=== PATIENT | male | born 1975 ===

== ENCOUNTER 2020-01-31 14:47 | Emergency (ER) | payer MEDICAID, SELFPAY ==
--- NOTE | 2020-01-31 | XR_ITS ---
EXAMINATION: XR CHEST CLINICAL INFORMATION: Asthma and cough. COMPARISON: Chest 09/28/2019 TECHNIQUE: 2 views of the chest were obtained. FINDINGS: The lungs are well-expanded with slight increase interstitial markings but no consolidation or mass seen. Heart size and vascularity is normal. No gross bony abnormality seen. XR/XR chest 2V IMPRESSION: No acute cardiopulmonary process seen.
[2020-01-31 15:12] VITALS: BP 151/97; PULSE 75; RESP 16; TEMP 36.6; O2SAT 98; BMI 25.7
--- NOTE | 2020-01-31 15:27 | ECG_ITS ---
Test Reason : FATIQUE Blood Pressure : / mmHG Vent. Rate : 069 BPM Atrial Rate : 069 BPM P-R Int : 156 ms QRS Dur : 090 ms QT Int : 376 ms P-R-T Axes : 029 014 020 degrees QTc Int : 402 ms Normal sinus rhythm Inferior infarct (cited on or before 28-SEP-2019) Abnormal ECG When compared with ECG of 28-SEP-2019 10:25, ST no longer elevated in Inferior leads ST no longer elevated in Lateral leads Inverted T waves have replaced nonspecific T wave abnormality in Inferior leads Nonspecific T wave abnormality now evident in Anterior leads Referred By: Generic ED Physician Electronically Signed By:KENDRA JACOBS MD
--- NOTE | 2020-01-31 16:10 | ED_ITS ---
HPI - Asthma General Chief Complaint: Asthma Stated Complaint: asthma Time Seen by Provider: 01/31/20 16:10 Source: patient Mode of arrival: ambulatory Limitations: language barrier (Assistant Inventory Manager present) History of Present Illness HPI Narrative: Patient is a 44-year-old male with a past medical history of an [place] approximately 4 months ago and asthma, he is complaining of 1 week of shortness of breath, thinks it is related to his asthma. He does use Advair daily and albuterol as needed, states he used albuterol today with no relief. He denies any COVID contacts or any other sick contacts. 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 Denies fever chills nausea vomiting or any travel. Related Data Previous Rx's Medication Instructions Recorded azithromycin See Rx Instructions .ROUTE 01/31/20 .COMPLEX #6 tab prednisone 50 mg PO DAILY #5 tab 01/31/20 Allergies Allergy/AdvReac Type Severity Reaction Status Date / Time No Known Allergies Allergy Verified 01/31/20 16:07 [No Known Allergies*] Review of Systems Review of Systems: see HPI PMFSH Past Medical History Medical History Asthma GERD (gastroesophageal reflux disease) Myocardial infarct Surgical History History of cardiac cath Social History Social History Advance Directives: No Advance Directives Information Provided: Yes Physical Exam Vital Signs: Vital Signs: Last Vital Signs Temp 98 F 01/31/20 15:12 Pulse 75 01/31/20 15:12 Resp 16 01/31/20 15:12 BP 151/97 H 01/31/20 15:12 Pulse Ox 98 01/31/20 15:12 Body Mass Index 25.7 Const: General: cooperative, healthy appearing, comfortable, no acute distress and well developed Nutritional Appearance: well nourished Orientation/consciousness: patient oriented x3 Limitations: language barrier (interpretor used as Setswana speaking only) HENMT: Head: Yes normal to inspection Eyes: General: appearance normal, both eyes and all related structures Neck: Neck: Yes normal visual inspection, Yes full ROM and Yes supple Resp: Effort & Inspection: normal respiratory effort and able to speak in complete sentences Auscultation: not clear to auscultation bilaterally, crackles, no rales, rhonchi and wheezes Cardio: Rate: regular rate Rhythm: regular rhythm Heart sounds: normal S1 and S2 Skin: General skin exam: no rashes or lesions noted Neuro: General: patient oriented x3 MDM - Asthma MDM Narrative Medical decision making narrative: ? pulmonary edema, asthma exacerbation, PNA, viral illness, pneumothorax. Will do CXR, labs and reassess. Lab Data Result diagrams: 01/31/20 17:13 01/31/20 17:13 Labs: Lab Results 01/31/20 01/31/20 01/31/20 Range/Units 16:22 17:13 17:13 WBC 6.1 (4.8-10.8) X10*3/uL RBC 4.57 L (4.60-5.80) X10*6/uL Hgb 14.2 (14.0-18.0) g/dl Hct 39.9 L (42-52) % MCV 87.3 (80-98) fL MCH 31.1 (27.0-33.0) pg MCHC 35.6 (31.0-36.0) g/dl RDW 11.0 (11.0-16.0) % Plt Count 346 (160-400) X10*3/uL MPV 9.1 L (9.4-12.4) fL Immature Gran % (Auto) 0.2 (0.0-0.4) % Neut % (Auto) 65.1 (45-73) % Lymph % (Auto) 19.0 L (20-40) % [place] % (Auto) 7.2 (2-11) % Eos % (Auto) 8.2 H (0-4) % Baso % (Auto) 0.3 (0-2) % Lymph # (Auto) 1.2 (1.2-4.9) X10*3/uL [place] # (Auto) 0.4 (0.1-1.2) X10*3/uL Eos # (Auto) 0.5 H (0.0-0.4) X10*3/uL Baso # (Auto) 0.0 (0.0-0.2) X10*3/uL Abs Immat Gran (auto) 0.01 (0.00-0.03) X10*3/uL Absolute Neuts (auto) 4.0 (2.0-8.3) X10*3/uL Absolute Nucleated RBC 0.000 (0.0-0.012) X10*3/uL Nucleated RBC % (auto) 0.0 (0.0-0.2) /100WBC Sodium 136 (135-145) mmol/L Potassium 3.8 (3.3-5.1) mmol/l Chloride 102 (96-108) mmol/L Carbon Dioxide 26 (22-29) mmol/L Anion Gap 12 (12-20) BUN 9 (9-16) mg/dL Creatinine 1.04 (0.5-1.4) mg/dL Estim Creat Clear Calc 74.3 Estimated GFR > 60 Random Glucose 97 (60-115) mg/dL Calcium 9.6 (8.4-10.2) mg/dL Magnesium 2.0 (1.6-2.6) mg/dL Troponin I High Sens < 3.5 (<3.5-35.0) ng/L B-Natriuretic Peptide (<100) pg/mL 01/31/20 Range/Units 17:13 WBC (4.8-10.8) X10*3/uL RBC (4.60-5.80) X10*6/uL Hgb (14.0-18.0) g/dl Hct (42-52) % MCV (80-98) fL MCH (27.0-33.0) pg MCHC (31.0-36.0) g/dl RDW (11.0-16.0) % Plt Count (160-400) X10*3/uL MPV (9.4-12.4) fL Immature Gran % (Auto) (0.0-0.4) % Neut % (Auto) (45-73) % Lymph % (Auto) (20-40) % [place] % (Auto) (2-11) % Eos % (Auto) (0-4) % Baso % (Auto) (0-2) % Lymph # (Auto) (1.2-4.9) X10*3/uL [place] # (Auto) (0.1-1.2) X10*3/uL Eos # (Auto) (0.0-0.4) X10*3/uL Baso # (Auto) (0.0-0.2) X10*3/uL Abs Immat Gran (auto) (0.00-0.03) X10*3/uL Absolute Neuts (auto) (2.0-8.3) X10*3/uL Absolute Nucleated RBC (0.0-0.012) X10*3/uL Nucleated RBC % (auto) (0.0-0.2) /100WBC Sodium (135-145) mmol/L Potassium (3.3-5.1) mmol/l Chloride (96-108) mmol/L Carbon Dioxide (22-29) mmol/L Anion Gap (12-20) BUN (9-16) mg/dL Creatinine (0.5-1.4) mg/dL Estim Creat Clear Calc Estimated GFR Random Glucose (60-115) mg/dL Calcium (8.4-10.2) mg/dL Magnesium (1.6-2.6) mg/dL Troponin I High Sens (<3.5-35.0) ng/L B-Natriuretic Peptide < 10 (<100) pg/mL Imaging Data Chest x-ray: Radiologist's impression: FINDINGS: The lungs are well-expanded with slight increase interstitial markings but no consolidation or mass seen. Heart size and vascularity is normal. No gross bony abnormality seen. XR/XR chest 2V IMPRESSION: No acute cardiopulmonary process seen. ECG Data Attestation: I personally reviewed and interpreted this ECG as follows: ECG interpretation date: 01/31/20 ECG interpretation time: 16:35 Prior ECG tracings: available for review Interpretation: NSR 66BPM no st changes Discharge Plan Discharge Clinical Impression: Chronic obstructive asthma with exacerbation Patient Disposition: Home, Self-Care Instructions: Asthma (ED) Prescriptions: New azithromycin 250 mg tablet See Rx Instructions .ROUTE .COMPLEX Qty: 6 RF: 0 prednisone 50 mg tablet 50 mg PO DAILY Qty: 5 RF: 0 Stand Alone Forms: Work/School Release Print Language: Setswana
[2020-01-31 17:00] LABS: Troponin-I High Sensitivity < 3.5 ng/L (<3.5-35.0)
[2020-01-31 17:17] LABS: MANUAL DIFF FLAG NO
[2020-01-31 17:18] LABS: Basophils Percent Auto 0.3 % (0-2); Eosinophils Absolute Auto 0.5 X10*3/uL (0.0-0.4); Eosinophils Percent Auto 8.2 % (0-4); Hematocrit 39.9 % (42-52); Hemoglobin 14.2 g/dl (14.0-18.0); Imm Gran Abs Auto 0.01 X10*3/uL (0.00-0.03); Imm Gran Pct Auto 0.2 % (0.0-0.4); Lymphocytes Absolute Auto 1.2 X10*3/uL (1.2-4.9); Mean Corpuscular HGB Conc 35.6 g/dl (31.0-36.0); Mean Corpuscular Hemoglobin 31.1 pg (27.0-33.0); Mean Corpuscular Volume 87.3 fL (80-98); Mean Platelet Volume 9.1 fL (9.4-12.4); Monocytes Absolute Auto 0.4 X10*3/uL (0.1-1.2); Monocytes Percent Auto 7.2 % (2-11); Neutrophils Percent Auto 65.1 % (45-73); Platelet Count 346 X10*3/uL (160-400); Red Blood Count 4.57 X10*6/uL (4.60-5.80); White Blood Count 6.1 X10*3/uL (4.8-10.8)
[2020-01-31 17:54] LABS: Anion Gap 12 (12-20); Blood Urea Nitrogen 9 mg/dL (9-16); Calcium 9.6 mg/dL (8.4-10.2); Carbon Dioxide 26 mmol/L (22-29); Chloride 102 mmol/L (96-108); Creatinine Clr Calc Pharmacy 74.3; Estimated Glomerular Filt Rate > 60; Glucose Random 97 mg/dL (60-115); Potassium 3.8 mmol/l (3.3-5.1); Sodium 136 mmol/L (135-145)
[2020-01-31 18:00] LABS: B Type Natriuretic Peptide < 10 pg/mL (<100)
[2020-01-31 18:13] VITALS: BP 126/78; PULSE 77; RESP 17; TEMP 36.9; O2SAT 99
--- NOTE | 2020-02-01 07:35 | ECG_ITS ---
Test Reason : ASTHMA, FATIGUE Blood Pressure : / mmHG Vent. Rate : 066 BPM Atrial Rate : 066 BPM P-R Int : 160 ms QRS Dur : 088 ms QT Int : 388 ms P-R-T Axes : 049 038 033 degrees QTc Int : 406 ms Normal sinus rhythm Normal ECG When compared with ECG of 31-JAN-2020 16:12, No significant change was found Referred By: Luis Espinoza Electronically Signed By:KENDRA JACOBS MD
== END 2020-01-31 18:25 | disposition home or self-care (01) ==
PROVIDERS: Physician Assistant; Emergency Provider Emergency Medicine Emergency Medical Services
DX: J44.1 Chronic obstructive pulmonary disease with (acute) exacerbation (principal); Z20.828 Contact with and (suspected) exposure to other viral communicable diseases; J45.909 Unspecified asthma, uncomplicated; Z79.899 Other long term (current) drug therapy
CPT/HCPCS: 36415; 71046; 80048; 83735; 83880; 84484; 85025; 93005; 99283

== ENCOUNTER → 2020-02-13 09:54 | Outpatient (BNVA) | payer MEDICAID, SELFPAY | PROVIDERS: Visit Provider Internal Medicine Cardiovascular Disease | DX: I21.3 ST elevation (STEMI) myocardial infarction of unspecified site (principal); I48.0 Paroxysmal atrial fibrillation | CPT/HCPCS: 99212 ==

== ENCOUNTER 2020-02-24 12:56 | Outpatient (REF) | payer MEDICAID, SELFPAY | END 2020-02-24 12:57 | disposition home or self-care (01) | LOC: HO.LAB 12:56 | PROVIDERS: PCP Nurse Practitioner Family; Visit Provider Internal Medicine | DX: Z20.828 Contact with and (suspected) exposure to other viral communicable diseases (principal) | CPT/HCPCS: C9803; U0003 ==

== ENCOUNTER 2020-04-02 15:28 | Emergency (ER) | payer MEDICAID, SELFPAY ==
[2020-04-02 15:55] VITALS: BP 163/107; PULSE 95; RESP 18; TEMP 36.8; O2SAT 98; BMI 28.0
== END 2020-04-02 17:14 | disposition left against medical advice (07) ==
PROVIDERS: Emergency Provider Emergency Medicine
DX: M25.512 Pain in left shoulder (principal); M54.2 Cervicalgia
CPT/HCPCS: 99281; 99282

== ENCOUNTER 2020-04-15 11:18 | Emergency (ER) | payer MEDICAID, SELFPAY ==
--- NOTE | ~2020-04-15 | CT_ITS ---
EXAMINATION: CT CERVICAL SPINE WITHOUT CONTRAST CLINICAL INFORMATION: Left-sided pain COMPARISON: None TECHNIQUE: Helical imaging of the cervical spine was performed without administration of IV contrast. Coronal and sagittal reformatted images were generated. This CT examination was performed using dose optimization techniques as appropriate, variously including the following: *Automated exposure control *Adjustment of mA and/or kV according to patient size (this includes techniques or standardized protocols for targeted exams where dose is matched to indication/reason for exam; i.e. extremities or head) *Use of iterative reconstruction technique DLP: 600 mGy-cm FINDINGS: There is mild reversal of the normal lordosis of the cervical spine. No acute fracture or dislocation. Vertebral body heights are maintained. Posterior elements are intact. The paravertebral soft tissues are normal. Normal C1-C2 articulation. Spinal levels: C2-C3: Normal. C3-C4: Moderate to severe intervertebral disc space narrowing with anterior and uncovertebral osteophyte formation. There is moderate bilateral neural foraminal narrowing. C4-C5: Moderate intervertebral disc space narrowing with anterior and uncovertebral osteophyte formation. Mild bilateral neural foraminal narrowing. C5-C6: Mild intervertebral disc space narrowing with uncovertebral osteophyte formation. Mild right neural foraminal narrowing.. C6-C7: Mild intervertebral disc space narrowing with endplate sclerosis. Anterior and uncovertebral osteophyte formation. Moderate left foraminal stenosis. C7-T1: Mild intervertebral disc space narrowing. Mild left neuroforaminal narrowing. CT/CT cervical spine wo con IMPRESSION: No acute fracture or dislocation. Multilevel degenerative changes as detailed above, most prominent at C3-C4 with moderate bilateral neuroforaminal narrowing.
[2020-04-15 11:20] VITALS: BP 133/72; PULSE 80; RESP 16; TEMP 36.8; O2SAT 100; BMI 56.7
--- NOTE | 2020-04-15 11:51 | ED_ITS ---
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 patient is on xarelto at this time - he c/o L neck pain x 3.5 weeks that radiates up and down to shoulder exacerbated by movements and work - has not been able to see a provider for this complaint MD Complaint: other (neck and shoulder pain) Onset (ago): week(s) (3) Pain Consistency: constant Location: left Quality: stabbing Radiation: distal Relieving factors: nothing Exacerbating factors: range of motion Associated symptoms: denies other symptoms Related Data Home Medications Medication Instructions Recorded Confirmed atorvastatin 40 mg tablet 40 mg PO DAILY 02/13/20 02/13/20 loratadine 10 mg tablet 10 mg PO DAILY 02/13/20 02/13/20 rivaroxaban 20 mg tablet 20 mg PO DAILY 02/13/20 02/13/20 Previous Rx's Medication Instructions Recorded azithromycin See Rx Instructions .ROUTE 01/31/20 .COMPLEX #6 tab prednisone 50 mg PO DAILY #5 tab 01/31/20 carvedilol 3.125 mg tablet 3.125 mg PO BID 90 Days #180 tab 04/03/20 diazepam [Valium] 5 mg PO TID PRN #10 tab 04/15/20 hydrocodone-acetaminophen 1 tab PO Q6H PRN #12 tab 04/15/20 lidocaine 1 patch TOPICAL DAILY PRN #10 ea 04/15/20 prednisone 40 mg PO DAILY 4 Days #8 tab 04/15/20 Allergies Allergy/AdvReac Type Severity Reaction Status Date / Time No Known Allergies Allergy Verified 01/31/20 16:07 [No Known Allergies*] Review of Systems Review of Systems: Constitutional : No Fever, No Chills ENT/Mouth : No Ear Pain, No Hoarseness, No sore throat, L neck pain Eyes: No Eye Pain, No Swelling, No Redness, No Foreign Body Cardiovascular : No Chest Pain, No SOB Respiratory : No Cough, No Dyspnea Gastrointestinal : No Nausea, No Vomiting, No Diarrhea, No abdominal Pain Genitourinary : No Dysuria, No Hematuria Musculoskeletal : positive joint pain (pain moves from his neck), No Myalgias, No Joint Swelling Skin : No Skin lacerations, No rash Neuro : No Weakness, No Numbness, No Loss of Consciousness, No Dizziness, No Headache Psych : No Anxiety/Panic, No Depression [facility] Past Medical History Medical History Asthma GERD (gastroesophageal reflux disease) Myocardial infarct Surgical History History of cardiac cath Family History Family History (Updated 02/08/20 @ 09:55 by Patricia Vasquez) Father Alzheimers disease Mother Asthma Diabetes Social History Social History Smoking Status: Former smoker Advance Directives: No Advance Directives Information Provided: No Physical Exam Vital Signs: Vital Signs: Last Vital Signs Temp 98.2 F 04/15/20 11:20 Pulse 80 04/15/20 11:20 Resp 16 04/15/20 11:20 BP 133/72 04/15/20 11:20 Pulse Ox 100 04/15/20 11:20 Body Mass Index 56.7 Appearance: Alert. Oriented X3. No acute distress. Eyes: Pupils equal, round and reactive to light. ENT: Pharynx normal. Neck: Spasm L trapezius, L arm NV intact, ttp along L cervical lateral spine no swelling, + Spurlings sign which reproduces pain CVS: Normal heart rate and rhythm. Pulses normal. Respiratory: No respiratory distress. Breath sounds normal. Abdomen: Soft and nontender. Skin: Skin warm and dry. Normal skin color. Normal skin turgor. Extremities: No lower extremity edema. No calf ttp Neuro: Oriented X 3. No motor deficit. No sensory deficit. Course Course Course Narrative: stable for DC at this time MDM - Extremity (Nontraumatic) MDM Narrative Medical decision making narrative: L sided neck pain x 3 weeks seems MSK in nature given symptoms suspect cervical radiculopathy he is NV intact will obtain CT cspine to evaluate for significant DD - PO medications, steroids, pain patch, muscle relaxers, anticipate DC home with PCP follow up Discharge Plan Discharge Clinical Impression: Cervical disc disease, Cervical radiculopathy Patient Disposition: Home, Self-Care Instructions: Cervical Radiculopathy (ED) Additional Instructions: return to ED for any worsening symptoms or concerns CT scan shows disc disease C2-C3: Normal. C3-C4: Moderate to severe intervertebral disc space narrowing with anterior and uncovertebral osteophyte formation. There is moderate bilateral neural foraminal narrowing. C4-C5: Moderate intervertebral disc space narrowing with anterior and uncovertebral osteophyte formation. Mild bilateral neural foraminal narrowing. C5-C6: Mild intervertebral disc space narrowing with uncovertebral osteophyte formation. Mild right neural foraminal narrowing.. C6-C7: Mild intervertebral disc space narrowing with endplate sclerosis. Anterior and uncovertebral osteophyte formation. Moderate left foraminal stenosis. C7-T1: Mild intervertebral disc space narrowing. Mild left neuroforaminal narrowing. Prescriptions: New lidocaine 4 % adhesive patch,medicated 1 patch topical DAILY PRN (Reason: pain) Qty: 10 RF: 0 hydrocodone-acetaminophen 5-325 mg tablet 1 tab PO Q6H PRN (Reason: pain) Qty: 12 RF: 0 prednisone 20 mg tablet 40 mg PO DAILY 4 Days Qty: 8 RF: 0 diazepam [Valium] 5 mg tablet 5 mg PO TID PRN (Reason: muscle spasm) Qty: 10 RF: 0 No Action carvedilol 3.125 mg tablet 3.125 mg PO BID 90 Days Qty: 180 RF: 1 azithromycin 250 mg tablet See Rx Instructions .ROUTE .COMPLEX Qty: 6 RF: 0 prednisone 50 mg tablet 50 mg PO DAILY Qty: 5 RF: 0 atorvastatin 40 mg tablet 40 mg PO DAILY RF: 0 loratadine [Allergy Relief (loratadine)] 10 mg tablet 10 mg PO DAILY RF: 0 Xarelto 20 mg tablet 20 mg PO DAILY RF: 0 Referrals: Physician,Unknown [Primary Care Provider] - 2 days (if not better, may need MRI or PT) Stand Alone Forms: Work/School Release
[2020-04-15] MEDS: Lidocaine 4 % Patch ADH..PATCH 1 PATCH TRANSDERMA (12:59)
[2020-04-15] MEDS: diazePAM 5 MG TABLET PO (13:00)
[2020-04-15] MEDS: predniSONE 20 MG TABLET 60 MG PO (13:00)
== END 2020-04-15 13:13 | disposition home or self-care (01) ==
PROVIDERS: Emergency Provider Emergency Medicine
DX: M50.11 Cervical disc disorder with radiculopathy, high cervical region (principal)
CPT/HCPCS: 72125; 99283; 99284

== ENCOUNTER 2020-04-24 15:19 | Emergency (ER) | payer MEDICAID, SELFPAY ==
[2020-04-24 16:07] VITALS: BP 137/90; PULSE 86; RESP 18; TEMP 36; O2SAT 98; BMI 56.7
== END 2020-04-24 18:03 | disposition left against medical advice (07) ==
PROVIDERS: Emergency Provider Emergency Medicine
DX: R42 Dizziness and giddiness (principal); S09.90XA Unspecified injury of head, initial encounter; X58.XXXA Exposure to other specified factors, initial encounter; I48.91 Unspecified atrial fibrillation; I25.2 Old myocardial infarction; Y93.9 Activity, unspecified; Y92.9 Unspecified place or not applicable; Y99.9 Unspecified external cause status; Z79.01 Long term (current) use of anticoagulants
CPT/HCPCS: 99281; 99282

== ENCOUNTER 2020-05-29 15:19 | Outpatient (REF) | payer MEDICAID, SELFPAY | END 2020-05-29 15:20 | disposition home or self-care (01) | LOC: HO.LAB 15:19 | PROVIDERS: Visit Provider Internal Medicine | DX: Z20.822 Contact with and (suspected) exposure to COVID-19 (principal) | CPT/HCPCS: 36415; C9803; U0003; U0005 ==

== ENCOUNTER → 2020-08-20 13:26 | Outpatient (BNVA) | payer MEDICAID, SELFPAY | PROVIDERS: PCP Nurse Practitioner Family; Referring Provider Nurse Practitioner Family; Visit Provider Internal Medicine Cardiovascular Disease | DX: I21.3 ST elevation (STEMI) myocardial infarction of unspecified site (principal); I48.0 Paroxysmal atrial fibrillation; Z79.899 Other long term (current) drug therapy | CPT/HCPCS: 99212 ==

== ENCOUNTER 2020-09-19 11:13 | Emergency (ER) | payer MEDICAID, SELFPAY ==
--- NOTE | ~2020-09-19 | XR_ITS ---
EXAMINATION: XR CHEST CLINICAL INFORMATION: SOB. COMPARISON: Chest x-ray 01/31/2020 TECHNIQUE: Frontal view of the chest was obtained. FINDINGS: The lungs are well-expanded and clear. There is a 7 mm nodule right middle lobe. The heart size and pulmonary vascularity is normal. No gross bony abnormality seen. XR/XR chest 1V IMPRESSION: 7 mm nodule right middle lobe. Otherwise the lungs are well-expanded and clear.
[2020-09-19 11:29] VITALS: BP 118/80; PULSE 78; RESP 18; TEMP 36.6; O2SAT 97; BMI 25.7
[2020-09-19 13:08] VITALS: BP 132/99; PULSE 75; RESP 16; O2SAT 99
--- NOTE | 2020-09-19 13:14 | ED_ITS ---
HPI - Asthma General Chief Complaint: Asthma Stated Complaint: difficulty breathing, cough Time Seen by Provider: 09/19/20 13:12 Source: patient Mode of arrival: ambulatory Limitations: no limitations History of Present Illness HPI Narrative: 45-year-old male with history of asthma came in from work for evaluation of 3 days of cough, describes the cough as mostly nonproductive cough with scant of white sputum sometimes, no fever, no chills. 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 Related Data Home Medications Medication Instructions Recorded Confirmed loratadine 10 mg tablet 10 mg PO DAILY 02/13/20 02/13/20 Previous Rx's Medication Instructions Recorded azithromycin See Rx Instructions .ROUTE 01/31/20 .COMPLEX #6 tab prednisone 50 mg PO DAILY #5 tab 01/31/20 diazepam [Valium] 5 mg PO TID PRN #10 tab 04/15/20 hydrocodone-acetaminophen 1 tab PO Q6H PRN #12 tab 04/15/20 lidocaine 1 patch TOPICAL DAILY PRN #10 ea 04/15/20 prednisone 40 mg PO DAILY 4 Days #8 tab 04/15/20 carvedilol 3.125 mg tablet 3.125 mg PO BID 90 Days #180 tab 04/16/20 rivaroxaban 20 mg tablet 20 mg PO DAILY 90 Days #90 tab 04/16/20 atorvastatin 40 mg tablet 40 mg PO DAILY 90 Days #90 tab 05/03/20 albuterol sulfate 1 inh INHALATION QID PRN #8.5 g 09/19/20 prednisone 20 mg PO BID #10 tab 09/19/20 Allergies Allergy/AdvReac Type Severity Reaction Status Date / Time No Known Allergies Allergy Verified 04/24/20 16:06 [No Known Allergies*] Review of Systems Review of Systems: All other systems are reviewed and are negative Constitutional: Reports as per HPI and Reports no additional constitutional complaints Eyes: Reports as per HPI and Reports no additional eye complaints Reports system reviewed and no additional complaints, except as documented Cardiovascular: Reports as per HPI and Reports no additional cardiovascular complaints Respiratory: Reports as per HPI and Reports no additional respiratory complaints Gastrointestinal: Reports as per HPI and Reports no additional gastrointestinal complaints Genitourinary: Reports no additional female genitourinary complaints Musculoskeletal: Reports no additional musculoskeletal complaints Skin/Breast: Reports system reviewed and no additional complaints, except as docu Psychiatric: Reports no additional psychiatric complaints Endocrine: Reports no additional endocrine complaints Hematologic/Lymphatic: Reports no additional hematologic/lymphatic complaints Allergic/Immunologic: Reports no additional allergic/immunologic complaints Reports system reviewed and no additional complaints, except as documented and Reports Abnormal speech present [facility] Past Medical History Medical History Asthma GERD (gastroesophageal reflux disease) Myocardial infarct Surgical History History of cardiac cath Family History Family History Father Alzheimers disease Mother Asthma Diabetes Social History Social History Advance Directives: Yes Advance Directives Information Provided: Yes Advance Directives on File: No Physical Exam Vital Signs: Vital Signs: Last Vital Signs Temp 97.9 F 09/19/20 11:29 Pulse 67 09/19/20 13:32 Resp 16 09/19/20 13:08 BP 132/99 H 09/19/20 13:08 Pulse Ox 99 09/19/20 13:08 Body Mass Index 25.7 Vital signs have been reviewed as appeared to be correct. Blood pressure normal. Heart rate normal. Respiration rate normal. Temperature normal. Oxygen saturation normal. Appearance: Alert. Oriented X3. No acute distress. Head: Normal external exam. Normocephalic. Atraumatic. No Swanson signs noted. No raccoon eyes noted Eyes: PERRLA. EOMI. Conjunctiva and sclera normal. Eyelids normal. ENT: TM's Normal. Pharynx normal. Uvula midline. Moist mucous membranes. No trismus noted. No drooling noted. No muffled voice noted. Neck: Normal inspection. Neck supple. FROM. No adenopathy. Thyroid Normal. No meningeal signs. No neck mass noted. CVS: Normal heart rate and rhythm. Heart sound normal. No murmurs noted. Pulses normal throughout. Respiratory: No respiratory distress. Painless inspiration. Breath sounds normal. Diffuse mild expiratory wheezing, no rales, or rhonchi noted. Chest nontender. No accessory muscle usage noted or decreased air movement noted. Abdomen: Soft and nontender. Bowel sounds normal in all 4 quadrants. No distention noted. No organomegaly noted. No visible injury noted. Back: No CVA tenderness. Full range of motion noted. Skin: Skin warm and dry. Normal skin color. Normal skin turgor. No rashes/lesions/lacerations noted. Extremities: No lower extremity edema. Extremities exhibit normal range of motion. Extremities nontender. Neuro: Oriented X 3. No motor deficit. No sensory deficit. Reflexes normal. Course Course Course Narrative: Assessment and plan. Acute asthma exacerbation start the patient on albuterol/prednisone. Low back pain with left-sided sciatica. As discussed with the patient need bedrest for couple days. MDM - Asthma Lab Data Labs: Lab Results 09/19/20 Range/Units 13:15 COVID-19 ([facility]) Negative (Negative) COVID-19 Clin Com See Note Imaging Data Chest x-ray: Radiologist's impression: 7 mm nodule right middle lobe. Otherwise the lungs are well-expanded and clear. Discharge Plan Discharge Clinical Impression: Acute left lumbar radiculopathy Asthma with acute exacerbation Qualifiers: Asthma severity: mild Asthma persistence: unspecified Qualified Code(s): J45.901 - Unspecified asthma with (acute) exacerbation Patient Disposition: Home, Self-Care Instructions: Bronchospasm (ED) Prescriptions: New albuterol sulfate 90 mcg/actuation HFA aerosol inhaler 1 inh inhalation QID PRN (Reason: shortness of breath or wheezing) Qty: 8.5 RF: 0 prednisone 20 mg tablet 20 mg PO BID Qty: 10 RF: 0 No Action Xarelto 20 mg tablet 20 mg PO DAILY 90 Days Qty: 90 RF: 1 carvedilol 3.125 mg tablet 3.125 mg PO BID 90 Days Qty: 180 RF: 1 atorvastatin 40 mg tablet 40 mg PO DAILY 90 Days Qty: 90 RF: 1 lidocaine 4 % adhesive patch,medicated 1 patch topical DAILY PRN (Reason: pain) Qty: 10 RF: 0 hydrocodone-acetaminophen 5-325 mg tablet 1 tab PO Q6H PRN (Reason: pain) Qty: 12 RF: 0 prednisone 20 mg tablet 40 mg PO DAILY 4 Days Qty: 8 RF: 0 diazepam [Valium] 5 mg tablet 5 mg PO TID PRN (Reason: muscle spasm) Qty: 10 RF: 0 azithromycin 250 mg tablet See Rx Instructions .ROUTE .COMPLEX Qty: 6 RF: 0 prednisone 50 mg tablet 50 mg PO DAILY Qty: 5 RF: 0 loratadine [Allergy Relief (loratadine)] 10 mg tablet 10 mg PO DAILY RF: 0 Referrals: Christina Nunn NP [Primary Care Provider] - 2 days Stand Alone Forms: Work/School Release
[2020-09-19] MEDS: Albuterol Sulfate (0.083%) 2.5 MG/3 ML VIAL.NEB INHALE (13:31)
[2020-09-19] MEDS: Albuterol/Iprat 2.5/0.5MG 3 ML AMPUL.NEB INHALE (13:31)
[2020-09-19 13:32] VITALS: PULSE 67; O2SAT 98
[2020-09-19 13:38] LABS: COVID-19 Test Negative (Negative)
== END 2020-09-19 15:01 | disposition home or self-care (01) ==
PROVIDERS: Emergency Provider Emergency Medicine; PCP Nurse Practitioner Family
DX: M54.16 Radiculopathy, lumbar region (principal); J45.901 Unspecified asthma with (acute) exacerbation; R06.02 Shortness of breath; R05 Cough; Z20.822 Contact with and (suspected) exposure to COVID-19; Z79.899 Other long term (current) drug therapy
CPT/HCPCS: 36415; 71045; 87635; 94640; 99284

== ENCOUNTER 2020-11-04 22:55 | Emergency (ER) | payer MEDICAID, SELFPAY ==
--- NOTE | ~2020-11-04 | XR_ITS ---
EXAMINATION: XR CHEST CLINICAL INFORMATION: Dyspnea, asthma COMPARISON: 09/19/2020 TECHNIQUE: 2 views of the chest were obtained. FINDINGS: There is central perihilar bronchial wall thickening consistent with history of asthma. No focal consolidation to suggest pneumonia. No pleural effusion or pneumothorax. Normal pulmonary vascularity. Regional skeleton intact. Normal heart size. XR/XR chest 2V IMPRESSION: Central perihilar bronchial wall thickening consistent with history of asthma. No focal consolidation to suggest pneumonia.
[2020-11-04 23:14] VITALS: BP 124/84; PULSE 73; RESP 20; TEMP 37; O2SAT 97; BMI 25.7
[2020-11-04 23:41] VITALS: BP 117/90; PULSE 67; RESP 15; O2SAT 97
[2020-11-04 23:41] LABS: COVID-19 Test Negative (Negative); IDNOW Serial# 9DD0AD1C
--- NOTE | 2020-11-04 23:50 | ED.ASTHMA ---
HPI - Asthma General Chief Complaint: Asthma Stated Complaint: asthma Time Seen by Provider: 11/04/20 23:50 Source: patient Mode of arrival: ambulatory Limitations: no limitations History of Present Illness HPI Narrative: History of asthma been feeling more short of breath for last 2 days using inhaler without much relief no fever no chills no contact with anyone with COVID patient already been vaccinated Related Data Home Medications Medication Instructions Recorded Confirmed loratadine 10 mg tablet (Allergy 10 mg PO DAILY 02/13/20 02/13/20 Relief (loratadine)) Previous Rx's Medication Instructions Recorded azithromycin 250 mg tablet See Rx Instructions .ROUTE 01/31/20 .COMPLEX #6 tab prednisone 50 mg tablet 50 mg PO DAILY #5 tab 01/31/20 diazepam 5 mg tablet (Valium) 5 mg PO TID PRN #10 tab 04/15/20 hydrocodone 5 mg-acetaminophen 325 1 tab PO Q6H PRN #12 tab 04/15/20 mg tablet lidocaine 4 % topical patch 1 patch TOPICAL DAILY PRN #10 ea 04/15/20 prednisone 20 mg tablet 40 mg PO DAILY 4 Days #8 tab 04/15/20 carvedilol 3.125 mg tablet 3.125 mg PO BID 90 Days #180 tab 04/16/20 atorvastatin 40 mg tablet 40 mg PO DAILY 90 Days #90 tab 05/03/20 albuterol sulfate 90 mcg/actuation 1 inh INHALATION QID PRN #8.5 g 09/19/20 aerosol inhaler prednisone 20 mg tablet 20 mg PO BID #10 tab 09/19/20 rivaroxaban 20 mg tablet (Xarelto) 20 mg PO DAILY 90 Days #90 tab 11/02/20 albuterol sulfate 90 mcg/actuation 2 puff INHALATION Q4-6H PRN #8.5 g 11/05/20 aerosol inhaler (ProAir HFA) benzonatate 100 mg capsule 100 mg PO TID PRN #30 cap 11/05/20 (Tessalon Perles) prednisone 20 mg tablet 40 mg PO DAILY #10 tab 11/05/20 Allergies Allergy/AdvReac Type Severity Reaction Status Date / Time No Known Allergies Allergy Verified 11/04/20 23:13 [No Known Allergies*] Review of Systems Review of Systems: Yes all other systems are reviewed and are negative PMFSH Past Medical History Medical History Asthma GERD (gastroesophageal reflux disease) Myocardial infarct Surgical History History of cardiac cath Family History Family History Father Alzheimers disease Mother Asthma Diabetes Social History Social History Patient Tobacco Use Status: Former Tobacco user Use of substances other than those prescribed or required for medical reasons: No Advance Directives: No Advance Directives Information Provided: Yes Physical Exam Vital Signs: Vital Signs: Last Vital Signs Temp 98.6 F 11/04/20 23:14 Pulse 73 11/05/20 00:29 Resp 15 11/04/20 23:41 BP 117/90 H 11/04/20 23:41 Pulse Ox 97 11/04/20 23:41 Body Mass Index 25.7 Appearance: Alert. Oriented X3. No acute distress. ENT: Pharynx normal. Oral Mucosa moist Neck: Normal inspection. Neck supple. CVS: Normal heart rate and rhythm. Pulses normal. Respiratory: mild respiratory distress. Equal air entry bilateral, bilateral wheezing and rhonchi no rales Abdomen: Soft and nontender. Bowel sounds are present, no mass palpable, no CVA tenderness Skin: Skin warm and dry. Normal skin color. Normal skin turgor. Extremities: No lower extremity edema. No calf tenderness Neuro: Oriented X 3. MDM - Asthma MDM Narrative Medical decision making narrative: Patient feeling better after nebulizing treatment saturating 97% on room air will discharge patient home Lab Data Attestation: I reviewed the patient's lab results. Labs: Lab Results 11/04/20 Range/Units 23:20 COVID-19 ([facility]) Negative (Negative) COVID-19 Clin Com See Note Discharge Plan Discharge Clinical Impression: Asthma with acute exacerbation Qualifiers: Asthma severity: moderate Asthma persistence: persistent Qualified Code(s): J45.41 - Moderate persistent asthma with (acute) exacerbation Patient Disposition: Home, Self-Care Instructions: Asthma (ED) Additional Instructions: Continue to use albuterolinhaler every 4-6 hours as needed Prednisone as advised Follow with PCP if not better Prescriptions: New prednisone 20 mg tablet 40 mg PO DAILY Qty: 10 RF: 0 albuterol sulfate [ProAir HFA] 90 mcg/actuation HFA aerosol inhaler 2 puff inhalation Q4-6H PRN (Reason: shortness of breath or wheezing) Qty: 8.5 RF: 0 benzonatate [Tessalon Perles] 100 mg capsule 100 mg PO TID PRN (Reason: cough) Qty: 30 RF: 0 No Action carvedilol 3.125 mg tablet 3.125 mg PO BID 90 Days Qty: 180 RF: 1 atorvastatin 40 mg tablet 40 mg PO DAILY 90 Days Qty: 90 RF: 1 Xarelto 20 mg tablet 20 mg PO DAILY 90 Days Qty: 90 RF: 1 lidocaine 4 % adhesive patch,medicated 1 patch topical DAILY PRN (Reason: pain) Qty: 10 RF: 0 hydrocodone-acetaminophen 5-325 mg tablet 1 tab PO Q6H PRN (Reason: pain) Qty: 12 RF: 0 prednisone 20 mg tablet 40 mg PO DAILY 4 Days Qty: 8 RF: 0 diazepam [Valium] 5 mg tablet 5 mg PO TID PRN (Reason: muscle spasm) Qty: 10 RF: 0 azithromycin 250 mg tablet See Rx Instructions .ROUTE .COMPLEX Qty: 6 RF: 0 prednisone 50 mg tablet 50 mg PO DAILY Qty: 5 RF: 0 albuterol sulfate 90 mcg/actuation HFA aerosol inhaler 1 inh inhalation QID PRN (Reason: shortness of breath or wheezing) Qty: 8.5 RF: 0 prednisone 20 mg tablet 20 mg PO BID Qty: 10 RF: 0 loratadine [Allergy Relief (loratadine)] 10 mg tablet 10 mg PO DAILY RF: 0
[2020-11-05] MEDS: Albuterol Sulfate (0.083%) 2.5 MG/3 ML VIAL.NEB 5 MG INHALE (00:26)
[2020-11-05] MEDS: Albuterol/Iprat 2.5/0.5MG 3 ML AMPUL.NEB INHALE (00:28)
[2020-11-05 00:29] VITALS: PULSE 73; O2SAT 99
[2020-11-05] MEDS: predniSONE 20 MG TABLET 60 MG PO (00:42)
[2020-11-05] MEDS: guaiFEN/Codeine SF 200/20/10ML 10 ML LIQUID PO (00:42)
== END 2020-11-05 01:15 | disposition home or self-care (01) ==
PROVIDERS: Emergency Provider Internal Medicine
DX: J45.41 Moderate persistent asthma with (acute) exacerbation (principal); Z20.822 Contact with and (suspected) exposure to COVID-19; Z79.899 Other long term (current) drug therapy; Z87.891 Personal history of nicotine dependence
CPT/HCPCS: 36415; 71046; 87635; 94640; 94644; 99284

== ENCOUNTER 2021-01-14 08:04 | Emergency (ER) | payer MEDICAID, SELFPAY ==
[2021-01-14 08:23] VITALS: BP 119/80; PULSE 70; RESP 17; TEMP 36.1; O2SAT 98; BMI 25.7
--- NOTE | 2021-01-14 08:53 | ED.EXTPRO ---
HPI - Extremity Problem General Chief complaint: Extremity Problem Stated complaint: fungus on feet Time Seen by Provider: 01/14/21 08:52 Source: patient Mode of arrival: ambulatory History of Present Illness HPI Narrative: 45-year-old male presenting to the ED complaining bilateral foot pruritus and pain x1 month. Has been using topical antifungal x1 week without relief. Denies fever, chills Complaint: extremity pain Onset (ago): month(s) Related Data Home Medications Medication Instructions Recorded Confirmed loratadine 10 mg tablet (Allergy 10 mg PO DAILY 02/13/20 02/13/20 Relief (loratadine)) Previous Rx's Medication Instructions Recorded azithromycin 250 mg tablet See Rx Instructions .ROUTE 01/31/20 .COMPLEX #6 tab prednisone 50 mg tablet 50 mg PO DAILY #5 tab 01/31/20 diazepam 5 mg tablet (Valium) 5 mg PO TID PRN #10 tab 04/15/20 hydrocodone 5 mg-acetaminophen 325 1 tab PO Q6H PRN #12 tab 04/15/20 mg tablet lidocaine 4 % topical patch 1 patch TOPICAL DAILY PRN #10 ea 04/15/20 prednisone 20 mg tablet 40 mg PO DAILY 4 Days #8 tab 04/15/20 atorvastatin 40 mg tablet 40 mg PO DAILY 90 Days #90 tab 05/03/20 albuterol sulfate 90 mcg/actuation 1 inh INHALATION QID PRN #8.5 g 09/19/20 aerosol inhaler prednisone 20 mg tablet 20 mg PO BID #10 tab 09/19/20 rivaroxaban 20 mg tablet (Xarelto) 20 mg PO DAILY 90 Days #90 tab 11/02/20 albuterol sulfate 90 mcg/actuation 2 puff INHALATION Q4-6H PRN #8.5 g 11/05/20 aerosol inhaler (ProAir HFA) benzonatate 100 mg capsule 100 mg PO TID PRN #30 cap 11/05/20 (Tessalon Perles) prednisone 20 mg tablet 40 mg PO DAILY #10 tab 11/05/20 carvedilol 3.125 mg tablet 3.125 mg PO BID 90 Days #180 tab 11/19/20 clotrimazole 1 % topical cream 1 appl TOPICAL BID 28 Days g 01/14/21 Allergies Allergy/AdvReac Type Severity Reaction Status Date / Time No Known Allergies Allergy Verified 11/04/20 23:13 [No Known Allergies*] Review of Systems Review of Systems: Constitutional: No Fever, No Chills ENT/Mouth: No Ear Pain, No sore throat, No Swallowing Difficulty Cardiovascular: No Chest Pain, No SOB Respiratory: No Cough Gastrointestinal: No Nausea, No Vomiting, No Constipation, No Abdominal pain Musculoskeletal: No joint pain, No Myalgias, No Joint Swelling Skin: + Skin Lesions, No rash Neuro: No Weakness, No Numbness, No Paresthesias Yes all other systems are reviewed and are negative [facility], [facility] Past Medical History Attestation statement: The following information was validated with the patient. Medical History Asthma GERD (gastroesophageal reflux disease) Myocardial infarct Surgical History History of cardiac cath Family History Family History Father Alzheimers disease Mother Asthma Diabetes Social History Social History Patient Tobacco Use Status: Former Tobacco user Advance Directives: No Advance Directives Information Provided: No Physical Exam Vital Signs: Vital Signs: Last Vital Signs Temp 96.9 F 01/14/21 08:23 Pulse 70 01/14/21 08:23 Resp 17 01/14/21 08:23 BP 119/80 01/14/21 08:23 Pulse Ox 98 01/14/21 08:23 Body Mass Index 25.7 Const: General: cooperative and healthy appearing Orientation/consciousness: patient oriented x3 Limitations: no limitations HENMT: Head: Yes normal to inspection Ears: hearing grossly normal bilaterally General nose exam: Normal external nose present Face and sinus: Yes normal facial exam Eyes: General: appearance normal, both eyes and all related structures EOM: EOMs intact bilaterally Neck: Neck: Yes normal visual inspection Resp: Effort & Inspection: normal respiratory effort, no respiratory distress and no stridor Cardio: Rate: regular rate Heart sounds: S1 normal heart sound present and S2 normal heart sound present Peripheral pulses: dorsalis pedis present Skin: Other: Plaque-like/cracked tinea noted to bilateral feet, between toes & to lateral aspect 5th metatarsal. No erythema/function/induration or drainage. Wounds: no wounds Neuro: General: patient oriented x3 Gait exam (Neuro): Normal gait present Extrem: General: Yes normal to inspection MDM - Extremity (Nontraumatic) MDM Narrative Medical decision making narrative: 45-year-old male presenting to the ED complaining bilateral foot pruritus and pain x1 month. On exam vital signs stable, NAD, physical exam consistent with tinea pedis. 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 Prescriptions: New clotrimazole 1 % cream 1 appl topical BID 28 Days RF: 0 No Action atorvastatin 40 mg tablet 40 mg PO DAILY 90 Days Qty: 90 RF: 1 Xarelto 20 mg tablet 20 mg PO DAILY 90 Days Qty: 90 RF: 1 carvedilol 3.125 mg tablet 3.125 mg PO BID 90 Days Qty: 180 RF: 1 lidocaine 4 % adhesive patch,medicated 1 patch topical DAILY PRN (Reason: pain) Qty: 10 RF: 0 hydrocodone-acetaminophen 5-325 mg tablet 1 tab PO Q6H PRN (Reason: pain) Qty: 12 RF: 0 prednisone 20 mg tablet 40 mg PO DAILY 4 Days Qty: 8 RF: 0 diazepam [Valium] 5 mg tablet 5 mg PO TID PRN (Reason: muscle spasm) Qty: 10 RF: 0 prednisone 20 mg tablet 40 mg PO DAILY Qty: 10 RF: 0 albuterol sulfate [ProAir HFA] 90 mcg/actuation HFA aerosol inhaler 2 puff inhalation Q4-6H PRN (Reason: shortness of breath or wheezing) Qty: 8.5 RF: 0 benzonatate [Tessalon Perles] 100 mg capsule 100 mg PO TID PRN (Reason: cough) Qty: 30 RF: 0 azithromycin 250 mg tablet See Rx Instructions .ROUTE .COMPLEX Qty: 6 RF: 0 prednisone 50 mg tablet 50 mg PO DAILY Qty: 5 RF: 0 albuterol sulfate 90 mcg/actuation HFA aerosol inhaler 1 inh inhalation QID PRN (Reason: shortness of breath or wheezing) Qty: 8.5 RF: 0 prednisone 20 mg tablet 20 mg PO BID Qty: 10 RF: 0 loratadine [Allergy Relief (loratadine)] 10 mg tablet 10 mg PO DAILY RF: 0 Referrals: Sukhdeep Jang MD [Physician] - 2 days Gorge Jang DPM [Physician] - 2 days Stand Alone Forms: Work/School Release Interventions: ED Discharge Assessment Last Done: 01/14/21 09:07
== END 2021-01-14 09:07 | disposition home or self-care (01) ==
PROVIDERS: Emergency Provider Emergency Medicine Emergency Medical Services; PCP Nurse Practitioner Family
DX: B35.3 Tinea pedis (principal); M79.672 Pain in left foot; M79.671 Pain in right foot; Z79.899 Other long term (current) drug therapy; Z87.891 Personal history of nicotine dependence
CPT/HCPCS: 99283

== ENCOUNTER 2021-01-22 19:32 | Emergency (ER) | payer MEDICAID, SELFPAY ==
[2021-01-22 19:39] VITALS: BP 146/91; PULSE 102; RESP 16; TEMP 36.7; O2SAT 98; BMI 25.7
--- NOTE | 2021-01-22 21:19 | ED.NECK ---
HPI - Neck Pain/Injury General Chief Complaint: Neck Pain/Injury Stated Complaint: shoulder pain Time Seen by Provider: 01/22/21 21:13 History of Present Illness HPI Narrative: Patient complains of right-sided neck pain shooting into his right shoulder and upper arm after a lifting injury at work 3 days ago Related Data Home Medications Medication Instructions Recorded Confirmed loratadine 10 mg tablet (Allergy 10 mg PO DAILY 02/13/20 02/13/20 Relief (loratadine)) Previous Rx's Medication Instructions Recorded azithromycin 250 mg tablet See Rx Instructions .ROUTE 01/31/20 .COMPLEX #6 tab prednisone 50 mg tablet 50 mg PO DAILY #5 tab 01/31/20 diazepam 5 mg tablet (Valium) 5 mg PO TID PRN #10 tab 04/15/20 hydrocodone 5 mg-acetaminophen 325 1 tab PO Q6H PRN #12 tab 04/15/20 mg tablet lidocaine 4 % topical patch 1 patch TOPICAL DAILY PRN #10 ea 04/15/20 prednisone 20 mg tablet 40 mg PO DAILY 4 Days #8 tab 04/15/20 atorvastatin 40 mg tablet 40 mg PO DAILY 90 Days #90 tab 05/03/20 albuterol sulfate 90 mcg/actuation 1 inh INHALATION QID PRN #8.5 g 09/19/20 aerosol inhaler prednisone 20 mg tablet 20 mg PO BID #10 tab 09/19/20 rivaroxaban 20 mg tablet (Xarelto) 20 mg PO DAILY 90 Days #90 tab 11/02/20 albuterol sulfate 90 mcg/actuation 2 puff INHALATION Q4-6H PRN #8.5 g 11/05/20 aerosol inhaler (ProAir HFA) benzonatate 100 mg capsule 100 mg PO TID PRN #30 cap 11/05/20 (Tessalon Vipin) prednisone 20 mg tablet 40 mg PO DAILY #10 tab 11/05/20 carvedilol 3.125 mg tablet 3.125 mg PO BID 90 Days #180 tab 11/19/20 clotrimazole 1 % topical cream 1 appl TOPICAL BID 28 Days g 01/14/21 acetaminophen 500 mg tablet 1,000 mg PO QID PRN #20 tab 01/22/21 cyclobenzaprine 5 mg tablet 5 mg PO TID PRN #10 tab 01/22/21 oxycodone 5 mg tablet 5 mg PO Q6H PRN #10 tab 01/22/21 prednisone 20 mg tablet 60 mg PO DAILY 4 Days #12 tab 01/22/21 oxycodone 5 mg tablet 5 mg PO Q6H PRN 3 Days #9 tab 01/23/21 Allergies Allergy/AdvReac Type Severity Reaction Status Date / Time No Known Allergies Allergy Verified 11/04/20 23:13 [No Known Allergies*] Review of Systems Review of Systems: Positive for right-sided neck pain Negatives are no fever no chills no dizziness no weakness no headache no numbness weakness or tingling no back pain Yes all other systems are reviewed and are negative [facility] Past Medical History Source: nursing notes reviewed Medical History Asthma GERD (gastroesophageal reflux disease) Myocardial infarct Surgical History History of cardiac cath Family History Family History Father Alzheimers disease Mother Asthma Diabetes Social History Social History Patient Tobacco Use Status: Former Tobacco user Advance Directives: No Advance Directives Information Provided: No Physical Exam Vital Signs: Vital Signs: Last Vital Signs Temp 98.1 F 01/22/21 19:39 Pulse 102 H 01/22/21 19:39 Resp 16 01/22/21 19:39 BP 146/91 H 01/22/21 19:39 Pulse Ox 98 01/22/21 19:39 Body Mass Index 25.7 General appearance no acute distress Head is normocephalic atraumatic The neck is supple but there is tenderness to right side of neck and right trapezius there is no midline neck tenderness The chest is clear to auscultation bilateral Respiratory no distress there is no chest wall tenderness Extremities full range of motion x4 including right shoulder The right arm is neurovascular intact with normal symmetric sensation and 5/5 dynamometer 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 engine strength which is symmetrical with the left Skin no rashes Neuro no focal deficits of motor or sensation Course Course Course Narrative: Patient with muscle strain in the right side of the neck with no neurologic deficits is discharged to follow with work connection Discharge Plan Discharge Clinical Impression: Neck pain, Neck strain Patient Disposition: Home, Self-Care Additional Instructions: Follow with work connection for work related injury from lifting Return any concerns Prescriptions: New oxycodone 5 mg tablet 5 mg PO Q6H PRN (Reason: pain) Qty: 10 RF: 0 acetaminophen 500 mg tablet 1,000 mg PO QID PRN (Reason: pain) Qty: 20 RF: 0 cyclobenzaprine 5 mg tablet 5 mg PO TID PRN (Reason: muscle spasm) Qty: 10 RF: 0 prednisone 20 mg tablet 60 mg PO DAILY 4 Days Qty: 12 RF: 0 oxycodone 5 mg tablet 5 mg PO Q6H PRN (Reason: pain, severe) 3 Days Qty: 9 RF: 0 No Action atorvastatin 40 mg tablet 40 mg PO DAILY 90 Days Qty: 90 RF: 1 Xarelto 20 mg tablet 20 mg PO DAILY 90 Days Qty: 90 RF: 1 carvedilol 3.125 mg tablet 3.125 mg PO BID 90 Days Qty: 180 RF: 1 lidocaine 4 % adhesive patch,medicated 1 patch topical DAILY PRN (Reason: pain) Qty: 10 RF: 0 hydrocodone-acetaminophen 5-325 mg tablet 1 tab PO Q6H PRN (Reason: pain) Qty: 12 RF: 0 prednisone 20 mg tablet 40 mg PO DAILY 4 Days Qty: 8 RF: 0 diazepam [Valium] 5 mg tablet 5 mg PO TID PRN (Reason: muscle spasm) Qty: 10 RF: 0 prednisone 20 mg tablet 40 mg PO DAILY Qty: 10 RF: 0 albuterol sulfate [ProAir HFA] 90 mcg/actuation HFA aerosol inhaler 2 puff inhalation Q4-6H PRN (Reason: shortness of breath or wheezing) Qty: 8.5 RF: 0 benzonatate [Tessalon Perles] 100 mg capsule 100 mg PO TID PRN (Reason: cough) Qty: 30 RF: 0 azithromycin 250 mg tablet See Rx Instructions .ROUTE .COMPLEX Qty: 6 RF: 0 prednisone 50 mg tablet 50 mg PO DAILY Qty: 5 RF: 0 albuterol sulfate 90 mcg/actuation HFA aerosol inhaler 1 inh inhalation QID PRN (Reason: shortness of breath or wheezing) Qty: 8.5 RF: 0 prednisone 20 mg tablet 20 mg PO BID Qty: 10 RF: 0 clotrimazole 1 % cream 1 appl topical BID 28 Days RF: 0 loratadine [Allergy Relief (loratadine)] 10 mg tablet 10 mg PO DAILY RF: 0 Referrals: [facility] [Provider Group] - 2 days (Patient with neck and shoulder pain after lifting injury at work) Stand Alone Forms: Work/School Release Interventions: ED Discharge Assessment Last Done: 01/22/21 21:45 Discharge Date/Time: 01/22/21 21:48
== END 2021-01-22 21:48 | disposition home or self-care (01) ==
PROVIDERS: Emergency Provider Emergency Medicine; PCP Nurse Practitioner Family
DX: M54.2 Cervicalgia (principal); Z79.899 Other long term (current) drug therapy
CPT/HCPCS: 99283

== ENCOUNTER 2021-02-28 09:29 | Emergency (ER) | payer MEDICAID, SELFPAY ==
[2021-02-28 09:35] VITALS: BP 146/92; PULSE 76; RESP 18; TEMP 36.6; O2SAT 98; BMI 25.7
--- NOTE | 2021-02-28 10:06 | ED_ITS ---
HPI - Extremity Problem General Chief complaint: Extremity Injury, Upper Stated complaint: shoulder pain Time Seen by Provider: 02/28/21 10:06 Source: patient Limitations: no limitations and language barrier History of Present Illness HPI Narrative: Patient returns with right-sided neck pain extending to the right shoulder. Patient was evaluated in early January for similar symptoms at that time. Will page the outreach consultant at this time to get a more detailed history. Patient has a known history of cervical disc disease. Patient has a planned follow-up with specialist in March. Patient states pain increases at nighttime. Patient denies any new or recent trauma to the neck. Pain is 6/10 increases with range of motion. No other complaints at this time. Related Data Home Medications Medication Instructions Recorded Confirmed loratadine 10 mg tablet (Allergy 10 mg PO DAILY 02/13/20 02/13/20 Relief (loratadine)) Previous Rx's Medication Instructions Recorded azithromycin 250 mg tablet See Rx Instructions .ROUTE 01/31/20 .COMPLEX #6 tab prednisone 50 mg tablet 50 mg PO DAILY #5 tab 01/31/20 diazepam 5 mg tablet (Valium) 5 mg PO TID PRN #10 tab 04/15/20 hydrocodone 5 mg-acetaminophen 325 1 tab PO Q6H PRN #12 tab 04/15/20 mg tablet lidocaine 4 % topical patch 1 patch TOPICAL DAILY PRN #10 ea 04/15/20 prednisone 20 mg tablet 40 mg PO DAILY 4 Days #8 tab 04/15/20 atorvastatin 40 mg tablet 40 mg PO DAILY 90 Days #90 tab 05/03/20 albuterol sulfate 90 mcg/actuation 1 inh INHALATION QID PRN #8.5 g 09/19/20 aerosol inhaler prednisone 20 mg tablet 20 mg PO BID #10 tab 09/19/20 rivaroxaban 20 mg tablet (Xarelto) 20 mg PO DAILY 90 Days #90 tab 11/02/20 albuterol sulfate 90 mcg/actuation 2 puff INHALATION Q4-6H PRN #8.5 g 11/05/20 aerosol inhaler (ProAir HFA) benzonatate 100 mg capsule 100 mg PO TID PRN #30 cap 11/05/20 (Tessalon Perles) prednisone 20 mg tablet 40 mg PO DAILY #10 tab 11/05/20 carvedilol 3.125 mg tablet 3.125 mg PO BID 90 Days #180 tab 11/19/20 clotrimazole 1 % topical cream 1 appl TOPICAL BID 28 Days g 01/14/21 acetaminophen 500 mg tablet 1,000 mg PO QID PRN #20 tab 01/22/21 cyclobenzaprine 5 mg tablet 5 mg PO TID PRN #10 tab 01/22/21 oxycodone 5 mg tablet 5 mg PO Q6H PRN #10 tab 01/22/21 prednisone 20 mg tablet 60 mg PO DAILY 4 Days #12 tab 01/22/21 oxycodone 5 mg tablet 5 mg PO Q6H PRN 3 Days #9 tab 01/23/21 methocarbamol 750 mg tablet 750 mg PO TID PRN #30 tab 02/28/21 prednisone 20 mg tablet 40 mg PO DAILY 5 Days #10 tab 02/28/21 Allergies Allergy/AdvReac Type Severity Reaction Status Date / Time No Known Allergies Allergy Verified 11/04/20 23:13 [No Known Allergies*] Review of Systems Constitutional: Constitutional: Denies chills and Denies fever(s) Cardiovascular: Cardiovascular: Denies chest pain and Denies dyspnea Respiratory: Respiratory: Denies cough and Denies dyspnea Musculoskeletal: Musculoskeletal: Denies back pain and Denies numbness Comments: Neck pain Neurologic: Denies numbness PMFSH Past Medical History Medical History Asthma GERD (gastroesophageal reflux disease) Myocardial infarct Surgical History History of cardiac cath Family History Family History Father Alzheimers disease Mother Asthma Diabetes Social History Social History Patient Tobacco Use Status: Former Tobacco user Advance Directives: No Advance Directives Information Provided: No Physical Exam Vital Signs: Vital Signs: Last Vital Signs Temp 98 F 02/28/21 09:35 Pulse 76 02/28/21 09:35 Resp 18 02/28/21 09:35 BP 146/92 H 02/28/21 09:35 Pulse Ox 98 02/28/21 09:35 BMI result Body Mass Index 25.7 vital signs have been reviewed as normal and appeared to be correct. Blood pressure normal. Heart rate normal. Respiration rate normal. Temperature normal. Oxygen saturation normal. Appearance: Alert. Oriented X3. No acute distress. Head: Normal external exam. Normocephalic. Atraumatic. Eyes: PERRLA. EOMI. Conjunctiva and sclera normal. Eyelids normal. ENT: Pharynx normal. Uvula midline. Moist mucous membranes. No trismus noted. No drooling noted. No muffled voice noted. Neck: Positive right-sided paraspinal muscle tenderness of the cervical spine minimal to no midline tenderness. CVS: Heart regular rate and rhythm no murmurs and rubs Respiratory: Breath sounds are clear to auscultation bilaterally. No accessory muscle use noted. Back:Full range of motion noted. Skin: Skin warm and dry. Normal skin color. Normal skin turgor. No rashes/lesions/lacerations noted. Extremities: Combat Control Manager is equal bilaterally of both upper extremities. Positive pulses positive station right upper extremity. Full range of motion for right shoulder. No crepitus. Neuro: Oriented X 3. No motor deficit. No sensory deficit. Reflexes normal. No focal deficit. Course Course Course Narrative: Right sided spasmodic torticollis Cervical radiculopathy Right shoulder strain Muscle spasm Symptoms seem consistent with muscle skeletal strain or spasmodic torticollis Cervical CT from April IMPRESSION: No acute fracture or dislocation. ? Multilevel degenerative changes as detailed above, most prominent at C3-C4 with moderate bilateral neuroforaminal narrowing. [facility] benzod[facility]ine since April Planned place patient on nonsteroidals and Robaxin at this time follow-up is pending Discharge Plan Discharge Clinical Impression: Cervical strain, Cervical disc disorder with radiculopathy Patient Disposition: Home, Self-Care Instructions: Cervical Strain (ED) Additional Instructions: Keep your appointment with the specialist Medication as directed Prescriptions: New prednisone 20 mg tablet 40 mg PO DAILY 5 Days Qty: 10 RF: 0 methocarbamol 750 mg tablet 750 mg PO TID PRN (Reason: muscle pain) Qty: 30 RF: 0 No Action atorvastatin 40 mg tablet 40 mg PO DAILY 90 Days Qty: 90 RF: 1 Xarelto 20 mg tablet 20 mg PO DAILY 90 Days Qty: 90 RF: 1 carvedilol 3.125 mg tablet 3.125 mg PO BID 90 Days Qty: 180 RF: 1 lidocaine 4 % adhesive patch,medicated 1 patch topical DAILY PRN (Reason: pain) Qty: 10 RF: 0 hydrocodone-acetaminophen 5-325 mg tablet 1 tab PO Q6H PRN (Reason: pain) Qty: 12 RF: 0 prednisone 20 mg tablet 40 mg PO DAILY 4 Days Qty: 8 RF: 0 diazepam [Valium] 5 mg tablet 5 mg PO TID PRN (Reason: muscle spasm) Qty: 10 RF: 0 prednisone 20 mg tablet 40 mg PO DAILY Qty: 10 RF: 0 albuterol sulfate [ProAir HFA] 90 mcg/actuation HFA aerosol inhaler 2 puff inhalation Q4-6H PRN (Reason: shortness of breath or wheezing) Qty: 8.5 RF: 0 benzonatate [Tessalon Perles] 100 mg capsule 100 mg PO TID PRN (Reason: cough) Qty: 30 RF: 0 azithromycin 250 mg tablet See Rx Instructions .ROUTE .COMPLEX Qty: 6 RF: 0 prednisone 50 mg tablet 50 mg PO DAILY Qty: 5 RF: 0 albuterol sulfate 90 mcg/actuation HFA aerosol inhaler 1 inh inhalation QID PRN (Reason: shortness of breath or wheezing) Qty: 8.5 RF: 0 prednisone 20 mg tablet 20 mg PO BID Qty: 10 RF: 0 clotrimazole 1 % cream 1 appl topical BID 28 Days RF: 0 oxycodone 5 mg tablet 5 mg PO Q6H PRN (Reason: pain) Qty: 10 RF: 0 acetaminophen 500 mg tablet 1,000 mg PO QID PRN (Reason: pain) Qty: 20 RF: 0 cyclobenzaprine 5 mg tablet 5 mg PO TID PRN (Reason: muscle spasm) Qty: 10 RF: 0 prednisone 20 mg tablet 60 mg PO DAILY 4 Days Qty: 12 RF: 0 oxycodone 5 mg tablet 5 mg PO Q6H PRN (Reason: pain, severe) 3 Days Qty: 9 RF: 0 loratadine [Allergy Relief (loratadine)] 10 mg tablet 10 mg PO DAILY RF: 0 Stand Alone Forms: Work/School Release Print Language: Ugandan
== END 2021-02-28 10:47 | disposition home or self-care (01) ==
LOC: HO.ED 10:36
PROVIDERS: Emergency Provider Emergency Medicine; PCP Nurse Practitioner Family
DX: S16.1XXA Strain of muscle, fascia and tendon at neck level, initial encounter (principal); M50.10 Cervical disc disorder with radiculopathy, unspecified cervical region; J45.909 Unspecified asthma, uncomplicated; X58.XXXA Exposure to other specified factors, initial encounter; Y93.9 Activity, unspecified; Y92.9 Unspecified place or not applicable; Y99.9 Unspecified external cause status
CPT/HCPCS: 99283

== ENCOUNTER 2021-04-03 14:12 | Outpatient (REF) | payer MEDICAID, SELFPAY ==
--- NOTE | ~2021-04-03 | XR_ITS ---
EXAMINATION: XR CERVICAL SPINE CLINICAL INFORMATION: Radiculopathy. Cervical region. COMPARISON: April 15, 2020 TECHNIQUE: 3 views of the cervical spine were obtained. FINDINGS: There is loss of the normal cervical spine lordosis. No abnormal prevertebral soft tissue swelling is seen. No acute cervical spine fracture is evident. There is disc space narrowing seen with some marginal spurring at the C3-C4 and C4-C5 levels. XR/XR cervical spine 3V IMPRESSION: Cervical spondylosis predominantly at C3-C5. No acute fracture.
== END 2021-04-03 14:13 | disposition home or self-care (01) ==
LOC: HO.XRAY 14:12
DX: M54.12 Radiculopathy, cervical region (principal)
CPT/HCPCS: 72040

== ENCOUNTER 2021-04-07 19:03 | Emergency (ER) | payer MEDICAID, SELFPAY ==
[2021-04-07 19:05] VITALS: BP 144/88; PULSE 101; RESP 18; TEMP 36.6; O2SAT 99; BMI 25.7
--- NOTE | 2021-04-07 20:13 | ED_ITS ---
HPI - Neck Pain/Injury General Chief Complaint: Extremity Injury, Upper Stated Complaint: right shoulder pain Time Seen by Provider: 04/07/21 20:05 Source: patient Mode of arrival: ambulatory Limitations: no limitations History of Present Illness HPI Narrative: Patient with chronic cervical arthritis C3-C4 S been here before had CT scan done on 04/15/2020 which showed same plan to see spine specially but has not seen yet complaining of pain in the same area was given prednisone and Flexeril is not working patient been here multiple times for same and has not seen any specialist yet no weakness of the hand Related Data Home Medications Medication Instructions Recorded Confirmed loratadine 10 mg tablet (Allergy 10 mg PO DAILY 02/13/20 02/13/20 Relief (loratadine)) Previous Rx's Medication Instructions Recorded azithromycin 250 mg tablet See Rx Instructions .ROUTE 01/31/20 .COMPLEX #6 tab prednisone 50 mg tablet 50 mg PO DAILY #5 tab 01/31/20 diazepam 5 mg tablet (Valium) 5 mg PO TID PRN #10 tab 04/15/20 hydrocodone 5 mg-acetaminophen 325 1 tab PO Q6H PRN #12 tab 04/15/20 mg tablet lidocaine 4 % topical patch 1 patch TOPICAL DAILY PRN #10 ea 04/15/20 prednisone 20 mg tablet 40 mg PO DAILY 4 Days #8 tab 04/15/20 atorvastatin 40 mg tablet 40 mg PO DAILY 90 Days #90 tab 05/03/20 albuterol sulfate 90 mcg/actuation 1 inh INHALATION QID PRN #8.5 g 09/19/20 aerosol inhaler prednisone 20 mg tablet 20 mg PO BID #10 tab 09/19/20 rivaroxaban 20 mg tablet (Xarelto) 20 mg PO DAILY 90 Days #90 tab 11/02/20 albuterol sulfate 90 mcg/actuation 2 puff INHALATION Q4-6H PRN #8.5 11/05/20 g aerosol inhaler (ProAir HFA) benzonatate 100 mg capsule 100 mg PO TID PRN #30 cap 11/05/20 (Tessalon Perles) prednisone 20 mg tablet 40 mg PO DAILY #10 tab 11/05/20 carvedilol 3.125 mg tablet 3.125 mg PO BID 90 Days #180 tab 11/19/20 clotrimazole 1 % topical cream 1 appl TOPICAL BID 28 Days g 01/14/21 acetaminophen 500 mg tablet 1,000 mg PO QID PRN #20 tab 01/22/21 cyclobenzaprine 5 mg tablet 5 mg PO TID PRN #10 tab 01/22/21 oxycodone 5 mg tablet 5 mg PO Q6H PRN #10 tab 01/22/21 prednisone 20 mg tablet 60 mg PO DAILY 4 Days #12 tab 01/22/21 oxycodone 5 mg tablet 5 mg PO Q6H PRN 3 Days #9 tab 01/23/21 methocarbamol 750 mg tablet 750 mg PO TID PRN #30 tab 02/28/21 prednisone 20 mg tablet 40 mg PO DAILY 5 Days #10 tab 02/28/21 tramadol 50 mg tablet 50 mg PO Q6H PRN #20 tab 04/07/21 Allergies Allergy/AdvReac Type Severity Reaction Status Date / Time No Known Allergies Allergy Verified 04/07/21 19:05 [No Known Allergies*] Review of Systems Verdana 4l Review of Systems: Yes all other systems are reviewed and Verdana 4d are negative [facility] Past Medical History Medical History Asthma GERD (gastroesophageal reflux disease) Myocardial infarct Surgical History History of cardiac cath Family History Family History Father Alzheimers disease Mother Asthma Diabetes Social History Social History Patient Tobacco Use Status: Former Tobacco user Advance Directives: No Advance Directives Information Provided: No Physical Exam Verdana 4l Vital Signs: Verdana 4d Verdana 4d Vital Signs: Verdana 4d Verdana 4Bd Last Vital Signs Verdana 4d Reimbursement Director New 4d Reimbursement Director New 4d Temp 97.9 F 04/07/21 19:05 Reimbursement Director New 4d Pulse 101 H 04/07/21 19:05 Reimbursement Director New 4d Resp 18 04/07/21 19:05 BP 144/88 H 04/07/21 19:05 Pulse Ox 99 04/07/21 19:05 BMI result Body Mass Index 25.7 Appearance: Alert. Oriented X3. Anxious HEENT: Pharynx normal. Oral Mucosa moist Neck: Normal inspection. Neck supple. Diffuse mid spinal tenderness no step sign the hand with normal strength CVS: Normal heart rate and rhythm. Pulses normal. Respiratory: No respiratory distress. Equal air entry bilateral, Abdomen: Soft and nontender. Bowel sounds are present, no mass palpable, no CVA tenderness Skin: Skin warm and dry. Normal skin color. Normal skin turgor. Extremities: No lower extremity edema. No calf tenderness, sensation intact in right upper extremity deltoid sensation is normal strength of small muscles of hand Neuro: Oriented X 3. No motor deficit. No sensory deficit.No cerebellar signs , cranial nerves II-XII intact Discharge Plan Discharge Clinical Impression: Chronic radicular cervical pain Patient Disposition: Home, Self-Care Instructions: Cervical Radiculopathy (ED) Additional Instructions: Take pain medication as prescribed Follow-up with automotive brake specialist Report to the ER if any weakness of the hands Prescriptions: New tramadol 50 mg tablet 50 mg PO Q6H PRN (Reason: pain) Qty: 20 0RF No Action atorvastatin 40 mg tablet 40 mg PO DAILY 90 Days Qty: 90 1RF Xarelto 20 mg tablet 20 mg PO DAILY 90 Days Qty: 90 1RF Rx Instructions: must administer with evening meal carvedilol 3.125 mg tablet 3.125 mg PO BID 90 Days Qty: 180 1RF lidocaine 4 % adhesive patch,medicated 1 patch topical DAILY PRN (Reason: pain) Qty: 10 0RF Rx Instructions: may leave on for up to 12 hrs hydrocodone-acetaminophen 5-325 mg tablet 1 tab PO Q6H PRN (Reason: pain) Qty: 12 0RF prednisone 20 mg tablet 40 mg PO DAILY 4 Days Qty: 8 0RF diazepam [Valium] 5 mg tablet 5 mg PO TID PRN (Reason: muscle spasm) Qty: 10 0RF prednisone 20 mg tablet 40 mg PO DAILY Qty: 10 0RF albuterol sulfate [ProAir HFA] 90 mcg/actuation HFA aerosol inhaler 2 puff inhalation Q4-6H PRN (Reason: shortness of breath or wheezing) Qty: 8.5 0RF benzonatate [Tessalon Perles] 100 mg capsule 100 mg PO TID PRN (Reason: cough) Qty: 30 0RF azithromycin 250 mg tablet See Rx Instructions .ROUTE .COMPLEX Qty: 6 0RF Rx Instructions: take 500 mg today (day 1), then 250 mg for 4 days (days 2-5) prednisone 50 mg tablet 50 mg PO DAILY Qty: 5 0RF albuterol sulfate 90 mcg/actuation HFA aerosol inhaler 1 inh inhalation QID PRN (Reason: shortness of breath or wheezing) Qty: 8.5 0RF prednisone 20 mg tablet 20 mg PO BID Qty: 10 0RF clotrimazole 1 % cream 1 appl topical BID 28 Days 0RF prednisone 20 mg tablet 40 mg PO DAILY 5 Days Qty: 10 0RF methocarbamol 750 mg tablet 750 mg PO TID PRN (Reason: muscle pain) Qty: 30 0RF oxycodone 5 mg tablet 5 mg PO Q6H PRN (Reason: pain) Qty: 10 0RF Rx Instructions: Narcotic, no driving for 6 hours after taking acetaminophen 500 mg tablet 1,000 mg PO QID PRN (Reason: pain) Qty: 20 0RF cyclobenzaprine 5 mg tablet 5 mg PO TID PRN (Reason: muscle spasm) Qty: 10 0RF Rx Instructions: This medication may cause drowsiness, home use only, no driving for 6 hours after taking prednisone 20 mg tablet 60 mg PO DAILY 4 Days Qty: 12 0RF oxycodone 5 mg tablet 5 mg PO Q6H PRN (Reason: pain, severe) 3 Days Qty: 9 0RF loratadine [Allergy Relief (loratadine)] 10 mg tablet 10 mg PO DAILY 0RF Referrals: [facility] [Provider Group] - 1 week Stand Alone Forms: Work/School Release Interventions: ED Discharge Assessment Last Done: 04/07/21 20:50 Discharge Date/Time: 04/07/21 20:52
[2021-04-07] MEDS: traMADoL HCL 50 MG TABLET PO (20:48)
== END 2021-04-07 20:52 | disposition home or self-care (01) ==
LOC: HO.ED 20:22
PROVIDERS: Emergency Provider Internal Medicine
DX: M54.12 Radiculopathy, cervical region (principal); Z87.891 Personal history of nicotine dependence; Z79.899 Other long term (current) drug therapy
CPT/HCPCS: 99284

== ENCOUNTER 2021-08-10 14:25 | Emergency (ER) | payer MEDICAID, SELFPAY ==
[2021-08-10 14:29] VITALS: BP 139/101; PULSE 80; RESP 19; TEMP 36.6; O2SAT 98; BMI 25.7
--- NOTE | 2021-08-10 14:41 | ED.GENADULT ---
HPI - General Adult General Chief complaint: General Medical Stated complaint: marian back/body pain Time Seen by Provider: 08/10/21 14:40 Source: patient and family Mode of arrival: ambulatory Limitations: no limitations History of Present Illness HPI narrative: 46 y/o male with history of CAD s/p CO, afib on Xarelto Who presents to the ER with a painful rash that started yesterday on his back and extended under his left under arm into his left chest today. His reports that she called 911 yesterday because he was reporting chest pain and he had a rash on his back. EMS told him it was an allergic reaction and to take Benadryl. She has been giving him 50 mg of Benadryl every 6 hours with no improvement. This morning when he woke up he had developed fluid-filled vesicles and worsening pain on the ration is under arm and chest. He denies any fevers. He denies a history of shingles. MD complaint: Painful rash Onset (ago): day(s) (1) Location: chest and back Radiation: flank Severity: severe Severity scale (1-10): 8 Quality: burning Pain Consistency: constant Relieving factors: none Exacerbating factors: movement Associated symptoms: malaise Treatments prior to arrival: other (benadryl) Related Data Home Medications Medication Instructions Recorded Confirmed loratadine 10 mg tablet (Allergy 10 mg PO DAILY 02/13/20 02/13/20 Relief (loratadine)) Previous Rx's Medication Instructions Recorded azithromycin 250 mg tablet See Rx Instructions .ROUTE 01/31/20 .COMPLEX #6 tab prednisone 50 mg tablet 50 mg PO DAILY #5 tab 01/31/20 diazepam 5 mg tablet (Valium) 5 mg PO TID PRN #10 tab 04/15/20 hydrocodone 5 mg-acetaminophen 325 1 tab PO Q6H PRN #12 tab 04/15/20 mg tablet lidocaine 4 % topical patch 1 patch TOPICAL DAILY PRN #10 ea 04/15/20 prednisone 20 mg tablet 40 mg PO DAILY 4 Days #8 tab 04/15/20 atorvastatin 40 mg tablet 40 mg PO DAILY 90 Days #90 tab 05/03/20 albuterol sulfate 90 mcg/actuation 1 inh INHALATION QID PRN #8.5 g 09/19/20 aerosol inhaler prednisone 20 mg tablet 20 mg PO BID #10 tab 09/19/20 albuterol sulfate 90 mcg/actuation 2 puff INHALATION Q4-6H PRN #8.5 g 11/05/20 aerosol inhaler (ProAir HFA) benzonatate 100 mg capsule 100 mg PO TID PRN #30 cap 11/05/20 (Felipe Lew) prednisone 20 mg tablet 40 mg PO DAILY #10 tab 11/05/20 carvedilol 3.125 mg tablet 3.125 mg PO BID 90 Days #180 tab 11/19/20 clotrimazole 1 % topical cream 1 appl TOPICAL BID 28 Days g 01/14/21 acetaminophen 500 mg tablet 1,000 mg PO QID PRN #20 tab 01/22/21 cyclobenzaprine 5 mg tablet 5 mg PO TID PRN #10 tab 01/22/21 oxycodone 5 mg tablet 5 mg PO Q6H PRN #10 tab 01/22/21 prednisone 20 mg tablet 60 mg PO DAILY 4 Days #12 tab 01/22/21 oxycodone 5 mg tablet 5 mg PO Q6H PRN 3 Days #9 tab 01/23/21 methocarbamol 750 mg tablet 750 mg PO TID PRN #30 tab 02/28/21 prednisone 20 mg tablet 40 mg PO DAILY 5 Days #10 tab 02/28/21 tramadol 50 mg tablet 50 mg PO Q6H PRN #20 tab 04/07/21 rivaroxaban 20 mg tablet (Xarelto) 20 mg PO DAILY 90 Days #90 tab 05/06/21 valacyclovir 1 gram tablet 1,000 mg PO Q8H 7 Days #21 tab 08/10/21 (Valtrex) Allergies Allergy/AdvReac Type Severity Reaction Status Date / Time No Known Allergies Allergy Verified 04/07/21 19:05 [No Known Allergies*] Review of Systems Review of Systems: Constitutional: No Fever, No Chills Eyes: No Eye Pain, No Swelling, No Redness Cardiovascular: No Chest Pain, No SOB Respiratory: No Cough, No Sputum Gastrointestinal: No Nausea, No Vomiting, No abdominal Pain Musculoskeletal: No joint pain, No Myalgias Skin: No Skin Lesions, + rash Neuro: No Weakness, No Numbness, No Dizziness, No Headache Heme/Lymph: No Bruising, No Lymphadenopathy PMFSH Past Medical History Medical History Asthma GERD (gastroesophageal reflux disease) Myocardial infarct Surgical History History of cardiac cath Family History Family History Father Alzheimers disease Mother Asthma Diabetes Social History Social History Patient Tobacco Use Status: Former Tobacco user Advance Directives: No Advance Directives Information Provided: No Physical Exam ED Vital Signs: Vital Signs - 24 hr 08/10/21 14:29 Temperature 98 F Pulse Rate 80 Respiratory Rate 19 Blood Pressure 139/101 H Pulse Oximetry 98 BMI result Body Mass Index 25.7 Appearance: Alert. Oriented X3. No acute distress. HEENT: normal inspection CVS: Normal heart rate and rhythm. Pulses normal. Respiratory: No respiratory distress. Lungs clear Skin: Skin warm and dry. Normal skin color. Normal skin turgor. there is a vesicular rash on the upper left back extending to left axillary area and left chest in a dermatomal distribution. Extremities: normal inspection. normal ROM x4. Neuro: Oriented X 3. No motor deficit. No sensory deficit. Course Course Course Narrative: 46-year-old male presenting to the ER with a painful rash that started on his back and extended on to his left under arm and left chest in the last 24 hours. Examination is consistent with herpes zoster. It is in a dermatomal distribution with vesicles, burning & painful. will start him on valacyclovir 1000 mg q8h x7 days, given 1st dose now. Encouraged follow-up with his primary care doctor. Stable for discharge home. Discharge Plan Discharge Clinical Impression: Shingles Patient Disposition: Home, Self-Care Additional Instructions: take the prescribed antiviral medication as directed, complete the entire course follow up with your doctor Prescriptions: New valacyclovir [Valtrex] 1 gram tablet 1,000 mg PO Q8H 7 Days Qty: 21 0RF No Action atorvastatin 40 mg tablet 40 mg PO DAILY 90 Days Qty: 90 1RF carvedilol 3.125 mg tablet 3.125 mg PO BID 90 Days Qty: 180 1RF Xarelto 20 mg tablet 20 mg PO DAILY 90 Days Qty: 90 0RF Rx Instructions: must administer with evening meal Please call and schedule cardiology appt lidocaine 4 % adhesive patch,medicated 1 patch topical DAILY PRN (Reason: pain) Qty: 10 0RF Rx Instructions: may leave on for up to 12 hrs hydrocodone-acetaminophen 5-325 mg tablet 1 tab PO Q6H PRN (Reason: pain) Qty: 12 0RF prednisone 20 mg tablet 40 mg PO DAILY 4 Days Qty: 8 0RF diazepam [Valium] 5 mg tablet 5 mg PO TID PRN (Reason: muscle spasm) Qty: 10 0RF prednisone 20 mg tablet 40 mg PO DAILY Qty: 10 0RF albuterol sulfate [ProAir HFA] 90 mcg/actuation HFA aerosol inhaler 2 puff inhalation Q4-6H PRN (Reason: shortness of breath or wheezing) Qty: 8.5 0RF benzonatate [Tessalon Perles] 100 mg capsule 100 mg PO TID PRN (Reason: cough) Qty: 30 0RF azithromycin 250 mg tablet See Rx Instructions .ROUTE .COMPLEX Qty: 6 0RF Rx Instructions: take 500 mg today (day 1), then 250 mg for 4 days (days 2-5) prednisone 50 mg tablet 50 mg PO DAILY Qty: 5 0RF albuterol sulfate 90 mcg/actuation HFA aerosol inhaler 1 inh inhalation QID PRN (Reason: shortness of breath or wheezing) Qty: 8.5 0RF prednisone 20 mg tablet 20 mg PO BID Qty: 10 0RF clotrimazole 1 % cream 1 appl topical BID 28 Days 0RF prednisone 20 mg tablet 40 mg PO DAILY 5 Days Qty: 10 0RF methocarbamol 750 mg tablet 750 mg PO TID PRN (Reason: muscle pain) Qty: 30 0RF oxycodone 5 mg tablet 5 mg PO Q6H PRN (Reason: pain) Qty: 10 0RF Rx Instructions: Narcotic, no driving for 6 hours after taking acetaminophen 500 mg tablet 1,000 mg PO QID PRN (Reason: pain) Qty: 20 0RF cyclobenzaprine 5 mg tablet 5 mg PO TID PRN (Reason: muscle spasm) Qty: 10 0RF Rx Instructions: This medication may cause drowsiness, home use only, no driving for 6 hours after taking prednisone 20 mg tablet 60 mg PO DAILY 4 Days Qty: 12 0RF oxycodone 5 mg tablet 5 mg PO Q6H PRN (Reason: pain, severe) 3 Days Qty: 9 0RF tramadol 50 mg tablet 50 mg PO Q6H PRN (Reason: pain) Qty: 20 0RF loratadine [Allergy Relief (loratadine)] 10 mg tablet 10 mg PO DAILY 0RF
[2021-08-10] MEDS: oxyCODONE HCl Immed Release 5 MG TABLET PO (14:49)
[2021-08-10] MEDS: valACYclovir HCL 1,000 MG TABLET 1000 MG PO (14:49)
== END 2021-08-10 15:26 | disposition home or self-care (01) ==
LOC: HO.ED 15:04
PROVIDERS: Emergency Provider Student in an Organized Health Care Education/Training Program
DX: B02.9 Zoster without complications (principal); R21 Rash and other nonspecific skin eruption; M54.50 Low back pain, unspecified; Z79.899 Other long term (current) drug therapy; Z87.891 Personal history of nicotine dependence
CPT/HCPCS: 99282; 99283

== ENCOUNTER 2022-06-29 17:39 | Emergency (ER) | payer OTHER, SELFPAY ==
[2022-06-29 17:58] VITALS: BP 136/86; PULSE 74; RESP 18; TEMP 36.6; O2SAT 98; BMI 27.4
--- NOTE | 2022-06-29 18:03 | ED.GENADULT ---
HPI - General Adult General Chief complaint: Extremity Injury, Upper Stated complaint: left hand injury Time Seen by Provider: 06/29/22 18:01 Source: patient, RN notes reviewed, old records reviewed and retirement manager Limitations: language barrier History of Present Illness HPI narrative: 47-year-old male presents for evaluation of left wrist and hand pain He reports that he woke up with the pain this morning. He reports that he works at a [employer] company is frequently using his hands. He also reports that his left 3rd finger gets stuck The patient is right-hand dominant Reports a similar episode in the past and ?they gave me a special glove to treat it. ? The patient reports that he recently moved here from [place] He denies any trauma to the hand or wrist Related Data Home Medications Medication Instructions Recorded Confirmed loratadine 10 mg tablet (Allergy 10 mg PO DAILY 02/13/20 02/13/20 Relief (loratadine)) Previous Rx's Medication Instructions Recorded azithromycin 250 mg tablet See Rx Instructions PO .COMPLEX #6 01/31/20 tabs prednisone 50 mg tablet 50 mg PO DAILY #5 tabs 01/31/20 diazepam 5 mg tablet (Valium) 5 mg PO TID PRN muscle spasm #10 04/15/20 tabs hydrocodone 5 mg-acetaminophen 325 1 tab PO Q6H PRN pain #12 tabs 04/15/20 mg tablet lidocaine 4 % topical patch 1 patch topical DAILY PRN pain #10 04/15/20 ea prednisone 20 mg tablet 40 mg PO DAILY 4 days #8 tabs 04/15/20 atorvastatin 40 mg tablet 40 mg PO DAILY 90 days #90 tabs 05/03/20 albuterol sulfate 90 mcg/actuation 1 inh inhalation QID PRN shortness 09/19/20 aerosol inhaler of breath or wheezing #8.5 grams prednisone 20 mg tablet 20 mg PO BID #10 tabs 09/19/20 albuterol sulfate 90 mcg/actuation 2 puff inhalation Q4-6H PRN 11/05/20 aerosol inhaler (ProAir HFA) shortness of breath or wheezing #8.5 grams benzonatate 100 mg capsule 100 mg PO TID PRN cough #30 caps 11/05/20 (Felipe Lew) prednisone 20 mg tablet 40 mg PO DAILY #10 tabs 11/05/20 carvedilol 3.125 mg tablet 3.125 mg PO BID 90 days #180 tabs 11/19/20 clotrimazole 1 % topical cream 1 appl topical BID 4 weeks 01/14/21 acetaminophen 500 mg tablet 1,000 mg PO QID PRN pain #20 tabs 01/22/21 cyclobenzaprine 5 mg tablet 5 mg PO TID PRN muscle spasm #10 01/22/21 tabs oxycodone 5 mg tablet 5 mg PO Q6H PRN pain #10 tabs 01/22/21 prednisone 20 mg tablet 60 mg PO DAILY 4 days #12 tabs 01/22/21 oxycodone 5 mg tablet 5 mg PO Q6H PRN pain, severe 3 01/23/21 days #9 tabs methocarbamol 750 mg tablet 750 mg PO TID PRN muscle pain #30 02/28/21 tabs prednisone 20 mg tablet 40 mg PO DAILY 5 days #10 tabs 02/28/21 tramadol 50 mg tablet 50 mg PO Q6H PRN pain #20 tabs 04/07/21 rivaroxaban 20 mg tablet (Xarelto) 20 mg PO DAILY 90 days #90 tabs 05/06/21 valacyclovir 1 gram tablet 1,000 mg PO Q8H 7 days #21 tabs 08/10/21 (Valtrex) Allergies Allergy/AdvReac Type Severity Reaction Status Date / Time No Known Allergies Allergy Verified 06/29/22 17:58 [No Known Allergies*] Review of Systems Cardiovascular: Cardiovascular: Denies chest pain Respiratory: Respiratory: Denies cough Gastrointestinal: Gastrointestinal: Denies abdominal pain Musculoskeletal: Musculoskeletal: Reports arthralgias, Reports joint swelling, Reports numbness and Reports tingling Neurologic: Reports numbness and Reports tingling PMFSH Past Medical History Medical History Asthma GERD (gastroesophageal reflux disease) Myocardial infarct Surgical History History of cardiac cath Family History Family History Father Alzheimers disease Mother Asthma Diabetes Social History Social History Patient Tobacco Use Status: Former Tobacco user Physical Exam ED Vital Signs: Vital Signs - 24 hr 06/29/22 17:58 Temperature 97.8 F Pulse Rate 74 Respiratory Rate 18 Blood Pressure 136/86 Pulse Oximetry 98 Oxygen Delivery Method Room Air BMI result Body Mass Index 27.4 Const General: healthy appearing, comfortable, no acute distress, alert and awake Nutritional Appearance: well nourished Orientation/consciousness: patient oriented x3 HENMT Head: Yes normocephalic and Yes atraumatic Throat: Yes posterior oropharynx normal Eyes Eyelids: Yes eyelids normal Conjunctivae: conjunctivae normal Sclerae: sclerae normal Corneas: corneas normal Pupils: Equal, round and reactive pupils present EOM: EOMs intact bilaterally Neck Neck: Yes full ROM Resp Effort & Inspection: normal respiratory effort, able to speak in complete sentences, no audible wheezes and not labored Skin Other: No overlying skin changes to the left arm, wrist, hand Neuro General: patient oriented x3 Cranial nerves: Yes Equal, round and reactive pupils present and Yes Bilaterally intact EOM present Cognition (Neuro): normal cognition Extrem Other: No obvious visual deformity left upper extremity. Patient's left 3rd finger does get stuck for a brief moment but he is able to extend completely and flexes completely. Positive Tinel sign. Full range of motion to the left wrist Medical Decision Making Medical Decision Making MDM Narrative: 47-year-old male presents for atraumatic left wrist and hand pain. He is frequently using his hands while working at a [employer] company. Most likely overuse injury such as carpal tunnel. He also his trigger finger of the left 3rd hand. No traumatic injuries to warrant emergent imaging. Patient will be given a wrist splint and discharged with orthopedic follow-up Differential Diagnosis Carpal tunnel syndrome Trigger finger Wrist pain Tenosynovitis Arthritis Discharge Plan Discharge Clinical Impression: Acute carpal tunnel syndrome of left wrist, Trigger finger, left middle finger Patient Disposition: Home, Self-Care Instructions: Trigger Finger (ED) Additional Instructions: The pain in your wrist and hand is likely from carpal tunnel syndrome. The best treatment for this is rest and Tylenol and you cannot take ibuprofen Wear the splint for comfort Your finger is likely related to trigger finger You need to see a hand specialist about this and may require surgery Prescriptions: No Action atorvastatin 40 mg tablet 40 mg PO DAILY 90 Days Qty: 90 1RF carvedilol 3.125 mg tablet 3.125 mg PO BID 90 Days Qty: 180 1RF Xarelto 20 mg tablet 20 mg PO DAILY 90 Days Qty: 90 0RF Rx Instructions: must administer with evening meal Please call and schedule cardiology appt lidocaine 4 % adhesive patch,medicated 1 patch topical DAILY PRN (Reason: pain) Qty: 10 0RF Rx Instructions: may leave on for up to 12 hrs hydrocodone-acetaminophen 5-325 mg tablet 1 tab PO Q6H PRN (Reason: pain) Qty: 12 0RF prednisone 20 mg tablet 40 mg PO DAILY 4 Days Qty: 8 0RF diazepam [Valium] 5 mg tablet 5 mg PO TID PRN (Reason: muscle spasm) Qty: 10 0RF prednisone 20 mg tablet 40 mg PO DAILY Qty: 10 0RF albuterol sulfate [ProAir HFA] 90 mcg/actuation HFA aerosol inhaler 2 puff inhalation Q4-6H PRN (Reason: shortness of breath or wheezing) Qty: 8.5 0RF benzonatate [Tessalon Perles] 100 mg capsule 100 mg PO TID PRN (Reason: cough) Qty: 30 0RF azithromycin 250 mg tablet See Rx Instructions .ROUTE .COMPLEX Qty: 6 0RF Rx Instructions: take 500 mg today (day 1), then 250 mg for 4 days (days 2-5) prednisone 50 mg tablet 50 mg PO DAILY Qty: 5 0RF albuterol sulfate 90 mcg/actuation HFA aerosol inhaler 1 inh inhalation QID PRN (Reason: shortness of breath or wheezing) Qty: 8.5 0RF prednisone 20 mg tablet 20 mg PO BID Qty: 10 0RF clotrimazole 1 % cream 1 appl topical BID 28 Days 0RF prednisone 20 mg tablet 40 mg PO DAILY 5 Days Qty: 10 0RF methocarbamol 750 mg tablet 750 mg PO TID PRN (Reason: muscle pain) Qty: 30 0RF oxycodone 5 mg tablet 5 mg PO Q6H PRN (Reason: pain) Qty: 10 0RF Rx Instructions: Narcotic, no driving for 6 hours after taking acetaminophen 500 mg tablet 1,000 mg PO QID PRN (Reason: pain) Qty: 20 0RF cyclobenzaprine 5 mg tablet 5 mg PO TID PRN (Reason: muscle spasm) Qty: 10 0RF Rx Instructions: This medication may cause drowsiness, home use only, no driving for 6 hours after taking prednisone 20 mg tablet 60 mg PO DAILY 4 Days Qty: 12 0RF oxycodone 5 mg tablet 5 mg PO Q6H PRN (Reason: pain, severe) 3 Days Qty: 9 0RF tramadol 50 mg tablet 50 mg PO Q6H PRN (Reason: pain) Qty: 20 0RF valacyclovir [Valtrex] 1 gram tablet 1,000 mg PO Q8H 7 Days Qty: 21 0RF loratadine [Allergy Relief (loratadine)] 10 mg tablet 10 mg PO DAILY Referrals: Bessy Solis MD [Physician] -
--- OUTSIDE RECORDS SUMMARY | 2022-06-29 18:13 | XMS_ITS | Continuity of Care Document ---
Author Name Unknown Organization [facility] [address] Address [address] [place] [address]- Care Team Providers Care Binder Cutter Name Role Phone Edouard CALLOWAY, Christina Primary Care Physician [place] [facility] [place](s): 04/25/20 - 05/25/20 [facility] Adult [address] [place] [address]- Allergies, Adverse Reactions, Alerts Substance Reaction Severity Status NKA Active Medications atorvastatin 40 mg oral tablet 1 tablet = 40 mg, By Mouth, Daily, # 30 tablet, 0 Refills, Maintenance, 09/30/19 14:51:00 EDT, Tablet, [facility], 165, cm, 09/30/19 8:21:00 EDT, Height, 67, kg, 09/28/19 15:00:00EDT, Dry Weight Start Date: 09/30/19 Status: Ordered Bactrim 400 mg-80 mg oral tablet 1 tablet, By Mouth, Daily, for 30 days, drink plenty of fluids Please label in Italian, # 30 tablet, 3 Refills, Acute 08/31/20 13:59:00 EDT, 05/03/20 13:59:00 EST, [facility], Partial fill upon patient request if the prescription... Start Date: 05/03/20 Stop Date: 08/31/20 Status: Ordered Claritin 10 mg oral tablet 10 mg, 1, tablet, By Mouth, Daily at bedtime, PRN, # 30 tablet, Refills 0, Tot. Refills 0, Maintenance, Rash, 09/30/19 14:50:00 EDT, Route to Pharmacy Electronically, [facility], 165, cm, 09/30/19 8:21:00 EDT, Height, 67, kg, 09/27... Start Date: 09/30/19 Status: Ordered Coreg 3.125 mg oral tablet 3.125 mg, 1, tablet, By Mouth, 2 times a day, # 60 tablet, Refills 0, Tot. Refills 0, Maintenance, 09/30/19 14:50:00 EDT, Route to Pharmacy Electronically, [facility], 165, cm, 09/30/19 8:21:00 EDT, Height, 67, kg, 09/28/19 15:00:0... Start Date: 09/30/19 Status: Ordered Flovent Diskus 100 mcg/inh inhalation powder 1 puffs, Inhalation, 2 times a day, # 120 each, 0 Refills, Maintenance, 10/18/19 12:21:00 EDT, Powder, [facility], 1 puffs Inhalation 2 times a day, 165, cm, 10/18/19 10:27:00 EDT, Height, 67, kg, 09/28/19 15:00:00 EDT, Dry Weight Start Date: 10/18/19 Status: Ordered ibuprofen 600 mg oral tablet See Instructions, 1 tablet By Mouth every 8 hours as needed for aches and pain, # 20 tablet, Refills 0, Tot. Refills 0, Maintenance, 04/27/20 17:04:00 EST, Instructions Replace Required Details, Route to Pharmacy Electronically, [facility]... Start Date: 04/27/20 Status: Ordered PriLOSEC OTC 20 mg oral delayed release tablet 1 tablet = 20 mg, By Mouth, Daily, # 30 tablet, 3 Refills, Maintenance, 02/15/20 7:52:00 EST, EC Tablet, [facility], Partial fill upon patient request if the prescription is for aschedule II opioid drug., 165, cm, 01/23/20 8:28:00... Start Date: 02/15/20 Status: Ordered Xarelto 20 mg oral tablet 0 Refills, Maintenance, 01/27/20 16:58:00 EST, Partial fill upon patient request Start Date: 01/27/20 Status: Ordered Problem List Condition Effective Dates Status Health Status Inform ant Asthma(Confirmed) Active Cocaine abuse(Confirmed) Active CAP (community acquired pneumonia)(Confirmed) Active Depression(Confirmed) Active Embolic infarction(Confirmed) Active Headache(Confirmed) Active Heartburn(Confirmed) Active HIV positive(Confirmed) Active STEMI (ST elevation myocardi al infarction)(Confirmed) Active Encounter to establish care(Confirmed) Active Seasonal allergies(Confirmed) Active Sepsis(Confirmed) Active Shoulder pain, left(Confirmed) Active Smoker(Confirmed) Active Social History Social History Type Response Smoking Status Never (less than 100 in lifetime); Type: Cigarettes; Other: A pack of day; entered on: 10/04/19 Sex
--- OUTSIDE RECORDS SUMMARY | 2022-06-29 18:13 | XMS_ITS | Continuity of Care Document ---
Author Name Unknown Organization [facility] Address [address] [address]- Care Team Providers Care Nail Cutter Name Role Phone Edouard CALLOWAY, Christina Primary Care Physician Encounter [facility] [place] Date(s): 11/30/20 - 02/02/21 [facility] [address] [place] [id number] Attending Physician: Chasity Larson MD Admitting Physician: Chasity Larson MD Referring Physician: Christina Nunn NP Allergies, Adverse Reactions, Alerts Substance Reaction Severity Status NKA Active Immunizations Given and Recorded Vaccine Date Status Refusal Reason SARS-CoV-2 (COVID-19) mRNA-1273 vaccine 08/08/20 R ecorded SARS-CoV-2 (COVID-19) mRNA-1273 vaccine 07/11/20 R ecorded SARS-CoV-2 (COVID-19) mRNA-1273 vaccine 07/04/20 R ecorded Influenza Virus Vaccine (oldterm) 02/26/16 Recorde d Influenza Virus Vaccine (oldterm) 01/23/15 Recorde d Hepatitis B Vaccine (old term) 02/26/16 Recorded Hepatitis B Vaccine (old term) 1 06/14/15 Recorded Hepatitis B Vaccine (old term) 06/14/15 Recorded pneumococcal 23-valent vaccine 01/23/15 Recorded pneumococcal 13-valent vaccine 11/07/14 Recorded 1Result Comment: Per previous Medical record 2 doses given in one day Medications atorvastatin 40 mg oral tablet 1 tablet = 40 mg, By Mouth, Daily, # 90 tablet, 0 Refills, Maintenance, 10/03/20 16:17:00 EDT, Tablet, [facility], 165, cm, 10/03/20 16:02:00 EDT, Height, 67, kg, 09/28/19 15:00:00 EDT, Dry Weight Start Date: 10/03/20 Status: Ordered Bactrim 400 mg-80 mg oral tablet 1 tablet, By Mouth, Daily, for 30 days, drink plenty of fluids Please label in Niuean, # 30 tablet, 2 Refills, Acute 04/14/21 14:28:00 EST, 01/14/21 14:28:00 EST, [facility], Partial fill upon patient request if the prescription... Start Date: 01/14/21 Stop Date: 04/14/21 Status: Ordered Biktarvy oral tablet 1 tablet, By Mouth, Daily, # 30 tablet, 2 Refills, Maintenance, 01/14/21 14:28:00 EST, Tablet, [facility], Partial fill upon patient request if the prescription is for a schedule II opioid drug., 1 tablet By Mouth Daily,x30 days, 1... Start Date: 01/14/21 Stop Date: 04/14/21 Status: Ordered Claritin 10 mg oral tablet 10 mg, 1, tablet, By Mouth, Daily at bedtime, PRN, # 30 tablet, Refills 0, Tot. Refills 0, Maintenance, Rash, 09/30/19 14:50:00 EDT, Route to Pharmacy Electronically, [facility], 165, cm, 09/30/19 8:21:00 EDT, Height, 67, kg, 09/27... Start Date: 09/30/19 Status: Ordered Coreg 3.125 mg oral tablet 3.125 mg, 1, tablet, By Mouth, 2 times a day, # 60 tablet, Refills 0, Tot. Refills 0, Maintenance, 09/30/19 14:50:00 EDT, Route to Pharmacy Electronically, [facility], 165, cm, 09/30/19 8:21:00 EDT, Height, 67, kg, 09/28/19 15:00:0... Start Date: 09/30/19 Status: Ordered Flovent Diskus 100 mcg/inh inhalation powder 1 puffs, Inhalation, 2 times a day, # 120 each, 0 Refills, Maintenance, 10/18/19 12:21:00 EDT, Powder, [facility], 1 puffs Inhalation 2 times a day, 165, cm, 10/18/19 10:27:00 EDT, Height, 67, kg, 09/28/19 15:00:00 EDT, Dry Weight Start Date: 10/18/19 Status: Ordered hydrocortisone 2.5% topical cream 1 application, Topically, 3 times a day, # 30 Gm, 0 Refills, Maintenance, 10/03/20 16:22:00 EDT, Cream, [facility], Partial fill upon patient request if the prescription is for a schedule II opioid drug., 1 application Topically 3... Start Date: 10/03/20 Status: Ordered ibuprofen 600 mg oral tablet See Instructions, 1 tablet By Mouth every 8 hours as needed for aches and pain, # 20 tablet, Refills 0, Tot. Refills 0, Maintenance, 04/27/20 17:04:00 EST, Instructions Replace Required Details, [facility] Pharm[facility], [facility]... Start Date: 04/27/20 Status: Ordered PriLOSEC OTC 20 mg oral delayed release tablet 1 tablet = 20 mg, By Mouth, Daily, # 30 tablet, 3 Refills, Maintenance, 02/15/20 7:52:00 EST, EC Tablet, [facility], Partial fill upon patient request if the prescription is for aschedule II opioid drug., 165, cm, 01/23/20 8:28:00... Start Date: 02/15/20 Status: Ordered Xarelto 20 mg oral tablet 0 Refills, Maintenance, 01/27/20 16:58:00 EST, Partial fill upon patient request Start Date: 01/27/20 Status: Ordered Problem List Condition Effective Dates Status Health Status Inform ant Asthma(Confirmed) Active Cocaine abuse(Confirmed) Active Depression(Confirmed) Active Embolic infarction(Confirmed) Active Headache(Confirmed) Active Heartburn(Confirmed) Active HIV positive(Confirmed) Active STEMI (ST elevation myocardi al infarction)(Confirmed) Active Nodule of right lung(Confirmed) 1, 2 Active Seasonal allergies(Confirmed) Active Sepsis(Confirmed) Active Shoulder pain, left(Confirmed) Active Smoker(Confirmed) Active 1right middle 27 mm Social History Social History Type Response Smoking Status Never (less than 100 in lifetime); Type: Cigarettes; Other: A pack of day; entered on: 10/04/19 Sex
--- OUTSIDE RECORDS SUMMARY | 2022-06-29 18:13 | XMS_ITS | Continuity of Care Document ---
Author Name Unknown Organization [facility] [address] Address [address] [place] [address]- Care Team Providers Care Bark Peeler Name Role Phone Christina Nunn NP Primary Care Physician [place] [facility] [place](s): 09/05/21 - 10/06/21 [facility] Adult [address] [place] [address]- Attending Physician: Sharmin Steele Allergies, Adverse Reactions, Alerts No Known Allergies Immunizations Given and Recorded Vaccine Date Status Refusal Reason SARS-CoV-2 (COVID-19) mRNA-1273 vaccine 03/22/21 R ecorded SARS-CoV-2 (COVID-19) mRNA-1273 vaccine 08/08/20 R ecorded SARS-CoV-2 (COVID-19) mRNA-1273 vaccine 07/11/20 R ecorded SARS-CoV-2 (COVID-19) mRNA-1273 vaccine 07/04/20 R ecorded pneumococcal 23-valent vaccine 12/04/17 Recorded pneumococcal 23-valent vaccine 01/23/15 Recorded influenza virus vaccine, inactivated 12/04/17 Kody rded Influenza Virus Vaccine (oldterm) 02/26/16 Recorde d Influenza Virus Vaccine (oldterm) 01/23/15 Recorde d Hepatitis B Vaccine (old term) 02/26/16 Recorded Hepatitis B Vaccine (old term) 1 06/14/15 Recorded Hepatitis B Vaccine (old term) 06/14/15 Recorded pneumococcal 13-valent vaccine 11/07/14 Recorded 1Result Comment: Per previous Medical record 2 doses given in one day Medications Albuterol (Eqv-ProAir HFA) 90 mcg/inh inhalation aerosol 2 puffs, Inhalation, Every 6 hours, # 6.7 Gm, 11 Refills, Maintenance, 08/15/21 9:16:00 EDT, [facility], Partial fill upon patient request if the prescription is for a schedule IIopioid drug., 2 puffs Inhalation Every 6 hours, 162... Start Date: 08/15/21 Status: Ordered atorvastatin 40 mg oral tablet 1 tablet = 40 mg, By Mouth, Daily, # 90 tablet, 0 Refills, Maintenance, 02/19/21 12:59:00 EST, Tablet, [facility], 162, cm, 02/14/21 15:04:00 EST, Height, 67, kg, 09/28/19 15:00:00 EDT, Dry Weight Start Date: 02/19/21 Status: Ordered Biktarvy oral tablet 1 tablet, By Mouth, Daily, # 30 tablet, 2 Refills, Maintenance, 05/02/21 8:57:00 EST, Tablet, [facility], Partial fill upon patient request if the prescription is for a schedule II opioid drug., 1 tablet By Mouth Daily,x30 days, 16... Start Date: 05/02/21 Stop Date: 07/31/21 Status: Ordered Claritin 10 mg oral tablet 10 mg, 1, tablet, By Mouth, Daily at bedtime, PRN, # 30 tablet, Refills 11, Tot. Refills 11, Maintenance, Rash, 08/15/21 9:16:00 EDT, Route to Pharmacy Electronically, [facility],162, cm, 08/15/21 8:44:00 EDT, Height, 67, kg, 2... Start Date: 08/15/21 Status: Ordered Coreg 3.125 mg oral tablet 3.125 mg, 1, tablet, By Mouth, 2 times a day, # 60 tablet, Refills 0, Tot. Refills 0, Maintenance, 09/30/19 14:50:00 EDT, Route to Pharmacy Electronically, [facility], 165, cm, 09/30/19 8:21:00 EDT, Height, 67, kg, 09/28/19 15:00:0... Start Date: 09/30/19 Status: Ordered cyclobenzaprine 10 mg oral tablet 10 mg, By Mouth, Every 8 hours, PRN, Muscle Spasms, # 30 tablet, Refills 0, Tot. Refills 0, Maintenance, Pain , Moderate, 03/20/21 7:55:00 EST, [facility], Partial fill upon patient request if the... Start Date: 03/20/21 Status: Ordered gabapentin 600 mg oral tablet 1 tablet = 600 mg, By Mouth, 3 times a day, # 90 tablet, 0 Refills, Maintenance, 10/04/21 16:52:00 EDT, Tablet, [facility], Partial fill upon patient request if the prescription is for a schedule II opioid drug., 162, cm, 10/04/21... Start Date: 10/04/21 Status: Ordered hydrocortisone 2.5% topical cream 1 application, Topically, 3 times a day, # 30 Gm, 0 Refills, Maintenance, 10/03/20 16:22:00 EDT, Cream, [facility], Partial fill upon patient request [...] Replace Required Details, [facility] to Pharm[facility] Electronically, [facility]... Start Date: 04/27/20 Status: Ordered Lidoderm 5% film See Instructions, apply 1 patch Topically as needed for pain daily, # 30 patch, 0 Refills, Maintenance, 02/08/21 15:08:00 EST, [facility], Partial fill upon patient request if theprescription is for a schedule II opioid drug., liz... Start Date: 02/08/21 Status: Ordered Percocet By Mouth, Every 6 hours, 0 Refills, Maintenance, 02/08/21 14:31:00 EST, Partial fill upon patient request if the prescription is for a schedule II opioid drug. Start Date: 02/08/21 Status: Ordered PriLOSEC OTC 20 mg oral delayed release tablet 1 tablet = 20 mg, By Mouth, Daily, # 30 tablet, 3 Refills, Maintenance, 02/15/20 7:52:00 EST, EC Tablet, [facility], Partial fill upon patient request if the prescription is for aschedule II opioid drug., 165, cm, 01/23/20 8:28:00... Start Date: 02/15/20 Status: Ordered Singulair 10 mg oral tablet 10 mg, 1, tablet, By Mouth, Daily, # 30 tablet, Refills 11, Tot. Refills 11, Maintenance, 08/15/21 9:16:00 EDT, Route to Pharmacy Electronically, [facility], Partial fill upon patient request if the prescription is for a schedule I... Start Date: 08/15/21 Status: Ordered Symbicort 160mcg/4.5mcg Inhaler 2, puffs, Inhalation, 2 times a day, in the morning and the evening use with spacer chamber rinse mouth and throat after use, # 1 each, Refills 11, Tot. Refills 11, Maintenance, 08/15/21 9:16:00 EDT,Aerosol, Route to Pharmacy Electronically, [id number]... Start Date: 08/15/21 Status: Ordered Tylenol 8 Hour Caplet = 1,300 mg, By Mouth, Every 8 hours, 0 Refills, Maintenance, 02/08/21 14:30:00 EST, Partial fill upon patient request if the prescription is for a schedule II opioid drug. Start Date: 02/08/21 Status: Ordered Xarelto 20 mg oral tablet 0 Refills, Maintenance, 01/27/20 16:58:00 EST, Partial fill upon patient request Start Date: 01/27/20 Status: Ordered Problem List Condition Effective Dates Status Health Status Inform ant Asthma(Confirmed) Active Cervical spine arthritis(Confirmed) Active Cocaine abuse(Confirmed) Active Depression(Confirmed) Active Embolic infarction(Confirmed) Active Headache(Confirmed) Active Heartburn(Confirmed) Active H/O herpes zoster left upper chest back(Confirmed) 08/10/21 Active HIV positive(Confirmed) Active STEMI (ST elevation [...]
--- OUTSIDE RECORDS SUMMARY | 2022-06-29 18:13 | XMS_ITS | Continuity of Care Document ---
Author Name Unknown Organization [facility] Address [address] [address]- Care Team Providers Care Furnace Helper Name Role Phone Edouard CALLOWAY, Christina Primary Care Physician Encounter [facility] [place] Date(s): 10/22/20 - 01/20/21 [facility] [address] [facility] [address] [place] [id number] Attending Physician: Prema Herr MD Admitting Physician: Prema Herr MD Referring Physician: Christina Nunn NP Allergies, [...] drink plenty of fluids Please label in Burmese, # 30 tablet, 2 Refills, Acute 04/14/21 [...]
--- OUTSIDE RECORDS SUMMARY | 2022-06-29 18:13 | XMS_ITS | Continuity of Care Document ---
Author Name Unknown Organization [facility] Address [address] [place] [id number]- Care Team Providers Care Qc Tech Name Role Phone Edouard CALLOWAY, Christina Primary Care Physician Encounter [facility] [place] Date(s): 05/01/20 - 06/23/20 [facility] [address] [place] [id number] Attending Physician: Kendell Galaviz MD Admitting Physician: Kendell Galaviz MD Referring Physician: Christina Nunn NP Allergies, Adverse Reactions, Alerts Substance Reaction Severity Status NKA Active Medications atorvastatin 40 mg oral tablet 1 tablet = 40 mg, By Mouth, Daily, # 30 tablet, 0 Refills, Maintenance, 09/30/19 14:51:00 EDT, Tablet, [facility], 165, cm, 09/30/19 8:21:00 EDT, Height, 67, kg, 09/28/19 15:00:00EDT, Dry Weight Start Date: 09/30/19 Status: Ordered Bactrim 400 mg-80 mg oral tablet 1 tablet, By Mouth, Daily, for 30 days, drink plenty of fluids Please label in Bulgarian, # 30 tablet, 3 Refills, Acute 08/31/20 13:59:00 EDT, 05/03/20 13:59:00 EST, [facility], Partial fill upon patient request if the prescription... Start Date: 05/03/20 Stop Date: 08/31/20 Status: Ordered Biktarvy oral tablet 1 tablet, By Mouth, Daily, # 30 tablet, 5 Refills, Maintenance, 06/13/20 10:05:00 EDT, Tablet, [facility], Partial fill upon patient request if the prescription is for a schedule II opioid drug., 1 tablet By Mouth Daily,x30 days, 1... Start Date: 06/13/20 Stop Date: 12/10/20 Status: Ordered Claritin 10 mg oral tablet 10 mg, 1, tablet, By Mouth, Daily at bedtime, PRN, # 30 tablet, Refills 0, Tot. Refills 0, Maintenance, Rash, 09/30/19 14:50:00 EDT, Route to Pharmacy Electronically, [facility], 165, cm, 09/30/19 8:21:00 EDT, Height, 67, kg, 09/27... Start Date: 09/30/19 Status: Ordered Coreg 3.125 mg oral tablet 3.125 mg, 1, tablet, By Mouth, 2 times a day, # 60 tablet, Refills 0, Tot. Refills 0, Maintenance, 09/30/19 14:50:00 EDT, Route to Pharmacy Electronically, [facility], 165, cm, 09/30/19 8:21:00 EDT, Height, 67, kg, 09/28/19 15:00:0... Start Date: 09/30/19 Status: Ordered Flovent Diskus 100 mcg/inh inhalation powder 1 puffs, Inhalation, 2 times a day, # 120 each, 0 Refills, Maintenance, 10/18/19 12:21:00 EDT, Powder, [facility], 1 puffs Inhalation 2 times [...] Replace Required Details, Route to Pharmacy Electronically, [facility]... Start Date: 04/27/20 Status: Ordered PriLOSEC OTC 20 mg oral delayed release tablet 1 tablet = 20 mg, By Mouth, Daily, # 30 tablet, 3 Refills, Maintenance, 02/15/20 7:52:00 EST, EC Tablet, [facility], Partial fill upon patient request [...]
--- OUTSIDE RECORDS SUMMARY | 2022-06-29 18:13 | XMS_ITS | Continuity of Care Document ---
Author Name Unknown Organization [facility] Address [address] [place] [address]- Care Team Providers Care Drapery Hanger Name Role Phone Christina Nunn NP Primary Care Physician [phone] Encounter [facility] [place] Date(s): 02/18/21 - 03/20/21 [facility] Adult [address] [place] [address]- Allergies, Adverse Reactions, Alerts Substance Reaction Severity [...] 2 puffs, Inhalation, Every 6 hours, # 1 each, 11 Refills, Maintenance, 02/14/21 15:26:00 [facility], [facility], Partial fill upon patient request if the prescription is for a schedule II opioid drug., 2 puffs Inhalation Every 6 hours, 17... Start Date: 02/14/21 Status: Ordered atorvastatin 40 mg oral tablet 1 tablet = 40 mg, By Mouth, Daily, # 90 tablet, 0 Refills, Maintenance, 02/19/21 12:59:00 EST, Tablet, [facility], 162, cm, 02/14/21 15:04:00 EST, Height, 67, kg, 09/28/19 15:00:00 EDT, Dry Weight Start Date: 02/19/21 Status: Ordered Bactrim 400 mg-80 mg oral tablet 1 tablet, By Mouth, Daily, for 30 days, drink plenty of fluids Please label in Welsh, # 30 tablet, 2 Refills, Acute 04/14/21 14:28:00 EST, 01/14/21 14:28:00 EST, [facility], Partial fill upon patient request if the prescription... Start Date: 01/14/21 Stop Date: 04/14/21 Status: Ordered Biktarvy oral tablet 1 tablet, By Mouth, Daily, # 30 tablet, 2 Refills, Maintenance, 01/14/21 14:28:00 EST, Tablet, [facility], Partial fill upon patient request if the prescription is for a schedule II opioid drug., 1 tablet By Mouth Daily,x30 days, 1... Start Date: 01/14/21 Stop Date: 04/14/21 Status: Ordered Claritin 10 mg oral tablet 10 mg, 1, tablet, By Mouth, Daily at bedtime, PRN, # 30 tablet, Refills 0, Tot. Refills 0, Maintenance, Rash, 09/30/19 14:50:00 EDT, Route to Pharmacy Electronically, [facility], 165, cm, 09/30/19 8:21:00 EDT, Height, 67, kg, 09/27... Start Date: 09/30/19 Status: Ordered Coreg 3.125 mg oral tablet 3.125 mg, 1, tablet, By Mouth, 2 times a day, # 60 tablet, Refills 0, Tot. Refills 0, Maintenance, 09/30/19 14:50:00 EDT, Route to Pharmacy Electronically, [facility], 165, cm, 09/30/19 8:21:00 EDT, Height, 67, kg, 09/28/19 15:00:0... Start Date: 09/30/19 Status: Ordered cyclobenzaprine 10 mg oral tablet 10 mg, By Mouth, Every 8 hours, PRN, Muscle Spasms, # 30 tablet, Refills 0, Tot. Refills 0, Maintenance, Pain , Moderate, 03/20/21 7:55:00 EST, [facility], Partial fill upon patient request if the... Start Date: 03/20/21 Status: Ordered hydrocortisone 2.5% topical cream 1 application, Topically, 3 times a day, # 30 Gm, 0 Refills, Maintenance, 10/03/20 16:22:00 EDT, Cream, [facility], Partial fill upon patient request if [...] Replace Required Details, Route to Pharmacy Electronically, [facility]... Start Date: 04/27/20 Status: Ordered Lidoderm 5% film See Instructions, apply 1 patch Topically as needed for pain daily, # 30 patch, 0 Refills, Maintenance, 02/08/21 15:08:00 EST, [facility], Partial fill upon patient request if [...] Refills, Maintenance, 02/15/20 7:52:00 EST, EC Tablet, [facility], Partial fill upon patient request if the prescription is for aschedule II opioid drug., 165, cm, 11/16/20 8:28:00... Start Date: 02/15/20 Status: Ordered Singulair 10 mg oral tablet 10 mg, 1, tablet, By Mouth, Daily, # 30 tablet, Refills 12, Tot. Refills 12, Maintenance, 02/14/21 15:26:00 EST, Route to Pharmacy Electronically, [facility], Partial fill upon patient request if the prescription is for a schedule... Start Date: 02/14/21 Status: Ordered Symbicort 160mcg/4.5mcg Inhaler 2, puffs, Inhalation, 2 times a day, in the morning and the evening use with spacer chamber rinse mouth and throat after use, # 54 Gm, Refills 12, Tot. Refills 12, Maintenance, 02/14/21 15:26:00 EST,Aerosol, Route to Pharmacy Electronically, [id number]... Start Date: 02/14/21 Status: Ordered Tylenol 8 Hour Caplet = [...]
--- OUTSIDE RECORDS SUMMARY | 2022-06-29 18:13 | XMS_ITS | Continuity of Care Document ---
Author Name Unknown Organization [facility] Address [address] [place] [address]- Care Team Providers Care Frontload Driver Name Role Phone Christina Nunn NP Primary Care Physician [place] [facility] [place] - 08[place]/21 [facility] [address] [place] [address]- Encounter Diagnosis H/O herpes zoster left upper chest back(Discharge Diagnosis) - 08/22/21 Attending Physician: Christina Nunn NP Allergies, Adverse Reactions, Alerts No Known Allergies [...] Gm, 11 Refills, Maintenance, 08/15/21 9:16:00 EDT, [facility], Partial fill upon patient request if the prescription is for a schedule IIopioid drug., 2 puffs Inhalation Every 6 hours, 162... Start Date: 08/15/21 Status: Ordered atorvastatin 40 mg oral tablet 1 tablet = 40 mg, By Mouth, Daily, # 90 tablet, 0 Refills, Maintenance, 02/19/21 12:59:00 EST, Tablet, [facility], 162, cm, 02/14/21 15:04:00 EST, Height, 67, kg, 09/28/19 15:00:00 EDT, Dry Weight Start Date: 02/19/21 Status: Ordered Biktarvy oral tablet 1 tablet, By Mouth, Daily, # 30 tablet, 2 Refills, Maintenance, 05/02/21 8:57:00 EST, Tablet, [facility], Partial fill upon patient [...] 08/15/21 9:16:00 EDT, Route to Pharmacy Electronically, [facility],162, cm, 08/15/21 8:44:00 EDT, Height, 67, kg, 2... Start Date: 08/15/21 Status: Ordered Coreg 3.125 mg oral tablet 3.125 mg, 1, tablet, By Mouth, 2 times a day, # 60 tablet, Refills 0, Tot. Refills 0, Maintenance, 09/30/19 14:50:00 EDT, Route to Pharmacy Electronically, [facility], 165, cm, 09/30/19 8:21:00 EDT, Height, 67, kg, 09/28/19 15:00:0... Start Date: 09/30/19 Status: Ordered cyclobenzaprine 10 mg oral tablet 10 mg, By Mouth, Every 8 hours, PRN, Muscle Spasms, # 30 tablet, Refills 0, Tot. Refills 0, Maintenance, Pain , Moderate, 03/20/21 7:55:00 EST, [facility] fill upon patient request if the... Start Date: 03/20/21 Status: Ordered gabapentin 300 mg oral capsule See Instructions, Take 1 capsule by mouth for one day, then 1 capsule twice daily for 1 day, then continue 1 capsule three times daily., # 42 capsule, Refills 0, Tot. Refills 0, Maintenance, 08/12/2212:17:00 EDT, Instructions Replace Required Details... Start Date: 08/12/21 Status: Ordered hydrocortisone 2.5% topical cream 1 application, Topically, 3 times a day, # 30 Gm, 0 Refills, Maintenance, 10/03/20 16:22:00 EDT, Cream, [facility], Partial fill upon patient [...] Replace Required Details, Route to Pharmacy Electronically, [facility]... Start Date: 04/27/20 Status: Ordered Lidoderm 5% film See Instructions, apply 1 patch Topically as needed for pain daily, # 30 patch, 0 Refills, Maintenance, 02/08/21 15:08:00 EST, [facility], Partial fill upon patient [...] Refills, Maintenance, 02/15/20 7:52:00 EST, EC Tablet, [facility], Partial fill upon patient request if the prescription is for aschedule II opioid drug., 165, cm, 01/23/20 8:28:00... Start Date: 02/15/20 Status: Ordered Singulair 10 mg oral tablet 10 mg, 1, tablet, By Mouth, Daily, # 30 tablet, Refills 11, Tot. Refills 11, Maintenance, 08/15/21 9:16:00 EDT, Route to Pharmacy Electronically, [facility], Partial fill upon patient [...] Active Smoker(Confirmed) Active 1right middle 27 mm Diagnosis Diagnosis Type Effective Dates Health Status Cl inical Service Informant H/O herpes zoster left upper chest back Discharge Diagnosis 08/22/21 Vital Signs Most recent to oldest [Reference Range]: 1 Height 162 cm (08/22/21 2:52 PM) Social History Social History Type Response Smoking Status Never (less than 100 in lifetime); Type: Cigarettes; Other: A pack of day; entered on: 10/04/19 Sex
--- OUTSIDE RECORDS SUMMARY | 2022-06-29 18:13 | XMS_ITS | Continuity of Care Document ---
Author Name Unknown Organization [facility] Address [address] [place] [address]- Care Team Providers Care Director Of Global Sales Name Role Phone Christina Nunn NP Primary Care Physician [place] [facility] [place](s): 08/12/21 - 09/11/21 [facility] Adult [address] [place] [address]- Allergies, Adverse Reactions, Alerts No Known Allergies [...] Gm, 11 Refills, Maintenance, 08/15/21 9:16:00 EDT, [facility], Partial fill upon patient request if the prescription is for a schedule IIopioid drug., 2 puffs Inhalation Every 6 hours, 162... Start Date: 08/15/21 Status: Ordered atorvastatin 40 mg oral tablet 1 tablet = 40 mg, By Mouth, Daily, # 90 tablet, 0 Refills, Maintenance, 02/19/21 12:59:00 EST, Tablet, [facility], 162, cm, 02/14/21 15:04:00 EST, Height, 67, kg, 09/28/19 15:00:00 EDT, Dry Weight Start Date: 02/19/21 Status: Ordered Biktarvy oral tablet 1 tablet, By Mouth, Daily, # 30 tablet, 2 Refills, Maintenance, 05/02/21 8:57:00 EST, Tablet, [facility], Partial fill upon patient request [...] 08/15/21 9:16:00 EDT, Route to Pharmacy Electronically, [facility],162, cm, 08/15/21 8:44:00 EDT, Height, 67, kg, 2... Start Date: 08/15/21 Status: Ordered Coreg 3.125 mg oral tablet 3.125 mg, 1, tablet, By Mouth, 2 times a day, # 60 tablet, Refills 0, Tot. Refills 0, Maintenance, 09/30/19 14:50:00 EDT, Route to Pharmacy Electronically, [facility], 165, cm, 09/30/19 8:21:00 EDT, Height, 67, kg, 09/28/19 15:00:0... Start Date: 09/30/19 Status: Ordered cyclobenzaprine 10 mg oral tablet 10 mg, By Mouth, Every 8 hours, PRN, Muscle Spasms, # 30 tablet, Refills 0, Tot. Refills 0, Maintenance, Pain , Moderate, 03/20/21 7:55:00 EST, [facility] fill upon patient request if the... Start Date: 03/20/21 Status: Ordered gabapentin 600 mg oral tablet 1 tablet = 600 mg, By Mouth, 3 times a day, # 90 tablet, 0 Refills, Maintenance, 09/05/21 9:59:00 EDT, Tablet, [facility], Partial fill upon patient request if the prescription isfor a schedule II opioid drug., 162, cm, 08/22/21 1... Start Date: 09/05/21 Status: Ordered hydrocortisone 2.5% topical cream 1 application, Topically, 3 times a day, # 30 Gm, 0 Refills, Maintenance, 10/03/20 16:22:00 EDT, Cream, [facility], Partial fill upon patient request [...] Replace Required Details, [facility] to Pharm[facility] Electronically, [facility]... Start Date: 04/27/20 Status: Ordered Lidoderm 5% film See Instructions, apply 1 patch Topically as needed for pain daily, # 30 patch, 0 Refills, Maintenance, 02/08/21 15:08:00 EST, [facility], Partial fill upon patient request [...] Refills, Maintenance, 02/15/20 7:52:00 EST, EC Tablet, [facility], Partial fill upon patient request if the prescription is for aschedule II opioid drug., 165, cm, 01/23/20 8:28:00... Start Date: 02/15/20 Status: Ordered Singulair 10 mg oral tablet 10 mg, 1, tablet, By Mouth, Daily, # 30 tablet, Refills 11, Tot. Refills 11, Maintenance, 08/15/21 9:16:00 EDT, Route to Pharmacy Electronically, [facility], Partial fill upon patient request [...]
--- OUTSIDE RECORDS SUMMARY | 2022-06-29 18:13 | XMS_ITS | Continuity of Care Document ---
Author Name Unknown Organization [facility] Address [address] [place] [address]- Care Team Providers Care Manager Of Loss Prevention Operations Name Role Phone Christina Nunn NP Primary Care Physician [phone] [place] [facility] [place] 09[place]/21 [facility] [address] [place] [address]- Allergies, Adverse Reactions, Alerts No Known Allergies [...] Gm, 11 Refills, Maintenance, 08/15/21 9:16:00 EDT, [facility], Partial fill upon patient request if the prescription is for a schedule IIopioid drug., 2 puffs Inhalation Every 6 hours, 162... Start Date: 08/15/21 Status: Ordered atorvastatin 40 mg oral tablet 1 tablet = 40 mg, By Mouth, Daily, # 90 tablet, 0 Refills, Maintenance, 02/19/21 12:59:00 EST, Tablet, [facility], 162, cm, 02/14/21 15:04:00 EST, Height, 67, kg, 09/28/19 15:00:00 EDT, Dry Weight Start Date: 02/19/21 Status: Ordered Biktarvy oral tablet 1 tablet, By Mouth, Daily, # 30 tablet, 2 Refills, Maintenance, 05/02/21 8:57:00 EST, Tablet, [facility], Partial fill upon patient request if the prescription is for a schedule II opioid drug., 1 tablet By Mouth Daily,x30 days, 16... Start Date: 05/02/21 Stop Date: 07/31/21 Status: Ordered Claritin 10 mg oral tablet 10 mg, 1, tablet, By Mouth, Daily at bedtime, PRN, # 30 tablet, Refills 11, Tot. Refills 11, Maintenance, Rash, 08/15/21 9:16:00 EDT, Route to Pharmacy Electronically, [facility],162, cm, 08/15/21 8:44:00 EDT, Height, 67, kg, 2... Start Date: 08/15/21 Status: Ordered Coreg 3.125 mg oral tablet 3.125 mg, 1, tablet, By Mouth, 2 times a day, # 60 tablet, Refills 0, Tot. Refills 0, Maintenance, 09/30/19 14:50:00 EDT, Route to Pharmacy Electronically, [facility], 165, cm, 09/30/19 8:21:00 EDT, Height, 67, kg, 09/28/19 15:00:0... Start Date: 09/30/19 Status: Ordered cyclobenzaprine 10 mg oral tablet 10 mg, By Mouth, Every 8 hours, PRN, Muscle Spasms, # 30 tablet, Refills 0, Tot. Refills 0, Maintenance, Pain , Moderate, 03/20/21 7:55:00 EST, [facility] upon patient request if the... Start Date: 03/20/21 Status: Ordered gabapentin 600 mg oral tablet 1 tablet = 600 mg, By Mouth, 3 times a day, # 90 tablet, 0 Refills, Maintenance, 09/05/21 9:59:00 EDT, Tablet, [facility], Partial fill upon patient request if the prescription isfor a schedule II opioid drug., 162, cm, 08/22/21 1... Start Date: 09/05/21 Status: Ordered hydrocortisone 2.5% topical cream 1 application, Topically, 3 times a day, # 30 Gm, 0 Refills, Maintenance, 10/03/20 16:22:00 EDT, Cream, [facility], Partial fill upon patient request if [...] Replace Required Details, [facility], [facility] Start Date: 04/27/20 Status: Ordered Lidoderm 5% film See Instructions, apply 1 patch Topically as needed for pain daily, # 30 patch, 0 Refills, Maintenance, 02/08/21 15:08:00 EST, [facility], Partial fill upon patient request if [...] Refills, Maintenance, 02/15/20 7:52:00 EST, EC Tablet, [facility], Partial fill upon patient request if the prescription is for aschedule II opioid drug., 165, cm, 01/23/20 8:28:00... Start Date: 02/15/20 Status: Ordered Singulair 10 mg oral tablet 10 mg, 1, tablet, By Mouth, Daily, # 30 tablet, Refills 11, Tot. Refills 11, Maintenance, 08/15/21 9:16:00 EDT, Route to Pharmacy Electronically, [facility], Partial fill upon patient request if [...]
--- OUTSIDE RECORDS SUMMARY | 2022-06-29 18:13 | XMS_ITS | Continuity of Care Document ---
Author Name Unknown Organization [facility] Address [address] [place] [id number]- Care Team Providers Care Lead Caster Name Role Phone Christina Nunn NP Primary Care Physician [place] [facility] [place] 03[place]10/21 [facility] Adult [address] [place] [address]- Encounter Diagnosis Nodule of right lung(Discharge Diagnosis) - 09/23/20 Attending Physician: Huang Ordaz Admitting Physician: AdmtrHuang Referring Physician: Admtr, Ar8 Allergies, Adverse Reactions, Alerts Substance Reaction Severity [...] 1 each, 11 Refills, Maintenance, 02/14/21 15:26:00 [facility], Partial fill upon patient request if the prescription is for a schedule II opioid drug., 2 puffs Inhalation Every 6 hours, 17... Start Date: 02/14/21 Status: Ordered atorvastatin 40 mg oral tablet 1 tablet = 40 mg, By Mouth, Daily, # 90 tablet, 0 Refills, Maintenance, 02/19/21 12:59:00 EST, Tablet, [facility], 162, cm, 02/14/21 15:04:00 EST, Height, 67, kg, 09/28/19 15:00:00 EDT, Dry Weight Start Date: 02/19/21 Status: Ordered Bactrim 400 mg-80 mg oral tablet 1 tablet, By Mouth, Daily, for 30 days, drink plenty of fluids Please label in Yemeni, # 30 tablet, 2 Refills, Acute 04/14/21 14:28:00 EST, 01/14/21 14:28:00 EST, [facility], Partial fill upon patient request if the prescription... Start Date: 01/14/21 Stop Date: 04/14/21 Status: Ordered Biktarvy oral tablet 1 tablet, By Mouth, Daily, # 30 tablet, 2 Refills, Maintenance, 01/14/21 14:28:00 EST, Tablet, [facility], Partial fill upon patient request [...] 09/30/19 14:50:00 EDT, Route to Pharmacy Electronically, [facility], 165, cm, 09/30/19 8:21:00 EDT, Height, 67, kg, 09/27... Start Date: 09/30/19 Status: Ordered Coreg 3.125 mg oral tablet 3.125 mg, 1, tablet, By Mouth, 2 times a day, # 60 tablet, Refills 0, Tot. Refills 0, Maintenance, 09/30/19 14:50:00 EDT, Route to Pharmacy Electronically, [facility], 165, cm, 09/30/19 8:21:00 EDT, Height, 67, kg, 09/28/19 15:00:0... Start Date: 09/30/19 Status: Ordered cyclobenzaprine 10 mg oral tablet 10 mg, By Mouth, Every 8 hours, PRN, Muscle Spasms, # 30 tablet, Refills 0, Tot. Refills 0, Maintenance, Pain , Moderate, 02/08/21 15:10:00 EST, Route to Pharmacy Electronically, [facility], Partial fill upon patient request if the... Start Date: 02/08/21 Status: Ordered hydrocortisone 2.5% topical cream 1 application, Topically, 3 times a day, # 30 Gm, 0 Refills, Maintenance, 10/03/20 16:22:00 EDT, Cream, [facility], Partial fill upon patient request [...] Replace Required Details, Route to Pharmacy Electronically, [facility] Start Date: 04/27/20 Status: Ordered Lidoderm 5% film See Instructions, apply 1 patch Topically as needed for pain daily, # 30 patch, 0 Refills, Maintenance, 02/08/21 15:08:00 EST, [facility], Partial fill upon patient request [...] Refills, Maintenance, 02/15/20 7:52:00 EST, EC Tablet, [facility], Partial fill upon patient request if the prescription is for aschedule II opioid drug., 165, cm, 01/23/20 8:28:00... Start Date: 02/15/20 Status: Ordered Singulair 10 mg oral tablet 10 mg, 1, tablet, By Mouth, Daily, # 30 tablet, Refills 12, Tot. Refills 12, Maintenance, 02/14/21 15:26:00 EST, Route to Pharmacy Electronically, [facility], Partial fill upon patient request [...] Dates Health Status Cl inical Service Informant Nodule of right lung Discharge Diagnosis 09/23/20 Social History Social History Type Response Smoking Status Never (less than 100 in lifetime); Type: Cigarettes; Other: A pack of day; entered on: 10/04/19 Sex
--- OUTSIDE RECORDS SUMMARY | 2022-06-29 18:13 | XMS_ITS | Continuity of Care Document ---
Author Name Unknown Organization [facility] Address [address] [place] [address]- Care Team Providers Care Franchise Broker Name Role Phone Christina Nunn NP Primary Care Physician [place] [facility] [place]/20 [facility] [address] [place] [id number] Attending Physician: AdmAndrei [id number] Admitting Physician: Admtr, Huang Referring Physician: Admtr, Ar8 Allergies, Adverse Reactions, [...] 0 Refills, Maintenance, 10/03/20 16:17:00 EDT, Tablet, [facility], 165, cm, 10/03/20 16:02:00 EDT, Height, 67, kg, 09/28/19 15:00:00 EDT, Dry Weight Start Date: 10/03/20 Status: Ordered Bactrim 400 mg-80 mg oral tablet 1 tablet, By Mouth, Daily, for 30 days, drink plenty of fluids Please label in Burmese, # 30 tablet, 2 Refills, Acute 12/17/20 10:12:00 EDT, 09/18/20 10:12:00 EDT, [facility], Partial fill upon patient request if the prescription... Start Date: 09/18/20 Stop Date: 12/17/20 Status: Ordered Biktarvy oral tablet 1 tablet, By Mouth, Daily, # 30 tablet, 5 Refills, Maintenance, 06/13/20 10:05:00 EDT, Tablet, [facility], Partial fill upon patient request [...] 09/30/19 14:50:00 EDT, Route to Pharmacy Electronically, [facility], 165, cm, 09/30/19 8:21:00 EDT, Height, 67, kg, 09/27... Start Date: 09/30/19 Status: Ordered Coreg 3.125 mg oral tablet 3.125 mg, 1, tablet, By Mouth, 2 times a day, # 60 tablet, Refills 0, Tot. Refills 0, Maintenance, 09/30/19 14:50:00 EDT, Route to Pharmacy Electronically, [facility], 165, cm, 09/30/19 8:21:00 EDT, Height, 67, kg, 09/28/19 15:00:0... Start Date: 09/30/19 Status: Ordered Flovent Diskus 100 mcg/inh inhalation powder 1 puffs, Inhalation, 2 times a day, # 120 each, 0 Refills, Maintenance, 10/18/19 12:21:00 EDT, Powder, [facility], 1 puffs Inhalation 2 times a day, 165, cm, 10/18/19 10:27:00 EDT, Height, 67, kg, 09/28/19 15:00:00 EDT, Dry Weight Start Date: 10/18/19 Status: Ordered hydrocortisone 2.5% topical cream 1 application, Topically, 3 times a day, # 30 Gm, 0 Refills, Maintenance, 10/03/20 16:22:00 EDT, Cream, [facility], Partial fill upon patient request [...] Replace Required Details, [facility], [facility] Start Date: 04/27/20 Status: Ordered PriLOSEC OTC 20 mg oral delayed release tablet 1 tablet = 20 mg, By Mouth, Daily, # 30 tablet, 3 Refills, Maintenance, 02/15/20 7:52:00 EST, EC Tablet, [facility], Partial fill upon patient request [...]
--- OUTSIDE RECORDS SUMMARY | 2022-06-29 18:13 | XMS_ITS | Continuity of Care Document ---
Author Name Unknown Organization [facility] Address [address] [place] [address]- Care Team Providers Care Childrens Club Attendant Name Role Phone Christina Nunn NP Primary Care Physician [place] [facility] [place] 11/17/19 [facility] [address] [place] [address]- [facility] Attending Physician: Admtr, Ar8 Admitting Physician: Admtr, Ar8 Referring Physician: Admtr, Ar8 Allergies, Adverse Reactions, Alerts Substance Reaction Severity Status NKA Active Medications aspirin 81 mg oral tablet = 81 mg, By Mouth, Daily, # 30 tablet, 0 Refills, Maintenance, 09/30/19 14:50:00 EDT, Tablet, [facility], 165, cm, 09/30/19 8:21:00 EDT, Height, 67, kg, 09/28/19 15:00:00 EDT, DryWeight Start Date: 09/30/19 Status: Ordered atorvastatin 40 mg oral tablet 1 tablet = 40 mg, By Mouth, Daily, # 30 tablet, 0 Refills, Maintenance, 09/30/19 14:51:00 EDT, Tablet, [facility], 165, cm, 09/30/19 8:21:00 EDT, Height, 67, kg, 09/28/19 15:00:00EDT, Dry Weight Start Date: 09/30/19 Status: Ordered Claritin 10 mg oral tablet 10 mg, 1, tablet, By Mouth, Daily at bedtime, PRN, # 30 tablet, Refills 0, Tot. Refills 0, Maintenance, Rash, 09/30/19 14:50:00 EDT, Route to Pharmacy Electronically, [facility], 165, cm, 09/30/19 8:21:00 EDT, Height, 67, kg, 09/27... Start Date: 09/30/19 Status: Ordered Coreg 3.125 mg oral tablet 3.125 mg, 1, tablet, By Mouth, 2 times a day, # 60 tablet, Refills 0, Tot. Refills 0, Maintenance, 09/30/19 14:50:00 EDT, Route to Pharmacy Electronically, [facility], 165, cm, 09/30/19 8:21:00 EDT, Height, 67, kg, 09/28/19 15:00:0... Start Date: 09/30/19 Status: Ordered Flovent Diskus 100 mcg/inh inhalation powder 1 puffs, Inhalation, 2 times a day, # 120 each, 0 Refills, Maintenance, 10/18/19 12:21:00 EDT, Powder, [facility], 1 puffs Inhalation 2 times a day, 165, cm, 10/18/19 10:27:00 EDT, Height, 67, kg, 09/28/19 15:00:00 EDT, Dry Weight Start Date: 10/18/19 Status: Ordered Plavix 75 mg oral tablet 75 mg, 1, tablet, By Mouth, Daily, # 30 tablet, Refills 0, Tot. Refills 0, Maintenance, 09/30/19 14:50:00 EDT, Route to Pharmacy Electronically, [facility], 165, cm, 09/30/19 8:21:00 EDT, Height, 67, kg, 09/28/19 15:00:00 EDT, Dry... Start Date: 09/30/19 Status: Ordered PriLOSEC OTC 20 mg oral delayed release tablet 1 tablet = 20 mg, By Mouth, Daily, 0 Refills, Maintenance, 10/18/19 10:31:00 EDT Start Date: 10/18/19 Status: Ordered Problem List Condition Effective Dates Status Health Status Inform ant Asthma(Confirmed) Active Cocaine abuse(Confirmed) Active CAP (community acquired pneumonia)(Confirmed) Active Embolic infarction(Confirmed) Active Headache(Confirmed) Active Heartburn(Confirmed) Active STEMI (ST elevation myocardi al infarction)(Confirmed) Active Encounter to establish care(Confirmed) Active Seasonal allergies(Confirmed) Active Sepsis(Confirmed) Active Smoker(Confirmed) Active Social History Social History Type Response Smoking Status Never (less than 100 in lifetime); Type: Cigarettes; Other: A pack of day; entered on: 10/04/19 Sex
--- OUTSIDE RECORDS SUMMARY | 2022-06-29 18:13 | XMS_ITS | Continuity of Care Document ---
Author Name Unknown Organization [facility] Address [address] [place] [address]- Care Team Providers Care Boring Inspector Name Role Phone Christina Nunn NP Primary Care Physician [place] [facility] [place] 10[place]03/20 - 10/10/20 [facility] Adult [address] [place] [address]- Encounter Diagnosis Nodule of right lung(Discharge Diagnosis) - 10/03/20 Attending Physician: Christina Nunn NP Allergies, Adverse [...] 0 Refills, Maintenance, 10/03/20 16:17:00 EDT, Tablet, [facility], 165, cm, 10/03/20 16:02:00 EDT, Height, 67, kg, 09/28/19 15:00:00 EDT, Dry Weight Start Date: 10/03/20 Status: Ordered Bactrim 400 mg-80 mg oral tablet 1 tablet, By Mouth, Daily, for 30 days, drink plenty of fluids Please label in Maori, # 30 tablet, 2 Refills, Acute 12/17/20 10:12:00 EDT, 09/18/20 10:12:00 EDT, [facility], Partial fill upon patient request if the prescription... Start Date: 09/18/20 Stop Date: 12/17/20 Status: Ordered Biktarvy oral tablet 1 tablet, By Mouth, Daily, # 30 tablet, 5 Refills, Maintenance, 06/13/20 10:05:00 EDT, Tablet, [facility], Partial fill upon patient [...] 09/30/19 14:50:00 EDT, Route to Pharmacy Electronically, [facility], 165, cm, 09/30/19 8:21:00 EDT, Height, 67, kg, 09/27... Start Date: 09/30/19 Status: Ordered Coreg 3.125 mg oral tablet 3.125 mg, 1, tablet, By Mouth, 2 times a day, # 60 tablet, Refills 0, Tot. Refills 0, Maintenance, 09/30/19 14:50:00 EDT, Route to Pharmacy Electronically, [facility], 165, cm, 09/30/19 8:21:00 EDT, Height, 67, kg, 09/28/19 15:00:0... Start Date: 09/30/19 Status: Ordered Flovent Diskus 100 mcg/inh inhalation powder 1 puffs, Inhalation, 2 times a day, # 120 each, 0 Refills, Maintenance, 10/18/19 12:21:00 EDT, Powder, [facility], 1 puffs Inhalation 2 times a day, 165, cm, 10/18/19 10:27:00 EDT, Height, 67, kg, 09/28/19 15:00:00 EDT, Dry Weight Start Date: 10/18/19 Status: Ordered hydrocortisone 2.5% topical cream 1 application, Topically, 3 times a day, # 30 Gm, 0 Refills, Maintenance, 10/03/20 16:22:00 EDT, Cream, [facility], Partial fill upon patient [...] Replace Required Details, Route to Pharmacy Electronically, [facility]... Start Date: 04/27/20 Status: Ordered PriLOSEC OTC 20 mg oral delayed release tablet 1 tablet = 20 mg, By Mouth, Daily, # 30 tablet, 3 Refills, Maintenance, 02/15/20 7:52:00 EST, EC Tablet, [facility], Partial fill upon patient [...] Nodule of right lung(Confirmed) 1, 2 Active Encounter to establish care(Confirmed) Active Seasonal allergies(Confirmed) Active Sepsis(Confirmed) Active Shoulder pain, left(Confirmed) Active Smoker(Confirmed) Active 1right middle 27 mm Diagnosis Diagnosis Type Effective Dates Health Status Cl inical Service Informant Nodule of right lung Discharge Diagnosis 10/03/20 Vital Signs Most recent to oldest [Reference Range]: 1 Height 165 cm (10/03/20 4:02 PM) Weight 68.9 kg (10/03/20 4:02 PM) Oxygen Saturation [94-100 %] 98 % (10/03/20 4:02 PM) Pulse Rate [55-90 bpm] 103 bpm *H* (10/03/20 4:02 PM) Body Mass Index [18.5-24.99] 25.31 *H* (10/03/20 4:02 PM) Blood Pressure [90-138/55-84 mm Hg] 108/ 80mm Hg (10/03/20 4:02 PM) Temperature [96.8-100.4 DegF] 98.6 DegF (10/03/20 4:02 PM) Blood pressure sites Arm, left (10/03/20 4:02 PM) Temperature Route Oral (10/03/20 4:02 PM) Weight Obtained Via Standing scale (10/03/20 4:02 PM) Social History Social History Type Response Smoking Status Never (less than 100 in lifetime); Type: Cigarettes; Other: A pack of day; entered on: 10/04/19 Sex
--- OUTSIDE RECORDS SUMMARY | 2022-06-29 18:13 | XMS_ITS | Continuity of Care Document ---
Author Name Unknown Organization [facility] Address [address] [place] [address]- Care Team Providers Care Computer Help Desk Representative Name Role Phone Edouard CALLOWAY, Christina Primary Care Physician [phone] [place] [facility] [place]23/20 - 02/22/20 [facility] Adult [address] [place] [address]- Attending Physician: Admtr, Ar8 Admitting Physician: Admtr, Ar8 Referring Physician: Admtr, Ar8 Allergies, Adverse Reactions, Alerts Substance Reaction Severity Status NKA Active Medications atorvastatin 40 mg oral tablet 1 tablet = 40 mg, By Mouth, Daily, # 30 tablet, 0 Refills, Maintenance, 09/30/19 14:51:00 EDT, Tablet, [facility], 165, cm, 09/30/19 8:21:00 EDT, Height, 67, kg, 09/28/19 15:00:00EDT, Dry Weight Start Date: 09/30/19 Status: Ordered Claritin 10 mg oral tablet 10 mg, 1, tablet, By Mouth, Daily at bedtime, PRN, # 30 tablet, Refills 0, Tot. Refills 0, Maintenance, Rash, 09/30/19 14:50:00 EDT, Route to Pharmacy Electronically, [facility], 165, cm, 09/30/19 8:21:00 EDT, Height, 67, kg, 09/27... Start Date: 09/30/19 Status: Ordered Coreg 3.125 mg oral tablet 3.125 mg, 1, tablet, By Mouth, 2 times a day, # 60 tablet, Refills 0, Tot. Refills 0, Maintenance, 09/30/19 14:50:00 EDT, Route to Pharmacy Electronically, [facility], 165, cm, 09/30/19 8:21:00 EDT, Height, 67, kg, 09/28/19 15:00:0... Start Date: 09/30/19 Status: Ordered Flovent Diskus 100 mcg/inh inhalation powder 1 puffs, Inhalation, 2 times a day, # 120 each, 0 Refills, Maintenance, 10/18/19 12:21:00 EDT, Powder, [facility], 1 puffs Inhalation 2 times a day, 165, cm, 10/18/19 10:27:00 EDT, Height, 67, kg, 09/28/19 15:00:00 EDT, Dry Weight Start Date: 10/18/19 Status: Ordered PriLOSEC OTC 20 mg oral delayed release tablet 1 tablet = 20 mg, By Mouth, Daily, # 30 tablet, 3 Refills, Maintenance, 02/15/20 7:52:00 EST, EC Tablet, [facility], Partial fill upon patient request if [...]
--- OUTSIDE RECORDS SUMMARY | 2022-06-29 18:13 | XMS_ITS | Continuity of Care Document ---
Author Name Unknown Organization [facility] Address [address] [place] [address]- Care Team Providers Care Doors Prefitter Name Role Phone Christina Nunn NP Primary Care Physician [place] [facility] [place] 11[place]/20 [facility] [address] [place] [id number] Attending Physician: Serge Black MD Admitting Physician: Serge Black MD Referring Physician: Christina Nunn NP Allergies, [...] 0 Refills, Maintenance, 10/03/20 16:17:00 EDT, Tablet, [facility], 165, cm, 10/03/20 16:02:00 EDT, Height, 67, kg, 09/28/19 15:00:00 EDT, Dry Weight Start Date: 10/03/20 Status: Ordered Bactrim 400 mg-80 mg oral tablet 1 tablet, By Mouth, Daily, for 30 days, drink plenty of fluids Please label in Bruneian, # 30 tablet, 2 Refills, Acute 12/17/20 10:12:00 EDT, 09/18/20 10:12:00 EDT, [facility], Partial fill upon patient request if the prescription... Start Date: 09/18/20 Stop Date: 12/17/20 Status: Ordered Biktarvy oral tablet 1 tablet, By Mouth, Daily, # 30 tablet, 5 Refills, Maintenance, 06/13/20 10:05:00 EDT, Tablet, [facility], Partial fill upon patient request [...] 09/30/19 14:50:00 EDT, Route to Pharmacy Electronically, [facility], 165, cm, 09/30/19 8:21:00 EDT, Height, 67, kg, 09/27... Start Date: 09/30/19 Status: Ordered Coreg 3.125 mg oral tablet 3.125 mg, 1, tablet, By Mouth, 2 times a day, # 60 tablet, Refills 0, Tot. Refills 0, Maintenance, 09/30/19 14:50:00 EDT, Route to Pharmacy Electronically, [facility], 165, cm, 09/30/19 8:21:00 EDT, Height, 67, kg, 09/28/19 15:00:0... Start Date: 09/30/19 Status: Ordered Flovent Diskus 100 mcg/inh inhalation powder 1 puffs, Inhalation, 2 times a day, # 120 each, 0 Refills, Maintenance, 10/18/19 12:21:00 EDT, Powder, [facility], 1 puffs Inhalation 2 times a day, 165, cm, 10/18/19 10:27:00 EDT, Height, 67, kg, 09/28/19 15:00:00 EDT, Dry Weight Start Date: 10/18/19 Status: Ordered hydrocortisone 2.5% topical cream 1 application, Topically, 3 times a day, # 30 Gm, 0 Refills, Maintenance, 10/03/20 16:22:00 EDT, Cream, [facility], Partial fill upon patient request [...] Replace Required Details, [facility] Start Date: 04/27/20 Status: Ordered PriLOSEC OTC 20 mg oral delayed release tablet 1 tablet = 20 mg, By Mouth, Daily, # 30 tablet, 3 Refills, Maintenance, 02/15/20 7:52:00 EST, EC Tablet, [facility], Partial fill upon patient request [...]
--- OUTSIDE RECORDS SUMMARY | 2022-06-29 18:13 | XMS_ITS | Continuity of Care Document ---
Author Name Unknown Organization [facility] Address [address] [place] [id number]- Care Team Providers Care Manager Clinical Applications Name Role Phone Christina Nunn NP Primary Care Physician [phone] Encounter [facility] Date(s): 08/15/21 - 09/14/21 [facility] [address] [place] [address] [place] [id number] Attending Physician: Huang Ordaz Admitting Physician: Huang Ordaz Referring Physician: AdmtrHuang Allergies, Adverse Reactions, Alerts No Known Allergies [...] Gm, 11 Refills, Maintenance, 08/15/21 9:16:00 EDT, [facility], Partial fill upon patient request if the prescription is for a schedule IIopioid drug., 2 puffs Inhalation Every 6 hours, 162... Start Date: 08/15/21 Status: Ordered atorvastatin 40 mg oral tablet 1 tablet = 40 mg, By Mouth, Daily, # 90 tablet, 0 Refills, Maintenance, 02/19/21 12:59:00 EST, Tablet, [facility], 162, cm, 02/14/21 15:04:00 EST, Height, 67, kg, 09/28/19 15:00:00 EDT, Dry Weight Start Date: 02/19/21 Status: Ordered Biktarvy oral tablet 1 tablet, By Mouth, Daily, # 30 tablet, 2 Refills, Maintenance, 05/02/21 8:57:00 EST, Tablet, [facility], Partial fill upon patient [...] 08/15/21 9:16:00 EDT, Route to Pharmacy Electronically, [facility],162, cm, 08/15/21 8:44:00 EDT, Height, 67, kg, 2... Start Date: 08/15/21 Status: Ordered Coreg 3.125 mg oral tablet 3.125 mg, 1, tablet, By Mouth, 2 times a day, # 60 tablet, Refills 0, Tot. Refills 0, Maintenance, 09/30/19 14:50:00 EDT, Route to Pharmacy Electronically, [facility], 165, cm, 09/30/19 8:21:00 EDT, Height, 67, kg, 09/28/19 15:00:0... Start Date: 09/30/19 Status: Ordered cyclobenzaprine 10 mg oral tablet 10 mg, By Mouth, Every 8 hours, PRN, Muscle Spasms, # 30 tablet, Refills 0, Tot. Refills 0, Maintenance, Pain , Moderate, 03/20/21 7:55:00 EST, [facility], Partial fill upon patient request if the... Start Date: 03/20/21 Status: Ordered gabapentin 600 mg oral tablet 1 tablet = 600 mg, By Mouth, 3 times a day, # 90 tablet, 0 Refills, Maintenance, 09/05/21 9:59:00 EDT, Tablet, [facility], Partial fill upon patient request if the prescription isfor a schedule II opioid drug., 162, cm, 08/22/21 1... Start Date: 09/05/21 Status: Ordered hydrocortisone 2.5% topical cream 1 application, Topically, 3 times a day, # 30 Gm, 0 Refills, Maintenance, 10/03/20 16:22:00 EDT, Cream, [facility], Partial fill upon patient [...] Replace Required Details, [facility] to Pharm[facility] Electronically, [facility]... Start Date: 04/27/20 Status: Ordered Lidoderm 5% film See Instructions, apply 1 patch Topically as needed for pain daily, # 30 patch, 0 Refills, Maintenance, 02/08/21 15:08:00 EST, [facility], Partial fill upon patient [...] Refills, Maintenance, 02/15/20 7:52:00 EST, EC Tablet, [facility], Partial fill upon patient request if the prescription is for aschedule II opioid drug., 165, cm, 01/23/20 8:28:00... Start Date: 02/15/20 Status: Ordered Singulair 10 mg oral tablet 10 mg, 1, tablet, By Mouth, Daily, # 30 tablet, Refills 11, Tot. Refills 11, Maintenance, 08/15/21 9:16:00 EDT, Route to Pharmacy Electronically, [facility], Partial fill upon patient [...]
--- OUTSIDE RECORDS SUMMARY | 2022-06-29 18:13 | XMS_ITS | Continuity of Care Document ---
Author Name Unknown Organization [facility] Address [address] [place] [address]- Care Team Providers Care Program Manager Environmental Planning Name Role Phone Christina Nunn NP Primary Care Physician [place] [facility] [place]20 [facility] Adult [address] [place] [address]- Encounter Diagnosis Head trauma(Discharge Diagnosis) - 04/26/20 STEMI (ST elevation myocardial infarction)(Discharge Diagnosis) - 04/26/20 Depression(Discharge Diagnosis) - 04/26/20 Asthma(Discharge Diagnosis) - 04/26/20 Shoulder pain, left(Discharge Diagnosis) - 04/25/20 HIV positive(Discharge Diagnosis) - 04/25/20 Attending Physician: Christina Nunn NP Allergies, Adverse Reactions, Alerts Substance Reaction Severity Status NKA Active Medications atorvastatin 40 mg oral tablet 1 tablet = 40 mg, By Mouth, Daily, # 30 tablet, 0 Refills, Maintenance, 09/30/19 14:51:00 EDT, Tablet, [facility], 165, cm, 09/30/19 8:21:00 EDT, Height, 67, kg, 09/28/19 15:00:00EDT, Dry Weight Start Date: 09/30/19 Status: Ordered Claritin 10 mg oral tablet 10 mg, 1, tablet, By Mouth, Daily at bedtime, PRN, # 30 tablet, Refills 0, Tot. Refills 0, Maintenance, Rash, 09/30/19 14:50:00 EDT, Route to Pharmacy Electronically, [facility], 165, cm, 09/30/19 8:21:00 EDT, Height, 67, kg, 09/27... Start Date: 09/30/19 Status: Ordered Coreg 3.125 mg oral tablet 3.125 mg, 1, tablet, By Mouth, 2 times a day, # 60 tablet, Refills 0, Tot. Refills 0, Maintenance, 09/30/19 14:50:00 EDT, Route to Pharmacy Electronically, [facility], 165, cm, 09/30/19 8:21:00 EDT, Height, 67, kg, 09/28/19 15:00:0... Start Date: 09/30/19 Status: Ordered Flovent Diskus 100 mcg/inh inhalation powder 1 puffs, Inhalation, 2 times a day, # 120 each, 0 Refills, Maintenance, 10/18/19 12:21:00 EDT, Powder, [facility], 1 puffs Inhalation 2 [...] Replace Required Details, Route to Pharmacy Electronically, [facility]... Start Date: 04/27/20 Status: Ordered PriLOSEC OTC 20 mg oral delayed release tablet 1 tablet = 20 mg, By Mouth, Daily, # 30 tablet, 3 Refills, Maintenance, 02/15/20 7:52:00 EST, EC Tablet, [facility], Partial fill upon patient [...] Active Shoulder pain, left(Confirmed) Active Smoker(Confirmed) Active Diagnosis Diagnosis Type Effective Dates Health Status Clinical Service Informant HIV positive Discharge Diagnosis 04/25/20 Shoulder pain, left Discharge Diagnosis 04/25/20 Asthma Discharge Diagnosis 04/26/20 STEMI (ST elevation myocardial infarction) Discharge Diagnosis 04/26/20 Depression Discharge Diagnosis 04/26/20 Head trauma Discharge Diagnosis 04/26/20 Vital Signs Most recent to oldest [Reference Range]: 1 Height 165 cm (04/25/20 9:15 AM) Weight 73.4 kg (04/25/20 9:15 AM) Oxygen Saturation [94-100 %] 98 % (04/25/20 9:15 AM) Pulse Rate [55-90 bpm] 95 bpm *H* (04/25/20 9:15 AM) Body Mass Index [18.5-24.99] 26.96 *H* (04/25/20 9:15 AM) Blood Pressure [90-138/55-84 mm Hg] 132/ 76mm Hg (04/25/20 9:15 AM) Respiratory Rate [16-30 br/min] 16 br/mi n (04/25/20 9:15 AM) Temperature [96.8-100.4 DegF] 97.8 DegF (04/25/20 9:15 AM) Mode of Delivery (Oxygen) Room air (04/25/20 9:15 AM) Blood pressure sites Arm, left (04/25/20 9:15 AM) Temperature Route Oral (04/25/20 9:15 AM) Weight Obtained Via Standing scale (04/25/20 9:15 AM) Social History Social History Type Response Smoking Status Never (less than 100 in lifetime); Type: Cigarettes; Other: A pack of day; entered on: 10/04/19 Sex
--- OUTSIDE RECORDS SUMMARY | 2022-06-29 18:13 | XMS_ITS | Continuity of Care Document ---
Author Name Unknown Organization [facility] N[facility] [address] Address [address] [place] [address]- Care Team Providers Care Maintenance Custodian Name Role Phone Christina Nunn NP Primary Care Physician Encounter [facility] [place] Date(s): 05/23/20 - 06/22/20 [facility] Adult [address] [place] [address]- Attending Physician: Admtr, [id number] Admitting Physician: Admtr, [id number] Referring Physician: Admtr, [id number] Allergies, Adverse Reactions, Alerts Substance Reaction Severity Status NKA Active Medications atorvastatin 40 mg oral tablet 1 tablet = 40 mg, By Mouth, Daily, # 30 tablet, 0 Refills, Maintenance, 09/30/19 14:51:00 EDT, Tablet, [facility], 165, cm, 09/30/19 8:21:00 EDT, Height, 67, kg, 09/28/19 15:00:00EDT, Dry Weight Start Date: 09/30/19 Status: Ordered Bactrim 400 mg-80 mg oral tablet 1 tablet, By Mouth, Daily, for 30 days, drink plenty of fluids Please label in Syriac, # 30 tablet, 3 Refills, Acute 08/31/20 13:59:00 EDT, 05/03/20 13:59:00 EST, [facility], Partial fill upon patient request if the prescription... Start Date: 05/03/20 Stop Date: 08/31/20 Status: Ordered Biktarvy oral tablet 1 tablet, By Mouth, Daily, # 30 tablet, 5 Refills, Maintenance, 06/13/20 10:05:00 EDT, Tablet, [facility], Partial fill upon patient request [...] 09/30/19 14:50:00 EDT, Route to Pharmacy Electronically, [facility], 165, cm, 09/30/19 8:21:00 EDT, Height, 67, kg, 09/27... Start Date: 09/30/19 Status: Ordered Coreg 3.125 mg oral tablet 3.125 mg, 1, tablet, By Mouth, 2 times a day, # 60 tablet, Refills 0, Tot. Refills 0, Maintenance, 09/30/19 14:50:00 EDT, Route to Pharmacy Electronically, [facility], 165, cm, 09/30/19 8:21:00 EDT, Height, 67, kg, 09/28/19 15:00:0... Start Date: 09/30/19 Status: Ordered Flovent Diskus 100 mcg/inh inhalation powder 1 puffs, Inhalation, 2 times a day, # 120 each, 0 Refills, Maintenance, 10/18/19 12:21:00 EDT, Powder, [facility], 1 puffs Inhalation 2 times [...] Replace Required Details, [facility], [facility] Start Date: 04/27/20 Status: Ordered PriLOSEC OTC 20 mg oral delayed release tablet 1 tablet = 20 mg, By Mouth, Daily, # 30 tablet, 3 Refills, Maintenance, 02/15/20 7:52:00 EST, EC Tablet, [facility], Partial fill upon patient request [...]
--- OUTSIDE RECORDS SUMMARY | 2022-06-29 18:13 | XMS_ITS | Continuity of Care Document ---
Author Name Unknown Organization [facility] Address [address] [place] [address]- Care Team Providers Care Change Management Consultant Name Role Phone Christina Nunn NP Primary Care Physician [phone] Encounter [facility] [place] Date(s): 04/25/20 - 05/25/20 [facility] [address] [place] [id number] Allergies, Adverse Reactions, Alerts Substance Reaction Severity Status NKA Active Medications atorvastatin 40 mg oral tablet 1 tablet = 40 mg, By Mouth, Daily, # 30 tablet, 0 Refills, Maintenance, 09/30/19 14:51:00 EDT, Tablet, [facility], 165, cm, 09/30/19 8:21:00 EDT, Height, 67, kg, 09/28/19 15:00:00EDT, Dry Weight Start Date: 09/30/19 Status: Ordered Bactrim 400 mg-80 mg oral tablet 1 tablet, By Mouth, Daily, for 30 days, drink plenty of fluids Please label in Tristanian, # 30 tablet, 3 Refills, Acute 08/31/20 13:59:00 EDT, 05/03/20 13:59:00 EST, [facility], Partial fill upon patient request if the prescription... Start Date: 05/03/20 Stop Date: 08/31/20 Status: Ordered Claritin 10 mg oral tablet 10 mg, 1, tablet, By Mouth, Daily at bedtime, PRN, # 30 tablet, Refills 0, Tot. Refills 0, Maintenance, Rash, 09/30/19 14:50:00 EDT, Route to Pharmacy Electronically, [facility], 165, cm, 09/30/19 8:21:00 EDT, Height, 67, kg, 09/27... Start Date: 09/30/19 Status: Ordered Coreg 3.125 mg oral tablet 3.125 mg, 1, tablet, By Mouth, 2 times a day, # 60 tablet, Refills 0, Tot. Refills 0, Maintenance, 09/30/19 14:50:00 EDT, Route to Pharmacy Electronically, [facility], 165, cm, 09/30/19 8:21:00 EDT, Height, 67, kg, 09/28/19 15:00:0... Start Date: 09/30/19 Status: Ordered Flovent Diskus 100 mcg/inh inhalation powder 1 puffs, Inhalation, 2 times a day, # 120 each, 0 Refills, Maintenance, 10/18/19 12:21:00 EDT, Powder, [facility], 1 puffs Inhalation 2 times a [...] Replace Required Details, Route to Pharmacy Electronically, [facility] Start Date: 04/27/20 Status: Ordered PriLOSEC OTC 20 mg oral delayed release tablet 1 tablet = 20 mg, By Mouth, Daily, # 30 tablet, 3 Refills, Maintenance, 02/15/20 7:52:00 EST, EC Tablet, [facility], Partial fill upon patient request if [...]
--- OUTSIDE RECORDS SUMMARY | 2022-06-29 18:14 | XMS_ITS | Continuity of Care Document ---
Author Name Unknown Organization [facility] N[facility]stor lt Address [address] [place] [address]- Care Team Providers Care Production Grader Name Role Phone Christina Nunn NP Primary Care Physician [place] [facility] [place] 10/11/19 [facility] Adult [address] [place] [address]- [facility] Encounter Diagnosis Smoker(Discharge Diagnosis) - 10/04/19 STEMI (ST elevation myocardial infarction)(Discharge Diagnosis) - 10/04/19 Cocaine abuse(Discharge Diagnosis) - 10/04/19 Encounter to establish care(Discharge Diagnosis) - 10/04/19 Seasonal allergies(Discharge Diagnosis) - 10/04/19 Headache(Discharge Diagnosis) - 10/04/19 Asthma(Discharge Diagnosis) - 10/04/19 Attending Physician: Christina Nunn NP Allergies, Adverse Reactions, Alerts Substance Reaction Severity Status NKA Active Medications aspirin 81 mg oral tablet = 81 mg, By Mouth, Daily, # 30 tablet, 0 Refills, Maintenance, 09/30/19 14:50:00 EDT, Tablet, [facility], 165, cm, 09/30/19 8:21:00 EDT, Height, 67, kg, 09/28/19 15:00:00 EDT, DryWeight Start Date: 09/30/19 Status: Ordered atorvastatin 40 mg oral tablet 1 tablet = 40 mg, By Mouth, Daily, # 30 tablet, 0 Refills, Maintenance, 09/30/19 14:51:00 EDT, Tablet, [facility], 165, cm, 09/30/19 8:21:00 EDT, Height, 67, kg, 09/28/19 15:00:00EDT, Dry Weight Start Date: 09/30/19 Status: Ordered Claritin 10 mg oral tablet 10 mg, 1, tablet, By Mouth, Daily at bedtime, PRN, # 30 tablet, Refills 0, Tot. Refills 0, Maintenance, Rash, 09/30/19 14:50:00 EDT, Route to Pharmacy Electronically, [facility], 165, cm, 09/30/19 8:21:00 EDT, Height, 67, kg, 09/27... Start Date: 09/30/19 Status: Ordered Coreg 3.125 mg oral tablet 3.125 mg, 1, tablet, By Mouth, 2 times a day, # 60 tablet, Refills 0, Tot. Refills 0, Maintenance, 09/30/19 14:50:00 EDT, Route to Pharmacy Electronically, [facility], 165, cm, 09/30/19 8:21:00 EDT, Height, 67, kg, 09/28/19 15:00:0... Start Date: 09/30/19 Status: Ordered Plavix 75 mg oral tablet 75 mg, 1, tablet, By Mouth, Daily, # 30 tablet, Refills 0, Tot. Refills 0, Maintenance, 09/30/19 14:50:00 EDT, Route to Pharmacy Electronically, [facility], 165, cm, 09/30/19 8:21:00 EDT, Height, 67, kg, 09/28/19 15:00:00 EDT, Dry... Start Date: 09/30/19 Status: Ordered Problem List Condition Effective Dates Status Health Status Inform ant Asthma(Confirmed) Active Cocaine abuse(Confirmed) Active CAP (community acquired pneumonia)(Confirmed) Active Headache(Confirmed) Active Hyponatremia(Confirmed) Active STEMI (ST elevation myocardi al infarction)(Confirmed) Active Encounter to establish care(Confirmed) Active Seasonal allergies(Confirmed) Active Sepsis(Confirmed) Active Smoker(Confirmed) Active Diagnosis Diagnosis Type Effective Dates Health Status Clinical Service Informant Smoker Discharge Diagnosis 10/04/19 STEMI (ST elevation myocardial infarction) Discharge Diagnosis 10/04/19 Cocaine abuse Discharge Diagnosis 10/04/19 Encounter to establish care Discharge Diagnosis 10/04/19 Seasonal allergies Discharge Diagnosis 10/04/19 Headache Discharge Diagnosis 10/04/19 Asthma Discharge Diagnosis 10/04/19 Vital Signs Most recent to oldest [Reference Range]: 1 Height 165 cm (10/04/19 10:03 AM) Weight 65.8 kg (10/04/19 10:03 AM) Oxygen Saturation [94-100 %] 98 % (10/04/19 10:03 AM) Pulse Rate [55-90 bpm] 80 bpm (10/04/19 10:03 AM) Body Mass Index [18.5-24.99] 24.17 (10/04/19 10:03 AM) Blood Pressure [90-138/55-84 mm Hg] 110/ 70mm Hg (10/04/19 10:03 AM) Respiratory Rate [16-30 br/min] 16 br/mi n (10/04/19 10:03 AM) Temperature [96.8-100.4 DegF] 98.1 DegF (10/04/19 10:03 AM) Mode of Delivery (Oxygen) Room air (10/04/19 10:03 AM) Blood pressure sites Arm, left (10/04/19 10:03 AM) Temperature Route Oral (10/04/19 10:03 AM) Social History Social History Type Response Smoking Status Never (less than 100 in lifetime); Type: Cigarettes; Other: A pack of day; entered on: 10/04/19 Sex
--- OUTSIDE RECORDS SUMMARY | 2022-06-29 18:14 | XMS_ITS | Continuity of Care Document ---
Author Name Unknown Organization [facility] N[facility]stor lt Address [address] [place] [address]- Care Team Providers Care Aeronautical Engineering Technologist Name Role Phone Edouard CALLOWAY, Christina Primary Care Physician Encounter [facility] [place] Date(s): 04/24/20 - 05/24/20 [facility] Adult [address] [place] [address]- Allergies, Adverse Reactions, Alerts Substance Reaction Severity Status NKA Active Medications atorvastatin 40 mg oral tablet 1 tablet = 40 mg, By Mouth, Daily, # 30 tablet, 0 Refills, Maintenance, 09/30/19 14:51:00 EDT, Tablet, [facility], 165, cm, 09/30/19 8:21:00 EDT, Height, 67, kg, 09/28/19 15:00:00EDT, Dry Weight Start Date: 09/30/19 Status: Ordered Bactrim 400 mg-80 mg oral tablet 1 tablet, By Mouth, Daily, for 30 days, drink plenty of fluids Please label in Lithuanian, # 30 tablet, 3 Refills, Acute 08/31/20 13:59:00 EDT, 05/03/20 13:59:00 EST, [facility], Partial fill upon patient request if the prescription... Start Date: 05/03/20 Stop Date: 08/31/20 Status: Ordered Claritin 10 mg oral tablet 10 mg, 1, tablet, By Mouth, Daily at bedtime, PRN, # 30 tablet, Refills 0, Tot. Refills 0, Maintenance, Rash, 09/30/19 14:50:00 EDT, Route to Pharmacy Electronically, [facility], 165, cm, 09/30/19 8:21:00 EDT, Height, 67, kg, 09/27... Start Date: 09/30/19 Status: Ordered Coreg 3.125 mg oral tablet 3.125 mg, 1, tablet, By Mouth, 2 times a day, # 60 tablet, Refills 0, Tot. Refills 0, Maintenance, 09/30/19 14:50:00 EDT, Route to Pharmacy Electronically, [facility], 165, cm, 09/30/19 8:21:00 EDT, Height, 67, kg, 09/28/19 15:00:0... Start Date: 09/30/19 Status: Ordered Flovent Diskus 100 mcg/inh inhalation powder 1 puffs, Inhalation, 2 times a day, # 120 each, 0 Refills, Maintenance, 10/18/19 12:21:00 EDT, Powder, [facility], 1 puffs Inhalation 2 times a [...] Replace Required Details, Route to Pharmacy Electronically, [facility] Start Date: 04/27/20 Status: Ordered PriLOSEC OTC 20 mg oral delayed release tablet 1 tablet = 20 mg, By Mouth, Daily, # 30 tablet, 3 Refills, Maintenance, 02/15/20 7:52:00 EST, EC Tablet, [facility], Partial fill upon patient request if [...]
--- OUTSIDE RECORDS SUMMARY | 2022-06-29 18:14 | XMS_ITS | Continuity of Care Document ---
Author Name Unknown Organization [facility] N[facility]stor lt Address [address] [place] [address]- Care Team Providers Care Spark Tester Name Role Phone Edouard CALLOWAY, Christina Primary Care Physician [place] [facility] [place] 05/31/20 [facility] Adult [address] [place] [address]- Allergies, Adverse Reactions, Alerts Substance Reaction Severity Status NKA Active Medications atorvastatin 40 mg oral tablet 1 tablet = 40 mg, By Mouth, Daily, # 30 tablet, 0 Refills, Maintenance, 09/30/19 14:51:00 EDT, Tablet, [facility], 165, cm, 09/30/19 8:21:00 EDT, Height, 67, kg, 09/28/19 15:00:00EDT, Dry Weight Start Date: 09/30/19 Status: Ordered Bactrim 400 mg-80 mg oral tablet 1 tablet, By Mouth, Daily, for 30 days, drink plenty of fluids Please label in Swedish, # 30 tablet, 3 Refills, Acute 08/31/20 13:59:00 EDT, 05/03/20 13:59:00 EST, [facility], Partial fill [...] 0 Refills, Maintenance, 10/18/19 12:21:00 EDT, Powder, [facility], 1 puffs Inhalation 2 times [...] [facility]... Start Date: 04/27/20 Status: Ordered PriLOSEC [...]
--- OUTSIDE RECORDS SUMMARY | 2022-06-29 18:14 | XMS_ITS | Continuity of Care Document ---
Author Name Unknown Organization [facility] N[facility] lt Address [address] [place] [address]- Care Team Providers Care Redeye Gunner Name Role Phone Edouard CALLOWAY, Christina Primary Care Physician Encounter [facility] [place] Date(s): 09/30/19 - 10/30/19 [facility] Adult [address] [place] [address]- [facility] Allergies, Adverse Reactions, Alerts Substance Reaction Severity Status NKA Active Medications aspirin 81 mg oral tablet = 81 mg, By Mouth, Daily, # 30 tablet, 0 Refills, Maintenance, 09/30/19 14:50:00 EDT, Tablet, [facility], 165, cm, 09/30/19 8:21:00 EDT, Height, 67, kg, 09/28/19 15:00:00 EDT, DryWeight Start Date: 09/30/19 Status: Ordered atorvastatin 40 mg oral tablet 1 tablet = 40 mg, By Mouth, Daily, # 30 tablet, 0 Refills, Maintenance, 09/30/19 14:51:00 EDT, Tablet, [facility], 165, cm, 09/30/19 8:21:00 EDT, Height, 67, kg, 09/28/19 15:00:00EDT, Dry Weight Start Date: 09/30/19 Status: Ordered Claritin 10 mg oral tablet 10 mg, 1, tablet, By Mouth, Daily at bedtime, PRN, # 30 tablet, Refills 0, Tot. Refills 0, Maintenance, Rash, 09/30/19 14:50:00 EDT, Route to Pharmacy Electronically, [facility], 165, cm, 09/30/19 8:21:00 EDT, Height, 67, kg, 09/27... Start Date: 09/30/19 Status: Ordered Coreg 3.125 mg oral tablet 3.125 mg, 1, tablet, By Mouth, 2 times a day, # 60 tablet, Refills 0, Tot. Refills 0, Maintenance, 09/30/19 14:50:00 EDT, Route to Pharmacy Electronically, [facility], 165, cm, 09/30/19 8:21:00 EDT, Height, 67, kg, 09/28/19 15:00:0... Start Date: 09/30/19 Status: Ordered Flovent Diskus 100 mcg/inh inhalation powder 1 puffs, Inhalation, 2 times a day, # 120 each, 0 Refills, Maintenance, 10/18/19 12:21:00 EDT, Powder, [facility], 1 puffs Inhalation 2 times a day, 165, cm, 10/18/19 10:27:00 EDT, Height, 67, kg, 09/28/19 15:00:00 EDT, Dry Weight Start Date: 10/18/19 Status: Ordered Plavix 75 mg oral tablet 75 mg, 1, tablet, By Mouth, Daily, # 30 tablet, Refills 0, Tot. Refills 0, Maintenance, 09/30/19 14:50:00 EDT, Route to Pharmacy Electronically, [facility], 165, cm, 09/30/19 8:21:00 EDT, [...]
--- OUTSIDE RECORDS SUMMARY | 2022-06-29 18:14 | XMS_ITS | Continuity of Care Document ---
Author Name Unknown Organization [facility] Address [address] [place] [address]- Care Team Providers Care Electrical Linesworker Name Role Phone Sharmin Steele Primary Care Physician En[place] [facility] [place]s): 11/25/21 - 02/01/22 [facility] [address] [place] [id number]- Attending Physician: Serge Black MD Admitting Physician: Serge Black MD Referring Physician: Sharmin Steele Allergies, Adverse Reactions, Alerts [...] Gm, 11 Refills, Maintenance, 08/15/21 9:16:00 EDT, [facility], Partial fill upon patient request if the prescription is for a schedule IIopioid drug., 2 puffs Inhalation Every 6 hours, 162... Start Date: 08/15/21 Status: Ordered atorvastatin 40 mg oral tablet 1 tablet = 40 mg, By Mouth, Daily, # 90 tablet, 0 Refills, Maintenance, 02/19/21 12:59:00 EST, Tablet, [facility], 162, cm, 02/14/21 15:04:00 EST, Height, 67, kg, 09/28/19 15:00:00 EDT, Dry Weight Start Date: 02/19/21 Status: Ordered Biktarvy oral tablet 1 tablet, By Mouth, Daily, # 30 tablet, 0 Refills, Maintenance, 11/26/21 8:55:00 EDT, Tablet, [id number], Partial fill upon patient request if the prescription is for a schedule II opioid drug., 1 tablet By Mouth Daily,x30 days, 162,... Start Date: 11/26/21 Stop Date: 12/26/21 Status: Ordered Biktarvy oral tablet 1 tablet, By Mouth, Daily, # 30 tablet, 2 Refills, Maintenance, 10/29/21 12:37:00 EDT, Tablet, [facility], Partial fill upon patient request if the prescription is for a schedule II opioid drug., 1 tablet By Mouth Daily,x30 days, 1... Start Date: 10/29/21 Stop Date: 01/27/22 Status: Ordered Claritin 10 mg oral tablet 10 mg, 1, tablet, By Mouth, Daily at bedtime, PRN, # 30 tablet, Refills 11, Tot. Refills 11, Maintenance, Rash, 08/15/21 9:16:00 EDT, Route to Pharmacy Electronically, [facility],162, cm, 08/15/21 8:44:00 EDT, Height, 67, kg, 07/2... Start Date: 08/15/21 Status: Ordered Coreg 3.125 mg oral tablet 3.125 mg, 1, tablet, By Mouth, 2 times a day, # 60 tablet, Refills 0, Tot. Refills 0, Maintenance, 09/30/19 14:50:00 EDT, Route to Pharmacy Electronically, [facility], 165, cm, 09/30/19 8:21:00 EDT, Height, 67, kg, 09/28/19 15:00:0... Start Date: 09/30/19 Status: Ordered cyclobenzaprine 10 mg oral tablet 10 mg, By Mouth, Every 8 hours, PRN, Muscle Spasms, # 30 tablet, Refills 0, Tot. Refills 0, Maintenance, Pain , Moderate, 03/20/21 7:55:00 EST, [facility], Partial fill upon patient request if the... Start Date: 03/20/21 Status: Ordered gabapentin 600 mg oral tablet 1 tablet = 600 mg, By Mouth, 3 times a day, # 90 tablet, 0 Refills, Maintenance, 10/04/21 16:52:00 EDT, Tablet, [facility], Partial fill upon patient request if the prescription is for a schedule II opioid drug., 162, cm, 10/04/21... Start Date: 10/04/21 Status: Ordered hydrocortisone 2.5% topical cream 1 application, Topically, 3 times a day, # 30 Gm, 0 Refills, Maintenance, 10/03/20 16:22:00 EDT, Cream, [facility], Partial fill upon patient [...] Replace Required Details, Route to Pharmacy Electronically, [facility]... Start Date: 04/27/20 Status: Ordered Lidoderm 5% film See Instructions, Postherpetic Neuralgia Pain Apply to intact skin to cover the most painful area Apply up to 3 patches, only once for up to 12 hr within a 24- hr period remove patches after 12 hours,# 30 patch, 3 Refills, Maintenance, 10/08/21 16:... Start Date: 10/08/21 Status: Ordered Lidoderm 5% film See Instructions, apply 1 patch Topically as needed for pain daily, # 30 patch, 0 Refills, Maintenance, 02/08/21 15:08:00 EST, [facility], Partial fill upon patient [...] Refills, Maintenance, 02/15/20 7:52:00 EST, EC Tablet, [facility], Partial fill upon patient request if the prescription is for aschedule II opioid drug., 165, cm, 01/23/20 8:28:00... Start Date: 02/15/20 Status: Ordered Singulair 10 mg oral tablet 10 mg, 1, tablet, By Mouth, Daily, # 30 tablet, Refills 11, Tot. Refills 11, Maintenance, 08/15/21 9:16:00 EDT, Route to Pharmacy Electronically, [facility], Partial fill upon patient [...] Date: 01/27/20 Status: Ordered Problem List Condition Confirmation Course Effective Dates Status Health St atus Informant Asthma Confirmed Active Cervical spine arthritis Confirmed Active Cocaine abuse Confirmed Active Depression Confirmed Active Embolic infarction Confirmed Active Headache Confirmed Active Heartburn Confirmed Active H/O herpes zoster left upper chest back Confirmed 08/10/21 Active HIV positive Confirmed Active STEMI (ST elevation myocardial infarction) Confirmed Active Neuropathic pain 1 Confirmed Active Nodule of right lung 2, 3 Confirmed Active Seasonal allergies Confirmed Active Sepsis Confirmed Active Shoulder pain, left Confirmed Active Smoker Confirmed Active 1due to shingles 2right middle 37 mm Social History Social History Type Response Smoking Status Never (less than 100 in lifetime); Type: Cigarettes; Other: A pack of day; entered on: 10/04/19 Sex Patient Care team information Care Team Personnel Name: Sharmin Davis RN Position: [facility] RN Member Role: Primary Care Nurse Name: Sharmin Steele Position: [facility] PCO Associate Professional Member Role: PCP Address: Address: [address] [place] [address] Care Team Related Persons Name: JUAN NATH
--- OUTSIDE RECORDS SUMMARY | 2022-06-29 18:14 | XMS_ITS | Continuity of Care Document ---
Author Name Unknown Organization [facility] N[facility] lt Address [address] [place] [address]- Care Team Providers Care Audio Engineer Name Role Phone Edouard CALLOWAY, Christina Primary Care Physician [place] [facility] [place] 05/02/20 - 06/01/20 [facility] [address] [place] [address]- Allergies, Adverse Reactions, Alerts Substance Reaction Severity Status NKA Active Medications atorvastatin 40 mg oral tablet 1 tablet = 40 mg, By Mouth, Daily, # 30 tablet, 0 Refills, Maintenance, 09/30/19 14:51:00 EDT, Tablet, [facility], 165, cm, 09/30/19 8:21:00 EDT, Height, 67, kg, 09/28/19 15:00:00EDT, Dry Weight Start Date: 09/30/19 Status: Ordered Bactrim 400 mg-80 mg oral tablet 1 tablet, By Mouth, Daily, for 30 days, drink plenty of fluids Please label in Lithuanian, # 30 tablet, 3 Refills, Acute 08/31/20 13:59:00 EDT, 05/03/20 13:59:00 EST, [facility], Partial fill upon patient request if the prescription... Start Date: 05/03/20 Stop Date: 08/31/20 Status: Ordered Claritin 10 mg oral tablet 10 mg, 1, tablet, By Mouth, Daily at bedtime, PRN, # 30 tablet, Refills 0, Tot. Refills 0, Maintenance, Rash, 09/30/19 14:50:00 EDT, Route to Pharmacy Electronically, [facility], 165, cm, 09/30/19 8:21:00 EDT, Height, 67, kg, 09/27... Start Date: 09/30/19 Status: Ordered Coreg 3.125 mg oral tablet 3.125 mg, 1, tablet, By Mouth, 2 times a day, # 60 tablet, Refills 0, Tot. Refills 0, Maintenance, 09/30/19 14:50:00 EDT, Route to Pharmacy Electronically, [facility], 165, cm, 09/30/19 8:21:00 EDT, Height, 67, kg, 09/28/19 15:00:0... Start Date: 09/30/19 Status: Ordered Flovent Diskus 100 mcg/inh inhalation powder 1 puffs, Inhalation, 2 times a day, # 120 each, 0 Refills, Maintenance, 10/18/19 12:21:00 EDT, Powder, [facility], 1 puffs Inhalation 2 times [...] Replace Required Details, Route to Pharmacy Electronically, [facility]... Start Date: 04/27/20 Status: Ordered PriLOSEC OTC 20 mg oral delayed release tablet 1 tablet = 20 mg, By Mouth, Daily, # 30 tablet, 3 Refills, Maintenance, 02/15/20 7:52:00 EST, EC Tablet, [facility], Partial fill upon patient request [...]
--- OUTSIDE RECORDS SUMMARY | 2022-06-29 18:14 | XMS_ITS | Continuity of Care Document ---
Author Name Unknown Organization [facility] N[facility]stor lt Address [address] [place] [address]- Care Team Providers Care University Registrar Name Role Phone Edouard CALLOWAY, Christina Primary Care Physician Encounter [facility] [place] Date(s): 04/25/20 - 06/22/20 [facility] [address] [place] [address]- Attending Physician: Christina Nunn NP Referring Physician: Darrion Adrian MD Allergies, Adverse Reactions, Alerts Substance Reaction Severity Status NKA Active Medications atorvastatin 40 mg oral tablet 1 tablet = 40 mg, By Mouth, Daily, # 30 tablet, 0 Refills, Maintenance, 09/30/19 14:51:00 EDT, Tablet, [facility], 165, cm, 09/30/19 8:21:00 EDT, Height, 67, kg, 09/28/19 15:00:00EDT, Dry Weight Start Date: 09/30/19 Status: Ordered Bactrim 400 mg-80 mg oral tablet 1 tablet, By Mouth, Daily, for 30 days, drink plenty of fluids Please label in Scottish, # 30 tablet, 3 Refills, Acute 08/31/20 13:59:00 EDT, 05/03/20 13:59:00 EST, [facility], Partial fill upon patient request if the prescription... Start Date: 05/03/20 Stop Date: 08/31/20 Status: Ordered Biktarvy oral tablet 1 tablet, By Mouth, Daily, # 30 tablet, 5 Refills, Maintenance, 06/13/20 10:05:00 EDT, Tablet, [facility], Partial fill upon patient request [...] 09/30/19 14:50:00 EDT, Route to Pharmacy Electronically, [facility], 165, cm, 09/30/19 8:21:00 EDT, Height, 67, kg, 09/27... Start Date: 09/30/19 Status: Ordered Coreg 3.125 mg oral tablet 3.125 mg, 1, tablet, By Mouth, 2 times a day, # 60 tablet, Refills 0, Tot. Refills 0, Maintenance, 09/30/19 14:50:00 EDT, Route to Pharmacy Electronically, [facility], 165, cm, 09/30/19 8:21:00 EDT, Height, 67, kg, 09/28/19 15:00:0... Start Date: 09/30/19 Status: Ordered Flovent Diskus 100 mcg/inh inhalation powder 1 puffs, Inhalation, 2 times a day, # 120 each, 0 Refills, Maintenance, 10/18/19 12:21:00 EDT, Powder, [facility], 1 puffs Inhalation 2 times [...] Replace Required Details, [facility] Start Date: 04/27/20 Status: Ordered PriLOSEC OTC 20 mg oral delayed release tablet 1 tablet = 20 mg, By Mouth, Daily, # 30 tablet, 3 Refills, Maintenance, 02/15/20 7:52:00 EST, EC Tablet, [facility], Partial fill upon patient request [...]
--- OUTSIDE RECORDS SUMMARY | 2022-06-29 18:14 | XMS_ITS | Continuity of Care Document ---
Author Name Unknown Organization [facility] N[facility]st[facility] lt Address [address] [place] [address]- Care Team Providers Care Evaporator Name Role Phone Christina Nunn NP Primary Care Physician Encounter [facility] Date(s): 09/02/21 - 10/02/21 [facility] Adult [address] [place] [address]- Allergies, Adverse Reactions, Alerts No Known Allergies [...] Gm, 11 Refills, Maintenance, 08/15/21 9:16:00 EDT, [facility], Partial fill upon patient request if the prescription is for a schedule IIopioid drug., 2 puffs Inhalation Every 6 hours, 162... Start Date: 08/15/21 Status: Ordered atorvastatin 40 mg oral tablet 1 tablet = 40 mg, By Mouth, Daily, # 90 tablet, 0 Refills, Maintenance, 02/19/21 12:59:00 EST, Tablet, [facility], 162, cm, 02/14/21 15:04:00 EST, Height, 67, kg, 09/28/19 15:00:00 EDT, Dry Weight Start Date: 02/19/21 Status: Ordered Biktarvy oral tablet 1 tablet, By Mouth, Daily, # 30 tablet, 2 Refills, Maintenance, 05/02/21 8:57:00 EST, Tablet, [facility], Partial fill upon patient request [...] 08/15/21 9:16:00 EDT, Route to Pharmacy Electronically, [facility],162, cm, 08/15/21 8:44:00 EDT, Height, 67, kg, 2... Start Date: 08/15/21 Status: Ordered Coreg 3.125 mg oral tablet 3.125 mg, 1, tablet, By Mouth, 2 times a day, # 60 tablet, Refills 0, Tot. Refills 0, Maintenance, 09/30/19 14:50:00 EDT, Route to Pharmacy Electronically, [facility], 165, cm, 09/30/19 8:21:00 EDT, Height, 67, kg, 09/28/19 15:00:0... Start Date: 09/30/19 Status: Ordered cyclobenzaprine 10 mg oral tablet 10 mg, By Mouth, Every 8 hours, PRN, Muscle Spasms, # 30 tablet, Refills 0, Tot. Refills 0, Maintenance, Pain , Moderate, 03/20/21 7:55:00 EST, [facility], Partial fill upon patient request if the... Start Date: 03/20/21 Status: Ordered gabapentin 600 mg oral tablet 1 tablet = 600 mg, By Mouth, 3 times a day, # 90 tablet, 0 Refills, Maintenance, 09/05/21 9:59:00 EDT, Tablet, [facility], Partial fill upon patient request if the prescription isfor a schedule II opioid drug., 162, cm, 08/22/21 1... Start Date: 09/05/21 Status: Ordered hydrocortisone 2.5% topical cream 1 application, Topically, 3 times a day, # 30 Gm, 0 Refills, Maintenance, 10/03/20 16:22:00 EDT, Cream, [facility], Partial fill upon patient request [...] Replace Required Details, [facility] to Pharmacy Electronically, [facility]... Start Date: 04/27/20 Status: Ordered Lidoderm 5% film See Instructions, apply 1 patch Topically as needed for pain daily, # 30 patch, 0 Refills, Maintenance, 02/08/21 15:08:00 EST, [facility], Partial fill upon patient request [...] Refills, Maintenance, 02/15/20 7:52:00 EST, EC Tablet, [facility], Partial fill upon patient request if the prescription is for aschedule II opioid drug., 165, cm, 01/23/20 8:28:00... Start Date: 02/15/20 Status: Ordered Singulair 10 mg oral tablet 10 mg, 1, tablet, By Mouth, Daily, # 30 tablet, Refills 11, Tot. Refills 11, Maintenance, 08/15/21 9:16:00 EDT, Route to Pharmacy Electronically, [facility], Partial fill upon patient request [...]
--- OUTSIDE RECORDS SUMMARY | 2022-06-29 18:14 | XMS_ITS | Continuity of Care Document ---
Author Name Unknown Organization [facility] ter Address [address] [place] [address]- Care Team Providers Care Commercial Counsel Name Role Phone Edouard CALLOWAY, Christina Primary Care Physician [phone] Encounter [facility] [place] Date(s): 10/26/20 - 12/02/[address] [id number] Attending Physician: Christina uNnn NP Admitting Physician: Christina Nunn NP Referring Physician: Christina Nunn NP Allergies, Adverse [...] 0 Refills, Maintenance, 10/03/20 16:17:00 EDT, Tablet, [facility], 165, cm, 10/03/20 16:02:00 EDT, Height, 67, kg, 09/28/19 15:00:00 EDT, Dry Weight Start Date: 10/03/20 Status: Ordered Bactrim 400 mg-80 mg oral tablet 1 tablet, By Mouth, Daily, for 30 days, drink plenty of fluids Please label in Setswana, # 30 tablet, 2 Refills, Acute 12/17/20 10:12:00 EDT, 09/18/20 10:12:00 EDT, [facility], Partial fill upon patient request if the prescription... Start Date: 09/18/20 Stop Date: 12/17/20 Status: Ordered Biktarvy oral tablet 1 tablet, By Mouth, Daily, # 30 tablet, 5 Refills, Maintenance, 06/13/20 10:05:00 EDT, Tablet, [facility], Partial fill upon patient request [...] 09/30/19 14:50:00 EDT, Route to Pharmacy Electronically, [facility], 165, cm, 09/30/19 8:21:00 EDT, Height, 67, kg, 09/27... Start Date: 09/30/19 Status: Ordered Coreg 3.125 mg oral tablet 3.125 mg, 1, tablet, By Mouth, 2 times a day, # 60 tablet, Refills 0, Tot. Refills 0, Maintenance, 09/30/19 14:50:00 EDT, Route to Pharmacy Electronically, [facility], 165, cm, 09/30/19 8:21:00 EDT, Height, 67, kg, 09/28/19 15:00:0... Start Date: 09/30/19 Status: Ordered Flovent Diskus 100 mcg/inh inhalation powder 1 puffs, Inhalation, 2 times a day, # 120 each, 0 Refills, Maintenance, 10/18/19 12:21:00 EDT, Powder, [facility], 1 puffs Inhalation 2 times a day, 165, cm, 10/18/19 10:27:00 EDT, Height, 67, kg, 09/28/19 15:00:00 EDT, Dry Weight Start Date: 10/18/19 Status: Ordered hydrocortisone 2.5% topical cream 1 application, Topically, 3 times a day, # 30 Gm, 0 Refills, Maintenance, 10/03/20 16:22:00 EDT, Cream, [facility], Partial fill upon patient request [...] Replace Required Details, Route to Pharmacy Electronically, [facility]... Start Date: 04/27/20 Status: Ordered PriLOSEC OTC 20 mg oral delayed release tablet 1 tablet = 20 mg, By Mouth, Daily, # 30 tablet, 3 Refills, Maintenance, 02/15/20 7:52:00 EST, EC Tablet, [facility], Partial fill upon patient request [...]
--- OUTSIDE RECORDS SUMMARY | 2022-06-29 18:14 | XMS_ITS | Continuity of Care Document ---
Author Name Unknown Organization [facility] Address [address] [place] [address]- Care Team Providers Care Medical Affairs Leader Name Role Phone Christina Nunn NP Primary Care Physician Encounter [facility] [place] Date(s): 06/13/21 - 07/13/21 [facility] [address] [place] [id number] Attending Physician: Huang Ordaz Admitting Physician: Huang [...] 1 each, 11 Refills, Maintenance, 02/14/21 15:26:00 EST, [facility], Partial fill upon patient request if the prescription is for a schedule II opioid drug., 2 puffs Inhalation Every 6 hours, 17... Start Date: 02/14/21 Status: Ordered atorvastatin 40 mg oral tablet 1 tablet = 40 mg, By Mouth, Daily, # 90 tablet, 0 Refills, Maintenance, 02/19/21 12:59:00 EST, Tablet, [facility], 162, cm, 02/14/21 15:04:00 EST, Height, 67, kg, 09/28/19 15:00:00 EDT, Dry Weight Start Date: 02/19/21 Status: Ordered Biktarvy oral tablet 1 tablet, By Mouth, Daily, # 30 tablet, 2 Refills, Maintenance, 05/02/21 8:57:00 EST, Tablet, [facility], Partial fill upon patient [...] 09/30/19 14:50:00 EDT, Route to Pharmacy Electronically, [facility], 165, cm, 09/30/19 8:21:00 EDT, Height, 67, kg, 09/27... Start Date: 09/30/19 Status: Ordered Coreg 3.125 mg oral tablet 3.125 mg, 1, tablet, By Mouth, 2 times a day, # 60 tablet, Refills 0, Tot. Refills 0, Maintenance, 09/30/19 14:50:00 EDT, Route to Pharmacy Electronically, [facility], 165, cm, 09/30/19 8:21:00 EDT, Height, 67, kg, 09/28/19 15:00:0... Start Date: 09/30/19 Status: Ordered cyclobenzaprine 10 mg oral tablet 10 mg, By Mouth, Every 8 hours, PRN, Muscle Spasms, # 30 tablet, Refills 0, Tot. Refills 0, Maintenance, Pain , Moderate, 03/20/21 7:55:00 EST, [facility], [facility] fill upon patient request if the... Start Date: 03/20/21 Status: Ordered hydrocortisone 2.5% topical cream 1 application, Topically, 3 times a day, # 30 Gm, 0 Refills, Maintenance, 10/03/20 16:22:00 EDT, Cream, [facility], Partial fill upon patient [...] Replace Required Details, Route to Pharmacy Electronically, [facility]... Start Date: 04/27/20 Status: Ordered Lidoderm 5% film See Instructions, apply 1 patch Topically as needed for pain daily, # 30 patch, 0 Refills, Maintenance, 02/08/21 15:08:00 EST, [facility], Partial fill upon patient [...] Refills, Maintenance, 02/15/20 7:52:00 EST, EC Tablet, [facility], Partial fill upon patient request if the prescription is for aschedule II opioid drug., 165, cm, 01/23/20 8:28:00... Start Date: 02/15/20 Status: Ordered Singulair 10 mg oral tablet 10 mg, 1, tablet, By Mouth, Daily, # 30 tablet, Refills 12, Tot. Refills 12, Maintenance, 02/14/21 15:26:00 EST, Route to Pharmacy Electronically, [facility], Partial fill upon patient [...]
--- OUTSIDE RECORDS SUMMARY | 2022-06-29 18:14 | XMS_ITS | Continuity of Care Document ---
Author Name Unknown Organization [facility] Address [address] [place] [address]- Care Team Providers Care Deburrer Name Role Phone Sharmin Steele Primary Care Physician [phone] Encounter [facility] [place] Date(s): 03/05/22 - 04/04/22 [facility] [address] [place] [id number] Allergies, Adverse Reactions, Alerts No Known Allergies [...] Gm, 11 Refills, Maintenance, 08/15/21 9:16:00 EDT, [facility], Partial fill upon patient request if the prescription is for a schedule IIopioid drug., 2 puffs Inhalation Every 6 hours, 162... Start Date: 08/15/21 Status: Ordered atorvastatin 40 mg oral tablet 1 tablet = 40 mg, By Mouth, Daily, # 90 tablet, 0 Refills, Maintenance, 02/19/21 12:59:00 EST, Tablet, [facility], 162, cm, 02/14/21 15:04:00 EST, Height, 67, kg, 09/28/19 15:00:00 EDT, Dry Weight Start Date: 02/19/21 Status: Ordered Biktarvy oral tablet 1 tablet, By Mouth, Daily, # 30 tablet, 0 Refills, Maintenance, 11/26/21 8:55:00 EDT, Tablet, [id number], Partial fill upon patient request if the prescription is for a schedule II opioid drug., 1 tablet By Mouth Daily,x30 days, 162,... Start Date: 11/26/21 Stop Date: 12/26/21 Status: Ordered Biktarvy oral tablet 1 tablet, By Mouth, Daily, # 30 tablet, 2 Refills, Maintenance, 10/29/21 12:37:00 EDT, Tablet, [facility], Partial fill upon patient request [...] 08/15/21 9:16:00 EDT, Route to Pharmacy Electronically, [facility],162, cm, 08/15/21 8:44:00 EDT, Height, 67, kg, 2... Start Date: 08/15/21 Status: Ordered Coreg 3.125 mg oral tablet 3.125 mg, 1, tablet, By Mouth, 2 times a day, # 60 tablet, Refills 0, Tot. Refills 0, Maintenance, 09/30/19 14:50:00 EDT, Route to Pharmacy Electronically, [facility], 165, cm, 09/30/19 8:21:00 EDT, Height, 67, kg, 09/28/19 15:00:0... Start Date: 09/30/19 Status: Ordered cyclobenzaprine 10 mg oral tablet 10 mg, By Mouth, Every 8 hours, PRN, Muscle Spasms, # 30 tablet, Refills 0, Tot. Refills 0, Maintenance, Pain , Moderate, 03/20/21 7:55:00 EST, [facility], [facility] fill upon patient request if the... Start Date: 03/20/21 Status: Ordered gabapentin 600 mg oral tablet 1 tablet = 600 mg, By Mouth, 3 times a day, # 90 tablet, 0 Refills, Maintenance, 10/04/21 16:52:00 EDT, Tablet, [facility], Partial fill upon patient request if the prescription is for a schedule II opioid drug., 162, cm, 10/04/21... Start Date: 10/04/21 Status: Ordered hydrocortisone 2.5% topical cream 1 application, Topically, 3 times a day, # 30 Gm, 0 Refills, Maintenance, 10/03/20 16:22:00 EDT, Cream, [facility], Partial fill upon patient request [...] Replace Required Details, Route to Pharmacy Electronically, [facility]... Start Date: 04/27/20 Status: Ordered Lidoderm [...] patch, 0 Refills, Maintenance, 02/08/21 15:08:00 EST, [facility], Partial fill upon patient request [...] Refills, Maintenance, 02/15/20 7:52:00 EST, EC Tablet, [facility], Partial fill upon patient request if the prescription is for aschedule II opioid drug., 165, cm, 01/23/20 8:28:00... Start Date: 02/15/20 Status: Ordered Singulair 10 mg oral tablet 10 mg, 1, tablet, By Mouth, Daily, # 30 tablet, Refills 11, Tot. Refills 11, Maintenance, 08/15/21 9:16:00 EDT, Route to Pharmacy Electronically, [facility], Partial fill upon patient request [...] Team Personnel Name: Sharmin Davis RN Position: [facility] RN Member Role: Primary Care Nurse Name: Sharmin Steele Position: [facility] PCO Associate Professional Member Role: PCP Address: Address: [address] [place] [id number] Care Team Related Persons Name: JUAN NATH
--- OUTSIDE RECORDS SUMMARY | 2022-06-29 18:14 | XMS_ITS | Continuity of Care Document ---
Author Name Unknown Organization [facility] N[facility]or Address [address] [place] [id number]- Care Team Providers Care Gyn Name Role Phone Christina Nunn NP Primary Care Physician Encounter [facility] [place] Date(s): 03/20/21 - 03/27/21 [facility] Adult [address] [place] [address]- Encounter Diagnosis Cervical radiculopathy(Discharge Diagnosis) - 03/21/21 Attending Physician: Christina Nunn NP Allergies, Adverse [...] 1 each, 11 Refills, Maintenance, 02/14/21 15:26:00 [facility], [facility], Partial fill upon [...] drink plenty of fluids Please label in [place] Island[place], # 30 tablet, 2 Refills, Acute 04/14/21 14:28:00 EST, 01/14/21 14:28:00 EST, [facility], Partial fill upon patient request if the prescription... Start Date: 01/14/21 Stop Date: 04/14/21 Status: Ordered Biktarvy oral tablet 1 tablet, By Mouth, Daily, # 30 tablet, 2 Refills, Maintenance, 01/14/21 14:28:00 EST, Tablet, [facility], Partial [...] 02/14/21 15:26:00 EST, Route to Pharmacy Electronically, [facility] [...] Effective Dates Health Status Clinical Service Informant Cervical radiculopathy Discharge Diagnosis 03/21/21 Vital Signs Most recent to oldest [Reference Range]: 1 Height 162 cm (03/20/21 7:16 AM) Social History Social History Type Response Smoking Status Never (less than 100 in lifetime); Type: Cigarettes; Other: A pack of day; entered on: 10/04/19 Sex
--- OUTSIDE RECORDS SUMMARY | 2022-06-29 18:14 | XMS_ITS | Continuity of Care Document ---
Author Name Unknown Organization [facility] N[facility]stor lt Address [address] [place] [address]- Care Team Providers Care Access Liaison Name Role Phone Edouard CALLOWAY, Christina Primary Care Physician Encounter [facility] Date(s): 11/06/20 - 12/06/20 [facility] Adult [address] [place] [address]- Allergies, Adverse Reactions, Alerts Substance Reaction Severity [...] 0 Refills, Maintenance, 10/03/20 16:17:00 EDT, Tablet, [facility], 165, cm, 10/03/20 16:02:00 EDT, Height, 67, kg, 09/28/19 15:00:00 EDT, Dry Weight Start Date: 10/03/20 Status: Ordered Bactrim 400 mg-80 mg oral tablet 1 tablet, By Mouth, Daily, for 30 days, drink plenty of fluids Please label in Lao, # 30 tablet, 2 Refills, Acute 12/17/20 10:12:00 EDT, 09/18/20 10:12:00 EDT, [facility], Partial fill upon patient request if the prescription... Start Date: 09/18/20 Stop Date: 12/17/20 Status: Ordered Biktarvy oral tablet 1 tablet, By Mouth, Daily, # 30 tablet, 5 Refills, Maintenance, 06/13/20 10:05:00 EDT, Tablet, [facility], Partial fill upon patient request [...] 09/30/19 14:50:00 EDT, Route to Pharmacy Electronically, [facility], 165, cm, 09/30/19 8:21:00 EDT, Height, 67, kg, 09/27... Start Date: 09/30/19 Status: Ordered Coreg 3.125 mg oral tablet 3.125 mg, 1, tablet, By Mouth, 2 times a day, # 60 tablet, Refills 0, Tot. Refills 0, Maintenance, 09/30/19 14:50:00 EDT, Route to Pharmacy Electronically, [facility], 165, cm, 09/30/19 8:21:00 EDT, Height, 67, kg, 09/28/19 15:00:0... Start Date: 09/30/19 Status: Ordered Flovent Diskus 100 mcg/inh inhalation powder 1 puffs, Inhalation, 2 times a day, # 120 each, 0 Refills, Maintenance, 10/18/19 12:21:00 EDT, Powder, [facility], 1 puffs Inhalation 2 times a day, 165, cm, 10/18/19 10:27:00 EDT, Height, 67, kg, 09/28/19 15:00:00 EDT, Dry Weight Start Date: 10/18/19 Status: Ordered hydrocortisone 2.5% topical cream 1 application, Topically, 3 times a day, # 30 Gm, 0 Refills, Maintenance, 10/03/20 16:22:00 EDT, Cream, [facility], Partial fill upon patient request [...] Replace Required Details, Route to Pharmacy Electronically, [facility]... Start Date: 04/27/20 Status: Ordered PriLOSEC OTC 20 mg oral delayed release tablet 1 tablet = 20 mg, By Mouth, Daily, # 30 tablet, 3 Refills, Maintenance, 02/15/20 7:52:00 EST, EC Tablet, [facility], Partial fill upon patient request [...]
--- OUTSIDE RECORDS SUMMARY | 2022-06-29 18:14 | XMS_ITS | Continuity of Care Document ---
Author Name Unknown Organization [facility] Néstor lt Address [address] [place] [address]- Care Team Providers Care Head Waiter/Waitress Banquet Name Role Phone Christina Nunn NP Primary Care Physician [phone] Encounter [facility] [place] Date(s): 10/04/21 - 11/03/21 [facility] Adult [address] [place] [address]- Allergies, Adverse Reactions, Alerts No Known Allergies [...] Gm, 11 Refills, Maintenance, 08/15/21 9:16:00 EDT, [facility], Partial fill upon patient request if the prescription is for a schedule IIopioid drug., 2 puffs Inhalation Every 6 hours, 162... Start Date: 08/15/21 Status: Ordered atorvastatin 40 mg oral tablet 1 tablet = 40 mg, By Mouth, Daily, # 90 tablet, 0 Refills, Maintenance, 02/19/21 12:59:00 EST, Tablet, [facility], 162, cm, 02/14/21 15:04:00 EST, Height, 67, kg, 09/28/19 15:00:00 EDT, Dry Weight Start Date: 02/19/21 Status: Ordered Biktarvy oral tablet 1 tablet, By Mouth, Daily, # 30 tablet, 2 Refills, Maintenance, 10/29/21 12:37:00 EDT, Tablet, [facility], Partial fill upon patient [...] 08/15/21 9:16:00 EDT, Route to Pharmacy Electronically, [facility],162, cm, 08/15/21 8:44:00 EDT, Height, 67, kg, 2... Start Date: 08/15/21 Status: Ordered Coreg 3.125 mg oral tablet 3.125 mg, 1, tablet, By Mouth, 2 times a day, # 60 tablet, Refills 0, Tot. Refills 0, Maintenance, 09/30/19 14:50:00 EDT, Route to Pharmacy Electronically, [facility], 165, cm, 09/30/19 8:21:00 EDT, Height, 67, kg, 09/28/19 15:00:0... Start Date: 09/30/19 Status: Ordered cyclobenzaprine 10 mg oral tablet 10 mg, By Mouth, Every 8 hours, PRN, Muscle Spasms, # 30 tablet, Refills 0, Tot. Refills 0, Maintenance, Pain , Moderate, 03/20/21 7:55:00 EST, [facility], Partial fill upon patient request if the... Start Date: 03/20/21 Status: Ordered gabapentin 600 mg oral tablet 1 tablet = 600 mg, By Mouth, 3 times a day, # 90 tablet, 0 Refills, Maintenance, 10/04/21 16:52:00 EDT, Tablet, [facility], Partial fill upon patient request if the prescription is for a schedule II opioid drug., 162, cm, 10/04/21... Start Date: 10/04/21 Status: Ordered hydrocortisone 2.5% topical cream 1 application, Topically, 3 times a day, # 30 Gm, 0 Refills, Maintenance, 10/03/20 16:22:00 EDT, Cream, [facility], Partial fill upon patient [...] Replace Required Details, [facility] to Pharmacy [facility]ically, [facility]... Start Date: 04/27/20 Status: Ordered [...] patch, 0 Refills, Maintenance, 02/08/21 15:08:00 EST, [facility], Partial fill upon patient [...] Refills, Maintenance, 02/15/20 7:52:00 EST, EC Tablet, [facility], Partial fill upon patient request if the prescription is for aschedule II opioid drug., 165, cm, 01/23/20 8:28:00... Start Date: 02/15/20 Status: Ordered Singulair 10 mg oral tablet 10 mg, 1, tablet, By Mouth, Daily, # 30 tablet, Refills 11, Tot. Refills 11, Maintenance, 08/15/21 9:16:00 EDT, Route to Pharmacy Electronically, [facility], Partial fill upon patient [...] STEMI (ST elevation myocardi al infarction)(Confirmed) Active Neuropathic pain(Confirmed) 1 Active Nodule of right lung(Confirmed) 2, 3 Active Seasonal allergies(Confirmed) Active Sepsis(Confirmed) Active Shoulder pain, left(Confirmed) Active Smoker(Confirmed) Active 1due to shingles 2right middle 37 mm Social History Social History Type Response Smoking Status Never (less than 100 in lifetime); Type: Cigarettes; Other: A pack of day; entered on: 10/04/19 Sex Care Team Personnel Name: Christina Nunn NP Address: [address] [place] [id number]
--- OUTSIDE RECORDS SUMMARY | 2022-06-29 18:14 | XMS_ITS | Continuity of Care Document ---
Author Name Unknown Organization [facility] N[address]stor lt Address [address] [place] [address]- Care Team Providers Care Construction Sales Representative Name Role Phone Christina Nunn NP Primary Care Physician Encounter [facility] Date(s): 09/05/21 - 10/05/21 [facility] Adult [address] [place] [address]- Allergies, Adverse Reactions, Alerts No Known Allergies [...] Gm, 11 Refills, Maintenance, 08/15/21 9:16:00 EDT, [facility], Partial fill upon patient request if the prescription is for a schedule IIopioid drug., 2 puffs Inhalation Every 6 hours, 162... Start Date: 08/15/21 Status: Ordered atorvastatin 40 mg oral tablet 1 tablet = 40 mg, By Mouth, Daily, # 90 tablet, 0 Refills, Maintenance, 02/19/21 12:59:00 EST, Tablet, [facility], 162, cm, 02/14/21 15:04:00 EST, Height, 67, kg, 09/28/19 15:00:00 EDT, Dry Weight Start Date: 02/19/21 Status: Ordered Biktarvy oral tablet 1 tablet, By Mouth, Daily, # 30 tablet, 2 Refills, Maintenance, 05/02/21 8:57:00 EST, Tablet, [facility], Partial fill upon patient request if the prescription is for a schedule II opioid drug., 1 tablet By Mouth Daily,x30 days, 16... Start Date: 05/02/21 Stop Date: 07/31/21 Status: Ordered Claritin 10 mg oral tablet 10 mg, 1, tablet, By Mouth, Daily at bedtime, PRN, # 30 tablet, Refills 11, Tot. Refills 11, Maintenance, Rash, 08/15/21 9:16:00 EDT, Route to Pharmacy Electronically, [facility],162, cm, 08/15/21 8:44:00 EDT, Height, 67, kg, 2... Start Date: 08/15/21 Status: Ordered Coreg 3.125 mg oral tablet 3.125 mg, 1, tablet, By Mouth, 2 times a day, # 60 tablet, Refills 0, Tot. Refills 0, Maintenance, 09/30/19 14:50:00 EDT, Route to Pharmacy Electronically, [facility], 165, cm, 09/30/19 8:21:00 EDT, Height, 67, kg, 09/28/19 15:00:0... Start Date: 09/30/19 Status: Ordered cyclobenzaprine 10 mg oral tablet 10 mg, By Mouth, Every 8 hours, PRN, Muscle Spasms, # 30 tablet, Refills 0, Tot. Refills 0, Maintenance, Pain , Moderate, 03/20/21 7:55:00 EST, [facility] fill upon patient request if the... Start Date: 03/20/21 Status: Ordered gabapentin 600 mg oral tablet 1 tablet = 600 mg, By Mouth, 3 times a day, # 90 tablet, 0 Refills, Maintenance, 10/04/21 16:52:00 EDT, Tablet, [facility], Partial fill upon patient request if the prescription is for a schedule II opioid drug., 162, cm, 10/04/21... Start Date: 10/04/21 Status: Ordered hydrocortisone 2.5% topical cream 1 application, Topically, 3 times a day, # 30 Gm, 0 Refills, Maintenance, 10/03/20 16:22:00 EDT, Cream, [facility], Partial fill upon patient request if [...] Replace Required Details, Route to Pharmacy Electronically, [facility]... Start Date: 04/27/20 Status: Ordered Lidoderm 5% film See Instructions, apply 1 patch Topically as needed for pain daily, # 30 patch, 0 Refills, Maintenance, 02/08/21 15:08:00 EST, [facility], Partial fill upon patient request if [...] Refills, Maintenance, 02/15/20 7:52:00 EST, EC Tablet, [facility], Partial fill upon patient request if the prescription is for aschedule II opioid drug., 165, cm, 01/23/20 8:28:00... Start Date: 02/15/20 Status: Ordered Singulair 10 mg oral tablet 10 mg, 1, tablet, By Mouth, Daily, # 30 tablet, Refills 11, Tot. Refills 11, Maintenance, 08/15/21 9:16:00 EDT, Route to Pharmacy Electronically, [facility], Partial fill upon patient request if [...]
--- OUTSIDE RECORDS SUMMARY | 2022-06-29 18:14 | XMS_ITS | Continuity of Care Document ---
Author Name Unknown Organization [facility] Néstor lt Address [address] [place] [address]- Care Team Providers Care Chuck Boner Name Role Phone Christina Nunn NP Primary Care Physician [phone] [place] [facility] [place] 10/04/21 - 10/11/21 [facility] Adult [address] [place] [address]- Encounter Diagnosis Neuropathic pain(Discharge Diagnosis) - 10/08/21 Depression(Discharge Diagnosis) - 10/08/21 Attending Physician: Christina Nunn NP Allergies, Adverse [...] Gm, 11 Refills, Maintenance, 08/15/21 9:16:00 EDT, [facility], Partial fill upon patient request if the prescription is for a schedule IIopioid drug., 2 puffs Inhalation Every 6 hours, 162... Start Date: 08/15/21 Status: Ordered atorvastatin 40 mg oral tablet 1 tablet = 40 mg, By Mouth, Daily, # 90 tablet, 0 Refills, Maintenance, 02/19/21 12:59:00 EST, Tablet, [facility], 162, cm, 02/14/21 15:04:00 EST, Height, 67, kg, 09/28/19 15:00:00 EDT, Dry Weight Start Date: 02/19/21 Status: Ordered Biktarvy oral tablet 1 tablet, By Mouth, Daily, # 30 tablet, 2 Refills, Maintenance, 05/02/21 8:57:00 EST, Tablet, [facility], Partial fill upon patient [...] 08/15/21 9:16:00 EDT, Route to Pharmacy Electronically, [facility],162, cm, 08/15/21 8:44:00 EDT, Height, 67, kg, 2... Start Date: 08/15/21 Status: Ordered Coreg 3.125 mg oral tablet 3.125 mg, 1, tablet, By Mouth, 2 times a day, # 60 tablet, Refills 0, Tot. Refills 0, Maintenance, 09/30/19 14:50:00 EDT, Route to Pharmacy Electronically, [facility], 165, cm, 09/30/19 8:21:00 EDT, Height, 67, kg, 09/28/19 15:00:0... Start Date: 09/30/19 Status: Ordered cyclobenzaprine 10 mg oral tablet 10 mg, By Mouth, Every 8 hours, PRN, Muscle Spasms, # 30 tablet, Refills 0, Tot. Refills 0, Maintenance, Pain , Moderate, 03/20/21 7:55:00 EST, [facility] fill upon patient request if the... Start Date: 03/20/21 Status: Ordered gabapentin 600 mg oral tablet 1 tablet = 600 mg, By Mouth, 3 times a day, # 90 tablet, 0 Refills, Maintenance, 10/04/21 16:52:00 EDT, Tablet, [facility], Partial fill upon patient request if the prescription is for a schedule II opioid drug., 162, cm, 10/04/21... Start Date: 10/04/21 Status: Ordered hydrocortisone 2.5% topical cream 1 application, Topically, 3 times a day, # 30 Gm, 0 Refills, Maintenance, 10/03/20 16:22:00 EDT, Cream, [facility], Partial fill upon patient [...] Replace Required Details, [facility], [facility] Start Date: 04/27/20 Status: Ordered [...] patch, 0 Refills, Maintenance, 02/08/21 15:08:00 EST, [facility], Partial fill upon patient [...] Refills, Maintenance, 02/15/20 7:52:00 EST, EC Tablet, [facility], Partial fill upon patient request if the prescription is for aschedule II opioid drug., 165, cm, 01/23/20 8:28:00... Start Date: 02/15/20 Status: Ordered Singulair 10 mg oral tablet 10 mg, 1, tablet, By Mouth, Daily, # 30 tablet, Refills 11, Tot. Refills 11, Maintenance, 08/15/21 9:16:00 EDT, Route to Pharmacy Electronically, [facility], Partial fill upon patient [...] 1due to shingles 2right middle 37 mm Diagnosis Diagnosis Type Effective Dates Health Status Clinical Service Informant Neuropathic pain Discharge Diagnosis 10/08/21 Depression Discharge Diagnosis 10/08/21 Vital Signs Most recent to oldest [Reference Range]: 1 Height 162 cm (10/04/21 4:07 PM) Social History Social History Type Response Smoking Status Never (less than 100 in lifetime); Type: Cigarettes; Other: A pack of day; entered on: 10/04/19 Sex
--- OUTSIDE RECORDS SUMMARY | 2022-06-29 18:14 | XMS_ITS | Continuity of Care Document ---
Author Name Unknown Organization [facility] Rakesh Campa Néstor lt Address [address] [place] [address]- Care Team Providers Care Conduit Helper Name Role Phone Christina Nunn NP Primary Care Physician [place] [facility] [place] 10[place]03[place]20 - 11/02/20 [facility] Adult [address] [place] [address]- Encounter Diagnosis Nodule of right lung(Discharge Diagnosis) - 09/23/20 Attending Physician: Admmatilda, Huang Admitting Physician: Admtr, [id number] Referring Physician: Admtr, [...] 0 Refills, Maintenance, 10/03/20 16:17:00 EDT, Tablet, [facility], 165, cm, 10/03/20 16:02:00 EDT, Height, 67, kg, 09/28/19 15:00:00 EDT, Dry Weight Start Date: 10/03/20 Status: Ordered Bactrim 400 mg-80 mg oral tablet 1 tablet, By Mouth, Daily, for 30 days, drink plenty of fluids Please label in Serbian, # 30 tablet, 2 Refills, Acute 12/17/20 10:12:00 EDT, 09/18/20 10:12:00 EDT, [facility], Partial fill upon patient request if the prescription... Start Date: 09/18/20 Stop Date: 12/17/20 Status: Ordered Biktarvy oral tablet 1 tablet, By Mouth, Daily, # 30 tablet, 5 Refills, Maintenance, 06/13/20 10:05:00 EDT, Tablet, [facility], Partial fill upon patient [...] 09/30/19 14:50:00 EDT, Route to Pharmacy Electronically, [facility], 165, cm, 09/30/19 8:21:00 EDT, Height, 67, kg, 09/27... Start Date: 09/30/19 Status: Ordered Coreg 3.125 mg oral tablet 3.125 mg, 1, tablet, By Mouth, 2 times a day, # 60 tablet, Refills 0, Tot. Refills 0, Maintenance, 09/30/19 14:50:00 EDT, Route to Pharmacy Electronically, [facility], 165, cm, 09/30/19 8:21:00 EDT, Height, 67, kg, 09/28/19 15:00:0... Start Date: 09/30/19 Status: Ordered Flovent Diskus 100 mcg/inh inhalation powder 1 puffs, Inhalation, 2 times a day, # 120 each, 0 Refills, Maintenance, 10/18/19 12:21:00 EDT, Powder, [facility], 1 puffs Inhalation 2 times a day, 165, cm, 10/18/19 10:27:00 EDT, Height, 67, kg, 09/28/19 15:00:00 EDT, Dry Weight Start Date: 10/18/19 Status: Ordered hydrocortisone 2.5% topical cream 1 application, Topically, 3 times a day, # 30 Gm, 0 Refills, Maintenance, 10/03/20 16:22:00 EDT, Cream, [facility], Partial fill upon patient [...] Replace Required Details, Route to Pharmacy Electronically, [facility] Start Date: 04/27/20 Status: Ordered PriLOSEC OTC 20 mg oral delayed release tablet 1 tablet = 20 mg, By Mouth, Daily, # 30 tablet, 3 Refills, Maintenance, 02/15/20 7:52:00 EST, EC Tablet, [facility], Partial fill upon patient [...]
--- OUTSIDE RECORDS SUMMARY | 2022-06-29 18:14 | XMS_ITS | Continuity of Care Document ---
Author Name Unknown Organization [facility] Néstor lt Address [address] [place] [address]- Care Team Providers Care Combination Machine Tool Setter Name Role Phone Edouard CALLOWAY, Christina Primary Care Physician Encounter [facility] Date(s): 11/05/20 - 12/05/20 [facility] [address] [place] [address]- Allergies, Adverse Reactions, Alerts Substance Reaction Severity [...] 0 Refills, Maintenance, 10/03/20 16:17:00 EDT, Tablet, [facility], 165, cm, 10/03/20 16:02:00 EDT, Height, 67, kg, 09/28/19 15:00:00 EDT, Dry Weight Start Date: 10/03/20 Status: Ordered Bactrim 400 mg-80 mg oral tablet 1 tablet, By Mouth, Daily, for 30 days, drink plenty of fluids Please label in English, # 30 tablet, 2 Refills, Acute 12/17/20 10:12:00 EDT, 09/18/20 10:12:00 EDT, [facility], Partial fill upon patient request if the prescription... Start Date: 09/18/20 Stop Date: 12/17/20 Status: Ordered Biktarvy oral tablet 1 tablet, By Mouth, Daily, # 30 tablet, 5 Refills, Maintenance, 06/13/20 10:05:00 EDT, Tablet, [facility], Partial fill upon patient request [...] 09/30/19 14:50:00 EDT, Route to Pharmacy Electronically, [facility], 165, cm, 09/30/19 8:21:00 EDT, Height, 67, kg, 09/27... Start Date: 09/30/19 Status: Ordered Coreg 3.125 mg oral tablet 3.125 mg, 1, tablet, By Mouth, 2 times a day, # 60 tablet, Refills 0, Tot. Refills 0, Maintenance, 09/30/19 14:50:00 EDT, Route to Pharmacy Electronically, [facility], 165, cm, 09/30/19 8:21:00 EDT, Height, 67, kg, 09/28/19 15:00:0... Start Date: 09/30/19 Status: Ordered Flovent Diskus 100 mcg/inh inhalation powder 1 puffs, Inhalation, 2 times a day, # 120 each, 0 Refills, Maintenance, 10/18/19 12:21:00 EDT, Powder, [facility], 1 puffs Inhalation 2 times a day, 165, cm, 10/18/19 10:27:00 EDT, Height, 67, kg, 09/28/19 15:00:00 EDT, Dry Weight Start Date: 10/18/19 Status: Ordered hydrocortisone 2.5% topical cream 1 application, Topically, 3 times a day, # 30 Gm, 0 Refills, Maintenance, 10/03/20 16:22:00 EDT, Cream, [facility], Partial fill upon patient request [...] Replace Required Details, Route to Pharmacy Electronically, [facility]... Start Date: 04/27/20 Status: Ordered PriLOSEC OTC 20 mg oral delayed release tablet 1 tablet = 20 mg, By Mouth, Daily, # 30 tablet, 3 Refills, Maintenance, 02/15/20 7:52:00 EST, EC Tablet, [facility], Partial fill upon patient request [...]
--- OUTSIDE RECORDS SUMMARY | 2022-06-29 18:15 | XMS_ITS | Continuity of Care Document ---
Author Name Unknown Organization [facility] Néstor lt Address [address] [place] [address]- Care Team Providers Care Blender Machine Operator Name Role Phone Christina Nunn NP Primary Care Physician [phone] [place] [facility] [place]s): 10/04/21 - 11/03/21 [facility] Adult [address] [place] [address]- Encounter Diagnosis Nodule of right lung(Discharge Diagnosis) - 09/23/20 Attending Physician: AdmHuang grey Admitting Physician: AdmtrHuang Referring Physician: Admtr, Ar8 Allergies, Adverse Reactions, Alerts No Known Allergies [...] Gm, 11 Refills, Maintenance, 08/15/21 9:16:00 EDT, [facility], Partial fill upon patient request if the prescription is for a schedule IIopioid drug., 2 puffs Inhalation Every 6 hours, 162... Start Date: 08/15/21 Status: Ordered atorvastatin 40 mg oral tablet 1 tablet = 40 mg, By Mouth, Daily, # 90 tablet, 0 Refills, Maintenance, 02/19/21 12:59:00 EST, Tablet, [facility], 162, cm, 02/14/21 15:04:00 EST, Height, 67, kg, 09/28/19 15:00:00 EDT, Dry Weight Start Date: 02/19/21 Status: Ordered Biktarvy oral tablet 1 tablet, By Mouth, Daily, # 30 tablet, 2 Refills, Maintenance, 10/29/21 12:37:00 EDT, Tablet, [facility], Partial fill upon patient [...] 08/15/21 9:16:00 EDT, Route to Pharmacy Electronically, [facility],162, cm, 08/15/21 8:44:00 EDT, Height, 67, kg, 2... Start Date: 08/15/21 Status: Ordered Coreg 3.125 mg oral tablet 3.125 mg, 1, tablet, By Mouth, 2 times a day, # 60 tablet, Refills 0, Tot. Refills 0, Maintenance, 09/30/19 14:50:00 EDT, Route to Pharmacy Electronically, [facility], 165, cm, 09/30/19 8:21:00 EDT, Height, 67, kg, 09/28/19 15:00:0... Start Date: 09/30/19 Status: Ordered cyclobenzaprine 10 mg oral tablet 10 mg, By Mouth, Every 8 hours, PRN, Muscle Spasms, # 30 tablet, Refills 0, Tot. Refills 0, Maintenance, Pain , Moderate, 03/20/21 7:55:00 EST, [facility] fill upon patient request if the... Start Date: 03/20/21 Status: Ordered gabapentin 600 mg oral tablet 1 tablet = 600 mg, By Mouth, 3 times a day, # 90 tablet, 0 Refills, Maintenance, 10/04/21 16:52:00 EDT, Tablet, [facility], Partial fill upon patient request if the prescription is for a schedule II opioid drug., 162, cm, 10/04/21... Start Date: 10/04/21 Status: Ordered hydrocortisone 2.5% topical cream 1 application, Topically, 3 times a day, # 30 Gm, 0 Refills, Maintenance, 10/03/20 16:22:00 EDT, Cream, [facility], Partial fill upon patient [...] Replace Required Details, Route to Pharmacy Electronically, [facility]... Start Date: 04/27/20 Status: Ordered [...] patch, 0 Refills, Maintenance, 02/08/21 15:08:00 EST, [facility], Partial fill upon patient [...] Refills, Maintenance, 02/15/20 7:52:00 EST, EC Tablet, [facility], Partial fill upon patient request if the prescription is for aschedule II opioid drug., 165, cm, 01/23/20 8:28:00... Start Date: 02/15/20 Status: Ordered Singulair 10 mg oral tablet 10 mg, 1, tablet, By Mouth, Daily, # 30 tablet, Refills 11, Tot. Refills 11, Maintenance, 08/15/21 9:16:00 EDT, Route to Pharmacy Electronically, [facility], Partial fill upon patient [...] Team Personnel Name: Christina Nunn NP Address: [address] [place] [id number]
--- OUTSIDE RECORDS SUMMARY | 2022-06-29 18:15 | XMS_ITS | Continuity of Care Document ---
Author Name Unknown Organization [facility] [place] Address [address] [place] [id number]- Care Team Providers Care Sports Complex Attendant Name Role Phone Christina Nunn NP Primary Care Physician [place] [facility] [place] 02[place]/21 [facility] [place] Adult [address] [place] [address]- Encounter Diagnosis Neck pain(Discharge Diagnosis) - 02/08/21 Attending Physician: Christina Nunn NP Allergies, Adverse [...] 1 each, 11 Refills, Maintenance, 02/14/21 15:26:00 [facility], [facility], Partial fill upon patient request if the prescription is for a schedule II opioid drug., 2 puffs Inhalation Every 6 hours, 17... Start Date: 02/14/21 Status: Ordered atorvastatin 40 mg oral tablet 1 tablet = 40 mg, By Mouth, Daily, # 90 tablet, 0 Refills, Maintenance, 10/03/20 16:17:00 EDT, Tablet, [facility], 165, cm, 10/03/20 16:02:00 EDT, Height, 67, kg, 09/28/19 15:00:00 EDT, Dry Weight Start Date: 10/03/20 Status: Ordered Bactrim 400 mg-80 mg oral tablet 1 tablet, By Mouth, Daily, for 30 days, drink plenty of fluids Please label in Omani, # 30 tablet, 2 Refills, Acute 04/14/21 14:28:00 EST, 01/14/21 14:28:00 EST, [facility], Partial fill upon patient request if the prescription... Start Date: 01/14/21 Stop Date: 04/14/21 Status: Ordered Biktarvy oral tablet 1 tablet, By Mouth, Daily, # 30 tablet, 2 Refills, Maintenance, 01/14/21 14:28:00 EST, Tablet, [facility], Partial fill upon patient request [...] 09/30/19 14:50:00 EDT, Route to Pharmacy Electronically, [facility], 165, cm, 09/30/19 8:21:00 EDT, Height, 67, kg, 09/27... Start Date: 09/30/19 Status: Ordered Coreg 3.125 mg oral tablet 3.125 mg, 1, tablet, By Mouth, 2 times a day, # 60 tablet, Refills 0, Tot. Refills 0, Maintenance, 09/30/19 14:50:00 EDT, Route to Pharmacy Electronically, [facility], 165, cm, 09/30/19 8:21:00 EDT, Height, 67, kg, 09/28/19 15:00:0... Start Date: 09/30/19 Status: Ordered cyclobenzaprine 10 mg oral tablet 10 mg, By Mouth, Every 8 hours, PRN, Muscle Spasms, # 30 tablet, Refills 0, Tot. Refills 0, Maintenance, Pain , Moderate, 02/08/21 15:10:00 EST, Route to Pharmacy Electronically, [facility], Partial fill upon patient request if the... Start Date: 02/08/21 Status: Ordered hydrocortisone 2.5% topical cream 1 application, Topically, 3 times a day, # 30 Gm, 0 Refills, Maintenance, 10/03/20 16:22:00 EDT, Cream, [facility], Partial fill upon patient request [...] Replace Required Details, [facility] to Pharm[facility], [facility] Start Date: 04/27/20 Status: Ordered Lidoderm 5% film See Instructions, apply 1 patch Topically as needed for pain daily, # 30 patch, 0 Refills, Maintenance, 02/08/21 15:08:00 EST, [facility], Partial fill upon patient request [...] Refills, Maintenance, 02/15/20 7:52:00 EST, EC Tablet, [facility], Partial fill upon patient request if the prescription is for aschedule II opioid drug., 165, cm, 01/23/20 8:28:00... Start Date: 02/15/20 Status: Ordered Singulair 10 mg oral tablet 10 mg, 1, tablet, By Mouth, Daily, # 30 tablet, Refills 12, Tot. Refills 12, Maintenance, 02/14/21 15:26:00 EST, Route to Pharmacy Electronically, [facility], Partial fill upon patient request [...] Diagnosis Diagnosis Type Effective Dates Health Status Cl[facility] Service Informant Neck pain Discharge Diagnosis 02/08/21 Vital Signs Most recent to oldest [Reference Range]: 1 Height 165 cm (02/08/21 2:22 PM) Weight 67.8 kg (02/08/21 2:22 PM) Oxygen Saturation [94-100 %] 97 % (02/08/21 2:22 PM) Pulse Rate [55-90 bpm] 87 bpm (02/08/21 2:22 PM) Body Mass Index [18.5-24.99] 24.9 (02/08/21 2:22 PM) Blood Pressure [90-138/55-84 mm Hg] 130/ 69mm Hg (02/08/21 2:22 PM) Blood pressure sites Arm, right (02/08/21 2:22 PM) Social History Social History Type Response Smoking Status Never (less than 100 in lifetime); Type: Cigarettes; Other: A pack of day; entered on: 10/04/19 Sex
--- OUTSIDE RECORDS SUMMARY | 2022-06-29 18:15 | XMS_ITS | Continuity of Care Document ---
Author Name Unknown Organization [facility] lt Address [address] [place] [address]- Care Team Providers Care Planning Rn Name Role Phone Christina Nunn NP Primary Care Physician [place] [facility] [facility] [place] - 09/08/21 [facility] Adult [address] [place] [address]- Allergies, Adverse Reactions, Alerts No Known Allergies [...] Gm, 11 Refills, Maintenance, 08/15/21 9:16:00 EDT, [facility], Partial fill upon patient request if the prescription is for a schedule IIopioid drug., 2 puffs Inhalation Every 6 hours, 162... Start Date: 08/15/21 Status: Ordered atorvastatin 40 mg oral tablet 1 tablet = 40 mg, By Mouth, Daily, # 90 tablet, 0 Refills, Maintenance, 02/19/21 12:59:00 EST, Tablet, [facility], 162, cm, 02/14/21 15:04:00 EST, Height, 67, kg, 09/28/19 15:00:00 EDT, Dry Weight Start Date: 02/19/21 Status: Ordered Biktarvy oral tablet 1 tablet, By Mouth, Daily, # 30 tablet, 2 Refills, Maintenance, 05/02/21 8:57:00 EST, Tablet, [facility], Partial fill upon patient [...] 08/15/21 9:16:00 EDT, Route to Pharmacy Electronically, [facility],162, cm, 08/15/21 8:44:00 EDT, Height, 67, kg, 2... Start Date: 08/15/21 Status: Ordered Coreg 3.125 mg oral tablet 3.125 mg, 1, tablet, By Mouth, 2 times a day, # 60 tablet, Refills 0, Tot. Refills 0, Maintenance, 09/30/19 14:50:00 EDT, Route to Pharmacy Electronically, [facility], 165, cm, 09/30/19 8:21:00 EDT, Height, 67, kg, 09/28/19 15:00:0... Start Date: 09/30/19 Status: Ordered cyclobenzaprine 10 mg oral tablet 10 mg, By Mouth, Every 8 hours, PRN, Muscle Spasms, # 30 tablet, Refills 0, Tot. Refills 0, Maintenance, Pain , Moderate, 03/20/21 7:55:00 EST, [facility], Partial fill upon patient request if the... Start Date: 03/20/21 Status: Ordered gabapentin 600 mg oral tablet 1 tablet = 600 mg, By Mouth, 3 times a day, # 90 tablet, 0 Refills, Maintenance, 09/05/21 9:59:00 EDT, Tablet, [facility], Partial fill upon patient request if the prescription isfor a schedule II opioid drug., 162, cm, 08/22/21 1... Start Date: 09/05/21 Status: Ordered hydrocortisone 2.5% topical cream 1 application, Topically, 3 times a day, # 30 Gm, 0 Refills, Maintenance, 10/03/20 16:22:00 EDT, Cream, [facility], Partial fill upon patient [...] Replace Required Details, Route to Pharmacy Electronically, [facility]... Start Date: 04/27/20 Status: Ordered Lidoderm 5% film See Instructions, apply 1 patch Topically as needed for pain daily, # 30 patch, 0 Refills, Maintenance, 02/08/21 15:08:00 EST, [facility], Partial fill upon patient [...] Refills, Maintenance, 02/15/20 7:52:00 EST, EC Tablet, [facility], Partial fill upon patient request if the prescription is for aschedule II opioid drug., 165, cm, 01/23/20 8:28:00... Start Date: 02/15/20 Status: Ordered Singulair 10 mg oral tablet 10 mg, 1, tablet, By Mouth, Daily, # 30 tablet, Refills 11, Tot. Refills 11, Maintenance, 08/15/21 9:16:00 EDT, Route to Pharmacy Electronically, [facility], Partial fill upon patient [...]
--- OUTSIDE RECORDS SUMMARY | 2022-06-29 18:15 | XMS_ITS | Continuity of Care Document ---
Author Name Unknown Organization [facility] Address [address] [place] [id number]- Care Team Providers Care Design Specialist Name Role Phone Christina Nunn NP Primary Care Physician [place] [facility] [place] 07/13/21 [facility] [address] [place] [address]- Attending Physician: Serge Black MD Admitting Physician: [...] each, 11 Refills, Maintenance, 02/14/21 15:26:00 EST, [facility], Partial fill upon patient request if the prescription is for a schedule II opioid drug., 2 puffs Inhalation Every 6 hours, 17... Start Date: 02/14/21 Status: Ordered atorvastatin 40 mg oral tablet 1 tablet = 40 mg, By Mouth, Daily, # 90 tablet, 0 Refills, Maintenance, 02/19/21 12:59:00 EST, Tablet, [facility], 162, cm, 02/14/21 15:04:00 EST, Height, 67, kg, 09/28/19 15:00:00 EDT, Dry Weight Start Date: 02/19/21 Status: Ordered Biktarvy oral tablet 1 tablet, By Mouth, Daily, # 30 tablet, 2 Refills, Maintenance, 05/02/21 8:57:00 EST, Tablet, [facility], Partial fill upon patient request [...] 09/30/19 14:50:00 EDT, Route to Pharmacy Electronically, [facility], 165, cm, 09/30/19 8:21:00 EDT, Height, 67, kg, 09/27... Start Date: 09/30/19 Status: Ordered Coreg 3.125 mg oral tablet 3.125 mg, 1, tablet, By Mouth, 2 times a day, # 60 tablet, Refills 0, Tot. Refills 0, Maintenance, 09/30/19 14:50:00 EDT, Route to Pharmacy Electronically, [facility], 165, cm, 09/30/19 8:21:00 EDT, Height, 67, kg, 09/28/19 15:00:0... Start Date: 09/30/19 Status: Ordered cyclobenzaprine 10 mg oral tablet 10 mg, By Mouth, Every 8 hours, PRN, Muscle Spasms, # 30 tablet, Refills 0, Tot. Refills 0, Maintenance, Pain , Moderate, 03/20/21 7:55:00 EST, [facility] fill upon patient request if the... Start Date: 03/20/21 Status: Ordered hydrocortisone 2.5% topical cream 1 application, Topically, 3 times a day, # 30 Gm, 0 Refills, Maintenance, 10/03/20 16:22:00 EDT, Cream, [facility], Partial fill upon patient request [...] Replace Required Details, [facility] to Pharm[facility], [facility] Start Date: 04/27/20 Status: Ordered Lidoderm 5% film See Instructions, apply 1 patch Topically as needed for pain daily, # 30 patch, 0 Refills, Maintenance, 02/08/21 15:08:00 EST, [facility], Partial fill upon patient request [...] Refills, Maintenance, 02/15/20 7:52:00 EST, EC Tablet, [facility], Partial fill upon patient request if the prescription is for aschedule II opioid drug., 165, cm, 01/23/20 8:28:00... Start Date: 02/15/20 Status: Ordered Singulair 10 mg oral tablet 10 mg, 1, tablet, By Mouth, Daily, # 30 tablet, Refills 12, Tot. Refills 12, Maintenance, 02/14/21 15:26:00 EST, Route to Pharmacy Electronically, [facility], Partial fill upon patient request [...]
--- OUTSIDE RECORDS SUMMARY | 2022-06-29 18:15 | XMS_ITS | Continuity of Care Document ---
Author Name Unknown Organization [facility] Address [address] [place] [address]- Care Team Providers Care Guardian Ad Litem Name Role Phone Constance ELLI, Elizabeth Chow Primary Care Physician [phone] [place] [facility] [place]/28/[place] - 09/30/[address] [address]- [facility] Discharge Disposition: A-D/C Home Attending Physician: Jefry Baugh DO Admitting Physician: Jean Carlos Barnes MD Referring Physician: Jean Carlos Barnes MD Allergies, Adverse Reactions, Alerts Substance Reaction Severity Status NKA Active Medications aspirin 81 mg oral tablet = 81 mg, By Mouth, Daily, # 30 tablet, 0 Refills, Maintenance, 09/30/19 14:50:00 EDT, Tablet, [facility], 165, cm, 09/30/19 8:21:00 EDT, Height, 67, kg, 09/28/19 15:00:00 EDT, DryWeight Start Date: 09/30/19 Status: Ordered atorvastatin 40 mg oral tablet 1 tablet = 40 mg, By Mouth, Daily, # 30 tablet, 0 Refills, Maintenance, 09/30/19 14:51:00 EDT, Tablet, [facility], 165, cm, 09/30/19 8:21:00 EDT, Height, 67, kg, 09/28/19 15:00:00EDT, Dry Weight Start Date: 09/30/19 Status: Ordered Claritin 10 mg oral tablet 10 mg, 1, tablet, By Mouth, Daily at bedtime, PRN, # 30 tablet, Refills 0, Tot. Refills 0, Maintenance, Rash, 09/30/19 14:50:00 EDT, Route to Pharmacy Electronically, [facility], 165, cm, 09/30/19 8:21:00 EDT, Height, 67, kg, 09/27... Start Date: 09/30/19 Status: Ordered Coreg 3.125 mg oral tablet 3.125 mg, 1, tablet, By Mouth, 2 times a day, # 60 tablet, Refills 0, Tot. Refills 0, Maintenance, 09/30/19 14:50:00 EDT, Route to Pharmacy Electronically, [facility], 165, cm, 09/30/19 8:21:00 EDT, Height, 67, kg, 09/28/19 15:00:0... Start Date: 09/30/19 Status: Ordered Plavix 75 mg oral tablet 75 mg, 1, tablet, By Mouth, Daily, # 30 tablet, Refills 0, Tot. Refills 0, Maintenance, 09/30/19 14:50:00 EDT, Route to Pharmacy Electronically, [facility], 165, cm, 09/30/19 8:21:00 EDT, Height, 67, kg, 09/28/19 15:00:00 EDT, Dry... Start Date: 09/30/19 Status: Ordered Results Orders for Microbiology Reports Name Date Blood Culture 09/28/19 Blood Culture #2 09/28/19 Microbiology Reports TEST:Blood Culture, Second Order STATUS:Unauthenticated BODY SITE: SOURCE:Blood COLLECTED DATE/TIME:09/28/19 9:52 PM Blood Culture, Second Order SPECIMEN DESCRIPTION : BLOOD R HAND SPECIAL REQUESTS : NONE CULTURE : NO GROWTH AFTER 48 HOURS REPORT STATUS : PRELIMINARY REPORT TEST:Blood Culture STATUS:Unauthenticated BODY SITE: SOURCE:Blood COLLECTED DATE/TIME:09/28/19 9:48 PM Blood Culture SPECIMEN DESCRIPTION : BLOOD L ARM SPECIAL REQUESTS : NONE CULTURE : NO GROWTH AFTER 48 HOURS REPORT STATUS : PRELIMINARY REPORT Radiology Reports * Exam Date Time Procedure Performing Provider Status 09/29/19 5:12 AM Chest Portable Rica Blank; Auth (Verified) Notes: (Chest Portable) Reason For Exam: chest pain;Other: RESULT: Chest Portable PROCEDURE: Chest Portable CLINICAL INDICATION: 44 years old Male with chest pain. COMPARISON: September 28, 2019. FINDINGS: Portable AP erect view of the chest performed at 4:48 AM. Lines and tubes: September 29, 2019 Lungs and pleura: Moderate linear opacities again seen of the LEFT lung base which represent atelectasis or scarring. Lungs otherwise clear as visualized.. No pleural effusions.No evidence of pneumothorax. Heart, mediastinum and herbie: The cardiomediastinal silhouette and pulmonary vasculature are unremarkable. No cardiomegaly or pulmonary venous hypertension. Bones and soft tissues: No other demonstrable abnormality. IMPRESSION: 1. Unchanged moderate linear atelectasis or scarring at the LEFT lung base Thank you for allowing me to participate in the care of this patient. WSN: [id number] Ordering Physician: Nicky Huntley Dictated By: Abraham George MD Dictated Date/Time: 09/29/19 8:53 am Reviewed By: Abraham George MD Signed By: Abraham George MD Signed Date/Time: 09/29/19 8:53 am Transcribed By: MELISSA Transcribed Date/Time: 09/29/19 8:50 am * Exam Date Time Procedure Performing Provider Status 09/28/19 11:00 PM Chest Portable Emiliana Chery; Mazin (Verified) Notes: (Chest Portable) Reason For Exam: Fever RESULT: Chest Portable Chest Portable Reason: Fever COMPARISON: None. FINDINGS: LINES AND TUBES: None. LUNGS AND PLEURA: Indistinct opacity at the left lung base is concerning for a developing infectious process. Pulmonary vascularity is within normal limits. No pleural effusion. No pneumothorax. HEART, MEDIASTINUM AND HERBIE: Heart is normal in size. Normal mediastinal and hilar contour. BONES AND SOFT TISSUES: No acute abnormality. IMPRESSION: Indistinct left lung base opacity concerning for a developing infectious process. WSN: [id number] Ordering Physician: Ryan Frazier Dictated By: Marquis Delgadillo MD Dictated Date/Time: 09/28/19 11:12 p Reviewed By: Marquis Delgadillo MD Signed By: Marquis Delgadillo MD Signed Date/Time: 09/28/19 11:12 pm Transcribed By: MELISSA Transcribed Date/Time: 09/28/19 11:09 pm Vital Signs Most recent to oldest [Reference Range]: 1 2 3 Height 165 cm (09/30/19 8:21 AM) 165 cm (09/30/19 3:27 AM) 165 cm (09/29/19 8:38 PM) Weight 61.7 kg (09/30/19 6:50 AM) 60.0 kg (09/29/19 6:52 AM) 61.6 kg (09/28/19 2:01 PM) Oxygen Saturation [94-100 %] 99 % (09/30/19 8:21 AM) 97 % (09/30/19 3:27 AM) 96 % (09/29/19 8:38 PM) Pulse Rate [55-90 bpm] 94 bpm *H* (09/30/19 10:04 AM) 116 bpm *H* (09/30/19 8:21 AM) 83 bpm (09/30/19 3:27 AM) Body Mass Index [18.5-24.99] 22.63 (09/28/19 2:01 PM) Blood Pressure [90-138/55-84 mm Hg] 110/76mm Hg (09/30/19 10:04 AM) 115/72mm Hg (09/30/19 8:21 AM) 105/77mm Hg (09/30/19 3:27 AM) Respiratory Rate [16-30 br/min] 20 br/min (09/30/19 8:21 AM) 20 br/min (09/30/19 3:27 AM) 20 br/min (09/29/19 8:38 PM) Temperature [96.8-100.4 DegF] 96.7 DegF *L* (09/30/19 8:21 AM) 97.6 DegF (09/30/19 3:27 AM) 97.4 DegF (09/29/19 8:38 PM) Mode of Delivery (Oxygen) Room air (09/30/19 8:21 AM) Room air (09/30/19 3:27 AM) Room air (09/29/19 8:38 PM) Blood pressure sites Arm, left (09/30/19 8:21 AM) Arm, right (09/30/19 3:27 AM) Arm, right (09/29/19 8:38 PM) Temperature Route Temporal (09/30/19 8:21 AM) Temporal (09/30/19 3:27 AM) Temporal (09/29/19 8:38 PM) Dry Weight 67 kg (09/28/19 2:01 PM) Weight Obtained Via Bed scale (09/29/19 6:52 AM) Mobility assistance Independent (09/28/19 6:00 PM) Independent (09/28/19 4:00 PM) Independent (09/28/19 2:00 PM)
--- OUTSIDE RECORDS SUMMARY | 2022-06-29 18:15 | XMS_ITS | Continuity of Care Document ---
Author Name Unknown Organization [facility] Address [address] [place] [address]- Care Team Providers Care Chute Tapper Name Role Phone Edouard CALLOWAY, Christina Primary Care Physician [phone] [place] [facility] [place](s): 03/20/21 - 04/19/21 [facility] [address] [place] [address]- Encounter Diagnosis Nodule of right lung(Discharge Diagnosis) [...] each, 11 Refills, Maintenance, 02/14/21 15:26:00 EST, [facility], Partial fill upon patient request if the prescription is for a schedule II opioid drug., 2 puffs Inhalation Every 6 hours, 17... Start Date: 02/14/21 Status: Ordered atorvastatin 40 mg oral tablet 1 tablet = 40 mg, By Mouth, Daily, # 90 tablet, 0 Refills, Maintenance, 02/19/21 12:59:00 EST, Tablet, [facility], 162, cm, 02/14/21 15:04:00 EST, Height, 67, kg, 09/28/19 15:00:00 EDT, Dry Weight Start Date: 02/19/21 Status: Ordered Biktarvy oral tablet 1 tablet, By Mouth, Daily, # 30 tablet, 2 Refills, Maintenance, 01/14/21 14:28:00 EST, Tablet, [facility], Partial fill upon patient request if the prescription is for a schedule II opioid drug., 1 tablet By Mouth Daily,x30 days, 1... Start Date: 01/14/21 Stop Date: 04/14/21 Status: Ordered Claritin 10 mg oral tablet 10 mg, 1, tablet, By Mouth, Daily at bedtime, PRN, # 30 tablet, Refills 0, Tot. Refills 0, Maintenance, Rash, 09/30/19 14:50:00 EDT, Route to Pharmacy Electronically, [facility], 165, cm, 09/30/19 8:21:00 EDT, Height, 67, kg, 09/27... Start Date: 09/30/19 Status: Ordered Coreg 3.125 mg oral tablet 3.125 mg, 1, tablet, By Mouth, 2 times a day, # 60 tablet, Refills 0, Tot. Refills 0, Maintenance, 09/30/19 14:50:00 EDT, Route to Pharmacy Electronically, [facility], 165, cm, 09/30/19 8:21:00 EDT, Height, 67, kg, 09/28/19 15:00:0... Start Date: 09/30/19 Status: Ordered cyclobenzaprine 10 mg oral tablet 10 mg, By Mouth, Every 8 hours, PRN, Muscle Spasms, # 30 tablet, Refills 0, Tot. Refills 0, Maintenance, Pain , Moderate, 03/20/21 7:55:00 EST, [facility], [facility] fill upon patient request if the... Start Date: 03/20/21 Status: Ordered hydrocortisone 2.5% topical cream 1 application, Topically, 3 times a day, # 30 Gm, 0 Refills, Maintenance, 10/03/20 16:22:00 EDT, Cream, [facility], Partial fill upon patient request if [...] Replace Required Details, Route to Pharmacy Electronically, [facility]... Start Date: 04/27/20 Status: Ordered Lidoderm 5% film See Instructions, apply 1 patch Topically as needed for pain daily, # 30 patch, 0 Refills, Maintenance, 02/08/21 15:08:00 EST, [facility], Partial fill upon patient request if [...] Refills, Maintenance, 02/15/20 7:52:00 EST, EC Tablet, [facility], Partial fill upon patient request if the prescription is for aschedule II opioid drug., 165, cm, 01/23/20 8:28:00... Start Date: 02/15/20 Status: Ordered Singulair 10 mg oral tablet 10 mg, 1, tablet, By Mouth, Daily, # 30 tablet, Refills 12, Tot. Refills 12, Maintenance, 02/14/21 15:26:00 EST, Route to Pharmacy Electronically, [facility], Partial fill upon patient request if [...]
--- OUTSIDE RECORDS SUMMARY | 2022-06-29 18:15 | XMS_ITS | Continuity of Care Document ---
Author Name Unknown Organization [facility] Address [address] [place] [address]- Care Team Providers Care Exhibit Builder Name Role Phone Edouard CALLOWAY, Christina Primary Care Physician En[place] [facility] [place] Date(s): 01/23/20 - 02/22/20 [facility] [address] [place] [address]- Allergies, Adverse Reactions, Alerts Substance Reaction Severity Status NKA Active Medications atorvastatin 40 mg oral tablet 1 tablet = 40 mg, By Mouth, Daily, # 30 tablet, 0 Refills, Maintenance, 09/30/19 14:51:00 EDT, Tablet, [facility], 165, cm, 09/30/19 8:21:00 EDT, Height, 67, kg, 09/28/19 15:00:00EDT, Dry Weight Start Date: 09/30/19 Status: Ordered Claritin 10 mg oral tablet 10 mg, 1, tablet, By Mouth, Daily at bedtime, PRN, # 30 tablet, Refills 0, Tot. Refills 0, Maintenance, Rash, 09/30/19 14:50:00 EDT, Route to Pharmacy Electronically, [facility], 165, cm, 09/30/19 8:21:00 EDT, Height, 67, kg, 09/27... Start Date: 09/30/19 Status: Ordered Coreg 3.125 mg oral tablet 3.125 mg, 1, tablet, By Mouth, 2 times a day, # 60 tablet, Refills 0, Tot. Refills 0, Maintenance, 09/30/19 14:50:00 EDT, Route to Pharmacy Electronically, [facility], 165, cm, 09/30/19 8:21:00 EDT, Height, 67, kg, 09/28/19 15:00:0... Start Date: 09/30/19 Status: Ordered Flovent Diskus 100 mcg/inh inhalation powder 1 puffs, Inhalation, 2 times a day, # 120 each, 0 Refills, Maintenance, 10/18/19 12:21:00 EDT, Powder, [facility], 1 puffs Inhalation 2 times a day, 165, cm, 10/18/19 10:27:00 EDT, Height, 67, kg, 09/28/19 15:00:00 EDT, Dry Weight Start Date: 10/18/19 Status: Ordered PriLOSEC OTC 20 mg oral delayed release tablet 1 tablet = 20 mg, By Mouth, Daily, # 30 tablet, 3 Refills, Maintenance, 02/15/20 7:52:00 EST, EC Tablet, [facility], Partial fill upon patient [...]
--- OUTSIDE RECORDS SUMMARY | 2022-06-29 18:15 | XMS_ITS | Continuity of Care Document ---
Author Name Unknown Organization [facility] Address [address] [place] [id number]- Care Team Providers Care Core Fitter Name Role Phone Sharmin Steele Primary Care Physician Encounter [facility] Date(s): 01/02/22 - 02/01/22 [facility] [address] [place] [id number]- Attending Physician: Huang Ordaz Admitting Physician: AdmHuang grey Referring Physician: AdmtrHuang Allergies, Adverse Reactions, Alerts [...] Gm, 11 Refills, Maintenance, 08/15/21 9:16:00 EDT, [facility], Partial fill upon patient request if the prescription is for a schedule IIopioid drug., 2 puffs Inhalation Every 6 hours, 162... Start Date: 08/15/21 Status: Ordered atorvastatin 40 mg oral tablet 1 tablet = 40 mg, By Mouth, Daily, # 90 tablet, 0 Refills, Maintenance, 02/19/21 12:59:00 EST, Tablet, [facility], 162, cm, 02/14/21 15:04:00 EST, Height, 67, kg, 09/28/19 15:00:00 EDT, Dry Weight Start Date: 02/19/21 Status: Ordered Biktarvy oral tablet 1 tablet, By Mouth, Daily, # 30 tablet, 0 Refills, Maintenance, 11/26/21 8:55:00 EDT, Tablet, [id number], Partial fill upon patient request if the prescription is for a schedule II opioid drug., 1 tablet By Mouth Daily,x30 days, 162,... Start Date: 11/26/21 Stop Date: 12/26/21 Status: Ordered Biktarvy oral tablet 1 tablet, By Mouth, Daily, # 30 tablet, 2 Refills, Maintenance, 10/29/21 12:37:00 EDT, Tablet, [facility], Partial fill [...] 08/15/21 9:16:00 EDT, Route to Pharmacy Electronically, [facility],162, cm, 08/15/21 8:44:00 EDT, [...] 03/20/21 7:55:00 EST, [facility], Partial fill upon patient request if the... Start Date: 03/20/21 Status: Ordered gabapentin 600 mg oral tablet 1 tablet = 600 mg, By Mouth, 3 times a day, # 90 tablet, 0 Refills, Maintenance, 10/04/21 16:52:00 EDT, Tablet, [facility], Partial fill upon patient request if the prescription is for a schedule II opioid drug., 162, cm, 10/04/21... Start Date: 10/04/21 Status: Ordered hydrocortisone 2.5% topical cream 1 application, Topically, 3 times a day, # 30 Gm, 0 Refills, Maintenance, 10/03/20 16:22:00 EDT, Cream, [facility], Partial fill upon [...] Replace Required Details, [facility] to Pharm[facility], [facility]... Start Date: 04/27/20 Status: Ordered [...] patch, 0 Refills, Maintenance, 02/08/21 15:08:00 EST, [facility], Partial fill upon [...] 08/15/21 9:16:00 EDT, Route to Pharmacy Electronically, [facility], Partial fill upon [...] pack of day; entered on: 10/04/19 Sex Note * Event Display: Non Lab Results Authored Date: * Event Display: Non Lab Results Authored Date: * Event Display: Non Lab Results Authored Date: Patient Care team information Care Team Personnel Name: Sharmin Davis RN Position: Win [facility]GELES RN Member Role: Primary Care Nurse Name: Sharmin Steele Position: [facility] Associate Professional Member Role: PCP Address: Address: [address] [place] [address] Care Team Related Persons Name: JUAN NATH
--- OUTSIDE RECORDS SUMMARY | 2022-06-29 18:15 | XMS_ITS | Continuity of Care Document ---
Author Name Unknown Organization [facility] Address [address] [place] [address]- Care Team Providers Care Hydroelectric Plant Structural Engineer Name Role Phone Christina Nunn NP Primary Care Physician Encounter [facility] Date(s): 10/18/19 - 10/25/19 [facility] Adult [address] [place] [address]- [facility] Encounter Diagnosis STEMI (ST elevation myocardial infarction)(Discharge Diagnosis) - 10/18/19 Asthma(Discharge Diagnosis) - 10/18/19 Heartburn(Discharge Diagnosis) - 10/18/19 Attending Physician: Christina Nunn NP Allergies, Adverse Reactions, Alerts Substance Reaction Severity Status NKA Active Medications aspirin 81 mg oral tablet = 81 mg, By Mouth, Daily, # 30 tablet, 0 Refills, Maintenance, 09/30/19 14:50:00 EDT, Tablet, [facility], 165, cm, 09/30/19 8:21:00 EDT, Height, 67, kg, 09/28/19 15:00:00 EDT, DryWeight Start Date: 09/30/19 Status: Ordered atorvastatin 40 mg oral tablet 1 tablet = 40 mg, By Mouth, Daily, # 30 tablet, 0 Refills, Maintenance, 09/30/19 14:51:00 EDT, Tablet, [facility], 165, cm, 09/30/19 8:21:00 EDT, Height, 67, kg, 09/28/19 15:00:00EDT, Dry Weight Start Date: 09/30/19 Status: Ordered Claritin 10 mg oral tablet 10 mg, 1, tablet, By Mouth, Daily at bedtime, PRN, # 30 tablet, Refills 0, Tot. Refills 0, Maintenance, Rash, 09/30/19 14:50:00 EDT, Route to Pharmacy Electronically, [facility], 165, cm, 09/30/19 8:21:00 EDT, Height, 67, kg, 09/27... Start Date: 09/30/19 Status: Ordered Coreg 3.125 mg oral tablet 3.125 mg, 1, tablet, By Mouth, 2 times a day, # 60 tablet, Refills 0, Tot. Refills 0, Maintenance, 09/30/19 14:50:00 EDT, Route to Pharmacy Electronically, [facility], 165, cm, 09/30/19 8:21:00 EDT, Height, 67, kg, 09/28/19 15:00:0... Start Date: 09/30/19 Status: Ordered Flovent Diskus 100 mcg/inh inhalation powder 1 puffs, Inhalation, 2 times a day, # 120 each, 0 Refills, Maintenance, 10/18/19 12:21:00 EDT, Powder, [facility], 1 puffs Inhalation 2 times a day, 165, cm, 10/18/19 10:27:00 EDT, Height, 67, kg, 09/28/19 15:00:00 EDT, Dry Weight Start Date: 10/18/19 Status: Ordered Plavix 75 mg oral tablet 75 mg, 1, tablet, By Mouth, Daily, # 30 tablet, Refills 0, Tot. Refills 0, Maintenance, 09/30/19 14:50:00 EDT, Route to Pharmacy Electronically, [facility], 165, cm, 09/30/19 8:21:00 EDT, [...] Effective Dates Health Status Clinical Service Informant Heartburn Discharge Diagnosis 10/18/19 Asthma Discharge Diagnosis 10/18/19 STEMI (ST elevation myocardial infarction) Discharge Diagnosis 10/18/19 Procedures Procedure Date Related Diagnosis Body Site Status CT of lungs 1 Completed 1Large area of airspace disease with bronchogram in lingula sugestive of pneumonia. prominent medsteinal and hilar lymph nodes. Vital Signs Most recent to oldest [Reference Range]: 1 Height 165 cm (10/18/19 10:27 AM) Weight 65.3 kg (10/18/19 10:27 AM) Oxygen Saturation [94-100 %] 98 % (10/18/19 10:27 AM) Pulse Rate [55-90 bpm] 74 bpm (10/18/19 10:27 AM) Body Mass Index [18.5-24.99] 23.99 (10/18/19 10:27 AM) Blood Pressure [90-138/55-84 mm Hg] 108/ 76mm Hg (10/18/19 10:27 AM) Mode of Delivery (Oxygen) Room air (10/18/19 10:27 AM) Blood pressure sites Arm, left (10/18/19 10:27 AM) Weight Obtained Via Standing scale (10/18/19 10:27 AM) Social History Social History Type Response Smoking Status Never (less than 100 in lifetime); Type: Cigarettes; Other: A pack of day; entered on: 10/04/19 Sex
--- OUTSIDE RECORDS SUMMARY | 2022-06-29 18:15 | XMS_ITS | Continuity of Care Document ---
Author Name Unknown Organization [facility] Address [address] [facility] [place] [address]- Care Team Providers Care Pipe Out Worker Name Role Phone Edouard CALLOWAY, Christina Primary Care Physician Encounter 04/25/20 - 05/02/20 [facility] [address], [facility] [address] [place], [place] [address] Attending Physician: Christina Nunn NP Admitting Physician: Christina Nunn NP Referring Physician: Christina Nunn NP Allergies, Adverse Reactions, Alerts Substance Reaction Severity Status NKA Active Medications atorvastatin 40 mg oral tablet 1 tablet = 40 mg, By Mouth, Daily, # 30 tablet, 0 Refills, Maintenance, 09/30/19 14:51:00 EDT, Tablet, [facility], 165, cm, 09/30/19 8:21:00 EDT, Height, 67, kg, 09/28/19 15:00:00EDT, Dry Weight Start Date: 09/30/19 Status: Ordered Claritin 10 mg oral tablet 10 mg, 1, tablet, By Mouth, Daily at bedtime, PRN, # 30 tablet, Refills 0, Tot. Refills 0, Maintenance, Rash, 09/30/19 14:50:00 EDT, Route to Pharmacy Electronically, [facility], 165, cm, 09/30/19 8:21:00 EDT, Height, 67, kg, 09/27... Start Date: 09/30/19 Status: Ordered Coreg 3.125 mg oral tablet 3.125 mg, 1, tablet, By Mouth, 2 times a day, # 60 tablet, Refills 0, Tot. Refills 0, Maintenance, 09/30/19 14:50:00 EDT, Route to Pharmacy Electronically, [facility], 165, cm, 09/30/19 8:21:00 EDT, Height, 67, kg, 09/28/19 15:00:0... Start Date: 09/30/19 Status: Ordered Flovent Diskus 100 mcg/inh inhalation powder 1 puffs, Inhalation, 2 times a day, # 120 each, 0 Refills, Maintenance, 10/18/19 12:21:00 EDT, Powder, [facility], 1 puffs Inhalation 2 times [...] Replace Required Details, Route to Pharmacy Electronically, [facility]... Start Date: 04/27/20 Status: Ordered PriLOSEC OTC 20 mg oral delayed release tablet 1 tablet = 20 mg, By Mouth, Daily, # 30 tablet, 3 Refills, Maintenance, 02/15/20 7:52:00 EST, EC Tablet, [facility], Partial fill upon patient [...]
== END 2022-06-29 18:29 | disposition home or self-care (01) ==
PROVIDERS: Emergency Provider Internal Medicine
DX: G56.02 Carpal tunnel syndrome, left upper limb (principal); M65.332 Trigger finger, left middle finger; Z79.899 Other long term (current) drug therapy
CPT/HCPCS: 29130; 99283

== ENCOUNTER 2022-07-02 12:27 | Emergency (ER) | payer OTHER, SELFPAY ==
--- NOTE | ~2022-07-02 | XR_ITS ---
EXAMINATION: XR HAND/WRIST, RIGHT XR HAND/WRIST, LEFT CLINICAL INFORMATION: Bilateral hand/wrist pain. COMPARISON: None available. TECHNIQUE: 4 views of each hand/wrist. FINDINGS: No acute fracture or malalignment of either hand/wrist. Mild degenerative changes of the right carpus with a small ossified body dorsally. There is a degenerative cyst or chronic erosion at the base of the right 5th proximal phalanx, at the radial aspect of the 5th MCP joint. No active erosions or suspicious soft tissue calcifications. 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 XR/XR hand wrist LT IMPRESSION: 1. No acute osseous abnormality of either hand/wrist. 2. Mild degenerative changes of both hands as described. No evidence of an active inflammatory arthropathy.
--- NOTE | ~2022-07-02 | XR_ITS ---
EXAMINATION: XR HAND/WRIST, RIGHT XR HAND/WRIST, LEFT CLINICAL INFORMATION: Bilateral hand/wrist pain. COMPARISON: None available. TECHNIQUE: 4 views of each hand/wrist. FINDINGS: No acute fracture or malalignment of either hand/wrist. Mild degenerative changes of the right carpus with a small ossified body dorsally. There is a degenerative cyst or chronic erosion at the base of the right 5th proximal phalanx, at the radial aspect of the 5th MCP joint. No active erosions or suspicious soft tissue calcifications. 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 XR/XR hand wrist RT IMPRESSION: 1. No acute osseous abnormality of either hand/wrist. 2. Mild degenerative changes of both hands as described. No evidence of an active inflammatory arthropathy.
--- NOTE | 2022-07-02 12:38 | ED.GENADULT ---
HPI - General Adult General Chief complaint: Extremity Injury, Upper <RUSSELL Davis - Last Filed: 07/02/22 12:42> Stated complaint: both arm pain <RUSSELL Davis - Last Filed: 07/02/22 12:42> Time Seen by Provider: 07/02/22 13:33 <RUSSELL Davis - Last Filed: 07/02/22 12:42> Source: patient <RUSSELL Miranda - Last Filed: 07/02/22 18:18> Mode of arrival: ambulatory <RUSSELL Miranda Last Filed: 07/02/22 18:18> Limitations: no limitations <RUSSELL Miranda Last Filed: 07/02/22 18:18> History of Present Illness HPI narrative: Patient is a 47 year old assigned male at with a history of carpal tunnel syndrome presenting to the emergency department today with bilateral wrist pain. Patient states that wrists have been having a carpal tunnel flare and causing him pain. Patient states that his job wanted him to be seen and wanted him to get a work note. Patient denies any dizziness, lightheadedness, abdominal pain, nausea, vomiting, fever, chills, blurry vision, double vision, loss of vision, chest pain, difficulty breathing, shortness of breath, back pain, night sweats, pain with urination, increased urinary frequency, increased urinary urgency, blood in her urine or stool, syncope or a near syncopal episode, recent trauma or falls, bowel incontinence, bladder incontinence, bowel retention, bladder retention, or any other complaints at this time. <RUSSELL Miranda - Last Filed: 07/02/22 18:18> Onset (ago): day(s) <RUSSELL Miranda - Last Filed: 07/02/22 18:18> Location: left, right and upper extremity <RUSSELL Miranda Last Filed: 07/02/22 18:18> Radiation: non-radiation <RUSSELL Miranda - Last Filed: 07/02/22 18:18> Severity: mild <RUSSELL Miranda Last Filed: 07/02/22 18:18> Severity scale (1-10): 3 <RUSSELL Miranda Last Filed: 07/02/22 18:18> Quality: aching <RUSSELL Miranda - Last Filed: 07/02/22 18:18> Relieving factors: none <RUSSELL Miranda - Last Filed: 07/02/22 18:18> Exacerbating factors: none <RUSSELL Miranda - Last Filed: 07/02/22 18:18> Associated symptoms: denies other symptoms <RUSSELL Miranda - Last Filed: 07/02/22 18:18> Treatments prior to arrival: none <RUSSELL Miranda - Last Filed: 07/02/22 18:18> Related Data Home medications: Home Medications Medication Instructions Recorded Confirmed loratadine 10 mg tablet (Allergy 10 mg PO DAILY 02/13/20 02/13/20 Relief (loratadine)) Previous Rx's Medication Instructions Recorded azithromycin 250 mg tablet See Rx Instructions PO .COMPLEX #6 01/31/20 tabs prednisone 50 mg tablet 50 mg PO DAILY #5 tabs 01/31/20 diazepam 5 mg tablet (Valium) 5 mg PO TID PRN muscle spasm #10 04/15/20 tabs hydrocodone 5 mg-acetaminophen 325 1 tab PO Q6H PRN pain #12 tabs 04/15/20 mg tablet lidocaine 4 % topical patch 1 patch topical DAILY PRN pain #10 04/15/20 ea prednisone 20 mg tablet 40 mg PO DAILY 4 days #8 tabs 04/15/20 atorvastatin 40 mg tablet 40 mg PO DAILY 90 days #90 tabs 05/03/20 albuterol sulfate 90 mcg/actuation 1 inh inhalation QID PRN shortness 09/19/20 aerosol inhaler of breath or wheezing #8.5 grams prednisone 20 mg tablet 20 mg PO BID #10 tabs 09/19/20 albuterol sulfate 90 mcg/actuation 2 puff inhalation Q4-6H PRN 11/05/20 aerosol inhaler (ProAir HFA) shortness of breath or wheezing #8.5 grams benzonatate 100 mg capsule 100 mg PO TID PRN cough #30 caps 11/05/20 (Felipe Lew) prednisone 20 mg tablet 40 mg PO DAILY #10 tabs 11/05/20 carvedilol 3.125 mg tablet 3.125 mg PO BID 90 days #180 tabs 11/19/20 clotrimazole 1 % topical cream 1 appl topical BID 4 weeks 01/14/21 acetaminophen 500 mg tablet 1,000 mg PO QID PRN pain #20 tabs 01/22/21 cyclobenzaprine 5 mg tablet 5 mg PO TID PRN muscle spasm #10 01/22/21 tabs oxycodone 5 mg tablet 5 mg PO Q6H PRN pain #10 tabs 01/22/21 prednisone 20 mg tablet 60 mg PO DAILY 4 days #12 tabs 01/22/21 oxycodone 5 mg tablet 5 mg PO Q6H PRN pain, severe 3 01/23/21 days #9 tabs methocarbamol 750 mg tablet 750 mg PO TID PRN muscle pain #30 02/28/21 tabs prednisone 20 mg tablet 40 mg PO DAILY 5 days #10 tabs 02/28/21 tramadol 50 mg tablet 50 mg PO Q6H PRN pain #20 tabs 04/07/21 rivaroxaban 20 mg tablet (Xarelto) 20 mg PO DAILY 90 days #90 tabs 05/06/21 valacyclovir 1 gram tablet 1,000 mg PO Q8H 7 days #21 tabs 08/10/21 (Valtrex) prednisone 20 mg tablet 20 mg PO DAILY 7 days #7 tabs 07/02/22 <RUSSELL Davis Last Filed: 07/02/22 12:42> Allergies/adverse reactions: Allergies Allergy/AdvReac Type Severity Reaction Status Date / Time No Known Allergies Allergy Verified 07/02/22 12:42 [No Known Allergies*] <RUSSELL Davis Last Filed: 07/02/22 12:42> Review of Systems Constitutional: Constitutional: Reports no additional constitutional complaints, Denies chills, Denies fever(s) and Denies night sweats <RUSSELL Miranda Last Filed: 07/02/22 18:18> Eyes: Eyes: Reports no additional eye complaints, Denies blurry vision, Denies change in vision, Denies diplopia, Denies eye discharge, Denies loss of vision and Denies eye pain <RUSSELL Miranda Last Filed: 07/02/22 18:18> ENT: Denies dizziness <RUSSELL Miranda Last Filed: 07/02/22 18:18> Cardiovascular: Cardiovascular: Reports no additional cardiovascular complaints, Denies chest pain, Denies lightheadedness, Denies Loss of Consciousness and Denies dyspnea <RUSSELL Miranda Last Filed: 07/02/22 18:18> Respiratory: Respiratory: Reports no additional respiratory complaints and Denies dyspnea <RUSSELL Miranda Last Filed: 07/02/22 18:18> Gastrointestinal: Gastrointestinal: Reports no additional gastrointestinal complaints, Denies abdominal pain, Denies melena, Denies hematochezia, Denies change in bowel habits and Denies change in stool character <RUSSELL Miranda Last Filed: 07/02/22 18:18> Genitourinary: Genitourinary: Reports no additional male genitourinary complaints, Denies hematuria, Denies oliguria, Denies difficulty urinating, Denies dysuria, Denies urinary frequency, Denies urinary hesitancy, Denies urinary incontinence and Denies urinary urgency <RUSSELL Miranda Last Filed: 07/02/22 18:18> Musculoskeletal: Musculoskeletal: Reports no additional musculoskeletal complaints, Denies numbness and Denies tingling <RUSSELL Miranda Last Filed: 07/02/22 18:18> Comments: bilateral wrist pain <RUSSELL Miranda Last Filed: 07/02/22 18:18> Neurologic: Denies dizziness, Denies loss of vision, Denies numbness and Denies tingling <RUSSELL Miranda Last Filed: 07/02/22 18:18> Psychiatric: Psychiatric: Reports no additional psychiatric complaints <RUSSELL Miranda Last Filed: 07/02/22 18:18> Endocrine: Endocrine: Reports no additional endocrine complaints <RUSSELL Miranda Last Filed: 07/02/22 18:18> Hematologic/Lymphatic: Hematologic/Lymphatic: Reports no additional hematologic/lymphatic complaints <RUSSELL Miranda Last Filed: 07/02/22 18:18> Allergic/Immunologic: Allergic/Immunologic: Reports no additional allergic/immunologic complaints <RUSSELL Miranda Last Filed: 07/02/22 18:18> PMFSH Past Medical History Attestation statement: The following information was validated with the patient. <RUSSELL Miranda - Last Filed: 07/02/22 18:18> Source: old records reviewed and nursing notes reviewed <RUSSELL Miranda - Last Filed: 07/02/22 18:18> Medical History: Medical History Asthma GERD (gastroesophageal reflux disease) Myocardial infarct <RUSSELL Davis - Last Filed: 07/02/22 12:42> Surgical History: Surgical History History of cardiac cath <RUSSELL Davis - Last Filed: 07/02/22 12:42> Family History Family History: Family History Father Alzheimers disease Mother Asthma Diabetes <RUSSELL Davis - Last Filed: 07/02/22 12:42> Social History Social History: Social History Patient Tobacco Use Status: Former Tobacco user Advance Directives: No <RUSSELL Davis - Last Filed: 07/02/22 12:42> Physical Exam ED Vital Signs: Vital Signs - 24 hr 07/02/22 12:39 Temperature 98.1 F Pulse Rate 91 Respiratory Rate 18 Blood Pressure 159/88 H Pulse Oximetry 97 Oxygen Delivery Method Room Air BMI result Body Mass Index 27.4 <RUSSELL Davis - Last Filed: 07/02/22 12:42> Vital Signs - 24 hr 07/02/22 12:39 Temperature 98.1 F Pulse Rate 91 Respiratory Rate 18 Blood Pressure 159/88 H Pulse Oximetry 97 Oxygen Delivery Method Room Air BMI result Body Mass Index 27.4 <RUSSELL Miranda - Last Filed: 07/02/22 18:18> Const General: cooperative, no acute distress, alert and awake <RUSSELL Miranda - Last Filed: 07/02/22 18:18> Nutritional Appearance: well nourished <RUSSELL Miranda - Last Filed: 07/02/22 18:18> Orientation/consciousness: patient oriented x3 <Alissa Key [facility] Last Filed: 07/02/22 18:18> Limitations: no limitations <Alissa Key [facility] Last Filed: 07/02/22 18:18> HENMT Head: Yes normal to inspection and Yes atraumatic <Alissa Key [facility] Last Filed: 07/02/22 18:18> Ears: hearing grossly normal bilaterally and external ears normal <Alissa Key NM - Last Filed: 07/02/22 18:18> General nose exam: Normal external nose present, no nasal discharge noted and no epistaxis <Alissa Key [facility] Last Filed: 07/02/22 18:18> Face and sinus: Yes normal facial exam, No abrasion and No laceration <Alissa Key [facility] Last Filed: 07/02/22 18:18> Mouth: Normal oral and palatal mucosa present, no drooling and no muffled voice <Alissa Key [facility] Last Filed: 07/02/22 18:18> Eyes General: appearance normal, both eyes and all related structures <Alissa Key [facility] Last Filed: 07/02/22 18:18> Periorbital: periorbital findings normal <Alissa Key [facility] Last Filed: 07/02/22 18:18> Eyelids: Yes eyelids normal <Alissa Key [facility] Last Filed: 07/02/22 18:18> Conjunctivae: conjunctivae normal <Alissa Key [facility] Last Filed: 07/02/22 18:18> Pupils: Equal, round and reactive pupils present <Alissa Key [facility] Last Filed: 07/02/22 18:18> EOM: EOMs intact bilaterally <Alissa Key [facility] Last Filed: 07/02/22 18:18> Neck Neck: Yes normal visual inspection, Yes full ROM and Yes no lymphadenopathy <Alissa Key [facility] Last Filed: 07/02/22 18:18> Chest Chest palpation & inspection: normal inspection of the chest <Alissa Key [facility] Last Filed: 07/02/22 18:18> Resp Effort & Inspection: normal respiratory effort and able to speak in complete sentences <Alissa Acevesdevan NM - Last Filed: 07/02/22 18:18> Auscultation: clear to auscultation bilaterally <Alissa Key PA - Last Filed: 07/02/22 18:18> Cardio Rate: regular rate <Alissa Key PA - Last Filed: 07/02/22 18:18> Rhythm: regular rhythm <Alissa Key PA - Last Filed: 07/02/22 18:18> GI Inspection: Yes normal to inspection <Alissa Key PA - Last Filed: 07/02/22 18:18> Neuro General: patient oriented x3 and moves all extremities <Alissa Key PA - Last Filed: 07/02/22 18:18> Cranial nerves: Yes Equal, round and reactive pupils present <Alissa Key PA - Last Filed: 07/02/22 18:18> Cognition (Neuro): normal cognition <Alissa Key PA - Last Filed: 07/02/22 18:18> Motor exam (neuro): 5/5 motor strength present throughout <Alissa Key PA - Last Filed: 07/02/22 18:18> Sensory Exam: Normal double simultaneous stimulation for sensation <Alissa Key PA - Last Filed: 07/02/22 18:18> Coordination: [id number] test normal <Alissa Key PA - Last Filed: 07/02/22 18:18> Extrem General: Yes normal to inspection, Yes full ROM and Yes capillary refill normal <Alissa Key PA - Last Filed: 07/02/22 18:18> Psych Appearance: grossly normal <Alissa Key PA - Last Filed: 07/02/22 18:18> Mental Status: mental status grossly normal <Alissa Key PA - Last Filed: 07/02/22 18:18> Affect: normal affect <Alissa Acevesdevan PA - Last Filed: 07/02/22 18:18> Attitude: cooperative <Alissa Acevesdevan PA - Last Filed: 07/02/22 18:18> Thought process: Normal thought process present <Alissa Acevesdevan PA - Last Filed: 07/02/22 18:18> Thought content: Normal thought content present <Alissa Acevesdevan PA - Last Filed: 07/02/22 18:18> Insight: Good insight present (Psych) <RUSSELL Miranda Last Filed: 07/02/22 18:18> Course Course Course Narrative: This is an RME: Additional HPI, ROS, PE not included below will be deferred to primary provider. 47 year old male with PMH of coronary artery embolism with myocardial infarction and PAF with left hand pain and cannot close his hand. Now he reports his right hand is hurting as well, the patient was sent in from work for an evaluation. Patient requests an Xray of both hands at this time. PE benign. Plan: imaging <RUSSELL Davis Last Filed: 07/02/22 12:42> Medical Decision Making Medical Decision Making MDM Narrative: Patient is a 47 year old assigned male at with a history of carpal tunnel presenting to the emergency department today with bilateral wrist pain. Patient's physical exam was unremarkable. Patient's wrist x-rays showed no acute process. I explained my physical exam findings as well as all test results to the patient. I answered all questions asked by the patient. I stressed the importance of the patient taking his medication as prescribed. I stressed the importance of the patient following up with his primary care provider. I stressed the importance of the patient returning to the emergency department immediately if his symptoms were to worsen or if he were to develop any dizziness, shortness of breath, difficulty breathing, chest pain, blurry vision, loss of vision, nausea, vomiting, abdominal pain, fever, chills, back pain, or any other complaints. Patient verbalized agreement and understanding with this treatment plan and discharge. <RUSSELL Miranda Last Filed: 07/02/22 18:18> Differential Diagnosis Differential Diagnoses: The differential diagnosis associated with the presentation includes <RUSSELL Miranda Last Filed: 07/02/22 18:18> bilateral wrist pain <RUSSELL Miranda Last Filed: 07/02/22 18:18> Independent Interpretation I performed an independent interpretation of an: Plain X-Ray <RUSSELL Miranda Last Filed: 07/02/22 18:18> Interpretation: My interpretation is in agreement with the radiologist's impression of these imaging studies. EXAMINATION: XR HAND/WRIST, RIGHT XR HAND/WRIST, LEFT CLINICAL INFORMATION: Bilateral hand/wrist pain. COMPARISON: None available. TECHNIQUE: 4 views of each hand/wrist. FINDINGS: No acute fracture or malalignment of either hand/wrist. Mild degenerative changes of the right carpus with a small ossified body dorsally. There is a degenerative cyst or chronic erosion at the base of the right 5th proximal phalanx, at the radial aspect of the 5th MCP joint. No active erosions or suspicious soft tissue calcifications. 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 XR/XR hand wrist RT IMPRESSION: 1.? No acute osseous abnormality of either hand/wrist. ? 2.? Mild degenerative changes of both hands as described. No evidence of an active inflammatory arthropathy. Dictated By: Roberto Mcdaniel MD Signed By: Electronically signed by Roberto Mcdaniel MD 07/02/22 5995 <RUSSELL Miranda - Last Filed: 07/02/22 18:18> Discharge Plan Discharge Clinical Impression: Carpal tunnel syndrome <RUSSELL Davis Last Filed: 07/02/22 12:42> Patient Disposition: Home, Self-Care <RUSSELL Davis Last Filed: 07/02/22 12:42> Instructions: Paresthesia (ED) <RUSSELL Davis Last Filed: 07/02/22 12:42> Additional Instructions: Follow up with your primary care provider and an orthopedic provider. Return to the emergency department immediately if your symptoms worsen or if you develop any dizziness, shortness of breath, difficulty breathing, chest pain, blurry vision, loss of vision, nausea, vomiting, abdominal pain, fever, chills, back pain, or any other complaints. Golden un seguimiento con harry proveedor de atenci?n primaria y un proveedor ortop?dico. Regrese al departamento de emergencias de inmediato si zeenat s?ntomas empeoran o si presenta mareos, falta de aire, dificultad para respirar, dolor de pecho, visi?n borrosa, p?rdida de la visi?n, n?useas, v?mitos, dolor abdominal, fiebre, escalofr?os, dolor de espalda o cualquier otras quejas. <RUSSELL Davis - Last Filed: 07/02/22 12:42> Prescriptions: New prednisone 20 mg tablet 20 mg PO DAILY 7 Days Qty: 7 0RF No Action atorvastatin 40 mg tablet 40 mg PO DAILY 90 Days Qty: 90 1RF carvedilol 3.125 mg tablet 3.125 mg PO BID 90 Days Qty: 180 1RF Xarelto 20 mg tablet 20 mg PO DAILY 90 Days Qty: 90 0RF Rx Instructions: must administer with evening meal Please call and schedule cardiology appt lidocaine 4 % adhesive patch,medicated 1 patch topical DAILY PRN (Reason: pain) Qty: 10 0RF Rx Instructions: may leave on for up to 12 hrs hydrocodone-acetaminophen 5-325 mg tablet 1 tab PO Q6H PRN (Reason: pain) Qty: 12 0RF prednisone 20 mg tablet 40 mg PO DAILY 4 Days Qty: 8 0RF diazepam [Valium] 5 mg tablet 5 mg PO TID PRN (Reason: muscle spasm) Qty: 10 0RF prednisone 20 mg tablet 40 mg PO DAILY Qty: 10 0RF albuterol sulfate [ProAir HFA] 90 mcg/actuation HFA aerosol inhaler 2 puff inhalation Q4-6H PRN (Reason: shortness of breath or wheezing) Qty: 8.5 0RF benzonatate [Tessalon Perles] 100 mg capsule 100 mg PO TID PRN (Reason: cough) Qty: 30 0RF azithromycin 250 mg tablet See Rx Instructions .ROUTE .COMPLEX Qty: 6 0RF Rx Instructions: take 500 mg today (day 1), then 250 mg for 4 days (days 2-5) prednisone 50 mg tablet 50 mg PO DAILY Qty: 5 0RF albuterol sulfate 90 mcg/actuation HFA aerosol inhaler 1 inh inhalation QID PRN (Reason: shortness of breath or wheezing) Qty: 8.5 0RF prednisone 20 mg tablet 20 mg PO BID Qty: 10 0RF clotrimazole 1 % cream 1 appl topical BID 28 Days 0RF prednisone 20 mg tablet 40 mg PO DAILY 5 Days Qty: 10 0RF methocarbamol 750 mg tablet 750 mg PO TID PRN (Reason: muscle pain) Qty: 30 0RF oxycodone 5 mg tablet 5 mg PO Q6H PRN (Reason: pain) Qty: 10 0RF Rx Instructions: Narcotic, no driving for 6 hours after taking acetaminophen 500 mg tablet 1,000 mg PO QID PRN (Reason: pain) Qty: 20 0RF cyclobenzaprine 5 mg tablet 5 mg PO TID PRN (Reason: muscle spasm) Qty: 10 0RF Rx Instructions: This medication may cause drowsiness, home use only, no driving for 6 hours after taking prednisone 20 mg tablet 60 mg PO DAILY 4 Days Qty: 12 0RF oxycodone 5 mg tablet 5 mg PO Q6H PRN (Reason: pain, severe) 3 Days Qty: 9 0RF tramadol 50 mg tablet 50 mg PO Q6H PRN (Reason: pain) Qty: 20 0RF valacyclovir [Valtrex] 1 gram tablet 1,000 mg PO Q8H 7 Days Qty: 21 0RF loratadine [Allergy Relief (loratadine)] 10 mg tablet 10 mg PO DAILY <RUSSELL Davis - Last Filed: 07/02/22 12:42> Referrals: [facility] Family Medicine [Provider Group] (Call to establish and follow up with a primary care provider. If you already have a primary care provider, please follow up with them. Llame para establecer y hacer un seguimiento con un proveedor de atenci?n primaria. Si ya tiene un proveedor de atenci?n primaria, golden un seguimiento con ?l.) [facility] Primary Care[facility] [Provider Group] (Call to establish and follow up with a primary care provider. If you already have a primary care provider, please follow up with them. Llame para establecer y hacer un seguimiento con un proveedor de atenci?n primaria. Si ya tiene un proveedor de atenci?n primaria, golden un seguimiento con ?l.) [facility] Primary Care,[facility] [Provider Group] (Call to establish and follow up with a primary care provider. If you already have a primary care provider, please follow up with them. Llame para establecer y hacer un seguimiento con un proveedor de atenci?n primaria. Si ya tiene un proveedor de atenci?n primaria, golden un seguimiento con ?l.) [facility] Orthopedic Surgeons [Provider Group] (Call to establish and follow up with an orthopedic provider. Llame para establecer y hacer un seguimiento con un proveedor ortop?dico.) <RUSSELL Davis - Last Filed: 07/02/22 12:42> Stand Alone Forms: Work/School Release <RUSSELL Davis - Last Filed: 07/02/22 12:42> Interventions: ED Discharge Assessment Last Done: 07/02/22 14:32 <RUSSELL Davis - Last Filed: 07/02/22 12:42> Discharge Date/Time: 07/02/22 14:32 <RUSSELL Davis - Last Filed: 07/02/22 12:42> Print Language: Brazilian <RUSSELL Davis - Last Filed: 07/02/22 12:42>
[2022-07-02 12:39] VITALS: BP 159/88; PULSE 91; RESP 18; TEMP 36.7; O2SAT 97; BMI 27.4
== END 2022-07-02 14:32 | disposition home or self-care (01) ==
PROVIDERS: Emergency Provider Emergency Medicine
DX: G56.03 Carpal tunnel syndrome, bilateral upper limbs (principal); M25.532 Pain in left wrist; M25.531 Pain in right wrist
CPT/HCPCS: 73110; 73130; 99282; 99283

== ENCOUNTER 2022-07-22 07:42 | Outpatient (REF) | payer OTHER, SELFPAY | END 2022-07-22 07:43 | disposition home or self-care (01) | LOC: HO.HOSX 07:42 | PROVIDERS: Visit Provider Orthopaedic Surgery | DX: Z13.89 Encounter for screening for other disorder (principal) ==

== ENCOUNTER 2024-03-18 06:29 | Emergency (ER) | payer OTHER, SELFPAY ==
--- NOTE | ~2024-03-18 | CT_ITS ---
EXAMINATION: CT ABDOMEN AND PELVIS WITHOUT CONTRAST CLINICAL INFORMATION: Hematuria COMPARISON: None available. TECHNIQUE: Multidetector volumetric imaging was performed from the superior aspect of the liver through the pubic symphysis. Sagittal and coronal reformatted images were obtained on the technologist's workstation. This CT examination was performed using dose optimization techniques as appropriate, variously including the following: *Automated exposure control *Adjustment of mA and/or kV according to patient size (this includes techniques or standardized protocols for targeted exams where dose is matched to indication/reason for exam; i.e. extremities or head) *Use of iterative reconstruction technique FINDINGS: LUNG BASES: Patchy atelectatic changes lung bases. LIVER, GALLBLADDER, AND BILIARY TREE: The liver is normal in size, shape, and attenuation. No focal hepatic lesion or biliary ductal dilatation is present. The gallbladder is contracted.. PANCREAS: Unremarkable. SPLEEN: The spleen is normal size. There is punctate splenic calcification. ADRENAL GLANDS: Unremarkable. KIDNEYS AND URETERS: The kidneys are normal in size, shape, and attenuation. No hydronephrosis, hydroureter, or calculi seen. No perinephric stranding. BLADDER: Unremarkable. GASTROINTESTINAL TRACT: There is a large amount of stool in colon without distention. The small bowel loops are normal caliber. Appendix is normal caliber. No inflammatory process, free air or free fluid seen. ABDOMINAL WALL: No significant hernia is appreciated. LYMPH NODES: Normal. VASCULAR: Unremarkable. PELVIC VISCERA: Unremarkable. OSSEOUS STRUCTURES: No aggressive lytic or sclerotic process seen. There is mild degenerative disc changes, ventral and posterior spondylosis with vacuum disc phenomenon at L5-S1 disc level. CT/CT abdomen pelvis wo IV con IMPRESSION: Moderate constipation. No acute process seen Fleischner guidelines were followed. Electronically signed by: Nathan Hi MD 03/18/2024 09:56 AM EST
[2024-03-18 06:32] VITALS: BP 134/81; PULSE 66; RESP 18; TEMP 36.8; O2SAT 98; BMI 24.3
[2024-03-18 06:55] LABS: MANUAL DIFF FLAG NO
[2024-03-18 06:56] LABS: Basophils Percent Auto 0.4 % (0-2); Eosinophils Absolute Auto 0.4 X10*3/uL (0.0-0.4); Eosinophils Percent Auto 6.4 % (0-4); Hematocrit 37.9 % (42.0-52.0); Imm Gran Abs Auto 0.03 X10*3/uL (0.00-0.03); Imm Gran Pct Auto 0.4 % (0.0-0.4); Lymphocytes Absolute Auto 2.3 X10*3/uL (1.2-4.9); Lymphocytes Percent Auto 33.9 % (20-40); Mean Corpuscular HGB Conc 34.3 g/dl (31.0-36.0); Mean Corpuscular Hemoglobin 32.4 pg (27.0-33.0); Mean Corpuscular Volume 94.5 fL (80.0-98.0); Mean Platelet Volume 8.7 fL (9.4-12.4); Monocytes Absolute Auto 0.5 X10*3/uL (0.1-1.2); Neutrophils Absolute Auto 3.5 x10*3/uL (2.0-8.3); Neutrophils Percent Auto 51.9 % (45-73); Platelet Count 381 X10*3/uL (160-400); Red Blood Count 4.01 X10*6/uL (4.60-5.80); Red Cell Distribution Width 11.8 % (11.0-16.0); White Blood Count 6.7 X10*3/uL (4.8-10.8)
[2024-03-18 07:10] LABS: Alanine Aminotransferase 44 U/L (0-40); Albumin Level 3.7 g/dL (3.5-5.0); Alkaline Phosphatase 82 U/L (39-117); Anion Gap 11 (12-20); Aspartate Amino Transferase 37 U/L (5-37); Bilirubin Total 0.3 mg/dL (0.0-1.0); Blood Urea Nitrogen 13 mg/dL (9-16); Calcium 9.1 mg/dL (8.4-10.2); Carbon Dioxide 24 mmol/L (22-29); Chloride 109 mmol/L (96-108); Creatinine Clr Calc Pharmacy 81.3; Estimated Glomerular Filt Rate > 60; Glucose Random 128 mg/dL (60-115); Lipase 44 U/L (8-78); Potassium 3.8 mmol/L (3.3-5.1); Sodium 140 mmol/L (135-145); Total Protein 6.6 g/dL (6.5-8.0)
--- NOTE | 2024-03-18 07:17 | ED.MALEGU ---
HPI - Male Genitourinary General Chief complaint: Urogenital-Male Stated complaint: groin pain Time Seen by Provider: 03/18/24 07:17 History of Present Illness ED Provider: Homar MARCANO Narrative: The patient is a 48-year-old male. He has multiple medical problems including HIV, paroxysmal atrial fibrillation, and coronary artery disease. The patient has been living in [place] recently until a few months ago. He moved back to this area about 3 months ago in his currently living with his mother. Patient is normally on Biktarvy prescribed by a doctor in [place]. The patient has gotten connected with primary care practice through [facility] in this area but has not yet established actual prescriptions. He says that he ran out of Biktarvy about 3 or 4 days ago. About the same time that he ran out of this medication he developed dysuria, urgency, and frequency. He also has some suprapubic discomfort. No flank pain, fever, sweats, chills or vomiting. He is currently connected with the [facility] practice at [address] [place] [address] in [place]. He is here in the emergency room with his long-term partner. He says that they have not had any intercourse recently. His partner says that he has trouble keeping a job because he often faint at work. He also reports a history of asthma Related Data Home Medications ?Medication ?Instructions ?Recorded ?Confirmed loratadine 10 mg tablet (Allergy 10 mg PO DAILY 02/13/20 02/13/20 Relief (loratadine)) Previous Rx's ?Medication ?Instructions ?Recorded azithromycin 250 mg tablet See Rx Instructions PO .COMPLEX #6 01/31/20 tabs prednisone 50 mg tablet 50 mg PO DAILY #5 tabs 01/31/20 diazepam 5 mg tablet (Valium) 5 mg PO TID PRN muscle spasm #10 04/15/20 tabs hydrocodone 5 mg-acetaminophen 325 1 tab PO Q6H PRN pain #12 tabs 04/15/20 mg tablet lidocaine 4 % topical patch 1 patch topical DAILY PRN pain #10 04/15/20 ea prednisone 20 mg tablet 40 mg (2 x 20 mg) PO DAILY 4 days 04/15/20 #8 tabs atorvastatin 40 mg tablet 40 mg PO DAILY 90 days #90 tabs 05/03/20 albuterol sulfate 90 mcg/actuation 1 inh inhalation QID PRN shortness 09/19/20 aerosol inhaler of breath or wheezing #8.5 grams prednisone 20 mg tablet 20 mg PO BID #10 tabs 09/19/20 albuterol sulfate 90 mcg/actuation 2 puff inhalation Q4-6H PRN 11/05/20 aerosol inhaler (ProAir HFA) shortness of breath or wheezing #8.5 grams benzonatate 100 mg capsule 100 mg PO TID PRN cough #30 caps 11/05/20 (Felipe Lew) prednisone 20 mg tablet 40 mg (2 x 20 mg) PO DAILY #10 tabs 11/05/20 carvedilol 3.125 mg tablet 3.125 mg PO BID 90 days #180 tabs 11/19/20 clotrimazole 1 % topical cream 1 appl topical BID 4 weeks 01/14/21 acetaminophen 500 mg tablet 1,000 mg (2 x 500 mg) PO QID PRN 01/22/21 pain #20 tabs cyclobenzaprine 5 mg tablet 5 mg PO TID PRN muscle spasm #10 01/22/21 tabs oxycodone 5 mg tablet 5 mg PO Q6H PRN pain #10 tabs 01/22/21 prednisone 20 mg tablet 60 mg (3 x 20 mg) PO DAILY 4 days 01/22/21 #12 tabs oxycodone 5 mg tablet 5 mg PO Q6H PRN pain, severe 3 01/23/21 days #9 tabs methocarbamol 750 mg tablet 750 mg PO TID PRN muscle pain #30 02/28/21 tabs prednisone 20 mg tablet 40 mg (2 x 20 mg) PO DAILY 5 days 02/28/21 #10 tabs tramadol 50 mg tablet 50 mg PO Q6H PRN pain #20 tabs 04/07/21 rivaroxaban 20 mg tablet (Xarelto) 20 mg PO DAILY 90 days #90 tabs 05/06/21 valacyclovir 1 gram tablet 1,000 mg PO Q8H 7 days #21 tabs 08/10/21 (Valtrex) prednisone 20 mg tablet 20 mg PO DAILY 7 days #7 tabs 07/02/22 bictegravir 50 mg-emtricitabine 1 tab PO DAILY #30 tabs 03/18/24 200 mg-tenofovir alafenam 25 mg tablet (Biktarvy) budesonide-formoterol HFA 160 1 puff inhalation BID #10.2 grams 03/18/24 mcg-4.5 mcg/actuation aerosol inhaler cefpodoxime 200 mg tablet 200 mg PO BID 5 days #10 tabs 03/18/24 doxycycline monohydrate 100 mg 100 mg PO BID #14 caps 03/18/24 capsule Allergies Allergy/AdvReac Type Severity Reaction Status Date / Time No Known Allergies Allergy Verified 03/18/24 06:35 [No Known Allergies*] Review of Systems Review of Systems: Yes all other systems are reviewed and are negative [facility] Past Medical History Medical History Asthma GERD (gastroesophageal reflux disease) Myocardial infarct Surgical History History of cardiac cath Family History Family History Father Alzheimers disease Mother Asthma Diabetes Social History Social History Patient Tobacco Use Status: Former Tobacco user Physical Exam Vital Signs: Vital Signs: Last Vital Signs Temp 98.1 F 03/18/24 10:23 Pulse 67 03/18/24 10:23 Resp 16 03/18/24 10:23 BP 136/78 03/18/24 10:23 Pulse Ox 98 03/18/24 10:23 O2 Del Method Room Air 03/18/24 10:23 BMI result Body Mass Index 24.3 Const: Other: The patient is a 52-year-old male. He is a slim 48-year-old who does not appear in obvious distress. HEENT: Other: Face is symmetrical. Mucous membranes moist Eyes: General: appearance normal, both eyes and all related structures Neck: Neck: Yes full ROM and Yes no lymphadenopathy Resp: Other: No increased work of breathing. The patient has a wheezes bilaterally. Cardio: Rate: regular rate Rhythm: regular rhythm Heart sounds: S1 normal heart sound present and S2 normal heart sound present GI: Other: The abdomen is flat and soft. There is some suprapubic tenderness without rebound or guarding : Other: The patient is an uncircumcised male. I did not appreciate any lesions or discharge from the penis or the foreskin. Scrotal contents are unremarkable, nonswollen and nontender. Skin: Other: Skin is dry and unremarkable Neuro: Other: The patient is awake and alert with a normal mental status. Cranial nerves are grossly intact. He moves his extremities normally. Gait is steady Extrem: Other: No peripheral edema Medical Decision Making Medical Decision Making MDM Narrative: The patient is a 48-year-old male with HIV normally on Biktarvy who presents with urinary symptoms. The symptoms he describes were quite suggestive of possible urinary tract infection but his urinalysis was not highly suggestive of UTI. I do not find anything on his physical exam to help explain his symptoms. His external genitalia is unremarkable. Did have some blood in his urine. A noncontrast CT of the abdomen pelvis shows no explanation for the blood in the urine or any other explanation for his symptoms. A urine for GC and chlamydia was also sent. He will be started empirically on cefpodoxime and doxycycline. He will also be given a refill of his prescription for Biktarvy. He is still establishing a primary care doctor in this area. Lab Data 03/18/24 06:51 03/18/24 06:51 Labs: Lab Results 03/18/24 03/18/24 03/18/24 Range/Units 06:51 07:29 09:05 WBC 6.7 (4.8-10.8) X10*3/uL RBC 4.01 L (4.60-5.80) X10*6/uL Hgb 13.0 L (14.0-18.0) g/dl Hct 37.9 L (42.0-52.0) % MCV 94.5 (80.0-98.0) fL MCH 32.4 (27.0-33.0) pg MCHC 34.3 (31.0-36.0) g/dl RDW 11.8 (11.0-16.0) % Plt Count 381 (160-400) X10*3/uL MPV 8.7 L (9.4-12.4) fL Immature Gran % (Auto) 0.4 (0.0-0.4) % Neut % (Auto) 51.9 (45-73) % Lymph % (Auto) 33.9 (20-40) % Zavala % (Auto) 7.0 (2-11) % Eos % (Auto) 6.4 H (0-4) % Baso % (Auto) 0.4 (0-2) % Lymph # (Auto) 2.3 (1.2-4.9) X10*3/uL Zavala # (Auto) 0.5 (0.1-1.2) X10*3/uL Eos # (Auto) 0.4 (0.0-0.4) X10*3/uL Baso # (Auto) 0.0 (0.0-0.2) X10*3/uL Abs Immat Gran (auto) 0.03 (0.00-0.03) X10*3/uL Absolute Neuts (auto) 3.5 (2.0-8.3) x10*3/uL Absolute Nucleated RBC 0.000 (0.0-0.012) X10*3/uL Nucleated RBC % (auto) 0.0 (0.0-0.2) /100WBC Sodium 140 (135-145) mmol/L Potassium 3.8 (3.3-5.1) mmol/L Chloride 109 H (96-108) mmol/L Carbon Dioxide 24 (22-29) mmol/L Anion Gap 11 L (12-20) BUN 13 (9-16) mg/dL Creatinine 0.91 (0.5-1.4) mg/dL Estim Creat Clear Calc 81.3 Estimated GFR > 60 Random Glucose 128 H (60-115) mg/dL Calcium 9.1 (8.4-10.2) mg/dL Total Bilirubin 0.3 (0.0-1.0) mg/dL AST 37 (5-37) U/L ALT 44 H (0-40) U/L Alkaline Phosphatase 82 (39-117) U/L Total Protein 6.6 (6.5-8.0) g/dL Albumin 3.7 (3.5-5.0) g/dL Lipase 44 (8-78) U/L Urine Color Dark Yellow Urine Appearance Clear Urine pH 5.5 (5.0-9.0) Ur Specific [place] >= 1.030 H (1.005-1.025) Urine Protein 30 (1+) H (Neg-Trace) mg/dL Urine Glucose (UA) Negative (Negative) mg/dL Urine Ketones Trace (Negative) mg/dL Urine Blood Moderate (2+) H (Negative) Urine Nitrite Negative (Negative) Ur Leukocyte Esterase Negative (Negative) Urine RBC >20 H (0-2) /HPF Urine WBC 6-10 H (0-5) /HPF Ur Squamous Epith Cells 0-2 (0-2) /HPF Calcium Oxalate Crystal Present Urine Bacteria None Seen (None Seen) Hyaline Casts 0-2 (0-2) /LPF Chlam trachomat DNA PCR NOT DETECTED (Not Detect.) N.gonorrhoeae DNA (PCR) NOT DETECTED (Not Detect.) Independent Interpretation I performed an independent interpretation of an: EKG Interpretation: EKG at 07:36 shows normal sinus rhythm at 72 beats per minute. No definite acute findings or significant changes from previous Discharge Plan Discharge Clinical Impression: Dysuria, Hematuria Patient Disposition: Home, Self-Care Additional Instructions: At the moment I do not have any definite explanation for your symptoms. It is possible you could have a subtle form of urine infection. I have sent prescriptions for two different antibiotics, cefpodoxime and doxycycline. I would recommend taking these as prescribed. I have sent a refill of your regular medication Biktarvy as well. Also I have sent an inhaler for your asthma which I would recommend over albuterol. The prescription is to take 1 puff 2 times a day. However you may take 2 puffs 2 times a day if you are feeling that your asthma is acting up. In fact you can use it as much as 2 puffs every 4 hours if you feel your asthma is worse. Please continue your efforts to see a new primary doctor. Return to the emergency room if worse. Prescriptions: New cefpodoxime 200 mg tablet 200 mg PO BID 5 Days Qty: 10 0RF Rx Instructions: must administer with a meal/food doxycycline monohydrate 100 mg capsule 100 mg PO BID Qty: 14 0RF budesonide-formoterol 160-4.5 mcg/actuation HFA aerosol inhaler 1 puff inhalation BID Qty: 10.2 0RF Biktarvy 50-200-25 mg tablet 1 tab PO DAILY Qty: 30 0RF No Action atorvastatin 40 mg tablet 40 mg PO DAILY 90 Days Qty: 90 1RF carvedilol 3.125 mg tablet 3.125 mg PO BID 90 Days Qty: 180 1RF Xarelto 20 mg tablet 20 mg PO DAILY 90 Days Qty: 90 0RF Rx Instructions: must administer with evening meal Please call and schedule cardiology appt lidocaine 4 % adhesive patch,medicated 1 patch topical DAILY PRN (Reason: pain) Qty: 10 0RF Rx Instructions: may leave on for up to 12 hrs hydrocodone-acetaminophen 5-325 mg tablet 1 tab PO Q6H PRN (Reason: pain) Qty: 12 0RF prednisone 20 mg tablet 40 mg PO DAILY 4 Days Qty: 8 0RF diazepam [Valium] 5 mg tablet 5 mg PO TID PRN (Reason: muscle spasm) Qty: 10 0RF prednisone 20 mg tablet 40 mg PO DAILY Qty: 10 0RF albuterol sulfate [ProAir HFA] 90 mcg/actuation HFA aerosol inhaler 2 puff inhalation Q4-6H PRN (Reason: shortness of breath or wheezing) Qty: 8.5 0RF benzonatate [Tessalon Perles] 100 mg capsule 100 mg PO TID PRN (Reason: cough) Qty: 30 0RF azithromycin 250 mg tablet See Rx Instructions .ROUTE .COMPLEX Qty: 6 0RF Rx Instructions: take 500 mg today (day 1), then 250 mg for 4 days (days 2-5) prednisone 50 mg tablet 50 mg PO DAILY Qty: 5 0RF albuterol sulfate 90 mcg/actuation HFA aerosol inhaler 1 inh inhalation QID PRN (Reason: shortness of breath or wheezing) Qty: 8.5 0RF prednisone 20 mg tablet 20 mg PO BID Qty: 10 0RF clotrimazole 1 % cream 1 appl topical BID 28 Days 0RF prednisone 20 mg tablet 40 mg PO DAILY 5 Days Qty: 10 0RF methocarbamol 750 mg tablet 750 mg PO TID PRN (Reason: muscle pain) Qty: 30 0RF oxycodone 5 mg tablet 5 mg PO Q6H PRN (Reason: pain) Qty: 10 0RF Rx Instructions: Narcotic, no driving for 6 hours after taking acetaminophen 500 mg tablet 1,000 mg PO QID PRN (Reason: pain) Qty: 20 0RF cyclobenzaprine 5 mg tablet 5 mg PO TID PRN (Reason: muscle spasm) Qty: 10 0RF Rx Instructions: This medication may cause drowsiness, home use only, no driving for 6 hours after taking prednisone 20 mg tablet 60 mg PO DAILY 4 Days Qty: 12 0RF oxycodone 5 mg tablet 5 mg PO Q6H PRN (Reason: pain, severe) 3 Days Qty: 9 0RF tramadol 50 mg tablet 50 mg PO Q6H PRN (Reason: pain) Qty: 20 0RF valacyclovir [Valtrex] 1 gram tablet 1,000 mg PO Q8H 7 Days Qty: 21 0RF prednisone 20 mg tablet 20 mg PO DAILY 7 Days Qty: 7 0RF loratadine [Allergy Relief (loratadine)] 10 mg tablet 10 mg PO DAILY Referrals: Christina Nunn NP [Physician] - Interventions: ED Discharge Assessment Last Done: 03/18/24 10:23 Discharge Date/Time: 03/18/24 10:23 Print Language: Latvian
--- NOTE | 2024-03-18 07:29 | ECG_ITS ---
Test Reason : A FIB Blood Pressure : */* mmHG Vent. Rate : 72 BPM Atrial Rate : 72 BPM P-R Int : 172 ms QRS Dur : 88 ms QT Int : 388 ms P-R-T Axes : 52 50 34 degrees QTcB Int : 424 ms Normal sinus rhythm Normal EKG When compared with ECG of 31-Jan-2020 16:29, No significant change was found Referred By: Misael Graf Electronically Signed By: JACKI FUENTES
[2024-03-18 07:40] LABS: Appearance Urine Clear; Color Urine Dark Yellow; Glucose Urine UA Negative (Negative); Leukocyte Esterase Urine Negative (Negative); Nitrite Urine Negative (Negative); PH 5.5 (5.0-9.0); Specific Gravity - Urine >= 1.030 (1.005-1.025); UMIC TRIGGER UACC YES; Urine Blood Moderate (2+) (Negative); Urine Ketones Trace mg/dL (Negative); Urine Protein 30 (1+) mg/dL (Neg-Trace)
[2024-03-18 07:57] LABS: Bacteria Urine None Seen (None Seen); Calcium Oxalate Crystals Urine Present; Hyaline Casts Urine 0-2 /LPF (0-2); RBC Urine >20 /HPF (0-2); Squamous Epithelial Cell Urine 0-2 /HPF (0-2); UACC Culture Trigger YES
--- NOTE | 2024-03-18 09:07 | PC.NURSE ---
Pt bladder scanned prior to void, 75 mL. Pt able to void and give sample with no issues. Does report discomfort in his bladder area
[2024-03-18 10:00] VITALS: BP 136/78; PULSE 67; RESP 16; TEMP 36.7; O2SAT 98
[2024-03-18 10:23] VITALS: BP 136/78; PULSE 67; RESP 16; TEMP 36.7; O2SAT 98
[2024-03-18 11:17] LABS: CT PCR NOT DETECTED (Not Detect.); NG PCR NOT DETECTED (Not Detect.)
== END 2024-03-18 10:23 | disposition home or self-care (01) ==
PROVIDERS: Emergency Provider Emergency Medicine
DX: R30.0 Dysuria (principal); R31.9 Hematuria, unspecified; R10.2 Pelvic and perineal pain; I48.91 Unspecified atrial fibrillation; I25.10 Atherosclerotic heart disease of native coronary artery without angina pectoris; Z79.01 Long term (current) use of anticoagulants; Z21 Asymptomatic human immunodeficiency virus [HIV] infection status; Z79.899 Other long term (current) drug therapy
CPT/HCPCS: 36415; 74176; 80053; 81001; 83690; 85025; 87086; 87491; 87591; 93005; 99284; 99285

== ENCOUNTER → 2024-03-18 07:29 | Outpatient (BNV) | payer OTHER, SELFPAY | PROVIDERS: Emergency Provider Emergency Medicine; Visit Provider Internal Medicine | DX: I48.91 Unspecified atrial fibrillation (principal) | CPT/HCPCS: 93010 ==

== ENCOUNTER → 2024-03-18 09:04 | Outpatient (BNV) | payer OTHER, SELFPAY | PROVIDERS: Emergency Provider Emergency Medicine; Visit Provider Radiology Diagnostic Radiology | DX: R31.9 Hematuria, unspecified (principal) | CPT/HCPCS: 74176 ==

== ENCOUNTER 2024-03-22 07:06 | Emergency (ER) | payer OTHER, SELFPAY ==
[2024-03-22 07:20] VITALS: BP 126/85; PULSE 77; RESP 20; TEMP 37.2; O2SAT 98; BMI 24.2
[2024-03-22 07:36] LABS: Appearance Urine Clear; Color Urine Yellow; Glucose Urine UA Negative (Negative); Leukocyte Esterase Urine Negative (Negative); Nitrite Urine Negative (Negative); Specific Gravity - Urine 1.015 (1.005-1.025); UMIC TRIGGER UACC YES; Urine Blood Trace (Negative); Urine Ketones Negative (Negative); Urine Protein Negative (Neg-Trace)
[2024-03-22 07:41] LABS: Bacteria Urine None Seen (None Seen); Hyaline Casts Urine 0-2 /LPF (0-2); RBC Urine 0-2 /HPF (0-2); Squamous Epithelial Cell Urine 0-2 /HPF (0-2); WBC Urine 0-5 /HPF (0-5)
--- NOTE | 2024-03-22 10:14 | ED.MALEGU ---
HPI - Male Genitourinary General Chief complaint: Urogenital-Male Stated complaint: Abd pain, difficulty urinating Time Seen by Provider: 03/22/24 10:07 Source: patient and RN notes reviewed Mode of arrival: ambulatory Limitations: no limitations History of Present Illness ED Provider: Miacela York PA-C HPI Narrative: This is a 48-year-old male, with a history of HIV, paroxysmal atrial fibrillation, and coronary artery disease, who presents emergency department with ongoing dysuria, urinary frquency and urgency. Patient was seen here 4 days ago, where he had a CT scan which revealed moderate constipation, otherwise no acute process seen. His urine culture was negative for urinary tract infection. He was discharged on cefuroxime, and doxycycline, which he has been taking without much improvement. He has relocated to this area from [place] and has not established any primary care providers. He does report that he drinks a lot of coffee, denies alcohol use. Denies any fevers, chills, chest pain, shortness of breath, abdominal pain at rest, nausea or vomiting. He reports that he has diarrhea which he has had for ?awhile? - approximating many months. He has not had a colonoscopy. No other concerns at this time. Related Data Home Medications ?Medication ?Instructions ?Recorded ?Confirmed loratadine 10 mg tablet (Allergy 10 mg PO DAILY 02/13/20 02/13/20 Relief (loratadine)) Previous Rx's ?Medication ?Instructions ?Recorded azithromycin 250 mg tablet See Rx Instructions PO .COMPLEX #6 01/31/20 tabs prednisone 50 mg tablet 50 mg PO DAILY #5 tabs 01/31/20 diazepam 5 mg tablet (Valium) 5 mg PO TID PRN muscle spasm #10 04/15/20 tabs hydrocodone 5 mg-acetaminophen 325 1 tab PO Q6H PRN pain #12 tabs 04/15/20 mg tablet lidocaine 4 % topical patch 1 patch topical DAILY PRN pain #10 04/15/20 ea prednisone 20 mg tablet 40 mg (2 x 20 mg) PO DAILY 4 days 04/15/20 #8 tabs atorvastatin 40 mg tablet 40 mg PO DAILY 90 days #90 tabs 05/03/20 albuterol sulfate 90 mcg/actuation 1 inh inhalation QID PRN shortness 09/19/20 aerosol inhaler of breath or wheezing #8.5 grams prednisone 20 mg tablet 20 mg PO BID #10 tabs 09/19/20 albuterol sulfate 90 mcg/actuation 2 puff inhalation Q4-6H PRN 11/05/20 aerosol inhaler (ProAir HFA) shortness of breath or wheezing #8.5 grams benzonatate 100 mg capsule 100 mg PO TID PRN cough #30 caps 11/05/20 (Felipe Lew) prednisone 20 mg tablet 40 mg (2 x 20 mg) PO DAILY #10 tabs 11/05/20 carvedilol 3.125 mg tablet 3.125 mg PO BID 90 days #180 tabs 11/19/20 clotrimazole 1 % topical cream 1 appl topical BID 4 weeks 01/14/21 acetaminophen 500 mg tablet 1,000 mg (2 x 500 mg) PO QID PRN 01/22/21 pain #20 tabs cyclobenzaprine 5 mg tablet 5 mg PO TID PRN muscle spasm #10 01/22/21 tabs oxycodone 5 mg tablet 5 mg PO Q6H PRN pain #10 tabs 01/22/21 prednisone 20 mg tablet 60 mg (3 x 20 mg) PO DAILY 4 days 01/22/21 #12 tabs oxycodone 5 mg tablet 5 mg PO Q6H PRN pain, severe 3 01/23/21 days #9 tabs methocarbamol 750 mg tablet 750 mg PO TID PRN muscle pain #30 02/28/21 tabs prednisone 20 mg tablet 40 mg (2 x 20 mg) PO DAILY 5 days 02/28/21 #10 tabs tramadol 50 mg tablet 50 mg PO Q6H PRN pain #20 tabs 04/07/21 rivaroxaban 20 mg tablet (Xarelto) 20 mg PO DAILY 90 days #90 tabs 05/06/21 valacyclovir 1 gram tablet 1,000 mg PO Q8H 7 days #21 tabs 08/10/21 (Valtrex) prednisone 20 mg tablet 20 mg PO DAILY 7 days #7 tabs 07/02/22 bictegravir 50 mg-emtricitabine 1 tab PO DAILY #30 tabs 03/18/24 200 mg-tenofovir alafenam 25 mg tablet (Biktarvy) budesonide-formoterol HFA 160 1 puff inhalation BID #10.2 grams 03/18/24 mcg-4.5 mcg/actuation aerosol inhaler cefpodoxime 200 mg tablet 200 mg PO BID 5 days #10 tabs 03/18/24 doxycycline monohydrate 100 mg 100 mg PO BID #14 caps 03/18/24 capsule phenazopyridine 100 mg tablet 100 mg PO TID 3 days #9 tabs 03/22/24 (Pyridium) Allergies Allergy/AdvReac Type Severity Reaction Status Date / Time No Known Allergies Allergy Verified 03/22/24 07:22 [No Known Allergies*] Review of Systems Review of Systems: Yes all other systems are reviewed and are negative Constitutional: Constitutional: Reports as per HPI [facility] Past Medical History Medical History Asthma GERD (gastroesophageal reflux disease) Myocardial infarct Surgical History History of cardiac cath Family History Family History Father Alzheimers disease Mother Asthma Diabetes Social History Social History Patient Tobacco Use Status: Former Tobacco user Advance Directives: No Advance Directives Information Provided: Yes Physical Exam Vital Signs: Vital Signs: Last Vital Signs Temp 99.0 F 03/22/24 13:12 Pulse 77 03/22/24 13:12 Resp 20 03/22/24 13:12 BP 126/85 03/22/24 13:12 Pulse Ox 98 03/22/24 13:12 O2 Del Method Room Air 03/22/24 13:12 BMI result Body Mass Index 24.2 Const: General: cooperative, comfortable and no acute distress Orientation/consciousness: patient oriented x3 Limitations: no limitations HEENT: Head: Yes normal to inspection, Yes normocephalic and Yes atraumatic Ears: hearing grossly normal bilaterally General nose exam: Normal external nose present Face and sinus: Yes normal facial exam Mouth: Normal oral and palatal mucosa present, oropharynx normal and moist mucous membranes Throat: Yes posterior oropharynx normal Eyes: General: appearance normal, both eyes and all related structures Eyelids: Yes eyelids normal Conjunctivae: conjunctivae normal Sclerae: sclerae normal Pupils: Equal, round and reactive pupils present EOM: EOMs intact bilaterally Neck: Neck: Yes normal visual inspection, Yes full ROM and Yes no lymphadenopathy Lymphatic: no lymphadenopathy noted Chest: Chest palpation & inspection: normal inspection of the chest Resp: Effort & Inspection: normal respiratory effort and able to speak in complete sentences Auscultation: clear to auscultation bilaterally, no crackles, no rales, no rhonchi and no wheezes Cardio: Rate: regular rate Rhythm: regular rhythm Heart sounds: S1 normal heart sound present and S2 normal heart sound present GI: Inspection: Yes normal to inspection : General: Yes no CVA tenderness Back/Spine/Pelvis: Back: no CVA tenderness Skin: General skin exam: no rashes or lesions noted Trauma: no lacerations or abrasions Wounds: no wounds Neuro: General: patient oriented x3 and moves all extremities Cranial nerves: Yes Equal, round and reactive pupils present Extrem: General: Yes normal to inspection Right upper extremity: normal to inspection Left upper extremity: normal to inspection Right lower extremity: normal to inspection Left lower extremity: normal to inspection Medical Decision Making Medical Decision Making [facility] Narrative: This is a 48-year-old male who presents emergency department with complaints of dysuria, urinary frequency and urgency since last week. He was seen last Thursday, had a CT scan, as well as urine culture which did not come back as a UTI. He was treated with a course of antibiotics which she has been taking without any relief. Labs were performed, he has no leukocytosis, stable H&H, no evidence of EDSON. Bladder scan was performed, he is not retaining. Urine reveals trace blood, no other signs of infection. Given that he had a normal CT scan, as well as normal workup, and negative urine culture, is unclear what is causing him to have this symptoms therefore stressed the urgency of following up with Urology. He understands and agrees with plan. Will discharge him with a prescription for Pyridium to help with symptoms, I expressed to him that this only provides temporary relief of his symptoms. He understands agrees with plan. Patient stable for discharge. Differential Diagnosis Differential Diagnoses: The differential diagnosis associated with the presentation includes UTI, pyelonephritis, nephrolithiasis, acute cystitis Admission/Observation Consideration of admission/observation: Escalation of care including admission/observation considered Lab Data [facility] Lab Attestation statement: I reviewed the patient's lab results. 03/22/24 11:48 03/22/24 11:48 Labs: Lab Results 03/22/24 03/22/24 Range/Units 07:28 11:48 WBC 6.0 (4.8-10.8) X10*3/uL RBC 4.51 L (4.60-5.80) X10*6/uL Hgb 14.6 (14.0-18.0) g/dl Hct 42.3 (42.0-52.0) % MCV 93.8 (80.0-98.0) fL MCH 32.4 (27.0-33.0) pg MCHC 34.5 (31.0-36.0) g/dl RDW 11.8 (11.0-16.0) % Plt Count 403 H (160-400) X10*3/uL MPV 9.0 L (9.4-12.4) fL Immature Gran % (Auto) 0.5 H (0.0-0.4) % Neut % (Auto) 51.4 (45-73) % Lymph % (Auto) 31.9 (20-40) % Miller % (Auto) 7.7 (2-11) % Eos % (Auto) 7.8 H (0-4) % Baso % (Auto) 0.7 (0-2) % Lymph # (Auto) 1.9 (1.2-4.9) X10*3/uL Miller # (Auto) 0.5 (0.1-1.2) X10*3/uL Eos # (Auto) 0.5 H (0.0-0.4) X10*3/uL Baso # (Auto) 0.0 (0.0-0.2) X10*3/uL Abs Immat Gran (auto) 0.03 (0.00-0.03) X10*3/uL Absolute Neuts (auto) 3.1 (2.0-8.3) x10*3/uL Absolute Nucleated RBC 0.000 (0.0-0.012) X10*3/uL Nucleated RBC % (auto) 0.0 (0.0-0.2) /100WBC Sodium 136 (135-145) mmol/L Potassium 4.3 (3.3-5.1) mmol/L Chloride 104 (96-108) mmol/L Carbon Dioxide 28 (22-29) mmol/L Anion Gap 8 L (12-20) BUN 15 (9-16) mg/dL Creatinine 0.82 (0.5-1.4) mg/dL Estim Creat Clear Calc 90.2 Estimated GFR > 60 Random Glucose 83 (60-115) mg/dL Calcium 9.1 (8.4-10.2) mg/dL Total Bilirubin 0.4 (0.0-1.0) mg/dL AST 26 (5-37) U/L ALT 43 H (0-40) U/L Alkaline Phosphatase 88 (39-117) U/L Total Protein 7.6 (6.5-8.0) g/dL Albumin 4.0 (3.5-5.0) g/dL Urine Color Yellow Urine Appearance Clear Urine pH 5.0 (5.0-9.0) Ur Specific [place] 1.015 (1.005-1.025) Urine Protein Negative (Neg-Trace) mg/dL Urine Glucose (UA) Negative (Negative) mg/dL Urine Ketones Negative (Negative) mg/dL Urine Blood Trace H (Negative) Urine Nitrite Negative (Negative) Ur Leukocyte Esterase Negative (Negative) Urine RBC 0-2 (0-2) /HPF Urine WBC 0-5 (0-5) /HPF Ur Squamous Epith Cells 0-2 (0-2) /HPF Urine Bacteria None Seen (None Seen) Hyaline Casts 0-2 (0-2) /LPF Radiology Impression Discussion of test interpretation with radiology: I have reviewed the radiologist's reading. External Record Review External record reviewed: Inpatient record, Office record, Outpatient record, Prior outpatient labs, Prior outpatient radiology, Primary care record and Outside ED record Discharge Plan Discharge Clinical Impression: Dysuria Patient Disposition: Home, Self-Care Instructions: Dysuria (ED) Additional Instructions: You were seen in the emergency department due to urinary symptoms. Please take prescribed medication as directed. It is unclear what is causing you to have the symptoms, please follow-up with the Urology. You left prior to all your labs being resulted. You understood that we do not make phone calls with test results. Please call the urologist today. Take prescribed medication as directed, please be advised that this medication can cause your urine to be bright orange. Prescriptions: New phenazopyridine [Pyridium] 100 mg tablet 100 mg PO TID 3 Days Qty: 9 0RF No Action atorvastatin 40 mg tablet 40 mg PO DAILY 90 Days Qty: 90 1RF carvedilol 3.125 mg tablet 3.125 mg PO BID 90 Days Qty: 180 1RF Xarelto 20 mg tablet 20 mg PO DAILY 90 Days Qty: 90 0RF Rx Instructions: must administer with evening meal Please call and schedule cardiology appt lidocaine 4 % adhesive patch,medicated 1 patch topical DAILY PRN (Reason: pain) Qty: 10 0RF Rx Instructions: may leave on for up to 12 hrs hydrocodone-acetaminophen 5-325 mg tablet 1 tab PO Q6H PRN (Reason: pain) Qty: 12 0RF prednisone 20 mg tablet 40 mg PO DAILY 4 Days Qty: 8 0RF diazepam [Valium] 5 mg tablet 5 mg PO TID PRN (Reason: muscle spasm) Qty: 10 0RF prednisone 20 mg tablet 40 mg PO DAILY Qty: 10 0RF albuterol sulfate [ProAir HFA] 90 mcg/actuation HFA aerosol inhaler 2 puff inhalation Q4-6H PRN (Reason: shortness of breath or wheezing) Qty: 8.5 0RF benzonatate [Tessalon Perles] 100 mg capsule 100 mg PO TID PRN (Reason: cough) Qty: 30 0RF azithromycin 250 mg tablet See Rx Instructions .ROUTE .COMPLEX Qty: 6 0RF Rx Instructions: take 500 mg today (day 1), then 250 mg for 4 days (days 2-5) prednisone 50 mg tablet 50 mg PO DAILY Qty: 5 0RF albuterol sulfate 90 mcg/actuation HFA aerosol inhaler 1 inh inhalation QID PRN (Reason: shortness of breath or wheezing) Qty: 8.5 0RF prednisone 20 mg tablet 20 mg PO BID Qty: 10 0RF clotrimazole 1 % cream 1 appl topical BID 28 Days 0RF prednisone 20 mg tablet 40 mg PO DAILY 5 Days Qty: 10 0RF methocarbamol 750 mg tablet 750 mg PO TID PRN (Reason: muscle pain) Qty: 30 0RF oxycodone 5 mg tablet 5 mg PO Q6H PRN (Reason: pain) Qty: 10 0RF Rx Instructions: Narcotic, no driving for 6 hours after taking acetaminophen 500 mg tablet 1,000 mg PO QID PRN (Reason: pain) Qty: 20 0RF cyclobenzaprine 5 mg tablet 5 mg PO TID PRN (Reason: muscle spasm) Qty: 10 0RF Rx Instructions: This medication may cause drowsiness, home use only, no driving for 6 hours after taking prednisone 20 mg tablet 60 mg PO DAILY 4 Days Qty: 12 0RF oxycodone 5 mg tablet 5 mg PO Q6H PRN (Reason: pain, severe) 3 Days Qty: 9 0RF tramadol 50 mg tablet 50 mg PO Q6H PRN (Reason: pain) Qty: 20 0RF valacyclovir [Valtrex] 1 gram tablet 1,000 mg PO Q8H 7 Days Qty: 21 0RF cefpodoxime 200 mg tablet 200 mg PO BID 5 Days Qty: 10 0RF Rx Instructions: must administer with a meal/food doxycycline monohydrate 100 mg capsule 100 mg PO BID Qty: 14 0RF budesonide-formoterol 160-4.5 mcg/actuation HFA aerosol inhaler 1 puff inhalation BID Qty: 10.2 0RF Biktarvy 50-200-25 mg tablet 1 tab PO DAILY Qty: 30 0RF prednisone 20 mg tablet 20 mg PO DAILY 7 Days Qty: 7 0RF loratadine [Allergy Relief (loratadine)] 10 mg tablet 10 mg PO DAILY Referrals: [facility] Urology Services [Provider Group] Interventions: ED Discharge Assessment Last Done: 03/22/24 13:12 Discharge Date/Time: 03/22/24 13:13 Print Language: Martiniquais
[2024-03-22 12:27] LABS: MANUAL DIFF FLAG NO
[2024-03-22 12:28] LABS: Basophils Percent Auto 0.7 % (0-2); Eosinophils Absolute Auto 0.5 X10*3/uL (0.0-0.4); Eosinophils Percent Auto 7.8 % (0-4); Hematocrit 42.3 % (42.0-52.0); Hemoglobin 14.6 g/dl (14.0-18.0); Imm Gran Abs Auto 0.03 X10*3/uL (0.00-0.03); Imm Gran Pct Auto 0.5 % (0.0-0.4); Lymphocytes Absolute Auto 1.9 X10*3/uL (1.2-4.9); Lymphocytes Percent Auto 31.9 % (20-40); Mean Corpuscular HGB Conc 34.5 g/dl (31.0-36.0); Mean Corpuscular Hemoglobin 32.4 pg (27.0-33.0); Mean Corpuscular Volume 93.8 fL (80.0-98.0); Monocytes Absolute Auto 0.5 X10*3/uL (0.1-1.2); Monocytes Percent Auto 7.7 % (2-11); Neutrophils Absolute Auto 3.1 x10*3/uL (2.0-8.3); Neutrophils Percent Auto 51.4 % (45-73); Platelet Count 403 X10*3/uL (160-400); Red Blood Count 4.51 X10*6/uL (4.60-5.80); Red Cell Distribution Width 11.8 % (11.0-16.0)
[2024-03-22 12:58] LABS: Alanine Aminotransferase 43 U/L (0-40); Alkaline Phosphatase 88 U/L (39-117); Anion Gap 8 (12-20); Aspartate Amino Transferase 26 U/L (5-37); Bilirubin Total 0.4 mg/dL (0.0-1.0); Blood Urea Nitrogen 15 mg/dL (9-16); Calcium 9.1 mg/dL (8.4-10.2); Carbon Dioxide 28 mmol/L (22-29); Chloride 104 mmol/L (96-108); Creatinine Clr Calc Pharmacy 90.2; Estimated Glomerular Filt Rate > 60; Glucose Random 83 mg/dL (60-115); Potassium 4.3 mmol/L (3.3-5.1); Sodium 136 mmol/L (135-145); Total Protein 7.6 g/dL (6.5-8.0)
[2024-03-22 13:12] VITALS: BP 126/85; PULSE 77; RESP 20; TEMP 37.2; O2SAT 98
== END 2024-03-22 13:13 | disposition home or self-care (01) ==
PROVIDERS: Physician Assistant Medical; Emergency Provider Emergency Medicine
DX: R30.0 Dysuria (principal); I48.0 Paroxysmal atrial fibrillation; J45.909 Unspecified asthma, uncomplicated; Z79.01 Long term (current) use of anticoagulants; Z79.899 Other long term (current) drug therapy
CPT/HCPCS: 36415; 80053; 81001; 85025; 99283

== ENCOUNTER 2024-05-05 12:57 | Emergency (ER) | payer OTHER, SELFPAY ==
--- NOTE | ~2024-05-05 | XR_ITS ---
EXAMINATION: XR SHOULDER 2 OR MORE VIEWS RIGHT HISTORY: pain x 1 year COMPARISON: There are no prior studies available for comparison. FINDINGS: Three views of the right shoulder are submitted. Osseous mineralization is normal. There is no fracture or dislocation. The glenohumeral and acromioclavicular joint spaces are preserved. The soft tissues are unremarkable. XR/XR shoulder RT min 2V IMPRESSION: Unremarkable examination of the right shoulder. Electronically signed by: Stoney Gonzalez MD 05/05/2024 02:33 PM FLAKO MARADIAGA
[2024-05-05 13:35] VITALS: BP 141/88; PULSE 80; RESP 16; TEMP 36.4; O2SAT 96; BMI 23.2
== END 2024-05-05 17:32 | disposition left against medical advice (07) ==
PROVIDERS: Emergency Provider Student in an Organized Health Care Education/Training Program
DX: M25.511 Pain in right shoulder (principal); Z53.21 Procedure and treatment not carried out due to patient leaving prior to being seen by health care provider
CPT/HCPCS: 73030; 99281

== ENCOUNTER → 2024-05-05 14:20 | Outpatient (BNV) | payer OTHER, SELFPAY | PROVIDERS: Visit Provider Radiology Diagnostic Radiology | DX: M25.511 Pain in right shoulder (principal) | CPT/HCPCS: 73030 ==

== ENCOUNTER 2024-05-19 13:47 | Outpatient (REF) | payer MEDICAID, SELFPAY ==
[2024-05-19 16:13] LABS: MANUAL DIFF FLAG NO
[2024-05-19 16:23] LABS: Basophils Percent Auto 0.7 % (0-2); Eosinophils Absolute Auto 0.6 X10*3/uL (0.0-0.4); Hematocrit 42.4 % (42.0-52.0); Hemoglobin 14.6 g/dl (14.0-18.0); Imm Gran Abs Auto 0.01 X10*3/uL (0.00-0.03); Imm Gran Pct Auto 0.2 % (0.0-0.4); Lymphocytes Absolute Auto 1.1 X10*3/uL (1.2-4.9); Lymphocytes Percent Auto 24.5 % (20-40); Mean Corpuscular HGB Conc 34.4 g/dl (31.0-36.0); Mean Corpuscular Hemoglobin 31.9 pg (27.0-33.0); Mean Corpuscular Volume 92.6 fL (80.0-98.0); Mean Platelet Volume 9.8 fL (9.4-12.4); Monocytes Absolute Auto 0.3 X10*3/uL (0.1-1.2); Monocytes Percent Auto 7.2 % (2-11); Neutrophils Absolute Auto 2.2 x10*3/uL (2.0-8.3); Neutrophils Percent Auto 52.4 % (45-73); Platelet Count 367 X10*3/uL (160-400); Red Blood Count 4.58 X10*6/uL (4.60-5.80); Red Cell Distribution Width 11.9 % (11.0-16.0); White Blood Count 4.3 X10*3/uL (4.8-10.8)
[2024-05-19 17:09] LABS: Alanine Aminotransferase 51 U/L (0-40); Albumin Level 4.2 g/dL (3.5-5.0); Alkaline Phosphatase 86 U/L (39-117); Anion Gap 10 (12-20); Aspartate Amino Transferase 32 U/L (5-37); Bilirubin Direct 0.1 mg/dL (0.0-0.5); Bilirubin Total 0.3 mg/dL (0.0-1.0); Blood Urea Nitrogen 9 mg/dL (9-16); Calcium 9.7 mg/dL (8.4-10.2); Carbon Dioxide 27 mmol/L (22-29); Chloride 106 mmol/L (96-108); Cholesterol 167 mg/dL (<200); Estimated Glomerular Filt Rate > 60; Glucose Random 87 mg/dL (60-115); HDL Cholesterol 53 mg/dL (>40); LDL Cholesterol Calculated 54 mg/dL (<100); Potassium 4.4 mmol/L (3.3-5.1); Sodium 139 mmol/L (135-145); Total Protein 7.9 g/dL (6.5-8.0); Triglycerides 304 mg/dL (<150)
[2024-05-20 04:25] LABS: HBc Num1 0.13 S/CO (0.00-0.79); HBsAGNum1 0.34 S/CO (0.00-0.99); Hepatitis B Core Antibody Nonreactive (Nonreactive); Hepatitis B Surface Antigen Negative (Negative); ~Hepatitis B Surface Antibody NONREACTIVE (Nonreactive); ~Hepatitis C Antibody Nonreactive (Nonreactive)
[2024-05-20 09:38] LABS: RPR Rapid Plasma Reagin NON-REACTIVE (NON-REACTIVE)
[2024-05-20 14:48] LABS: HIV RNA PCR Qn Copies 64100 copies/mL (NOT DETECTED); HIV RNA PCR Qn Log Copies 4.81 (NOT DETECTED)
[2024-05-22 07:34] LABS: Hepatitis B Viral DNA Qn - cp NOT DETECTED Log IU/mL (NOT DETECTED); Hepatitis B Viral DNA Qn-IU/mL NOT DETECTED (NOT DETECTED)
[2024-05-23 23:48] LABS: Absolute CD3 Count 750 cells/uL (840-3060); Absolute CD4 Count 266 cells/uL (490-1740); Absolute CD8 Count 488 cells/uL (180-1170); Absolute Lymphocytes 1084 cells/uL (850-3900); CD4 CD8 Ratio 0.55 (0.86-5.00); Percent CD3 Cells 69 % (57-85); Percent CD4 Cells 25 % (30-61); Percent CD8 Cells 45 % (12-42)
[2024-05-25 09:03] LABS: Hepatitis A Antibody IgG Nonreactive (Nonreactive); ~Hepatitis A Antibody IgG 0.39 S/CO (0.00-0.99)
== END 2024-05-19 13:48 | disposition home or self-care (01) ==
LOC: HO.HHCL 13:47
PROVIDERS: Visit Provider Family Medicine
DX: Z21 Asymptomatic human immunodeficiency virus [HIV] infection status (principal); I25.2 Old myocardial infarction; I48.91 Unspecified atrial fibrillation
CPT/HCPCS: 36415; 80048; 80061; 80076; 85025; 86359; 86360; 86592; 86704; 86706; 86708; 86803; 87340; 87517; 87536

== ENCOUNTER 2024-08-22 08:56 | Outpatient (REF) | payer MEDICAID, SELFPAY ==
[2024-08-23 21:49] LABS: HIV RNA PCR Qn Copies 286 copies/mL (NOT DETECTED); HIV RNA PCR Qn Log Copies 2.46 (NOT DETECTED)
== END 2024-08-22 08:57 | disposition home or self-care (01) ==
LOC: HO.HHCL 08:56
PROVIDERS: Visit Provider Internal Medicine
DX: Z21 Asymptomatic human immunodeficiency virus [HIV] infection status (principal)
CPT/HCPCS: 36415; 87536

== ENCOUNTER 2024-11-03 20:19 | Emergency (ER) | payer MEDICAID, SELFPAY ==
--- NOTE | ~2024-11-03 | XR_ITS ---
CLINICAL HISTORY: sob 1 view chest x-ray Comparison: None provided Findings: Chronic appearing interstitial lung markings may represent emphysema. No focal consolidation, pleural effusion or pneumothorax. Normal size heart. No acute fracture. IMPRESSION: No acute disease. Chronic appearing interstitial lung markings may represent emphysema. This document has been electronically signed by: Shena Dunn MD on 11/03/2024 21:58:04
[2024-11-03 20:28] VITALS: BP 126/84; PULSE 119; RESP 20; TEMP 36.6; O2SAT 95; BMI 25.4
--- NOTE | 2024-11-03 20:29 | ED.SOB ---
HPI - SOB/Dyspnea General Chief Complaint: Dyspnea Stated Complaint: Difficulty breathing (asthmatic) Time Seen by Provider: 11/03/24 20:33 Source: patient Mode of arrival: ambulatory Limitations: language barrier History of Present Illness ED Provider: Dr. Mcgee HPI Narrative: This is a 49-year-old male history of AFib COPD presented hospital today for evaluation of shortness of breath. Patient stated that he has been sick for the past 4 or 5 days. He has been feeling symptoms of a cold. Patient appears to be in asthma exacerbation. Related Data Home Medications ?Medication ?Instructions ?Recorded ?Confirmed loratadine 10 mg tablet (Allergy 10 mg PO DAILY 02/13/20 02/13/20 Relief (loratadine)) Previous Rx's ?Medication ?Instructions ?Recorded azithromycin 250 mg tablet See Rx Instructions PO .COMPLEX #6 01/31/20 tabs prednisone 50 mg tablet 50 mg PO DAILY #5 tabs 01/31/20 diazepam 5 mg tablet (Valium) 5 mg PO TID PRN muscle spasm #10 04/15/20 tabs hydrocodone 5 mg-acetaminophen 325 1 tab PO Q6H PRN pain #12 tabs 04/15/20 mg tablet lidocaine 4 % topical patch 1 patch topical DAILY PRN pain #10 04/15/20 ea prednisone 20 mg tablet 40 mg (2 x 20 mg) PO DAILY 4 days 04/15/20 #8 tabs atorvastatin 40 mg tablet 40 mg PO DAILY 90 days #90 tabs 05/03/20 albuterol sulfate 90 mcg/actuation 1 inh inhalation QID PRN shortness 09/19/20 aerosol inhaler of breath or wheezing #8.5 grams prednisone 20 mg tablet 20 mg PO BID #10 tabs 09/19/20 albuterol sulfate 90 mcg/actuation 2 puff inhalation Q4-6H PRN 11/05/20 aerosol inhaler (ProAir HFA) shortness of breath or wheezing #8.5 grams benzonatate 100 mg capsule 100 mg PO TID PRN cough #30 caps 11/05/20 (Tessalon Perlsrikanth) prednisone 20 mg tablet 40 mg (2 x 20 mg) PO DAILY #10 tabs 11/05/20 carvedilol 3.125 mg tablet 3.125 mg PO BID 90 days #180 tabs 11/19/20 clotrimazole 1 % topical cream 1 appl topical BID 4 weeks 01/14/21 acetaminophen 500 mg tablet 1,000 mg (2 x 500 mg) PO QID PRN 01/22/21 pain #20 tabs cyclobenzaprine 5 mg tablet 5 mg PO TID PRN muscle spasm #10 01/22/21 tabs oxycodone 5 mg tablet 5 mg PO Q6H PRN pain #10 tabs 01/22/21 prednisone 20 mg tablet 60 mg (3 x 20 mg) PO DAILY 4 days 01/22/21 #12 tabs oxycodone 5 mg tablet 5 mg PO Q6H PRN pain, severe 3 01/23/21 days #9 tabs methocarbamol 750 mg tablet 750 mg PO TID PRN muscle pain #30 02/28/21 tabs prednisone 20 mg tablet 40 mg (2 x 20 mg) PO DAILY 5 days 02/28/21 #10 tabs tramadol 50 mg tablet 50 mg PO Q6H PRN pain #20 tabs 04/07/21 rivaroxaban 20 mg tablet (Xarelto) 20 mg PO DAILY 90 days #90 tabs 05/06/21 valacyclovir 1 gram tablet 1,000 mg PO Q8H 7 days #21 tabs 08/10/21 (Valtrex) prednisone 20 mg tablet 20 mg PO DAILY 7 days #7 tabs 07/02/22 bictegravir 50 mg-emtricitabine 1 tab PO DAILY #30 tabs 03/18/24 200 mg-tenofovir alafenam 25 mg tablet (Biktarvy) budesonide-formoterol HFA 160 1 puff inhalation BID #10.2 grams 03/18/24 mcg-4.5 mcg/actuation aerosol inhaler cefpodoxime 200 mg tablet 200 mg PO BID 5 days #10 tabs 03/18/24 doxycycline monohydrate 100 mg 100 mg PO BID #14 caps 03/18/24 capsule phenazopyridine 100 mg tablet 100 mg PO TID 3 days #9 tabs 03/22/24 (Pyridium) amoxicillin 875 mg-potassium 1 tab PO BID 7 days #14 tabs 11/03/24 clavulanate 125 mg tablet doxycycline hyclate 100 mg capsule 100 mg PO BID #14 caps 11/03/24 Allergies Allergy/AdvReac Type Severity Reaction Status Date / Time No Known Allergies (No Known Allergy Verified 11/03/24 20:30 Allergies*) Review of Systems Review of Systems: Review of system is limited due to patient's degree of shortness of breath. [facility] Past Medical History [facility] Narrative: Medical history as mentioned in HPI Medical History Asthma GERD (gastroesophageal reflux disease) Myocardial infarct Surgical History History of cardiac cath Family History Family History Father Alzheimers disease Mother Asthma Diabetes Social History Social History Alcohol intake: current Alcohol intake frequency: holidays/special occasions only Patient Tobacco Use Status: Former Tobacco user Use of substances other than those prescribed or required for medical reasons: Yes Substance Use Type: Marijuana Advance Directives: No Advance Directives Information Provided: No Physical Exam Exam: Exam: General: Appears to be in respiratory distress Head: Normacephalic, atraumatic ENT: oral mucosa moist, neck supple, no tracheal deviation Cardiovascular: Tachycardic rate, regular rhythm, no murmurs, rubbing, gallops Respiratory: Diminished lung sounds bilaterally, bibasilar crackles appreciated on exams Neurological: Awake and alert, no facial droop noted Skin: Warm and dry Psychiatric: Appropriate mood and thoughts Vital Signs: Vital Signs: Last Vital Signs Temp 97.7 F 11/03/24 20:57 Pulse 114 H 11/03/24 22:00 Resp 26 H 11/03/24 22:00 BP 141/85 H 11/03/24 22:00 Pulse Ox 95 11/03/24 22:00 O2 Del Method Room Air 11/03/24 22:00 BMI result Body Mass Index 25.4 Course Course Course Narrative: This is an RME: Additional HPI, ROS, PE not included below will be deferred to primary provider. RME assessment and note performed by: Micaela De León PA-C This is a 48-year-old male, with a history of HIV, paroxysmal atrial fibrillation, and coronary artery disease, who presents to the ER with complaints of shortness of breath. Patient tachycardic in the 130s. Coarse expiratory wheezes noted throughout all lung novak. Increased respiratory effort. Patient to be brought back to the main for further evaluation. Plan: Labs, EKG, chest x-ray, viral swabs, further ER evaluation needed. Medications Administered Discontinued Medications Generic Name Dose Route Start Last Admin Trade Name Annabelle PRN Reason Stop Dose Admin Acetaminophen 975 mg 11/03/24 22:18 11/03/24 22:46 Acetaminophen 325 Mg Tablet PO 11/03/24 22:19 975 mg ONCE ONE Administration Azithromycin 500 mg 11/03/24 22:12 11/03/24 22:46 Azithromycin 500 Mg Tablet PO 11/03/24 22:13 500 mg ONCE ONE Administration Ceftriaxone Sodium 2 gm 11/03/24 22:12 11/03/24 22:45 Ceftriaxone Sodium 2 Gm Vial IVPUSH 11/03/24 22:13 2 gm ONCE ONE Administration Albuterol Sulfate 7.5 mg/ 0 mg 11/03/24 20:46 11/03/24 20:51 Albuterol/Ipratropium 3 ml INHALE 11/03/24 20:47 10 each ONCE ONE Administration Magnesium Sulfate 2 gm in 50 mls @ 50 mls/hr 11/03/24 20:47 11/03/24 21:10 Magnesium Sulfate/H2o IV 11/03/24 21:46 50 mls/hr ONCE ONE Administration Sodium Chloride 1,000 mls @ 999 mls/hr 11/03/24 22:30 11/03/24 22:53 Ns IV 11/03/24 23:30 999 mls/hr .Q1H1M ELODIA Administration Methylprednisolone Sodium Succinate 125 mg 11/03/24 20:47 11/03/24 21:09 Methylprednisolone Sod Succ 125 Mg/2 Ml Vial IVPUSH 11/03/24 20:48 125 mg ONCE ONE Administration Medical Decision Making Medical Decision Making [facility] Narrative: This is a 49-year-old male presented hospital today for evaluation of shortness of breath Patient appears to be in COPD exacerbation. We will plan to give patient DuoNeb treatment. IV magnesium given IV Solu-Medrol be given as well. Chest x-ray will be obtained. We will obtain screening lab work for the patient including assess his lab work. Patient is noted be tachycardic. Has been feeling ill. I have high suspicion of possible pneumonia. Patient's CBC did not show any signs of leukocytosis, chemistries unremarkable. Patient is tachycardic. IV fluid and IV ceftriaxone will be given. Azithromycin be given the patient as well. Notified by nursing staff that patient wants to go home. Discussed with patient risk of going home at this time. Recommend further therapy for resolution of his tachycardia. I suspect he may have pneumonia. His chest x-ray did not show any signs of pneumonia. Are given his clinical presentation I think he may benefit from antibiotic regimen. Patient wants to leave AMA. Patient has left AMA he understands that he may return to the ER if he does feel worse. We will plan to prescribe him some Augmentin and doxycycline to take for pneumonia treatment. Differential Diagnosis Differential Diagnoses: The differential diagnosis associated with the presentation includes Sepsis, pneumonia, COPD exacerbation, AFib Admission/Observation Consideration of admission/observation: Escalation of care including admission/observation considered Lab Data MDM Lab Attestation statement: I reviewed the patient's lab results. 11/03/24 20:41 11/03/24 20:41 Labs: Lab Results 11/03/24 11/03/24 11/03/24 Range/Units 20:41 21:14 21:19 WBC 14.8 H (4.8-10.8) X10*3/uL RBC 4.05 L (4.60-5.80) X10*6/uL Hgb 13.3 L (14.0-18.0) g/dl Hct 36.6 L (42.0-52.0) % MCV 90.4 (80.0-98.0) fL MCH 32.8 (27.0-33.0) pg MCHC 36.3 H (31.0-36.0) g/dl RDW 12.1 (11.0-16.0) % Plt Count 351 (160-400) X10*3/uL MPV 8.6 L (9.4-12.4) fL Immature Gran % (Auto) 0.5 H (0.0-0.4) % Neut % (Auto) 91.3 H (45-73) % Lymph % (Auto) 4.3 L (20-40) % Elk % (Auto) 3.0 (2-11) % Eos % (Auto) 0.7 (0-4) % Baso % (Auto) 0.2 (0-2) % Lymph # (Auto) 0.6 L (1.2-4.9) X10*3/uL Elk # (Auto) 0.5 (0.1-1.2) X10*3/uL Eos # (Auto) 0.1 (0.0-0.4) X10*3/uL Baso # (Auto) 0.0 (0.0-0.2) X10*3/uL Abs Immat Gran (auto) 0.07 H (0.00-0.03) X10*3/uL Absolute Neuts (auto) 13.5 H (2.0-8.3) x10*3/uL Absolute Nucleated RBC 0.000 (0.0-0.012) X10*3/uL Nucleated RBC % (auto) 0.0 (0.0-0.2) /100WBC Smear Tech's Comments VERIFIED VBG pH 7.44 H (7.32-7.43) VBG pCO2 30 mmHg VBG pO2 132 mmHg VBG HCO3 21 L (22-26) mmol/L VBG O2 Saturation 99.0 % VBG Base Excess -1.4 mmol/L Sodium 137 (135-145) mmol/L Potassium 3.3 D (3.3-5.1) mmol/L Chloride 101 (96-108) mmol/L Carbon Dioxide 20 L (22-29) mmol/L Anion Gap 19 (12-20) BUN 13 (9-16) mg/dL Creatinine 0.95 (0.5-1.4) mg/dL Estim Creat Clear Calc 77.0 Estimated GFR > 60 Random Glucose 135 H (60-115) mg/dL Lactic Acid (0.5-2.0) mmol/L Calcium 9.8 (8.4-10.2) mg/dL Total Bilirubin 0.3 (0.0-1.0) mg/dL Direct Bilirubin 0.1 (0.0-0.5) mg/dL AST 34 (5-37) U/L ALT 30 (0-40) U/L Alkaline Phosphatase 103 (39-117) U/L Troponin I High Sens 3.7 (<3.5-35.0) ng/L B-Natriuretic Peptide 25 (<100) pg/mL Total Protein 8.1 H (6.5-8.0) g/dL Albumin 4.4 (3.5-5.0) g/dL COVID-19 (FRANCESCA) Negative (Negative) COVID-19 Clin Com See Note Influenza Type A (RAMILA) Negative (Negative) Influenza Type B (RAMILA) Negative (Negative) Influenza A & B Note See Note 11/03/24 Range/Units 22:29 WBC (4.8-10.8) X10*3/uL RBC (4.60-5.80) X10*6/uL Hgb (14.0-18.0) g/dl Hct (42.0-52.0) % MCV (80.0-98.0) fL MCH (27.0-33.0) pg MCHC (31.0-36.0) g/dl RDW (11.0-16.0) % Plt Count (160-400) X10*3/uL MPV (9.4-12.4) fL Immature Gran % (Auto) (0.0-0.4) % Neut % (Auto) (45-73) % Lymph % (Auto) (20-40) % Elk % (Auto) (2-11) % Eos % (Auto) (0-4) % Baso % (Auto) (0-2) % Lymph # (Auto) (1.2-4.9) X10*3/uL Elk # (Auto) (0.1-1.2) X10*3/uL Eos # (Auto) (0.0-0.4) X10*3/uL Baso # (Auto) (0.0-0.2) X10*3/uL Abs Immat Gran (auto) (0.00-0.03) X10*3/uL Absolute Neuts (auto) (2.0-8.3) x10*3/uL Absolute Nucleated RBC (0.0-0.012) X10*3/uL Nucleated RBC % (auto) (0.0-0.2) /100WBC Smear Tech's Comments VBG pH (7.32-7.43) VBG pCO2 mmHg VBG pO2 mmHg VBG HCO3 (22-26) mmol/L VBG O2 Saturation % VBG Base Excess mmol/L Sodium (135-145) mmol/L Potassium (3.3-5.1) mmol/L Chloride (96-108) mmol/L Carbon Dioxide (22-29) mmol/L Anion Gap (12-20) BUN (9-16) mg/dL Creatinine (0.5-1.4) mg/dL Estim Creat Clear Calc Estimated GFR Random Glucose (60-115) mg/dL Lactic Acid 4.3 H* (0.5-2.0) mmol/L Calcium (8.4-10.2) mg/dL Total Bilirubin (0.0-1.0) mg/dL Direct Bilirubin (0.0-0.5) mg/dL AST (5-37) U/L ALT (0-40) U/L Alkaline Phosphatase (39-117) U/L Troponin I High Sens (<3.5-35.0) ng/L B-Natriuretic Peptide (<100) pg/mL Total Protein (6.5-8.0) g/dL Albumin (3.5-5.0) g/dL COVID-19 (FRANCESCA) (Negative) COVID-19 Clin Com Influenza Type A (RAMILA) (Negative) Influenza Type B (RAMILA) (Negative) Influenza A & B Note Independent Interpretation I performed an independent interpretation of an: EKG and Plain X-Ray Radiology Impression Discussion of test interpretation with radiology: I have reviewed the radiologist's reading. Discharge Plan Discharge Clinical Impression: COPD (chronic obstructive pulmonary disease), Elevated lactic acid level Patient Disposition: Left Against Medical Advice Prescriptions: New amoxicillin-pot clavulanate 875-125 mg tablet 1 tab PO BID 7 Days Qty: 14 0RF doxycycline hyclate 100 mg capsule 100 mg PO BID Qty: 14 0RF No Action atorvastatin 40 mg tablet 40 mg PO DAILY 90 Days Qty: 90 1RF carvedilol 3.125 mg tablet 3.125 mg PO BID 90 Days Qty: 180 1RF Xarelto 20 mg tablet 20 mg PO DAILY 90 Days Qty: 90 0RF Rx Instructions: must administer with evening meal Please call and schedule cardiology appt lidocaine 4 % adhesive patch,medicated 1 patch topical DAILY PRN (Reason: pain) Qty: 10 0RF Rx Instructions: may leave on for up to 12 hrs hydrocodone-acetaminophen 5-325 mg tablet 1 tab PO Q6H PRN (Reason: pain) Qty: 12 0RF prednisone 20 mg tablet 40 mg PO DAILY 4 Days Qty: 8 0RF diazepam [Valium] 5 mg tablet 5 mg PO TID PRN (Reason: muscle spasm) Qty: 10 0RF prednisone 20 mg tablet 40 mg PO DAILY Qty: 10 0RF albuterol sulfate [ProAir HFA] 90 mcg/actuation HFA aerosol inhaler 2 puff inhalation Q4-6H PRN (Reason: shortness of breath or wheezing) Qty: 8.5 0RF benzonatate [Tessalon Perles] 100 mg capsule 100 mg PO TID PRN (Reason: cough) Qty: 30 0RF azithromycin 250 mg tablet See Rx Instructions .ROUTE .COMPLEX Qty: 6 0RF Rx Instructions: take 500 mg today (day 1), then 250 mg for 4 days (days 2-5) prednisone 50 mg tablet 50 mg PO DAILY Qty: 5 0RF albuterol sulfate 90 mcg/actuation HFA aerosol inhaler 1 inh inhalation QID PRN (Reason: shortness of breath or wheezing) Qty: 8.5 0RF prednisone 20 mg tablet 20 mg PO BID Qty: 10 0RF clotrimazole 1 % cream 1 appl topical BID 28 Days 0RF prednisone 20 mg tablet 40 mg PO DAILY 5 Days Qty: 10 0RF methocarbamol 750 mg tablet 750 mg PO TID PRN (Reason: muscle pain) Qty: 30 0RF oxycodone 5 mg tablet 5 mg PO Q6H PRN (Reason: pain) Qty: 10 0RF Rx Instructions: Narcotic, no driving for 6 hours after taking acetaminophen 500 mg tablet 1,000 mg PO QID PRN (Reason: pain) Qty: 20 0RF cyclobenzaprine 5 mg tablet 5 mg PO TID PRN (Reason: muscle spasm) Qty: 10 0RF Rx Instructions: This medication may cause drowsiness, home use only, no driving for 6 hours after taking prednisone 20 mg tablet 60 mg PO DAILY 4 Days Qty: 12 0RF oxycodone 5 mg tablet 5 mg PO Q6H PRN (Reason: pain, severe) 3 Days Qty: 9 0RF tramadol 50 mg tablet 50 mg PO Q6H PRN (Reason: pain) Qty: 20 0RF valacyclovir [Valtrex] 1 gram tablet 1,000 mg PO Q8H 7 Days Qty: 21 0RF cefpodoxime 200 mg tablet 200 mg PO BID 5 Days Qty: 10 0RF Rx Instructions: must administer with a meal/food doxycycline monohydrate 100 mg capsule 100 mg PO BID Qty: 14 0RF budesonide-formoterol 160-4.5 mcg/actuation HFA aerosol inhaler 1 puff inhalation BID Qty: 10.2 0RF Biktarvy 50-200-25 mg tablet 1 tab PO DAILY Qty: 30 0RF phenazopyridine [Pyridium] 100 mg tablet 100 mg PO TID 3 Days Qty: 9 0RF prednisone 20 mg tablet 20 mg PO DAILY 7 Days Qty: 7 0RF loratadine [Allergy Relief (loratadine)] 10 mg tablet 10 mg PO DAILY Discharge Date/Time: 11/03/24 23:27 Print Language: Grenadian
--- NOTE | 2024-11-03 20:31 | ECG_ITS ---
Test Reason : DYSPNEA Blood Pressure : */* mmHG Vent. Rate : 112 BPM Atrial Rate : 112 BPM P-R Int : 146 ms QRS Dur : 90 ms QT Int : 334 ms P-R-T Axes : 76 52 18 degrees QTcB Int : 455 ms Sinus tachycardia with occasional Premature ventricular complexes Possible Inferior infarct (cited on or before 18-Mar-2024) Abnormal ECG When compared with ECG of 18-Mar-2024 07:36, Premature ventricular complexes are now Present Vent. rate has increased by 40 bpm Referred By: Micaela De León Electronically Signed By: JACKI FUENTES
[2024-11-03 20:46] LABS: Hematocrit 36.6 % (42.0-52.0); Hemoglobin 13.3 g/dl (14.0-18.0); Imm Gran Abs Auto 0.07 X10*3/uL (0.00-0.03); Imm Gran Pct Auto 0.5 % (0.0-0.4); Lymphocytes Absolute Auto 0.6 X10*3/uL (1.2-4.9); MANUAL DIFF FLAG SCAN; Mean Corpuscular HGB Conc 36.3 g/dl (31.0-36.0); Mean Corpuscular Hemoglobin 32.8 pg (27.0-33.0); Mean Corpuscular Volume 90.4 fL (80.0-98.0); NRBC Abs Auto 0.000 X10*3/uL (0.0-0.012); NRBC Pct Auto 0.0 /100WBC (0.0-0.2); Platelet Count 351 X10*3/uL (160-400); Red Blood Count 4.05 X10*6/uL (4.60-5.80); SCAN SMEAR FLAG 1; White Blood Count 14.8 X10*3/uL (4.8-10.8)
[2024-11-03] MEDS: Albuterol Sulfate 7.5 MG, Albuterol/Iprat 2.5/0.5MG 3 ML 3 ML INHALE (20:51)
[2024-11-03 20:52] VITALS: PULSE 90; RESP 18; O2SAT 97
[2024-11-03 20:57] VITALS: BP 111/76; PULSE 107; RESP 30; TEMP 36.5; O2SAT 95
[2024-11-03 20:59] LABS: Alanine Aminotransferase 30 U/L (0-40); Albumin Level 4.4 g/dL (3.5-5.0); Alkaline Phosphatase 103 U/L (39-117); Anion Gap 19 (12-20); Aspartate Amino Transferase 34 U/L (5-37); Blood Urea Nitrogen 13 mg/dL (9-16); Calcium 9.8 mg/dL (8.4-10.2); Carbon Dioxide 20 mmol/L (22-29); Chloride 101 mmol/L (96-108); Creatinine Clr Calc Pharmacy 77.0; Estimated Glomerular Filt Rate > 60; Potassium 3.3 mmol/L (3.3-5.1); Sodium 137 mmol/L (135-145); Total Protein 8.1 g/dL (6.5-8.0)
[2024-11-03] MEDS: Magnesium Sulfate/H2O 2 GM/50 ML PIGGYBACK IV (21:10)
[2024-11-03 21:17] VITALS: RESP 24
[2024-11-03 21:21] LABS: Venous Blood Gas Refer to POC result
[2024-11-03 21:23] LABS: VBG HCO3 21 mmol/L (22-26); VBG O2 % Saturation 99.0 %
[2024-11-03 21:39] LABS: COVID-19 Test Negative (Negative); IDNOW Serial# 152EDE1D; IDNOW Serial# 16C4AD1C
[2024-11-03 21:40] LABS: B Type Natriuretic Peptide 25 pg/mL (<100); Influenza B2 Negative (Negative)
[2024-11-03 21:50] LABS: Troponin-I High Sensitivity 3.7 ng/L (<3.5-35.0)
[2024-11-03 22:00] VITALS: BP 141/85; PULSE 114; RESP 26; O2SAT 95
--- NOTE | 2024-11-03 23:26 | PC.NURSE ---
PT anxious, and requesting to leave. States he wants to go smoke. PT offered nicotine patch/gum. PT declined stating he wants to leave. Discussed risks of leaving AMA with staff certified medical coder. PT verbalized understanding
[2024-11-04 00:34] LABS: Reflex Lactate? Lactic Acid Added
== END 2024-11-03 23:27 | disposition left against medical advice (07) ==
PROVIDERS: Physician Assistant Medical; Emergency Provider Student in an Organized Health Care Education/Training Program
DX: J44.9 Chronic obstructive pulmonary disease, unspecified (principal); J45.909 Unspecified asthma, uncomplicated; R74.02 Elevation of levels of lactic acid dehydrogenase [LDH]; I48.0 Paroxysmal atrial fibrillation; Z79.01 Long term (current) use of anticoagulants; Z86.79 Personal history of other diseases of the circulatory system; Z53.29 Procedure and treatment not carried out because of patient's decision for other reasons
CPT/HCPCS: 36415; 71045; 80048; 80076; 82803; 83605; 83880; 84484; 85025; 87040; 87502; 87635; 93005; 94640; 96361; 96365; 96375; 99285; J0696; J2919; J3475

== ENCOUNTER → 2024-11-03 20:31 | Outpatient (BNV) | payer MEDICAID, SELFPAY | PROVIDERS: Emergency Provider Student in an Organized Health Care Education/Training Program; Visit Provider Internal Medicine | DX: R00.0 Tachycardia, unspecified (principal) | CPT/HCPCS: 93010 ==

== ENCOUNTER → 2024-11-03 20:46 | Outpatient (BNV) | payer MEDICAID, SELFPAY | PROVIDERS: Emergency Provider Student in an Organized Health Care Education/Training Program; Visit Provider Student in an Organized Health Care Education/Training Program | DX: R06.02 Shortness of breath (principal) | CPT/HCPCS: 71045 ==

== ENCOUNTER 2024-12-26 10:43 | Emergency (ER) | payer MEDICAID, SELFPAY ==
--- NOTE | ~2024-12-26 | CT_ITS ---
EXAMINATION: CT ABDOMEN PELVIS WITHOUT IV CONTRAST HISTORY: L flank pain x 1 week on Xarelto COMPARISON: Comparison is made with the prior examination dated 03/18/2024. TECHNIQUE: CT scan of the abdomen and pelvis was performed without contrast using standard departmental protocol. Coronal and sagittal reformatted images were generated and reviewed. Oral contrast material was not administered per department protocol. This CT exam was performed with one or more of the following dose reduction techniques: automated exposure control, adjustment of the mA and/or kV according to patient size, use of iterative reconstruction technique. DLP: 341 mGy-cm FINDINGS: LOWER CHEST: The visualized lung bases are clear. There is no pleural effusion. CARDIOVASCULATURE: The heart is normal in size. There is no pericardial effusion. LIVER: The liver is normal in size and contour. The liver has an unremarkable unenhanced appearance. GALLBLADDER / BILE DUCTS: The gallbladder is unremarkable. There is no intra or extrahepatic biliary ductal dilatation. SPLEEN: The spleen is normal in size and has an unremarkable unenhanced appearance. PANCREAS: The pancreas has an unremarkable unenhanced appearance. ADRENAL GLANDS: Unremarkable. KIDNEYS/RETROPERITONEUM: There is a punctate nonobstructing calculus in an interpolar calyx of the right kidney. No left renal calculi are identified. There is no hydronephrosis or hydroureter. No ureteral calculi are identified. LYMPH NODES: No retroperitoneal lymphadenopathy is identified in the abdomen or pelvis. VASCULATURE: The abdominal aorta is normal in caliber. MESENTERY/PERITONEUM: No free fluid. No masses. There is no free intraperitoneal gas. STOMACH: The stomach is collapsed, limiting evaluation. SMALL BOWEL: The small bowel is normal in caliber. COLON: There is a large amount of stool throughout the colon. APPENDIX: Normal. URINARY BLADDER/PELVIC ORGANS: The urinary bladder is unremarkable. The prostate is normal in size. BONES / SOFT TISSUES: There is degenerative disc disease at the L5-S1 level. CT/CT abdomen pelvis wo IV con IMPRESSION: 1. Punctate nonobstructing right renal calculus. No evidence of ureteral obstruction. 2. Large amount of stool throughout the colon. Electronically signed by: Stoney Gonzalez MD 12/26/2024 02:07 PM EDT
[2024-12-26 11:45] VITALS: BP 150/81; PULSE 64; RESP 16; TEMP 37; O2SAT 97; BMI 22.5
--- NOTE | 2024-12-26 11:56 | ED_ITS ---
HPI - General Adult General Chief complaint: Back Pain/Injury Stated complaint: lower back pain, unable to ambulate Time Seen by Provider: 12/26/24 12:27 Source: patient and old records reviewed Mode of arrival: ambulatory Limitations: no limitations History of Present Illness ED Provider: RAVEN MARCANO narrative: 49 yo male with PMH of CAD, asthma, DM, HIV well controlled per patient, PAF on xarelto who fell out of bed 2 weeks ago and was okay it was just from a twin bed. He had no injury. One week ago he started with L flank pain to low back now pain is in L buttock with severe pain down the leg. He has taken OTC meds but no relief. He has no fevers, rash, dysuria, hematuria, numbness/weakness, loss of control of bowel or bladder. He has no IVDA hx. MD complaint: back pain Onset (ago): day(s) (7) Location: back, left and lower extremity Radiation: extremity Severity: severe Quality: stabbing and aching Pain Consistency: constant Relieving factors: immobilization Exacerbating factors: movement Associated symptoms: denies other symptoms Treatments prior to arrival: none Related Data Home Medications ?Medication ?Instructions ?Recorded ?Confirmed loratadine 10 mg tablet (Allergy 10 mg PO DAILY 02/13/20 Relief (loratadine)) Previous Rx's ?Medication ?Instructions ?Recorded azithromycin 250 mg tablet See Rx Instructions PO .COM PLEX #6 01/31/20 tabs prednisone 50 mg tablet 50 mg PO DAILY #5 tabs 01/30 diazepam 5 mg tablet (Valium) 5 mg PO TID PRN muscle s pasm #10 04/15/20 tabs hydrocodone 5 mg-acetaminophen 325 1 tab PO Q6H PRN pa in #12 tabs 04/15/20 mg tablet lidocaine 4 % topical patch 1 patch topical DAILY PRN pain #10 04/15/20 ea prednisone 20 mg tablet 40 mg (2 x 20 mg) PO DAILY 4 days 04/15/20 #8 tabs atorvastatin 40 mg tablet 40 mg PO DAILY 90 days #90 t abs 05/03/20 albuterol sulfate 90 mcg/actuation 1 inh inhalation QI D PRN shortness 09/19/20 aerosol inhaler of breath or wheezing #8.5 g linda prednisone 20 mg tablet 20 mg PO BID #10 tabs albuterol sulfate 90 mcg/actuation 2 puff inhalation Q 4-6H PRN 11/05/20 aerosol inhaler (ProAir HFA) shortness of breath or wh eezing #8.5 grams benzonatate 100 mg capsule 100 mg PO TID PRN cough #30 caps 11/05/20 (Testere Lew) prednisone 20 mg tablet 40 mg (2 x 20 mg) PO DAILY # 10 tabs 11/05/20 carvedilol 3.125 mg tablet 3.125 mg PO BID 90 days #18 0 tabs 11/19/20 clotrimazole 1 % topical cream 1 appl topical BID 4 we eks 01/14/21 acetaminophen 500 mg tablet 1,000 mg (2 x 500 mg) PO Q ID PRN 01/22/21 pain #20 tabs cyclobenzaprine 5 mg tablet 5 mg PO TID PRN muscle spa sm #10 01/22/21 tabs oxycodone 5 mg tablet 5 mg PO Q6H PRN pain #10 tab s 01/22/21 prednisone 20 mg tablet 60 mg (3 x 20 mg) PO DAILY 4 days 01/22/21 #12 tabs oxycodone 5 mg tablet 5 mg PO Q6H PRN pain, severe 3 01/23/21 days #9 tabs methocarbamol 750 mg tablet 750 mg PO TID PRN muscle p ain #30 02/28/21 tabs prednisone 20 mg tablet 40 mg (2 x 20 mg) PO DAILY 5 days 02/28/21 #10 tabs tramadol 50 mg tablet 50 mg PO Q6H PRN pain #20 ta bs 04/07/21 rivaroxaban 20 mg tablet (Xarelto) 20 mg PO DAILY 90 d ays #90 tabs 05/06/21 valacyclovir 1 gram tablet 1,000 mg PO Q8H 7 days #21 tabs 08/10/21 (Valtrex) prednisone 20 mg tablet 20 mg PO DAILY 7 days #7 tab s 07/02/22 bictegravir 50 mg-emtricitabine 1 tab PO DAILY #30 tab s 03/18/24 200 mg-tenofovir alafenam 25 mg tablet (Biktarvy) budesonide-formoterol HFA 160 1 puff inhalation BID #1 0.2 grams 03/18/24 mcg-4.5 mcg/actuation aerosol inhaler cefpodoxime 200 mg tablet 200 mg PO BID 5 days #10 tab s 03/18/24 doxycycline monohydrate 100 mg 100 mg PO BID #14 caps 03/18/24 capsule phenazopyridine 100 mg tablet 100 mg PO TID 3 days #9 tabs 03/22/24 (Pyridium) amoxicillin 875 mg-potassium 1 tab PO BID 7 days #14 t abs 11/03/24 clavulanate 125 mg tablet doxycycline hyclate 100 mg capsule 100 mg PO BID #14 c aps 11/03/24 diazepam 5 mg tablet (Valium) 5 mg PO BID PRN muscle s pasm #10 12/26/24 tabs lidocaine 5 % topical patch 1 patch topical DAILY #30 ea 12/26/24 prednisone 20 mg tablet 40 mg (2 x 20 mg) PO DAILY 5 days 12/26/24 #10 tabs Allergies Allergy/AdvReac Type Severity Reaction Status Date / Time diazepam (From Valium) AdvReac Unresponsiv Verified 12/26/24 15:12 e oxycodone AdvReac Unresponsiv Verified 12/26/24 15:12 e Review of Systems Review of Systems: Constitutional : No Weight loss, No Fever, No Chills, ENT/Mouth : No Hearing loss, No Ear Pain, No Nasal Congestion, No Sinus Pain, No Hoarseness, No sore throat, No Rhinorrhea, No Swallowing Difficulty Cardiovascular : No Chest Pain, No SOB Respiratory : No Cough, No Dyspnea Gastrointestinal : No Nausea, No Vomiting, No Diarrhea, No abdominal Pain, No Hematochezia, No Melena Genitourinary : No Dysuria, No Urinary Frequency, No Hematuria, No Urinary Incontinence, Musculoskeletal : positive back pain Skin : No Skin Lesions, No rash Neuro : No Weakness, No Numbness, No Paresthesias, no loss of bowel or bladder incontinence, no saddle anesthesia Yes all other systems are reviewed and are negative [facility] Past Medical History Attestation statement: The following information was validated with the patient. Source: old records reviewed Medical History GERD (gastroesophageal reflux disease) Myocardial infarct Asthma Surgical History History of cardiac cath Family History Family History Father Alzheimers disease Mother Asthma Diabetes Social History Social History Alcohol intake: current Alcohol intake frequency: holidays/special occasions only Patient Tobacco Use Status: Former Tobacco user Substance Use Type: Marijuana Advance Directives: Yes Advance Directives Information Provided: Yes Advance Directives on File: No Physical Exam ED Vital Signs: Vital Signs - 24 hr 12/26/24 11:45 12/26/24 14:09 12/26/24 14:13 Temperature 98.6 F Pulse Rate 64 62 57 Respiratory Rate 16 16 16 Blood Pressure 150/81 H 212/116 H 192/93 H Pulse Oximetry 97 100 96 Oxygen Delivery Method Room Air Room Air Room Air BMI result Body Mass Index 22.5 Appearance: Alert. Oriented X3. No acute distress. Eyes: Pupils equal, round and reactive to light. ENT: Pharynx normal. Neck: Normal inspection. Neck supple. CVS: Normal heart rate and rhythm. Pulses normal. Respiratory: No respiratory distress. Breath sounds normal. Abdomen: Soft and nontender. Skin: Skin warm and dry. Normal skin color. Normal skin turgor. Extremities: No lower extremity edema. No calf ttp Neuro: Oriented X 3. No motor deficit. No sensory deficit. CN2-12 intact L5 5/5 bilaterally, SILT intact inner thigh, 2+ DTR in achilles, 1+ DTR in patella but was in pain and could not hold still Course Course Course Narrative: RME, this is a rapid medical exam performed by Max Polo please refer to primary provider for complete H&P- 49-year-old male presents for evaluation of back pain. Denies any numbness or tingling. His pain does radiate down his leg and he has pain with walking. Plan for x-ray Reevaluation(s) Reevaluation #1: very sleepy after meds will give low dose narcan and monitor RAVEN 212pm Reevaluation #2: obs 2 hours after narcan no issues stable for DC Medications Administered Discontinued Medications Generic Name Dose Route Start Last Admin Trade Name Freq PRN Reason Stop Dose Admin Diazepam 5 mg 12/26/24 12:53 12/26/24 13:01 Diazepam 5 Mg Tablet PO 12/26/24 12:54 5 mg ONCE ONE Administration Naloxone HCl 0.2 mg 12/26/24 13:59 12/26/24 14:07 Naloxone Hcl 0.4 Mg/Ml Vial IVPUSH 12/26/24 14:00 0.2 mg STAT STA Administration Ondansetron HCl 4 mg 12/26/24 13:59 12/26/24 14:07 Ondansetron Hcl 4 Mg/2 Ml Vial IVPUSH 12/26/24 14:00 4 mg ONCE ONE Administration Oxycodone HCl 5 mg 12/26/24 12:50 12/26/24 13:00 Oxycodone Hcl Immed Release 5 Mg Tablet PO 12/26/24 12:51 5 mg ONCE ONE Administration Medical Decision Making Medical Decision Making [facility] Narrative: 49 yo male with PMH of CAD, asthma, DM, HIV well controlled per patient, PAF on xarelto now here with c/o L flank and low back pain but no b/b incotinence no saddle anesthesia to suggest cauda equina. He has not had fevers or urinary symptoms. His symptoms seem consistent with sciatica but given DOAC use I am going to obtain CT scan for possible retroperitoneal hemorrhage causing symptoms. Differential Diagnosis Differential Diagnoses: The differential diagnosis associated with the presentation includes sciatica, lumbar radiculopathy, retroperitoneal hemorrhage Admission/Observation Consideration of admission/observation: Escalation of care including admission/observation considered pain improved, CT scan negative did have an episode after oxycodone responded really well to low dose narcan I plan to send home after observing til 4pm and DC on valium and prednisone Lab Data [facility] Lab Attestation statement: I reviewed the patient's lab results. Labs: Lab Results 12/26/24 12/26/24 Range/Units 14:00 14:27 POC Glucose 109 (60-115) mg/dL Urine Color Yellow Urine Appearance Clear Urine pH 5.5 (5.0-9.0) Ur Specific [place] 1.020 (1.005-1.025) Urine Protein Negative (Neg-Trace) mg/dL Urine Glucose (UA) Negative (Negative) mg/dL Urine Ketones Negative (Negative) mg/dL Urine Blood Negative (Negative) Urine Nitrite Negative (Negative) Ur Leukocyte Esterase Negative (Negative) Independent Interpretation I performed an independent interpretation of an: CT Scan (no cause of pain. ) Radiology Impression Discussion of test interpretation with radiology: I have reviewed the radiologist's reading. Independent Historian Clinical information obtained from an independent historian. History obtained from or confirmed by: Spouse External Record Review External record reviewed: Outpatient record Prescription Management I considered prescription management with: Pain Medication and Other Discharge Plan Discharge Clinical Impression: Sciatica Patient Disposition: Home, Self-Care Instructions: Sciatica (ED) Additional Instructions: CT scan shows no cause of the pain and has small stone in R kidney you need to do some stretches and follow up with your doctor for physical therapy referral return for weakness, numbness, loss of control of bowel or bladder, or any other concerns take prednisone with food RECHECK YOUR BLOOD PRESSURE WITH YOUR DOCTOR BY THURSDAY Prescriptions: New prednisone 20 mg tablet 40 mg PO DAILY 5 Days Qty: 10 0RF lidocaine 5 % adhesive patch,medicated 1 patch topical DAILY Qty: 30 0RF Rx Instructions: leave on most painful area for up to 12 hrs diazepam [Valium] 5 mg tablet 5 mg PO BID PRN (Reason: muscle spasm) Qty: 10 0RF Rx Instructions: partial fill is okay No Action atorvastatin 40 mg tablet 40 mg PO DAILY 90 Days Qty: 90 1RF carvedilol 3.125 mg tablet 3.125 mg PO BID 90 Days Qty: 180 1RF Xarelto 20 mg tablet 20 mg PO DAILY 90 Days Qty: 90 0RF Rx Instructions: must administer with evening meal Please call and schedule cardiology appt lidocaine 4 % adhesive patch,medicated 1 patch topical DAILY PRN (Reason: pain) Qty: 10 0RF Rx Instructions: may leave on for up to 12 hrs hydrocodone-acetaminophen 5-325 mg tablet 1 tab PO Q6H PRN (Reason: pain) Qty: 12 0RF prednisone 20 mg tablet 40 mg PO DAILY 4 Days Qty: 8 0RF diazepam [Valium] 5 mg tablet 5 mg PO TID PRN (Reason: muscle spasm) Qty: 10 0RF prednisone 20 mg tablet 40 mg PO DAILY Qty: 10 0RF albuterol sulfate [ProAir HFA] 90 mcg/actuation HFA aerosol inhaler 2 puff inhalation Q4-6H PRN (Reason: shortness of breath or wheezing) Qty: 8.5 0RF benzonatate [Tessalon Perles] 100 mg capsule 100 mg PO TID PRN (Reason: cough) Qty: 30 0RF azithromycin 250 mg tablet See Rx Instructions .ROUTE .COMPLEX Qty: 6 0RF Rx Instructions: take 500 mg today (day 1), then 250 mg for 4 days (days 2-5) prednisone 50 mg tablet 50 mg PO DAILY Qty: 5 0RF albuterol sulfate 90 mcg/actuation HFA aerosol inhaler 1 inh inhalation QID PRN (Reason: shortness of breath or wheezing) Qty: 8.5 0RF prednisone 20 mg tablet 20 mg PO BID Qty: 10 0RF clotrimazole 1 % cream 1 appl topical BID 28 Days 0RF prednisone 20 mg tablet 40 mg PO DAILY 5 Days Qty: 10 0RF methocarbamol 750 mg tablet 750 mg PO TID PRN (Reason: muscle pain) Qty: 30 0RF oxycodone 5 mg tablet 5 mg PO Q6H PRN (Reason: pain) Qty: 10 0RF Rx Instructions: Narcotic, no driving for 6 hours after taking acetaminophen 500 mg tablet 1,000 mg PO QID PRN (Reason: pain) Qty: 20 0RF cyclobenzaprine 5 mg tablet 5 mg PO TID PRN (Reason: muscle spasm) Qty: 10 0RF Rx Instructions: This medication may cause drowsiness, home use only, no driving for 6 hours after taking prednisone 20 mg tablet 60 mg PO DAILY 4 Days Qty: 12 0RF oxycodone 5 mg tablet 5 mg PO Q6H PRN (Reason: pain, severe) 3 Days Qty: 9 0RF tramadol 50 mg tablet 50 mg PO Q6H PRN (Reason: pain) Qty: 20 0RF valacyclovir [Valtrex] 1 gram tablet 1,000 mg PO Q8H 7 Days Qty: 21 0RF cefpodoxime 200 mg tablet 200 mg PO BID 5 Days Qty: 10 0RF Rx Instructions: must administer with a meal/food doxycycline monohydrate 100 mg capsule 100 mg PO BID Qty: 14 0RF budesonide-formoterol 160-4.5 mcg/actuation HFA aerosol inhaler 1 puff inhalation BID Qty: 10.2 0RF Biktarvy 50-200-25 mg tablet 1 tab PO DAILY Qty: 30 0RF phenazopyridine [Pyridium] 100 mg tablet 100 mg PO TID 3 Days Qty: 9 0RF amoxicillin-pot clavulanate 875-125 mg tablet 1 tab PO BID 7 Days Qty: 14 0RF doxycycline hyclate 100 mg capsule 100 mg PO BID Qty: 14 0RF prednisone 20 mg tablet 20 mg PO DAILY 7 Days Qty: 7 0RF loratadine [Allergy Relief (loratadine)] 10 mg tablet 10 mg PO DAILY Stand Alone Forms: Work/School Release Print Language: Slovenian
[2024-12-26] MEDS: oxyCODONE HCl Immed Release 5 MG TABLET PO (13:00)
[2024-12-26 14:04] LABS: Glucose, Whole Blood 109 mg/dL (60-115)
[2024-12-26 14:09] VITALS: BP 212/116; PULSE 62; RESP 16; O2SAT 100
--- NOTE | 2024-12-26 14:10 | PC.NURSE ---
at aprox 1355 patients spouse notified this RN that patient appears out of it, and drooling after coroner/medical examiner. this RN went to patient room, patient was tracking this RN with eyes, but not communicating. VSS, ED attending at bedside for assessment of patient, #20 placed in the LFA, ED attending recommended to give patient small dose of IVP narcan. patient had no changes after ivp narcan, will inform ED attending. patient on tele at this time, hr 60s normal sinus, poc 109.
[2024-12-26 14:13] VITALS: BP 192/93; PULSE 57; RESP 16; O2SAT 96
[2024-12-26 14:40] LABS: Appearance Urine Clear; Glucose Urine UA Negative (Negative); PH 5.5 (5.0-9.0); Specific Gravity - Urine 1.020 (1.005-1.025)
[2024-12-26 15:30] VITALS: BP 164/101; PULSE 61; RESP 18; TEMP 36.6; O2SAT 98
[2024-12-26] MEDS: Naloxone HCl Nasal TAKE HOME 4 MG SPRAY 8 MG NOSTRILALT (16:00)
[2024-12-26 16:04] VITALS: BP 164/101; PULSE 61; RESP 18; TEMP 36.6; O2SAT 98
== END 2024-12-26 16:04 | disposition home or self-care (01) ==
PROVIDERS: Emergency Provider Emergency Medicine
DX: M54.42 Lumbago with sciatica, left side (principal); R10.A2 Flank pain, left side; I25.10 Atherosclerotic heart disease of native coronary artery without angina pectoris; E11.9 Type 2 diabetes mellitus without complications; Z79.01 Long term (current) use of anticoagulants; Z79.899 Other long term (current) drug therapy
CPT/HCPCS: 74176; 81003; 82947; 96374; 96375; 99284; 99285; J2312; J2405

== ENCOUNTER → 2024-12-26 12:50 | Outpatient (BNV) | payer MEDICAID, SELFPAY | PROVIDERS: Emergency Provider Emergency Medicine; Visit Provider Radiology Diagnostic Radiology | DX: N20.0 Calculus of kidney (principal); R19.5 Other fecal abnormalities | CPT/HCPCS: 74176 ==

== ENCOUNTER 2025-01-12 09:10 | Emergency (ER) | payer MEDICAID, SELFPAY ==
[2025-01-12 09:19] VITALS: BP 144/82; PULSE 96; RESP 18; TEMP 36.1; O2SAT 96; BMI 22.6
[2025-01-12 09:28] VITALS: BP 121/80; PULSE 75; TEMP 37; O2SAT 98
--- NOTE | 2025-01-12 10:35 | ED.GENADULT ---
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 States takes his medications on regular basis and has a good CD4 numbers and low viral loads. He reports practicing safe sex and had no concern for STI. No other rashes reported Rashe is itchy not painful Related Data Home Medications ?Medication ?Instructions ?Recorded ?Confirmed loratadine 10 mg tablet (Allergy 10 mg PO DAILY 02/13/20 02/13/20 Relief (loratadine)) Previous Rx's ?Medication ?Instructions ?Recorded azithromycin 250 mg tablet See Rx Instructions PO .COMPLEX #6 01/31/20 tabs prednisone 50 mg tablet 50 mg PO DAILY #5 tabs 01/31/20 diazepam 5 mg tablet (Valium) 5 mg PO TID PRN muscle spasm #10 04/15/20 tabs hydrocodone 5 mg-acetaminophen 325 1 tab PO Q6H PRN pain #12 tabs 04/15/20 mg tablet lidocaine 4 % topical patch 1 patch topical DAILY PRN pain #10 04/15/20 ea prednisone 20 mg tablet 40 mg (2 x 20 mg) PO DAILY 4 days 04/15/20 #8 tabs atorvastatin 40 mg tablet 40 mg PO DAILY 90 days #90 tabs 05/03/20 albuterol sulfate 90 mcg/actuation 1 inh inhalation QID PRN shortness 09/19/20 aerosol inhaler of breath or wheezing #8.5 grams prednisone 20 mg tablet 20 mg PO BID #10 tabs 09/19/20 albuterol sulfate 90 mcg/actuation 2 puff inhalation Q4-6H PRN 11/05/20 aerosol inhaler (ProAir HFA) shortness of breath or wheezing #8.5 grams benzonatate 100 mg capsule 100 mg PO TID PRN cough #30 caps 11/05/20 (Felipe Lew) prednisone 20 mg tablet 40 mg (2 x 20 mg) PO DAILY #10 tabs 11/05/20 carvedilol 3.125 mg tablet 3.125 mg PO BID 90 days #180 tabs 11/19/20 clotrimazole 1 % topical cream 1 appl topical BID 4 weeks 01/14/21 acetaminophen 500 mg tablet 1,000 mg (2 x 500 mg) PO QID PRN 01/22/21 pain #20 tabs cyclobenzaprine 5 mg tablet 5 mg PO TID PRN muscle spasm #10 01/22/21 tabs oxycodone 5 mg tablet 5 mg PO Q6H PRN pain #10 tabs 01/22/21 prednisone 20 mg tablet 60 mg (3 x 20 mg) PO DAILY 4 days 01/22/21 #12 tabs oxycodone 5 mg tablet 5 mg PO Q6H PRN pain, severe 3 01/23/21 days #9 tabs methocarbamol 750 mg tablet 750 mg PO TID PRN muscle pain #30 02/28/21 tabs prednisone 20 mg tablet 40 mg (2 x 20 mg) PO DAILY 5 days 02/28/21 #10 tabs tramadol 50 mg tablet 50 mg PO Q6H PRN pain #20 tabs 04/07/21 rivaroxaban 20 mg tablet (Xarelto) 20 mg PO DAILY 90 days #90 tabs 05/06/21 valacyclovir 1 gram tablet 1,000 mg PO Q8H 7 days #21 tabs 08/10/21 (Valtrex) prednisone 20 mg tablet 20 mg PO DAILY 7 days #7 tabs 07/02/22 bictegravir 50 mg-emtricitabine 1 tab PO DAILY #30 tabs 03/18/24 200 mg-tenofovir alafenam 25 mg tablet (Biktarvy) budesonide-formoterol HFA 160 1 puff inhalation BID #10.2 grams 03/18/24 mcg-4.5 mcg/actuation aerosol inhaler cefpodoxime 200 mg tablet 200 mg PO BID 5 days #10 tabs 03/18/24 doxycycline monohydrate 100 mg 100 mg PO BID #14 caps 03/18/24 capsule phenazopyridine 100 mg tablet 100 mg PO TID 3 days #9 tabs 03/22/24 (Pyridium) amoxicillin 875 mg-potassium 1 tab PO BID 7 days #14 tabs 11/03/24 clavulanate 125 mg tablet doxycycline hyclate 100 mg capsule 100 mg PO BID #14 caps 11/03/24 diazepam 5 mg tablet (Valium) 5 mg PO BID PRN muscle spasm #10 12/26/24 tabs lidocaine 5 % topical patch 1 patch topical DAILY #30 ea 12/26/24 prednisone 20 mg tablet 40 mg (2 x 20 mg) PO DAILY 5 days 12/26/24 #10 tabs doxycycline hyclate 100 mg capsule 100 mg PO BID 7 days #14 caps 01/12/25 Allergies Allergy/AdvReac Type Severity Reaction Status Date / Time diazepam (From Valium) AdvReac Unresponsiv Verified 01/12/25 09:22 e oxycodone AdvReac Unresponsiv Verified 01/12/25 09:22 e Review of Systems Constitutional: Constitutional: Reports as per [facility] Past Medical History Medical History GERD (gastroesophageal reflux disease) Myocardial infarct Asthma Surgical History History of cardiac cath Family History Family History Father Alzheimers disease Mother Asthma Diabetes Social History Social History Alcohol intake: current Alcohol intake frequency: holidays/special occasions only Patient Tobacco Use Status: Former Tobacco user Substance Use Type: Marijuana Advance Directives: No Advance Directives Information Provided: Yes Do you have a plan to hurt others: No Plan Physical Exam ED Exam Exam: There is mucocutaneous lesion bottom right lip, with some other lesions over the cheeks, no lesions of the oropharyngeal area No lesions over the other parts of skin his palms or his plantar aspect Patient is speaking full sentences alert and oriented x4 Vital Signs: Vital Signs - 24 hr 01/12/25 09:19 01/12/25 09:28 Temperature 97 F 98.6 F Pulse Rate 96 75 Respiratory Rate 18 Blood Pressure 144/82 H 121/80 Pulse Oximetry 96 98 Oxygen Delivery Method Room Air Room Air BMI result Body Mass Index 22.6 Medical Decision Making Medical Decision Making MDM Narrative: 11:32 AM 01/12/2025 (Dr. Morgan Gillis): This maybe facial folliculitis however lesions are somewhat cavitary with necrotic core, at least 2 of them are mucocutaneous, patient has a history of HIV reports good control and low risk sexual behavior, I am still considering latent syphilis and we will obtain screening study, does not appear to be herpes, possibly folliculitis, no evidence for abscess or cellulitis he is using new antibiotics I do not suspect this is a drug rash Differential Diagnosis Differential Diagnoses: The differential diagnosis associated with the presentation includes (See above) Lab Data 01/12/25 11:01/12/25 11: Labs: Lab Results 01/12/25 Range/Units 11: WBC 5.9 (4.8-10.8) X10*3/uL RBC 4.13 L (4.60-5.80) X10*6/uL Hgb 13.1 L (14.0-18.0) g/dl Hct 38.8 L (42.0-52.0) % MCV 93.9 (80.0-98.0) fL MCH 31.7 (27.0-33.0) pg MCHC 33.8 (31.0-36.0) g/dl RDW 12.5 (11.0-16.0) % Plt Count 215 D (160-400) X10*3/uL MPV 9.4 (9.4-12.4) fL Immature Gran % (Auto) 0.2 (0.0-0.4) % Neut % (Auto) 70.5 (45-73) % Lymph % (Auto) 12.3 L (20-40) % [place] % (Auto) 5.5 (2-11) % Eos % (Auto) 11.2 H (0-4) % Baso % (Auto) 0.3 (0-2) % Lymph # (Auto) 0.7 L (1.2-4.9) X10*3/uL [place] # (Auto) 0.3 (0.1-1.2) X10*3/uL Eos # (Auto) 0.7 H (0.0-0.4) X10*3/uL Baso # (Auto) 0.0 (0.0-0.2) X10*3/uL Abs Immat Gran (auto) 0.01 (0.00-0.03) X10*3/uL Absolute Neuts (auto) 4.1 (2.0-8.3) x10*3/uL Absolute Nucleated RBC 0.000 (0.0-0.012) X10*3/uL Nucleated RBC % (auto) 0.0 (0.0-0.2) /100WBC Sodium 139 (135-145) mmol/L Potassium 3.5 (3.3-5.1) mmol/L Chloride 105 (96-108) mmol/L Carbon Dioxide 28 (22-29) mmol/L Anion Gap 10 L (12-20) BUN 12 (9-16) mg/dL Creatinine 0.83 (0.5-1.4) mg/dL Estim Creat Clear Calc 88.1 Estimated GFR > 60 Random Glucose 98 (60-115) mg/dL Calcium 9.2 D (8.4-10.2) mg/dL Total Bilirubin 0.5 (0.0-1.0) mg/dL AST 32 (5-37) U/L ALT 25 (0-40) U/L Alkaline Phosphatase 105 (39-117) U/L C-Reactive Protein 10.46 H (< or = 0.50) mg/dL Total Protein 7.1 (6.5-8.0) g/dL Albumin 4.2 (3.5-5.0) g/dL T.pallidum Ab (EIA) Nonreactive (Nonreactive) Discharge Plan Discharge Clinical Impression: Facial rash Additional Instructions: Blood work reassuring, the syphilis study that I obtained was negative, I suspect this is possibly what is called folliculitis, I am going to start you on antibiotics You can continue your eyedrops Spiking fevers, worsening issues come back to the ER for re-evaluation Prescriptions: New doxycycline hyclate 100 mg capsule 100 mg PO BID 7 Days Qty: 14 0RF No Action atorvastatin 40 mg tablet 40 mg PO DAILY 90 Days Qty: 90 1RF carvedilol 3.125 mg tablet 3.125 mg PO BID 90 Days Qty: 180 1RF Xarelto 20 mg tablet 20 mg PO DAILY 90 Days Qty: 90 0RF Rx Instructions: must administer with evening meal Please call and schedule cardiology appt lidocaine 4 % adhesive patch,medicated 1 patch topical DAILY PRN (Reason: pain) Qty: 10 0RF Rx Instructions: may leave on for up to 12 hrs hydrocodone-acetaminophen 5-325 mg tablet 1 tab PO Q6H PRN (Reason: pain) Qty: 12 0RF prednisone 20 mg tablet 40 mg PO DAILY 4 Days Qty: 8 0RF diazepam [Valium] 5 mg tablet 5 mg PO TID PRN (Reason: muscle spasm) Qty: 10 0RF prednisone 20 mg tablet 40 mg PO DAILY Qty: 10 0RF albuterol sulfate [ProAir HFA] 90 mcg/actuation HFA aerosol inhaler 2 puff inhalation Q4-6H PRN (Reason: shortness of breath or wheezing) Qty: 8.5 0RF benzonatate [Tessalon Perles] 100 mg capsule 100 mg PO TID PRN (Reason: cough) Qty: 30 0RF azithromycin 250 mg tablet See Rx Instructions .ROUTE .COMPLEX Qty: 6 0RF Rx Instructions: take 500 mg today (day 1), then 250 mg for 4 days (days 2-5) prednisone 50 mg tablet 50 mg PO DAILY Qty: 5 0RF albuterol sulfate 90 mcg/actuation HFA aerosol inhaler 1 inh inhalation QID PRN (Reason: shortness of breath or wheezing) Qty: 8.5 0RF prednisone 20 mg tablet 20 mg PO BID Qty: 10 0RF clotrimazole 1 % cream 1 appl topical BID 28 Days 0RF prednisone 20 mg tablet 40 mg PO DAILY 5 Days Qty: 10 0RF methocarbamol 750 mg tablet 750 mg PO TID PRN (Reason: muscle pain) Qty: 30 0RF oxycodone 5 mg tablet 5 mg PO Q6H PRN (Reason: pain) Qty: 10 0RF Rx Instructions: Narcotic, no driving for 6 hours after taking acetaminophen 500 mg tablet 1,000 mg PO QID PRN (Reason: pain) Qty: 20 0RF cyclobenzaprine 5 mg tablet 5 mg PO TID PRN (Reason: muscle spasm) Qty: 10 0RF Rx Instructions: This medication may cause drowsiness, home use only, no driving for 6 hours after taking prednisone 20 mg tablet 60 mg PO DAILY 4 Days Qty: 12 0RF oxycodone 5 mg tablet 5 mg PO Q6H PRN (Reason: pain, severe) 3 Days Qty: 9 0RF tramadol 50 mg tablet 50 mg PO Q6H PRN (Reason: pain) Qty: 20 0RF valacyclovir [Valtrex] 1 gram tablet 1,000 mg PO Q8H 7 Days Qty: 21 0RF cefpodoxime 200 mg tablet 200 mg PO BID 5 Days Qty: 10 0RF Rx Instructions: must administer with a meal/food doxycycline monohydrate 100 mg capsule 100 mg PO BID Qty: 14 0RF budesonide-formoterol 160-4.5 mcg/actuation HFA aerosol inhaler 1 puff inhalation BID Qty: 10.2 0RF Biktarvy 50-200-25 mg tablet 1 tab PO DAILY Qty: 30 0RF phenazopyridine [Pyridium] 100 mg tablet 100 mg PO TID 3 Days Qty: 9 0RF amoxicillin-pot clavulanate 875-125 mg tablet 1 tab PO BID 7 Days Qty: 14 0RF doxycycline hyclate 100 mg capsule 100 mg PO BID Qty: 14 0RF prednisone 20 mg tablet 20 mg PO DAILY 7 Days Qty: 7 0RF prednisone 20 mg tablet 40 mg PO DAILY 5 Days Qty: 10 0RF lidocaine 5 % adhesive patch,medicated 1 patch topical DAILY Qty: 30 0RF Rx Instructions: leave on most painful area for up to 12 hrs diazepam [Valium] 5 mg tablet 5 mg PO BID PRN (Reason: muscle spasm) Qty: 10 0RF Rx Instructions: partial fill is okay loratadine [Allergy Relief (loratadine)] 10 mg tablet 10 mg PO DAILY Print Language: Amharic
[2025-01-12 11:31] LABS: MANUAL DIFF FLAG NO
[2025-01-12 11:38] LABS: Hematocrit 38.8 % (42.0-52.0); Hemoglobin 13.1 g/dl (14.0-18.0); Imm Gran Abs Auto 0.01 X10*3/uL (0.00-0.03); Imm Gran Pct Auto 0.2 % (0.0-0.4); Lymphocytes Absolute Auto 0.7 X10*3/uL (1.2-4.9); Mean Corpuscular HGB Conc 33.8 g/dl (31.0-36.0); Mean Corpuscular Hemoglobin 31.7 pg (27.0-33.0); Mean Corpuscular Volume 93.9 fL (80.0-98.0); NRBC Abs Auto 0.000 X10*3/uL (0.0-0.012); NRBC Pct Auto 0.0 /100WBC (0.0-0.2); Platelet Count 215 X10*3/uL (160-400); Red Blood Count 4.13 X10*6/uL (4.60-5.80); White Blood Count 5.9 X10*3/uL (4.8-10.8)
[2025-01-12 11:56] LABS: Alanine Aminotransferase 25 U/L (0-40); Albumin Level 4.2 g/dL (3.5-5.0); Alkaline Phosphatase 105 U/L (39-117); Anion Gap 10 (12-20); Aspartate Amino Transferase 32 U/L (5-37); Blood Urea Nitrogen 12 mg/dL (9-16); Calcium 9.2 mg/dL (8.4-10.2); Carbon Dioxide 28 mmol/L (22-29); Chloride 105 mmol/L (96-108); Creatinine Clr Calc Pharmacy 88.1; Estimated Glomerular Filt Rate > 60; Potassium 3.5 mmol/L (3.3-5.1); Sodium 139 mmol/L (135-145); Total Protein 7.1 g/dL (6.5-8.0)
[2025-01-12 12:16] LABS: Syphilis Screen Nonreactive (Nonreactive)
[2025-01-12 12:49] VITALS: BP 148/88; PULSE 69; TEMP 37.5; O2SAT 100
[2025-01-12 13:18] VITALS: BP 148/88; PULSE 69; RESP 17; TEMP 37.5; O2SAT 100
== END 2025-01-12 13:27 | disposition home or self-care (01) ==
PROVIDERS: Emergency Provider Emergency Medicine
DX: R21 Rash and other nonspecific skin eruption (principal); B20 Human immunodeficiency virus [HIV] disease; Z79.899 Other long term (current) drug therapy
CPT/HCPCS: 36415; 80053; 85025; 86140; 86780; 99283; 99284

== ENCOUNTER 2025-01-14 09:54 | Emergency (ER) | payer MEDICAID, SELFPAY ==
--- NOTE | ~2025-01-14 | CT_ITS ---
CLINICAL HISTORY: swelling under neck Exam: Contrast-enhanced CT neck soft tissues with multiplanar reformats. Comparison: None. Findings: T There is mild fullness of the tonsillar soft tissues, raising the possibility of tonsillitis or pharyngitis. No circumscribed collection or abscess is appreciated. No other mucosal thickening or evidence of focal mucosal lesions. There is neck adenopathy, with right-sided level 2 nodes measuring up to 2.1 cm (13; 182), and left level 2 nodes measuring up to 17 mm (13; 174, as well as right level 1 nodes measuring up to 2.2 cm (13; 206), and left level 1 nodes measuring up to 18 mm (3; 214). No other significant adenopathy. Additionally there is a poorly defined submental node or nodule to the right of midline measuring up to 15 mm (5; 75, 15; 29 and 14; 29). No other evidence of neck masses. Thyroid gland and salivary glands appear unremarkable. Visualized pulmonary apices reveal paraseptal emphysematous disease. Visualized brain parenchyma reveals no acute abnormalities. Visualized paranasal sinuses and mastoid air cells reveal a right maxillary sinus retention cyst. Osseous structures reveal no destructive osseous lesions. Impression: 1. Somewhat prominent tonsillar soft tissues, raising the possibility of tonsillitis or pharyngitis. 2. Bilateral level 1 and level 2 as well as right-sided segmental neck adenopathy. No other evidence of focal neck masses. This document has been electronically signed by: Abhay Chávez MD on 01/14/2025 14:51:05
--- NOTE | ~2025-01-14 | CT_ITS ---
CLINICAL HISTORY: cough sob Exam: Contrast-enhanced CT chest with multiplanar reformats. Comparison: None. Findings: Lungs reveal a 6 mm right lower lobe nodule (8; 105). Additional scattered small nodules (for example, 3 mm right lower lobe perivascular nodule on 8; 133) are noted as well. No other nodules or parenchymal lesions. No focal consolidation. Airways are patent. There are mild biapical paraseptal emphysematous changes. Airways appear patent. No pneumothorax. No mediastinal or hilar masses or adenopathy. No pleural or pericardial effusions. Images below the diaphragms reveal no acute abnormalities. Osseous structures reveal no destructive osseous lesions. Impression: 1. No focal consolidation or acute pulmonary disease. 2. 6 mm right lower lobe pulmonary nodule. Consider documentation of 2 year stability with follow-up chest CT in 6-12 months. This document has been electronically signed by: Abhay Chávez MD on 01/14/2025 14:50:42
--- NOTE | 2025-01-14 09:58 | ECG_ITS ---
Test Reason : CP Blood Pressure : */* mmHG Vent. Rate : 80 BPM Atrial Rate : 80 BPM P-R Int : 148 ms QRS Dur : 76 ms QT Int : 352 ms P-R-T Axes : 67 60 21 degrees QTcB Int : 405 ms Normal sinus rhythm Septal infarct , age undetermined Cannot rule out Inferior infarct (cited on or before 18-Mar-2024) Abnormal ECG When compared with ECG of 03-Nov-2024 20:38, Premature ventricular complexes are no longer Present Septal infarct is now Present Referred By: Generic ED Physician Electronically Signed By: Milind Phelps
[2025-01-14 10:18] VITALS: BP 144/92; PULSE 84; RESP 16; TEMP 37.5; O2SAT 97; BMI 21.8
[2025-01-14 10:34] LABS: IDNOW Serial# 55D5AD1C
[2025-01-14 10:35] LABS: Strep A Nucleic Acid Negative (Negative)
[2025-01-14 10:51] LABS: Resp Syncy Virus RNA Qual PCR NEGATIVE (Negative); SARS COV2 PCR INHOUSE NEGATIVE (Negative)
--- NOTE | 2025-01-14 11:34 | ED.GENADULT ---
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 Infectious Disease] Stand Alone Forms: Work/School Release Interventions: ED Discharge Assessment Last Done: 01/14/25 17:35 Discharge Date/Time: 01/14/25 17:36 Print Language: Mozambican
[2025-01-14 11:48] VITALS: BP 140/88; PULSE 60; RESP 18; O2SAT 96
[2025-01-14 12:22] LABS: Hematocrit 38.1 % (42.0-52.0); Hemoglobin 13.3 g/dl (14.0-18.0); Mean Corpuscular HGB Conc 34.9 g/dl (31.0-36.0); Mean Corpuscular Hemoglobin 31.8 pg (27.0-33.0); Mean Corpuscular Volume 91.1 fL (80.0-98.0); NRBC Abs Auto 0.000 X10*3/uL (0.0-0.012); NRBC Pct Auto 0.0 /100WBC (0.0-0.2); Platelet Count 263 X10*3/uL (160-400); Red Blood Count 4.18 X10*6/uL (4.60-5.80); White Blood Count 9.9 X10*3/uL (4.8-10.8)
[2025-01-14 12:34] LABS: Alanine Aminotransferase 25 U/L (0-40); Albumin Level 4.4 g/dL (3.5-5.0); Alkaline Phosphatase 106 U/L (39-117); Anion Gap 16 (12-20); Aspartate Amino Transferase 26 U/L (5-37); Blood Urea Nitrogen 8 mg/dL (9-16); Calcium 9.8 mg/dL (8.4-10.2); Carbon Dioxide 25 mmol/L (22-29); Chloride 102 mmol/L (96-108); Creatinine Clr Calc Pharmacy 80.1; Estimated Glomerular Filt Rate > 60; Potassium 3.6 mmol/L (3.3-5.1); Sodium 139 mmol/L (135-145); Total Protein 7.4 g/dL (6.5-8.0)
[2025-01-14 12:49] LABS: Atypical Lymph Absolute Manual 0.7 x10*3/uL; Atypical Lymphs Percent Manual 7 % (0-6); Band Neutrophils Percent 4 % (3-5); Eosinophils Absolute Manual 0.4 X10*3/uL (0.0-0.4); Eosinophils Percent Manual 4 % (0-4); Lymphocytes Absolute Manual 1.6 X10*3/uL (1.2-4.9); Lymphocytes Percent Manual 16 % (20-40); Monocytes Absolute Manual 0.3 X10*3/uL (0.1-1.2); Monocytes Percent Manual 3 % (2-11); Neutrophils Absolute Manual 6.9 X10*3/uL (2.0-8.3); Neutrophils Percent Manual 66 % (45-73)
[2025-01-14 12:50] LABS: RBC Morphology NORMAL
[2025-01-14 13:08] LABS: Erythrocyte Sedimentation Rate 29 MM/HR (0-15)
[2025-01-14] MEDS: iohexoL 350 MG/ML 100 ML INFUS..BTL IV (14:13)
[2025-01-14 17:35] VITALS: BP 144/76; PULSE 88; RESP 18; TEMP 36.7; O2SAT 98
[2025-01-19 15:19] LABS: Absolute CD3 Count 1358 cells/uL (840-3060); Absolute CD8 Count 765 cells/uL (180-1170); Percent CD3 Cells 70 % (57-85); Percent CD8 Cells 39 % (12-42)
== END 2025-01-14 17:36 | disposition home or self-care (01) ==
PROVIDERS: Physician Assistant; Emergency Provider Emergency Medicine Emergency Medical Services
DX: B04 Monkeypox (principal); Z21 Asymptomatic human immunodeficiency virus [HIV] infection status; Z79.899 Other long term (current) drug therapy
CPT/HCPCS: 36415; 70491; 71260; 80053; 83605; 85007; 85027; 85652; 86140; 86359; 86360; 86481; 87040; 87637; 87651; 93005; 96361; 96365; 96372; 99284; 99285; J0696; J2543; Q9967

== ENCOUNTER → 2025-01-14 09:58 | Outpatient (BNV) | payer MEDICAID, SELFPAY | PROVIDERS: Emergency Provider Emergency Medicine Emergency Medical Services; Visit Provider Internal Medicine Cardiovascular Disease | DX: R94.31 Abnormal electrocardiogram [ECG] [EKG] (principal); R07.9 Chest pain, unspecified | CPT/HCPCS: 93010 ==

== ENCOUNTER → 2025-01-14 12:03 | Outpatient (BNV) | payer MEDICAID, SELFPAY | PROVIDERS: Emergency Provider Emergency Medicine Emergency Medical Services; Visit Provider Radiology Diagnostic Radiology | DX: L04.0 Acute lymphadenitis of face, head and neck (principal); R91.1 Solitary pulmonary nodule | CPT/HCPCS: 70491; 71260 ==

== ENCOUNTER 2025-01-23 14:15 | Outpatient (REF) | payer MEDICAID, SELFPAY ==
[2025-01-23 16:12] LABS: MANUAL DIFF FLAG NO
[2025-01-23 16:16] LABS: Hematocrit 39.9 % (42.0-52.0); Hemoglobin 13.6 g/dl (14.0-18.0); Imm Gran Abs Auto 0.07 X10*3/uL (0.00-0.03); Imm Gran Pct Auto 1.1 % (0.0-0.4); Lymphocytes Absolute Auto 2.7 X10*3/uL (1.2-4.9); Mean Corpuscular HGB Conc 34.1 g/dl (31.0-36.0); Mean Corpuscular Hemoglobin 31.7 pg (27.0-33.0); Mean Corpuscular Volume 93.0 fL (80.0-98.0); NRBC Abs Auto 0.000 X10*3/uL (0.0-0.012); NRBC Pct Auto 0.0 /100WBC (0.0-0.2); Platelet Count 560 X10*3/uL (160-400); Red Blood Count 4.29 X10*6/uL (4.60-5.80); White Blood Count 6.6 X10*3/uL (4.8-10.8)
[2025-01-23 16:36] LABS: Alanine Aminotransferase 36 U/L (0-40); Albumin Level 4.5 g/dL (3.5-5.0); Alkaline Phosphatase 113 U/L (39-117); Anion Gap 12 (12-20); Aspartate Amino Transferase 38 U/L (5-37); Blood Urea Nitrogen 11 mg/dL (9-16); Calcium 10.0 mg/dL (8.4-10.2); Carbon Dioxide 27 mmol/L (22-29); Chloride 102 mmol/L (96-108); Cholesterol 244 mg/dL (<200); Estimated Glomerular Filt Rate > 60; HDL Cholesterol 39 mg/dL (>40); Potassium 4.3 mmol/L (3.3-5.1); Sodium 137 mmol/L (135-145); Total Protein 8.3 g/dL (6.5-8.0); Triglycerides 437 mg/dL (<150)
[2025-01-23 16:52] LABS: Thyroid Stimulating Hormone 0.83 uIU/mL (0.32-4.0)
[2025-01-23 17:52] LABS: CT PCR Urine NOT DETECTED (Not Detect.); NG PCR Urine NOT DETECTED (Not Detect.)
[2025-01-24 08:05] LABS: HBS Num1 2.65 mIU/mL (0-7.99); HBc Num1 0.20 S/CO (0.00-0.79); HBsAGNum1 0.33 S/CO (0.00-0.99); Hepatitis B Surface Antigen Negative (Negative); ~HepC Num1 0.15 S/CO (0.00-0.79); ~Hepatitis B Surface Antibody NONREACTIVE (Nonreactive); ~Hepatitis C Antibody Nonreactive (Nonreactive)
== END 2025-01-23 14:16 | disposition home or self-care (01) ==
LOC: HO.HHCL 14:15
PROVIDERS: PCP Nurse Practitioner Family; Visit Provider Nurse Practitioner Family
DX: Z00.00 Encounter for general adult medical examination without abnormal findings (principal); Z20.2 Contact with and (suspected) exposure to infections with a predominantly sexual mode of transmission; Z11.59 Encounter for screening for other viral diseases
CPT/HCPCS: 80053; 80061; 82306; 84443; 85025; 86704; 86706; 86803; 87340; 87491; 87591